=== PATIENT | male | born 1950 | race Caucasian/White ===

== ENCOUNTER 2018-10-28 20:07 | Emergency (ER) | payer OTHER ==
[2018-10-28] MEDS ORDERED: LIDOCAINE 5% TOPICAL PATCH TP ONE (20:32)
[2018-10-28] MEDS ORDERED: ACETAMINOPHEN 325 MG TAB ONE (21:09)
[2018-10-28 21:34] LABS: BASOPHILS % (AUTO) 1.3 % (0.0-5.0); EOSINOPHILS % (AUTO) 0.4 % (0.0-8.0); HEMATOCRIT 35.8 % (42-54); LYMPHOCYTES % (AUTO) 24.5 % (21.0-51.0); MEAN CORPUSCULAR HEMOGLOBIN 31.5 pg (27.0-33.0); MEAN CORPUSCULAR HGB CONC 34.6 g/dL (32.0-36.0); MEAN CORPUSCULAR VOLUME 91.1 fL (79-99); MONOCYTES % (AUTO) 5.3 % (3.0-13.0); NEUTROPHILS % (AUTO) 68.5 % (40.0-77.0); PLATELET COUNT (AUTO) 108 K/uL (130-400); RED BLOOD CELL COUNT(AUTO) 3.92 MIL/uL (4.50-6.20); RED CELL DISTRIBUTION WIDTH 13.4 % (11.0-15.5); WHITE BLOOD COUNT (AUTO) 6.7 K/uL (4.8-10.8)
[2018-10-28 21:40] LABS: CREATININE 1.5 mg/dL (0.5-1.5); POTASSIUM 5.1 mmol/L (3.5-5.1)
[2018-10-28 22:08] LABS: APPEARANCE,URINE Clear (CLEAR); BILIRUBIN,URINE Negative (NEGATIVE); COLOR,URINE Yellow (YELLOW); GLUCOSE, URINE (UA) Negative (NEGATIVE); KETONES,URINE Negative (NEGATIVE); LEUKOCYTE ESTERASE ,URINE Trace (NEGATIVE); NITRATE,URINE Negative (NEGATIVE); OCCULT BLOOD,URINE Negative (NEGATIVE); PROTEIN,URINE Negative (NEGATIVE)
[2018-10-28 22:22] LABS: BACTERIA,URINE Rare /HPF (None Seen); WBC,URINE 0-1 /HPF (0-1)
[2018-10-28] MEDS ORDERED: ORPHENADRINE CITRATE 30 MG/ML ML ONE (22:50)
[2018-10-28] MEDS ORDERED: KETOROLAC TROMETHAMINE 15MG/ML ONE (22:50)
[2018-10-28] MEDS ORDERED: MORPHINE SULFATE 2 MG/ML 1ML SYG ONE (22:51)
== END 2018-10-28 23:56 | disposition home or self-care (01) ==
LOC: EDH 20:07
DX: M54.5 Low back pain (principal); D64.9 Anemia, unspecified; D69.6 Thrombocytopenia, unspecified; E87.1 Hypo-osmolality and hyponatremia; I10 Essential (primary) hypertension; E78.5 Hyperlipidemia, unspecified; E03.9 Hypothyroidism, unspecified; Z98.890 Other specified postprocedural states; Z87.891 Personal history of nicotine dependence
CPT/HCPCS: 36415; 80048; 81001; 85025; 86140; 96374; 96375; 99284; J1885; J2360

== ENCOUNTER → 2019-06-21 | Outpatient (CLI) | payer OTHER | END | disposition home or self-care (01) | LOC: SHCH 09:51 | PROVIDERS: ATTEND Internal Medicine Cardiovascular Disease | DX: I65.23 Occlusion and stenosis of bilateral carotid arteries (principal) | CPT/HCPCS: 93880 ==

== ENCOUNTER → 2022-04-09 | Outpatient (CLI) | payer OTHER ==
[~2022-04-09] MED LIST: AEC81 PO; ATOR-2 PO; CHLO25TA3 PO; CHOL100020 PO; CYAN1000I PO; LEVO75CA5 PO; LOSA100T58 PO; METO-391 PO; OMEP20TA20 PO; POTA-202 PO; TAMS-1 PO
== END | disposition home or self-care (01) ==
LOC: SHCH 15:36
PROVIDERS: ATTEND Internal Medicine Cardiovascular Disease
DX: I65.23 Occlusion and stenosis of bilateral carotid arteries (principal)
CPT/HCPCS: 93880

== ENCOUNTER 2022-04-11 12:13 | Emergency (ER) | payer OTHER ==
[~2022-04-11] VITALS: Ht 165.1 cm; Wt 68.9 kg
[2022-04-11 12:21] VITALS: BP 106/56
[2022-04-11 13:34] LABS: BASOPHILS % (AUTO) 1.1 % (0.0-5.0); EOSINOPHILS % (AUTO) 1.8 % (0.0-8.0); HEMATOCRIT 27.2 % (42-54); LYMPHOCYTES % (AUTO) 43.8 % (21.0-51.0); MEAN CORPUSCULAR HEMOGLOBIN 30.7 pg (27.0-33.0); MEAN CORPUSCULAR HGB CONC 33.1 g/dL (32.0-36.0); MEAN CORPUSCULAR VOLUME 92.8 fL (79-99); MONOCYTES % (AUTO) 14.7 % (3.0-13.0); NEUTROPHILS % (AUTO) 38.4 % (40.0-77.0); PLATELET COUNT (AUTO) 74 K/uL (130-400); RED BLOOD CELL COUNT(AUTO) 2.93 MIL/uL (4.50-6.20); RED CELL DISTRIBUTION WIDTH 13.9 % (11.0-15.5); WHITE BLOOD COUNT (AUTO) 4.4 K/uL (4.8-10.8)
[2022-04-11 13:48] LABS: ALBUMIN 3.2 g/dL (3.5-5.0); CREATININE 2.8 mg/dL (0.5-1.5); POTASSIUM 5.3 mmol/L (3.5-5.1); TOTAL PROTEIN, SERUM 8.3 g/dL (6.0-8.3)
[2022-04-11] MEDS ORDERED: NA ZIRCON CYCLOSIL(LOKELMA 10GM) PO ONE (14:30)
== END 2022-04-11 15:06 | disposition home or self-care (01) ==
LOC: EDH 12:13
DX: N28.9 Disorder of kidney and ureter, unspecified (principal); E87.5 Hyperkalemia; I10 Essential (primary) hypertension; E78.00 Pure hypercholesterolemia, unspecified; Z79.82 Long term (current) use of aspirin; Z79.899 Other long term (current) drug therapy
CPT/HCPCS: 36415; 80053; 85025

== ENCOUNTER 2024-10-25 14:25 | Inpatient (IN) | payer MEDICARE, OTHER ==
[2024-10-25] VITALS (13 sets, daily range): BP systolic 74–106; BP diastolic 43–61; PULSE 75–87; RESP 15–17; TEMP 98.1; O2SAT 100
[~2024-10-25] VITALS: Ht 165.1 cm; Wt 73.5 kg
[~2024-10-25 14:25] MED LIST changes: -LEVO75CA5 PO; +LEVO75CA6 PO; -LOSA100T58 PO; +LOSA100T59 PO; -TAMS-1 PO; +TAMS-55 PO
--- NOTE | 2024-10-25 14:34 | ERN ---
ED Note History of Present Illness Stated Complaint: WEAK Chief Complaint: Fatigue Time Seen by MD: 14:26 Dictation: PATIENT IS A 74-YEAR-OLD MALE COMING IN TODAY WITH COMPLAINTS OF GENERALIZED BODY WEAKNESS AND FEELING WEAK AND NOT HIMSELF FOR THE LAST WEEK. HE DENIES FEV ER CHILLS NAUSEA VOMITING. NO MELENA STOOLS NO CHANGE IN URINATION. HE STATES HE HAS A HISTORY OF CAD, SEES DR. SOARES. ALSO HAS HYPERTENSION COPD AND HYPERCHOLESTEROLEMIA. HE IS A . Allergies: Coded Allergies: No Known Drug Allergies (Unverified Allergy, Unknown, 09/24/20) Home Meds Active Scripts Tamsulosin HCl (Flomax) 0.4 Mg Cap.er.24h, 0.4 MG PO DAILY for 30 Days, #[address] Prov:AINSLEY CARSON MD 09/27/20 Reported Medications Albuterol Sulfate (Ventolin Hfa) 90 Mcg Hfa.aer.ad, 2 PUFF IH Q4HPRN PRN for wheezing for 30 Days, #18 GM 0 Refills 10/25/24 Tiotropium [place] (Spiriva) 18 Mcg Cap.w.dev, 2 INH IH DAILY for 30 Days, #30 CAP 0 Refills 10/25/24 Tiotropium [place] (Spiriva) 18 Mcg Cap.w.dev, 1 CAP IH DAILY for 30 Days, #30 CAP 0 Refills 10/25/24 Pantoprazole Sodium (Pantoprazole Sodium) 40 Mg Tablet.dr, 1 TAB PO DAILY for 30 Days, #30 TAB 0 Refills 10/25/24 Clopidogrel Bisulfate (Clopidogrel) 75 Mg Tablet, 75 MG PO DAILY, TAB 10/25/24 Rosuvastatin Calcium (Rosuvastatin Calcium) 10 Mg Tablet, 20 MG PO HS, TAB 10/25/24 Losartan Potassium (Losartan Potassium) 50 Mg Tablet, 1 TAB PO DAILY for 30 Days, #30 TAB 0 Refills 10/25/24 Aspirin (ASPIRIN 81 MG ECTAB) 81 Mg Ectab, 81 MG PO DAILY, TAB.EC 09/24/20 Levothyroxine Sodium (Levothyroxine) 75 Mcg Capsule, 75 MCG PO DAILY, CAP 09/24/20 Cyanocobalamin (Vitamin B-12) 1,000 Mcg/Ml Inj, 1000 MCG PO DAILY, ML 09/24/20 Metoprolol Succinate (Metoprolol Succinate) 50 Mg Tab.er.24h, 50 MG PO BID, TAB 09/24/20 Discontinued Reported Medications Omeprazole (Omeprazole) 20 Mg Tablet.dr, 20 MG PO BID, TAB 09/24/20 Atorvastatin Calcium (Atorvastatin Calcium) 80 Mg Tablet, 80 MG PO DAILY, TAB 09/24/20 Chlorthalidone (Chlorthalidone) 25 Mg Tablet, 25 MG PO DAILY, TAB 09/24/20 Cholecalciferol (Vitamin D3) (Vitamin D3) 25 Mcg Tablet, 25 MCG PO DAILY, TAB 09/24/20 Losartan Potassium (Losartan Potassium) 100 Mg Tablet, 100 MG PO DAILY, TAB 09/24/20 Potassium Chloride (Potassium Chloride) 20 Meq Tab.er.prt, 20 MEQ PO DAILY 09/24/20 Past Medical History Past Medical History: High Cholesterol, Hypertension Surgical History: CABG RN Note Reviewed/Agreed w/PFSH: Yes Review of System Dictation CONSTITUTIONAL: NEGATIVE EXCEPT FOR HPI HEAD/FACE: NEGATIVE EXCEPT FOR HPI EENT: NEGATIVE EXCEPT FOR HPI RESPIRATORY: NEGATIVE EXCEPT FOR HPI GASTROINTESTINAL/ABDOMINAL: NEGATIVE EXCEPT FOR HPI GENITOURINARY: NEGATIVE EXCEPT FOR HPI MUSCULOSKELETAL: NEGATIVE EXCEPT FOR HPI INTEGUMENTARY: NEGATIVE EXCEPT FOR HPI NEUROLOGICAL/PSYCH: NEGATIVE EXCEPT FOR HPI HEMATOLOGIC/LYMPHATIC: NEGATIVE EXCEPT FOR HPI ALL SYSTEMS NEGATIVE, EXCEPT NOTED ABOVE. 13 POINT REVIEW OF SYSTEMS ASSESSED AND ALL NEGATIVE EXCEPT FOR ABOVE. Initial Vital Sign VS Vital Signs Date Time Temp Pulse Resp B/P (MAP) Pulse Ox O2 Delivery O2 Flow Rate FiO2 10/25/24 14:26 97.5 46 18 97 Room Air 10/25/24 14:47 0 21 Physical Exam Dictation VITAL SIGNS REVIEWED GENERAL APPEARANCE: ALERT, ORIENTED X 3, NO ACUTE DISTRESS, WELL DEVELOPED, NOURISHED. HEAD AND FACE: NON-TRAUMATIC. EYES: PERRL, PINK CONJUNCTIVAS, EYELID NO TRAUMA, ANTERIOR CHAMBER WITH ARCUS SENILIS. EARS: PINNAS INTACT AND NO SIGNS OF TRAUMA OR ERYTHEMA EAR CANALS CLEAR AND NO DISCHARGE TM NO ERYTHEMA NOSE: NO DISCHARGE, NO BLEEDING. OROPHARYNX: MOUTH NORMAL, TONGUE PINK, PHARYNX CLEAR,NO ERYTHEMA, TONSILS NO EXUDATES, NO ABSCESSES NOTED, MUCOUS MEMBRANE MOIST NECK: SUPPLE, NON-TENDER, NO THYROMEGALY, NO MASSES, NO JVD, NO BRUITS BREAST:DEFERRED CHEST:NO TENDERNESS, NO CREPITUS, NO PARADOXICAL MOVEMENT, NO RETRACTIONS LUNGS:CLEAR, WELL-VENTILATED, SYMMETRIC, NO RALES, NO WHEEZING, NO RHONCHI, NO STRIDOR, GOOD BREATH SOUNDS BILATERALLY HEART: REGULAR RATE, REGULAR RHYTHM, NO MURMUR, NO GALLOPS VASCULAR: TRACE PERIPHERAL EDEMA BILATERAL LOWER EXTREMITIES, ABDOMEN: SOFT, POSITIVE BOWEL SOUNDS, NONDISTENDED, NO GUARDING, NONTENDER, NO REBOUND, NO MASSES NO HEPATOMEGALY, NO SPLENOMEGALY, NO WHITFIELD'S SIGN, NO HERNIAS. RECTAL: DEFERRED GENITAL: DEFERRED NEUROLOGICAL: NORMAL SPEECH, MOTOR FUNCTION INTACT, SENSORY FUNCTION INTACT MUSCULOSKELETAL: NECK NONTENDER, FULL RANGE OF MOTION, BACK NONTENDER, FULL RANGE OF MOTION, EXTREMITIES: NONTENDER, FULL RANGE OF MOTION SKIN: COLOR PINK, DRY, NO TURGOR, NO RASH, NO LACERATIONS, NO ABRASIONS, NO CONTUSIONS. LYMPHATIC: DEFERRED Results (Laboratory/Radiology) Laboratory/Radiology Laboratory Tests Test 10/25/24 14:30 10/25/24 14:43 10/25/24 20:00 10/25/24 20:01 Influenza Type A Antigen Negative For Type A Influenza Type B Antigen Negative For Type B SARS-CoV-2 Antigen (Rapid) PRESUMPTIVE NEGATIVE White Blood Count 6.9 K/uL (4.8-10.8) Red Blood Count 3.44 MIL/uL (4.50-6.20) L Hemoglobin 10.7 g/dL (14.0-18.0) L Hematocrit 33.4 % (42-54) L Mean Corpuscular Volume 97.1 fL (79-99) Mean Corpuscular Hemoglobin 31.1 pg (27.0-33.0) Mean Corpuscular Hemoglobin Concent 32.0 g/dL (32.0-36.0) Red Cell Distribution Width 13.3 % (11.0-15.5) Platelet Count 95 K/uL (130-400) L Mean Platelet Volume 10.7 fL (7.5-10.5) H Immature Granulocyte % (Auto) 0.3 % (0-1) Neutrophils (%) (Auto) 59.6 % (40.0-77.0) Lymphocytes (%) (Auto) 33.6 % (21.0-51.0) Monocytes (%) (Auto) 5.8 % (3.0-13.0) Eosinophils (%) (Auto) 0.3 % (0.0-8.0) Basophils (%) (Auto) 0.4 % (0.0-5.0) Neutrophils # (Auto) 4.1 K/uL (1.8-7.7) Lymphocytes # (Auto) 2.3 K/uL (1.0-4.8) Monocytes # (Auto) 0.4 K/uL (0.1-1.0) Eosinophils # (Auto) 0.02 K/uL (0.00-0.70) Basophils # (Auto) 0.03 K/uL (0.00-0.20) Absolute Immature Granulocyte (auto 0.02 K/uL (0-1) Nucleated Red Blood Cells 0.0 % (0.0-0.19) Prothrombin Time 11.0 SEC (9.6-11.6) Prothromb Time International Ratio 1.04 (0.85-1.15) Activated Partial Thromboplast Time 28.2 SEC (26.3-35.5) D-Dimer Quantitative (PE/DVT) 964 ng/mL (0-500) *H Sodium Level 133 mmol/L (136-145) L Potassium Level 4.2 mmol/L (3.5-5.1) Chloride Level 100 mmol/L (101-111) L Carbon Dioxide Level 19 mmol/L (21-32) L Blood Urea Nitrogen 28 mg/dL (7-18) H Creatinine 3.3 mg/dL (0.5-1.3) H Glomerular Filtration Rate Calc 19 mL/min (>90) Random Glucose 123 mg/dL (70-105) H Lactic Acid Level 4.0 mmol/L (0.8-2.5) H Total Calcium 9.2 mg/dL (8.5-10.1) Magnesium Level 1.60 mg/dL (1.80-2.40) L Troponin I High Sensitivity 15 ng/L (4-75) B-Type Natriuretic Peptide 949 pg/mL (0-100) H Urine Random Creatinine 92.99 mg/dL (30-135) Urine Random Sodium 32 mmol/l (40-220) L Urine Color YELLOW (YELLOW) Urine Appearance CLOUDY (CLEAR) H Urine pH 6.0 (5.0-8.0) Urine Specific Ragan 1.010 (1.001-1.031) Urine Protein 100 mg/dL (NEGATIVE) H Urine Glucose (UA) NEGATIVE mg/dL (NEGATIVE) Urine Ketones NEGATIVE mg/dL (NEGATIVE) Urine Occult Blood MODERATE (NEGATIVE) H Urine Nitrate NEGATIVE (NEGATIVE) Urine Bilirubin NEGATIVE mg/dL (NEGATIVE) Urine Urobilinogen 0.2 mg/dL (0.2-1.0) Urine Leukocyte Esterase 500 Miranda/uL (NEGATIVE) H Urine RBC 11-25 /HPF (0-1) H Urine WBC TNTC /HPF (0-1) H Urine WBC Clumps (Auto) MANY /HPF (0-1) Urine Squamous Epithelial Cells RARE /HPF (0-2) Urine Bacteria None /HPF (None Seen) Test 10/25/24 20:09 10/26/24 01:05 10/26/24 04:00 Lactic Acid Level 1.9 mmol/L (0.8-2.5) 1.2 mmol/L (0.8-2.5) Prothrombin Time 12.0 SEC (9.6-11.6) H Prothromb Time International Ratio 1.15 (0.85-1.15) Activated Partial Thromboplast Time > 139.0 SEC (26.3-35.5) White Blood Count 8.0 K/uL (4.8-10.8) Red Blood Count 3.29 MIL/uL (4.50-6.20) L Hemoglobin 10.3 g/dL (14.0-18.0) L Hematocrit 30.9 % (42-54) L Mean Corpuscular Volume 93.9 fL (79-99) Mean Corpuscular Hemoglobin 31.3 pg (27.0-33.0) Mean Corpuscular Hemoglobin Concent 33.3 g/dL (32.0-36.0) Red Cell Distribution Width 13.4 % (11.0-15.5) Platelet Count 115 K/uL (130-400) L Mean Platelet Volume 12.0 fL (7.5-10.5) H Immature Granulocyte % (Auto) 0.4 % (0-1) Neutrophils (%) (Auto) 68.9 % (40.0-77.0) Lymphocytes (%) (Auto) 23.3 % (21.0-51.0) Monocytes (%) (Auto) 6.9 % (3.0-13.0) Eosinophils (%) (Auto) 0.0 % (0.0-8.0) Basophils (%) (Auto) 0.5 % (0.0-5.0) Neutrophils # (Auto) 5.5 K/uL (1.8-7.7) Lymphocytes # (Auto) 1.9 K/uL (1.0-4.8) Monocytes # (Auto) 0.6 K/uL (0.1-1.0) Eosinophils # (Auto) 0.00 K/uL (0.00-0.70) Basophils # (Auto) 0.04 K/uL (0.00-0.20) Absolute Immature Granulocyte (auto 0.03 K/uL (0-1) Nucleated Red Blood Cells 0.0 % (0.0-0.19) Sodium Level 134 mmol/L (136-145) L Potassium Level 4.0 mmol/L (3.5-5.1) Chloride Level 103 mmol/L (101-111) Carbon Dioxide Level 17 mmol/L (21-32) L Blood Urea Nitrogen 32 mg/dL (7-18) H Creatinine 3.0 mg/dL (0.5-1.3) H Glomerular Filtration Rate Calc 21 mL/min (>90) Random Glucose 140 mg/dL (70-105) H Total Calcium 8.3 mg/dL (8.5-10.1) L Phosphorus Level 4.0 mg/dL (2.5-4.9) Magnesium Level 1.90 mg/dL (1.80-2.40) Thyroid Stimulating Hormone (TSH) 2.24 uIU/mL (0.36-3.74) Examination: Chest, 1 view Clinical history: Chest pain Comparison: Radiograph dated September 24, 2020 Findings: AP view of the chest is submitted. Lungs are clear. No pleural effusion or pneumothorax. Prior sternotomy. Heart size and pulmonary vessels are within normal limits. Impression: No acute cardiopulmonary process. /[place] Labs Reviewed?: Yes EKG Comment: EKG ATRIAL FIBRILLATION/VENTRICULAR RATE 14 ED Course ED Course Orders Procedure Category Date Status Time B-Type Natriuretic LAB 10/25/24 Complete Peptide 14:29 Covid19 (Sars Antigen LAB 10/25/24 Complete Rapid) 14:29 Cbc With Differential LAB 10/25/24 Complete 14:29 Chest 1vw RAD 10/25/24 Resulted 14:29 12 Lead Ekg Tracing- EKG 10/25/24 Logged Technical 14:29 Magnesium LAB 10/25/24 Complete 14:29 Troponin I High LAB 10/25/24 Complete Sensitivity 14:29 Urinalysis Profile LAB 10/25/24 Complete 14:29 Basic Metabolic Panel LAB 10/25/24 Complete 14:29 0.9%Nacl 1000ml (Ns PHA 10/25/24 Complete 1000ml) 15:00 0.9%Nacl 1000ml (Ns PHA 10/25/24 Complete 1000ml) 14:47 0.9%Nacl 1000ml (Ns PHA 10/25/24 Complete 1000ml) 15:00 Blood Cult CORINNE 10/25/24 In Process 14:49 Lactic Acid LAB 10/25/24 Complete 14:49 Influenza Type A & B, LAB 10/25/24 Complete Rapid 14:56 Magnesium 2gm Premix PHA 10/25/24 Complete 50ml (Magnesium 2gm 15:30 Dobutamine 250mg/D5 PHA 10/25/24 In Process 250ml (Dobutamine 25 16:00 Heparin 25,000 PHA 10/25/24 In Process Units/250ml D5w 16:00 Initiate Amiodarone XIANG 10/25/24 In Process Administra 15:44 Amiodarone PHA 10/25/24 Complete 150mg/100ml Bag 16:00 Amiodarone PHA 10/25/24 In Process 360mg/200ml Bag 16:00 Dextrose 5%-Water PHA 10/25/24 In Process (... W/Amiodarone 900m 22:00 Echo 2-D Complete ECHO 10/25/24 Taken 15:50 Midazolam Hcl (Versed) PHA 10/25/24 Complete 17:30 Fentanyl Citrate Pf PHA 10/25/24 Complete 0.05 Mg/Ml (Fentanyl 17:30 Ondansetron 4mg Inj PHA 10/25/24 Complete (Zofran 4mg Inj) 17:30 Ondansetron 4mg Inj PHA 10/25/24 Complete (Zofran 4mg Inj) 17:30 Norepinephrin 4mg/Ns PHA 10/25/24 Complete 250ml (Levophed 4mg 17:45 D-Dimer LAB 10/25/24 Complete 17:46 Ceftriaxone 1g Vial PHA 10/25/24 Complete (Rocephine 1g Inj) 18:00 Pt And Ptt LAB 10/25/24 Complete 17:57 Norepinephrin 4mg/Ns PHA 10/25/24 In Process 250ml (Levophed 4mg 18:00 Heparin 5,000 Unit PHA 10/25/24 Complete Vial (Heparin 5,000 U 18:30 Admit Orders ADM 10/25/24 Transmitted 18:14 Cardiology Consult CONPHYSVC 10/25/24 Transmitted 18:14 Critcal Care Consult CONPHYSVC 10/25/24 Transmitted 18:14 Strict I&O CPOE 10/25/24 Transmitted 18:36 Daily Weights CPOE 10/25/24 Transmitted 18:36 Furosemide 40mg Vial PHA 10/25/24 In Process (Lasix 40mg Vial) 19:00 Pt And Ptt LAB 10/26/24 Complete 01:00 Lactic Acid LAB 10/25/24 Complete 20:01 Culture Urine CORINNE 10/25/24 In Process 20:40 Nurse Driven Galindo XIANG 10/25/24 In Process Removal Pro 20:42 Basic Metabolic Panel LAB 10/26/24 Complete 04:00 Cbc With Differential LAB 10/26/24 Complete 04:00 Magnesium LAB 10/26/24 Complete 04:00 Phosphorus LAB 10/26/24 Complete 04:00 Urine Sodium,Random LAB 10/25/24 Complete 20:45 Urine Creatinine LAB 10/25/24 Complete Random 20:45 Osmolality Urine LAB 10/25/24 In Process 20:45 Lactic Acid LAB 10/26/24 Complete 04:00 Zosyn 3.375gm+Ns 50ml PHA 10/25/24 In Process (Zosyn 3.375gm+Ns 21:00 Magnesium 2gm Premix PHA 10/25/24 In Process 50ml (Magnesium 2gm 21:00 Acetaminophen 325 Tab PHA 10/25/24 In Process (Tylenol 325mg Tab 21:00 Heparin 5,000 Unit PHA 10/25/24 Complete Vial (Heparin 5,000 U 21:00 Ondansetron 4mg Inj PHA 10/25/24 In Process (Zofran 4mg Inj) 21:00 Pantoprazole 40mg Inj PHA 10/26/24 In Process (Protonix 40mg Inj 09:00 Morphine 2mg Syg PHA 10/25/24 In Process (Morphine 2mg Syg) 21:00 Nephrology Consult CONPHYSVC 10/25/24 Transmitted 21:02 Thyroid Stimulating LAB 10/26/24 Complete Hormone 04:00 Nicotine 14mg Patch PHA 10/26/24 Complete (Nicoderm) 01:00 Nicotine 14mg Patch PHA 10/27/24 In Process (Nicoderm) 09:00 Current Medications Medications (Trade) Dose Ordered Sig/Gustavo Route PRN Reason Start Time Stop Time Status Last Admin Dose Admin Amiodarone HCL/ Dextrose 100 ml @ 600 mls/hr ONCE ONCE IV 10/25/24 16:00 10/25/24 16:09 DC 10/25/24 16:24 Amiodarone HCL/ Dextrose 200 ml @ 33.333 mls/ hr AD IV 10/25/24 16:00 11/24/24 15:59 10/25/24 17:42 Ceftriaxone Sodium (ROCEphine 1G INJ) 1 gm ONCE ONCE IVPB 10/25/24 18:00 10/25/24 18:01 DC 10/25/24 18:59 Dobutamine HCl/ Dextrose 250 ml @ 0 mls/hr PROTOCOL IV 10/25/24 16:00 11/24/24 15:59 10/25/24 16:22 Fentanyl Citrate (FENTanyl CITRate PF 50 MCG/ 1 ML 2ML VIAL) 25 mcg ONCE ONCE IVP 10/25/24 17:30 10/25/24 17:31 DC 10/25/24 17:37 Heparin Sodium/ Dextrose 250 ml @ 0 mls/hr PROTOCOL IV 10/25/24 16:00 11/24/24 15:59 10/25/24 19:01 Magnesium Sulfate 50 ml @ 0 mls/hr PROTOCOL IV 10/25/24 15:30 10/25/24 21:00 DC 10/25/24 16:27 Midazolam HCl (Versed) 1 mg ONCE ONCE IVP 10/25/24 17:30 10/25/24 17:31 DC 10/25/24 17:37 Norepinephrine 250 ml @ As Directed STK-MED ONCE IV 10/25/24 17:45 10/25/24 17:45 DC Norepinephrine 250 ml @ 0 mls/hr PROTOCOL IV 10/25/24 18:00 11/24/24 17:59 10/26/24 03:43 Ondansetron HCl (zoFRAN 4MG INJ) 4 mg ONCE ONCE IVP 10/25/24 17:30 10/25/24 17:27 DC Ondansetron HCl (zoFRAN 4MG INJ) 4 mg ONCE ONCE IVP 10/25/24 17:30 10/25/24 17:31 DC 10/25/24 17:32 Sodium Chloride 1,000 ml @ 0 mls/hr ONCE ONCE IV 10/25/24 15:00 10/25/24 14:52 DC Sodium Chloride 1,000 ml @ 0 mls/hr ONCE ONCE IV 10/25/24 15:00 10/25/24 15:01 DC 10/25/24 14:49 Sodium Chloride 1,000 ml @ As Directed STK-MED ONCE IV 10/25/24 14:47 10/25/24 14:49 DC Vital Signs Date Time Temp Pulse Resp B/P (MAP) Pulse Ox O2 Delivery O2 Flow Rate FiO2 10/26/24 05:26 84 15 94/52 (66) 100 28 84/50 (61) 10/26/24 05:11 70 17 93/50 (64) 99 28 89/54 (66) 10/26/24 04:56 77 16 96/53 (67) 100 28 98/48 (65) 10/26/24 04:42 81 17 90/48 (62) 100 28 78/53 (61) 10/26/24 04:26 81 17 90/49 (63) 100 28 103/59 (74) 10/26/24 04:11 74 17 88/50 (63) 100 28 96/50 (65) 10/26/24 04:00 98.2 10/26/24 03:56 105 17 87/54 (65) 99 28 103/44 (63) 10/26/24 03:43 95/55 10/26/24 03:42 100 17 113/64 (80) 99 28 102/62 (75) 10/26/24 03:26 91 15 102/62 (75) 99 28 90/49 (63) 10/26/24 03:11 78 16 107/60 (76) 99 28 108/55 (72) 10/26/24 03:00 100 Nasal Cannula* 2 28 10/26/24 02:56 90 18 99/60 (73) 100 28 103/57 (72) 10/26/24 02:41 83 17 97/58 (71) 100 28 111/53 (72) 10/26/24 02:26 91 18 102/61 (75) 100 28 109/53 (71) 10/26/24 02:11 89 16 97/66 (76) 100 28 105/60 (75) 10/26/24 01:56 94 17 105/63 (77) 100 28 105/35 (58) 10/26/24 01:41 86 17 93/59 (70) 100 28 101/63 (76) 10/26/24 01:26 76 17 88/59 (69) 100 28 107/64 (78) 10/26/24 01:11 84 17 92/63 (73) 100 28 102/68 (79) 10/26/24 00:56 79 17 102/53 (69) 100 28 95/55 (68) 10/26/24 00:41 80 17 103/57 (72) 99 28 116/55 (75) 10/26/24 00:26 88 17 101/54 (70) 100 28 105/56 (72) 10/26/24 00:11 78 16 90/57 (68) 100 28 109/80 (90) 10/25/24 23:56 81 17 90/61 (71) 100 28 106/48 (67) 10/25/24 23:41 75 16 94/53 (67) 100 28 97/53 (68) 10/25/24 23:26 75 16 96/53 (67) 100 28 99/59 (72) 10/25/24 23:11 77 17 82/52 (62) 100 28 95/60 (72) 10/25/24 23:00 100 Nasal Cannula* 2 28 10/25/24 22:56 79 16 87/56 (66) 100 28 103/51 (68) 10/25/24 22:41 76 15 90/56 (67) 100 28 97/56 (70) 10/25/24 22:26 75 16 77/46 (56) 99 28 94/53 (67) 10/25/24 22:16 108/62 10/25/24 22:12 76 16 88/57 (67) 100 28 98/59 (72) 10/25/24 22:00 98.1 10/25/24 21:56 87 15 96/55 (69) 99 28 105/58 (74) 10/25/24 21:41 80 15 94/55 (68) 100 28 95/61 (72) 10/25/24 21:29 84 17 74/43 (53) 99 28 100/56 (71) 10/25/24 21:05 97.5 87 16 108/62 100 Nasal Cannula* 2 10/25/24 20:09 97.3 80 18 110/60 100 Nasal Cannula* 2 10/25/24 19:13 97.9 77 18 97/67 100 Nasal Cannula* 2 10/25/24 18:41 97.9 86 18 116/66 97 Nasal Cannula* 2 10/25/24 18:23 97.9 98 18 110/61 97 Nasal Cannula* 2 10/25/24 18:19 91/36 10/25/24 18:03 97.9 95 18 109/60 100 Nasal Cannula* 2 10/25/24 17:58 115/60 10/25/24 17:35 97.5 154 18 72/65 97 Nasal Cannula* 6 44 10/25/24 17:01 97.5 163 18 107/56 97 Nasal Cannula* 2 10/25/24 16:57 97.5 165 18 103/56 97 Nasal Cannula* 2 10/25/24 16:38 97.5 114 18 51/29 100 Nasal Cannula* 2 10/25/24 16:28 97.5 149 26 71/46 97 Room Air* 0 10/25/24 16:22 65/38 10/25/24 15:20 97.5 140 26 82/44 95 Room Air* 0 10/25/24 14:47 81 18 76/47 94 Room Air* 0 10/25/24 14:26 97.5 46 18 97 Room Air 1450/PATIENT HAD ATRIAL FIBRILLATION WITH RAPID VENTRICULAR RESPONSE PLACE HEART RATE 144 PATIENT HYPOTENSIVE 76/47. DISCUSSED CASE WITH . WE WILL GIVE1 L OF NORMAL SALINE TO BRING UP BLOOD PRESSURE. THEN RATE WE WILL BE ADDRESSED ONCE PATIENT IS MORE HEMODYNAMICALLY STABLE. Medical Decision Making MDM Chief complaint is general body weakness, and near syncopal episodes Comorbidities include previous CABG, COPD, dyslipidemia No limitations Initially patient initially patient has a an extremities. His blood pressure is 70/48, heart rate in the 140s atrial fibrillation with RVR. Patient received 1.5 L of fluid. The heart rate did not respond. Blood pressure did not respond. Patient given a bolus of amiodarone. Cardioverted the patient. The rate reduced to 90 but the blood pressure remained unstable. Cardiogenic shock. Started on norepinephrine. Started on heparin. His symptoms have been present for two weeks or so, he has likely been in AFib for that long high-risk for clots. Started on amiodarone drip. I do not see any signs of sepsis or any signs of the obstructive pathology. We will get a D-dimer to investigate for PE although he has a stable oxygen saturation I have low suspicion. He had received a dose of antibiotics in the ER. Consultation: I spoke with Dr. Mayo, regional transportation manager multiple times. Reviewed the case. We agreed that the patient has a good candidate for cardioversion since he is in cardiogenic shock possibly due to the amiodarone. He performed a bedside echo with a me at the bedside, EF is probably 20-25%. Consultation: ICU team for admission. Consultation: Hospitalist. Procedure Additional Procedures: cardioversion/defib (Synchronized cardioversionIndication AFib RVR in cardiogenic shockPatient given 25 mcg of fentanyl, 1 mg of Versed. The blood pressure was monitored by the nursing tom TOLEDO at bedside. Patient received two different shocks at 200 joules. On the 2nd round, the patient's heart rate decreased to 90, but remained atrial fibrillation. Blood pressure remained in stable. Started on pressors. Total time 2 minutes. Performed by me. The patient was consented prior to the procedure and risks and benefits explained. Consent in the chart.) Critical Care Note Critical Time: 30 minutes (Critical Care Procedure NoteAuthorized and Performed by: meTotal critical care time: Approximately 36 minutesDue to a high probability of clinically significant, life threatening deterioration, the patient required my highest level of preparedness to intervene emergently and I personally spent this critical care time directly and personally managing the patient. This critical care time included obtaining a history; examining the patient; pulse oximetry; ordering and review of studies; arranging urgent treatment with development of a management plan; evaluation of patient's response to treatment; frequent reassessment; and, discussions with other providers.This critical care time was performed to assess and manage the high probability of imminent, life-threatening deterioration that could result in multi-organ failure. It was exclusive of separately billable procedures and treating other patients and teaching time.Please see MDM section and the rest of the note for further information on patient assessment and treatment.) DX & DISP Disposition: Inpatient Departure Impression: Primary Impression: Atrial fibrillation with RVR Additional Impressions: Cardiogenic shock, Lactic acidosis Condition: Critical Referrals: ROGER HOWELL MD (PCP) I performed a substantive portion of the visit. I have reviewed and personally made and approve the management plan that is documented in the notes by myself with AYUSH/resident. I acknowledged full responsibility for the patient's management plan. FENG SALAZAR NP Oct 25, 2024 14:34 ELIZABETH RG DO Oct 25, 2024 17:59
[2024-10-25] MEDS: 0.9%NACL 1000ML 1,000 ML IV ONE ×2 (14:49→15:06)
[2024-10-25 14:56] LABS: IMMATURE GRANULOCYTE ABSOLUTE 0.02 K/uL (0-1); NUCLEATED RED BLOOD CELLS 0.0 % (0.0-0.19); PLATELET COUNT (AUTO) 95 K/uL (130-400); RED BLOOD CELL COUNT(AUTO) 3.44 MIL/uL (4.50-6.20); RED CELL DISTRIBUTION WIDTH 13.3 % (11.0-15.5); WHITE BLOOD COUNT (AUTO) 6.9 K/uL (4.8-10.8)
[2024-10-25] MEDS ORDERED: 0.9%NACL 1000ML 1,000 ML IV ONE (15:00)
[2024-10-25 15:12] LABS: CREATININE 3.3 mg/dL (0.5-1.3); GLOMERULAR FILTR. RATE CALC 19.0 mL/min (>90); GLUCOSE,RANDOM 123.0 mg/dL (70-105); SODIUM SERUM 133.0 mmol/L (136-145); UREA NITROGEN, BLOOD 28.0 mg/dL (7-18)
[2024-10-25 15:17] LABS: INFLUENZA TYPE A Negative For Type A (NEGATIVE); INFLUENZA TYPE B Negative For Type B (NEGATIVE)
--- NOTE | 2024-10-25 15:25 | HMCIMG ---
Examination: Chest, 1 view Clinical history: Chest pain Comparison: Radiograph dated September 24, 2020 Findings: AP view of the chest is submitted. Lungs are clear. No pleural effusion or pneumothorax. Prior sternotomy. Heart size and pulmonary vessels are within normal limits. Impression: No acute cardiopulmonary process. /[place]
[2024-10-25] MEDS: AMIOdarone 150MG/100ML BAG 100 ML IV ONE (16:24)
[2024-10-25] MEDS: MAGNESIUM 2GM PREMIX 50ML 50 ML IV SCH (16:27)
--- NOTE | 2024-10-25 16:40 | NUR ---
AMIODORONE BOLUS COMPLETE VITALS OBTAINED
--- NOTE | 2024-10-25 17:23 | NUR ---
CALLED KATHI PER PATIENT PERMISSION TO GIVE UPDATE ON PATIENT STATUS AND PROCEDURES
--- NOTE | 2024-10-25 17:36 | NUR ---
CARDIOVERT 200J PRIMARY NURSE CHARGE NURSE AND ER DR AT [facility]
[2024-10-25] MEDS: MIDAZOLAM HCL 1 MG/ML 2ML VIAL IVP ONE (17:37)
--- NOTE | 2024-10-25 17:39 | NUR ---
CARDIOVERT 200J (SECOND) PRIMARY NURSE CHARGE NURSE AND ER DR AT BEDSIDE
[2024-10-25] MEDS: AMIODARONE 360MG/200ML BAG 200 ML IV SCH (17:42)
--- NOTE | 2024-10-25 17:45 | NUR ---
DR MONREAL CONSULTED
--- NOTE | 2024-10-25 17:50 | NUR ---
DOBUTAMINE STOPPED AT THIS TIME
--- NOTE | 2024-10-25 18:10 | NUR ---
DR MONREAL AT BEDSIDE
--- NOTE | 2024-10-25 18:16 | HP ---
History of Present Illness Reason for Visit: fatigue History of Present Illness Mr. Tinoco is a 74-year-old male that was seen and examined today on 10/25/2024. Patient is a good historian of personal health Patient reports that he came to the emergency department with a chief complaint of weakness. Onset was 10 days ago. Location is to bilateral lower extremities. Duration is constant. Character is described as " trouble walking."There was no alleviating factors. Symptoms are aggravated with physical activity. Patient reports associated fatigue. Today in the emergency department patient presented with a blood pressure 70/27, subsequent blood pressure 65/38, 51/29 mmHg. Patient's EKG showed AFib with a RVR. Patient was started on amiodarone drip and this did not help. Patient was also started on dobutamine drip is did not help. Patient required vasopressor support with Levophed. Cardiology service was contacted for recommendations. Synchronized cardioversion was recommended which did not improve patient's blood pressure either. Additionally patient received 2 L of 0.9% NS in the emergency department. Labs showed creatinine 3.3, BUN 28, GFR 19, lactic acid 4.0, BNP 949, magnesium 1.6, no urinalysis has been collected or sent to lab chest x-ray is unremarkable. Emergency room physician recommended that patient be admitted with a diagnosis of AFib RVR with hypotension. Past Medical History ADDITIONAL PAST MEDICAL HISTORY: [Hyperlipidemia, CAD, hypertension, hypothyroidism, CKD stage IIIB] SOCIAL HISTORY: Patient smokes half a pack of cigarettes daily, patient drinks alcohol once a week usually two cocktails that include [employer] whiskey. Patient denies drug use. SURGICAL HISTORY: [CABG, heart stent, CVA, RICE, LICE] Review of Systems General: No Fever, No Chills, No Night Sweats, No Fatigue, No Malaise, No Appetite, No Other HEENT: No Head Aches, No Visual Changes, No Eye Pain, No Ear Pain, No Dysphasia, No Sinus Congestion, No Post Nasal Drip, No Sore Throat, No Other Pulmonary: No Dyspnea, No Cough, No Pleuritic Chest Pain, No Other Cardiovascular: No: Chest Pain, Palpitations, Orthopnea, Paroxysmal Noc. Dyspnea, Edema, Lt Headedness, Other Gastrointestinal: No: Nausea, Vomiting, Abdominal Pain, Diarrhea, Constipation, Melena, Hematochezia, Other Genitourinary: No Dysuria, No Frequency, No Incontinence, No Hematuria, No Retention, No Other Musculoskeletal: No: other, neck pain, shoulder pain, arm pain, back pain, hand pain, leg pain, foot pain Skin: No Urticaria, No Rash, No Other Neurological: Weakness; No: Numbness, Incoordination, Change in speech, Confusion, Seizures, Other Allergies: Coded Allergies: No Known Drug Allergies (Unverified Allergy, Unknown, 09/24/20) Scheduled Aspirin (Aspirin 81 Mg Ectab), 81 MG PO DAILY, (Reported) Clopidogrel Bisulfate (Clopidogrel), 75 MG PO DAILY, (Reported) Cyanocobalamin (Vitamin B-12), 1,000 MCG PO DAILY, (Reported) Levothyroxine Sodium (Levothyroxine), 75 MCG PO DAILY, (Reported) Losartan Potassium (Losartan Potassium), 1 TAB PO DAILY, (Reported) Metoprolol Succinate (Metoprolol Succinate), 50 MG PO BID, (Reported) Pantoprazole Sodium (Pantoprazole Sodium), 1 TAB PO DAILY, (Reported) Rosuvastatin Calcium (Rosuvastatin Calcium), 20 MG PO HS, (Reported) Tamsulosin HCl (Flomax), 0.4 MG PO DAILY Tiotropium [place] (Spiriva), 1 CAP IH DAILY, (Reported) Tiotropium [place] (Spiriva), 2 INH IH DAILY, (Reported) Scheduled PRN Albuterol Sulfate (Ventolin Hfa), 2 PUFF IH Q4HPRN PRN for wheezing, (Reported) Discontinued Medications Atorvastatin Calcium (Atorvastatin Calcium), 80 MG PO DAILY, (Reported) Chlorthalidone (Chlorthalidone), 25 MG PO DAILY, (Reported) Cholecalciferol (Vitamin D3) (Vitamin D3), 25 MCG PO DAILY, (Reported) Losartan Potassium (Losartan Potassium), 100 MG PO DAILY, (Reported) Omeprazole (Omeprazole), 20 MG PO BID, (Reported) Potassium Chloride (Potassium Chloride), 20 MEQ PO DAILY, (Reported) Exam Vital Signs Vital Signs Date Time Temp Pulse Resp B/P (MAP) Pulse Ox O2 Delivery O2 Flow Rate FiO2 10/25/24 18:03 97.9 95 18 109/60 100 Nasal Cannula* 2 28 General Appearance: Alert, Cooperative, severe distress HEENT: Atraumatic, EOMI Respiratory: Clear to auscultation, Normal air movement, NL respiratory effort Cardiovascular: Normal S1, Normal S2, Other (Atrial fibrillation) Abdominal: Normal bowel sounds, Soft, No tenderness Extremities: No edema Skin: No significant lesion Neuro: Normal speech, Sensation intact, Cranial nerves 3-12 NL Psych/Mental Status: Mental status NL, Mood NL, Thoughts/Content NL Assessment/Plan ASSESSMENT: [ AFib with a RVR, POA, refractory Hypotension, POA Acute kidney injury, POA, today creatinine 3.3, on 04/11/2022 creatinine 2.8 Lactic acidosis, POA Elevated BNP, POA Hypomagnesemia, POA Hyperlipidemia Hypothyroidism] Tobacco dependence, POA PLAN: [ Admit patient to intensive care unit as inpatient status. Place patient on telemetry monitoring. Patient will be followed by critical care service. AFib with a RVR: Continue amiodarone drip per emergency room orders and Cardiology recommendations. Patient received synchronized cardioversion in the emergency department which did not improve AFib with RVR Continue heparin drip per emergency room orders Hypotension: Consider Levophed per emergency room monitors. Further vasopressor support recommendations from critical care service has been Acute kidney injury: Calculate FENA Check urine sodium, creatinine, osmolality Avoid nephrotoxic agents when possible Renally dose all medications when possible Consult Nephrology for evaluation and further recommendations. Judicious use of IV fluids as preliminary 2D echo patient has decreased systolic function with LVEF 20-25% Monitor patient's labs. Weight patient daily. Monitor intake and output. Lactic acidosis: Patient received 2 L 0.9% NS in the emergency department. Check procalcitonin, follow up with the results Repeat lactic acid in a.m. Check blood culture, follow up with the results Check urinalysis, follow up with the results Elevated BNP: 2D echo has been ordered by Cardiology Service. Preliminary reading shows systolic dysfunction with LVEF 20-25% Follow up with official 2D echo report Hypomagnesemia: Replace magnesium per hospital protocol. Further electrolyte replacement per Nephrology recommendations Hyperlipidemia, CAD, hypothyroidism: Consider resuming home medications once they have been reconciled At time of admission home medications have not been reconciled For now: check tsh in am Check TSH in a.m. Tobacco dependence: Consult patient on smoking cessation. Start nicotine patch 14 mg transdermally once daily. GI prophylaxis, Protonix DVT prophylaxis, patient is on heparin drip as mentioned above. Critical Care Time: I spent ___51___ minutes of critical care time with the patient. I reviewed lab work, change the patient's medication, and coordinated protocol in the event of tachycardia or desaturation. The patient status remains unchanged ADVANCED CARE PLANNING 1. Which of the following were discussed? Hospice Care - Yes Therapeutic options - yes Advance Directives - Yes - Other discussions - 2. Discussed with who? Patient 3. Voluntary nature of this service was explained to the patient? Yes 4. Amount of time spent - ___16 minutes____ 5. Reviewed by Physician? (if this service was performed by NPP) Yes This document was generated in part using voice recognition software, occasional wrong word or sound alike substitutions may have occurred due to the inherent limitations of voice recognition software. Read the chart carefully and recognize using context, where the substitutions have occurred. Although every effort was made to edit the content, robotics engineer and typing errors may occur ] YULIA BYNUM [facility] Oct 25, 2024 18:16
[2024-10-25] MEDS: NOREPINEPHRIN 4MG/NS 250ML 250 ML IV SCH (18:19)
[2024-10-25 18:24] LABS: INR 1.04 (0.85-1.15)
[2024-10-25] MEDS ORDERED: CLOP75TA32 PO (18:39)
[2024-10-25] MEDS ORDERED: ROSU10TA72 PO (18:39)
[2024-10-25] MEDS ORDERED: LOSA50TA64 PO (18:39)
[2024-10-25] MEDS ORDERED: PANT40TA54 PO (18:39)
[2024-10-25] MEDS ORDERED: ALBU18HF7 IH (18:39)
[2024-10-25] MEDS ORDERED: TIOT18CA3 IH (18:39)
--- NOTE | 2024-10-25 18:58 | CONS ---
[facility] CONSULTATION NOTE Date Patient Seen: Oct 25, 2024 Time of Visit: 18:58 Supervising Physician: Bharat Jesus Reason for Consultation: [facility] Primary Care Physician: Dr. Jeffrey Neil Outpatient Specialists: Dr. Jimenez, net finisher Inpatient Consults: Critical Care team [facility] PROBLEM LIST: Cardiogenic shock, POA New onset systolic heart failure Atrial fibrillation with RVR Hypotension, in need of pressors Carotid artery disease Chronic kidney disease CAD s/p 3V CABG ( RODRIGUES-LAD, SVG-D, SVG-PDA ) August 2009 History of hypertension, currently hypotensive Acute kidney injury, GFR Lactic acidosis Elevated BNP Hypomagnesemia Hyperlipidemia Hypothyroidism Tobacco dependence HPI: Mr. Tinoco is a 74-year-old male with a past medical history of CAD s/p s tenting procedure 2009 with Subsequent 3V CABG ( RODRIGUES-LAD, SVG-D, SVG-PDA ) August 2009 , Dyslipidemia, Hypertension, Tobacco Dependence, Remote Lacunar Infarct 2009, CAD s/p right carotid endarterectomy 2010 with with subsequent left carotid endarterectomy 2018 and greater than 70% distal common carotid artery and 50 to 70% in the left internal carotid artery June 2024, hypothyroidism, Chronic in Disease Stage IIIB who presented to ED for evaluation of body weakness and shortness of breath onset seven days. The patient was found with AFib with RVR with a heart rate in the 140s, and hypotensive with a systolic blood pressure in the 70s, giving this findings the patient was cardioverted electrically x1 and did not restore sinus rhythm, the patient was started on amiodarone bolus and infusion, currently evaluated at the bedside, telemetry shows atrial fibrillation, rate controlled, the patient underwent a limited bedside 2D echocardiogram that showed a newly suppressed systolic function of 20-25%, pending formal read. Troponins were negative, BNP 949, creatinine 3.3. Cardiology was consulted for atrial fibrillation and has seen the patient. ED provider request patient be admitted with the diagnosis of a AFib RVR, cardiogenic shock, lactic acidosis. The patient was admitted by the [facility] Hosptialist Team and BIS team was consulted for critical care management. I assessed the patient at bedside in ED 13. The patient appeared weak, breathing was even, unlabored, in no distress. Patient denied any chest pain, shortness of breath, any other pain, problem or concern. I informed the patient of labs, diagnostics, and plan of care. He verbalized understanding and is in agreement with the plan. Plan and assessment are listed below. PAST MEDICAL HX: see above PAST SURGICAL HX: As mentioned above SOCIAL HISTORY: No tobacco, ETOH, or illicit drug use Coded Allergies: No Known Drug Allergies (Unverified Allergy, Unknown, 09/24/20) REVIEW OF SYSTEMS: 12 point ROS reviewed with patient. Pertinent positives mentioned above. Otherwise negative. PHYSICAL EXAM: GENERAL: Alert, weak, awake oriented x 3 HEENT: EOMI, Sclera non icteric, moist mucosa NECK: Supple, no JVD, trachea midline LUNGS: Diminished breath sounds bilaterally. No wheezes HEART: Regular rate and rhythm. Normal S1 and S2, without murmurs ABD: Abdomen soft, nontender. Bowel sounds present EXT: No clubbing cyanosis or edema NEURO: Alert and oriented to X3, follows commands Vital Signs (last 8hr) Date Time Temp Pulse Resp B/P (MAP) Pulse Ox O2 Delivery O2 Flow Rate FiO2 10/25/24 18:41 97.9 86 18 116/66 97 Nasal Cannula* 2 10/25/24 18:23 97.9 98 18 110/61 97 Nasal Cannula* 2 10/25/24 18:19 91/36 10/25/24 18:03 97.9 95 18 109/60 100 Nasal Cannula* 2 10/25/24 17:58 115/60 10/25/24 17:35 97.5 154 18 72/65 97 Nasal Cannula* 6 44 10/25/24 17:01 97.5 163 18 107/56 97 Nasal Cannula* 2 10/25/24 16:57 97.5 165 18 103/56 97 Nasal Cannula* 2 10/25/24 16:38 97.5 114 18 51/29 100 Nasal Cannula* 2 10/25/24 16:28 97.5 149 26 71/46 97 Room Air* 0 10/25/24 16:22 65/38 10/25/24 15:20 97.5 140 26 82/44 95 Room Air* 0 10/25/24 14:47 81 18 76/47 94 Room Air* 0 10/25/24 14:26 97.5 46 18 97 Room Air LABS: Hematology Labs: Test 10/25/24 14:43 Range/Units White Blood Count 6.9 4.8-10.8 K/uL Red Blood Count 3.44 L 4.50-6.20 MIL/uL Hemoglobin 10.7 L 14.0-18.0 g/dL Hematocrit 33.4 L 42-54 % Mean Corpuscular Volume 97.1 79-99 fL Mean Corpuscular Hemoglobin 31.1 27.0-33.0 pg Mean Corpuscular Hemoglobin Concent 32.0 32.0-36.0 g/dL Red Cell Distribution Width 13.3 11.0-15.5 % Platelet Count 95 L 130-400 K/uL Mean Platelet Volume 10.7 H 7.5-10.5 fL Immature Granulocyte % (Auto) 0.3 0-1 % Neutrophils (%) (Auto) 59.6 40.0-77.0 % Lymphocytes (%) (Auto) 33.6 21.0-51.0 % Monocytes (%) (Auto) 5.8 3.0-13.0 % Eosinophils (%) (Auto) 0.3 0.0-8.0 % Basophils (%) (Auto) 0.4 0.0-5.0 % Neutrophils # (Auto) 4.1 1.8-7.7 K/uL Lymphocytes # (Auto) 2.3 1.0-4.8 K/uL Monocytes # (Auto) 0.4 0.1-1.0 K/uL Eosinophils # (Auto) 0.02 0.00-0.70 K/uL Basophils # (Auto) 0.03 0.00-0.20 K/uL Absolute Immature Granulocyte (auto 0.02 0-1 K/uL Nucleated Red Blood Cells 0.0 0.0-0.19 % Chemistry Labs: Test 10/25/24 14:43 Range/Units Sodium Level 133 L 136-145 mmol/L Potassium Level 4.2 3.5-5.1 mmol/L Chloride Level 100 L 101-111 mmol/L Carbon Dioxide Level 19 L 21-32 mmol/L Blood Urea Nitrogen 28 H 7-18 mg/dL Creatinine 3.3 H 0.5-1.3 mg/dL Glomerular Filtration Rate Calc 19 >90 mL/min Random Glucose 123 H 70-105 mg/dL Lactic Acid Level 4.0 H 0.8-2.5 mmol/L Total Calcium 9.2 8.5-10.1 mg/dL Magnesium Level 1.60 L 1.80-2.40 mg/dL Troponin I High Sensitivity 15 4-75 ng/L B-Type Natriuretic Peptide 949 H 0-100 pg/mL Coagulation Labs: Test 10/25/24 14:43 Range/Units Prothrombin Time 11.0 9.6-11.6 SEC Prothromb Time International Ratio 1.04 0.85-1.15 Activated Partial Thromboplast Time 28.2 26.3-35.5 SEC D-Dimer Quantitative (PE/DVT) 964 *H 0-500 ng/mL DIAGNOSTICS / RADIOLOGY RESULTS: [ ] PLAN Patient was admitted to ICU by [facility] hospitalist team with continuous cardiac and pulse oximetry monitoring with BIS team as critical care consults. Continue Levophed drip to keep map above 65. Consult cardiology and Nephrology. Monitor electrolytes and treat accordingly. P.r.n. medications for: Pain management, nausea, vomiting, constipation. A.m. labs +TSH. Education on smoking cessation. Continue Zosyn 3.375 IV q.12 hours. Nitro patch14 mg daily GI and DVT prophylaxis. Follow net finisher recommendations: We will defer the use of Entresto/Aldactone due to CKD, current creatinine 3.3 Strict I's and O's and daily weights, low-sodium diet Fluid restriction to 1.5 L a day with a goal net -1 to 2 L daily. Continue Lasix 40 mg every 12 hours The patient will require an ischemic evaluation prior to discharge Keep on telemetry, monitor/replace electrolytes as needed The patient underwent DCCV x1 patient failed to return to sinus rhythm Continue amiodarone infusion, followed by amiodarone p.o. 200 mg every12 hours for seven days, and then followed with amiodarone 200 mg daily after that NEURO: Minimize central acting medications as possible. Fall Precautions. Well lighted room through the day and minimize interruptions through the night to prevent acute delirium. PULMONARY: Supplemental 02 as needed Titrate Fio2 to keep Spo2 > or = 90% DuoNebs and CPT as needed IS hourly while awake for pulmonary hygiene Out of bed to chair as tolerated VAP Bundle CARDIOVASCULAR: Follow hemodynamics. Titrate vasopressor to keep MAP >65 or systolic blood pressure >95mmHg GI & NUTRITION: Continue nutritional support Aspirations precautions Prokinetic agents and laxatives as needed KIDNEYS & ELECTROLYTES: Strict monitoring of intake and output Daily weights Avoid nephrotoxic agents Monitor electrolytes and replace as needed Goal urine output of 30mL/hr or 0.5mL/kg/hr ENDOCRINE: Maintain blood glucose between 100-180 at all times. Insulin sliding scale for blood glucose management INFECTIOUS DISEASE: Trend temperature. Swenson-culture if febrile. HEMATOLOGY & COAGULATION: Monitor H&H. Keep Hgb > 7 Transfuse 1 unit of PRBC for Hgb < 7 Transfuse 1 pack of platelets of platelets < 20, 000 Watch for any signs and symptoms of bleeding SKIN: Pressure ulcer prevention per facility protocol Rehab: PT/OT Code Status: Full Resuscitation Disposition: [Admit to ICU ] Other: Total patient critical care time exceeds 45 minutes excluding all procedures. ATTESTATION BY PHYSICIAN I have evaluated the patient chart, medical records, and spoke with appropriate staff. I reviewed the documentation, medical decision making, and treatment plan as noted by the AYUSH above. I agree with the findings and plan of care. Bharat Griffith MD, [facility] Oct 25, 2024 18:58
--- NOTE | 2024-10-25 19:00 | NUR ---
CRITICAL CARE AT BEDSIDE FOR CONSULT
[2024-10-25] MEDS: NOREPINEPHRIN 4MG/NS 250ML 250 ML IV ONE (19:02)
--- NOTE | 2024-10-25 19:08 | CONS ---
[facility] CARDIOLOGY CONSULTATION NOTE Date Patient Seen: Oct 25, 2024 Time of Visit: 18:50 Reason for Consultation: [ ] History of Present Illness: [74-year-old male patient follows up in Cardiology Clinic with Dr. Jimenez with a past medical history of CAD Status Post Stenting Procedure 2009 with Subsequent 3V CABG ( RODRIGUES-LAD, SVG-D, SVG-PDA ) August 2009 , Dyslipidemia, Hypertension, Tobacco Dependence, Remote Lacunar Infarct 2009, Carotid Artery Disease status post right carotid endarterectomy 2010 with with subsequent left carotid endarterectomy 2018 and greater than 70% distal common carotid artery and 50 to 70% in the left internal carotid artery June 2024, Hypothyroidism, Chronic in Disease Stage IIIB. Who presented to the emergency department endorsing gene ralized body weakness and shortness of breath, seven day onset, on initial workup with the patient was found with AFib with RVR with a heart rate in the 140s, and hypotensive with a systolic blood pressure in the 70s, giving this findings the patient was cardioverted electrically x1 and did not restore sinus rhythm, the patient was started on amiodarone bolus and infusion, currently evaluated at the bedside, telemetry shows atrial fibrillation, rate controlled, the patient underwent a limited bedside 2D echocardiogram that showed a newly suppressed systolic function of 20-25%, pending formal read, on exam, clinically pulmonary chanel are unremarkable, no evidence of volume overload or JVD. Troponins were negative, BNP 949, creatinine 3.3. Cardiology was consulted for atrial fibrillation] Past Medical History: [ Refer to chart] Past Surgical History: [Refer to HPI ] Family History: [ Refer to HPI] Social History: [ Refer to HPI] Habits: [Never] smoker. [Denies] alcohol consumption. [Denies] illicit drug use Review of Systems: A review of12 point systems was negative set per HPI Physical Examination: GENERAL: [No acute distress.] HEAD: [Normal with no signs of head trauma.] EYES: [PERRLA, EOMI, conjunctiva and sclera normal.] ENT: [Hearing grossly intact, normal oropharynx.] NECK: [Supple without JVD. There is no tenderness, lymphadenopathy, or masses. No thyromegaly. Normal carotid upstrokes without bruits.] LUNGS: [Clear breath sounds bilaterally. No wheezes, or rhonchi.] HEART: [Irregularly irregular rhythm. Normal S1 and S2 without mumurs, gallop or rub.] VASC: [Peripheral pulses +2 bilaterally.] ABD: [Bowel sounds normal, soft, nontender, no masses, no organomegaly. No audible bruits.] : [Not examined] LYMPH: [No lymphadenopathy noted.] EXT: [No clubbing, cyanosis or edema.] SKIN: [No rashes or lesions noted.] NEURO: [Awake, alert, and oriented x3. No focal sensory or strength deficits noted.] Vital Signs (last 8hr) Date Time Temp Pulse Resp B/P (MAP) Pulse Ox O2 Delivery O2 Flow Rate FiO2 10/25/24 18:41 97.9 86 18 116/66 97 Nasal Cannula* 2 10/25/24 18:23 97.9 98 18 110/61 97 Nasal Cannula* 2 10/25/24 18:19 91/36 10/25/24 18:03 97.9 95 18 109/60 100 Nasal Cannula* 2 10/25/24 17:58 115/60 10/25/24 17:35 97.5 154 18 72/65 97 Nasal Cannula* 6 44 10/25/24 17:01 97.5 163 18 107/56 97 Nasal Cannula* 2 10/25/24 16:57 97.5 165 18 103/56 97 Nasal Cannula* 2 10/25/24 16:38 97.5 114 18 51/29 100 Nasal Cannula* 2 10/25/24 16:28 97.5 149 26 71/46 97 Room Air* 0 10/25/24 16:22 65/38 10/25/24 15:20 97.5 140 26 82/44 95 Room Air* 0 10/25/24 14:47 81 18 76/47 94 Room Air* 0 10/25/24 14:26 97.5 46 18 97 Room Air Laboratory: [ ] Hematology Labs: Test 10/25/24 14:43 Range/Units White Blood Count 6.9 4.8-10.8 K/uL Red Blood Count 3.44 L 4.50-6.20 MIL/uL Hemoglobin 10.7 L 14.0-18.0 g/dL Hematocrit 33.4 L 42-54 % Mean Corpuscular Volume 97.1 79-99 fL Mean Corpuscular Hemoglobin 31.1 27.0-33.0 pg Mean Corpuscular Hemoglobin Concent 32.0 32.0-36.0 g/dL Red Cell Distribution Width 13.3 11.0-15.5 % Platelet Count 95 L 130-400 K/uL Mean Platelet Volume 10.7 H 7.5-10.5 fL Immature Granulocyte % (Auto) 0.3 0-1 % Neutrophils (%) (Auto) 59.6 40.0-77.0 % Lymphocytes (%) (Auto) 33.6 21.0-51.0 % Monocytes (%) (Auto) 5.8 3.0-13.0 % Eosinophils (%) (Auto) 0.3 0.0-8.0 % Basophils (%) (Auto) 0.4 0.0-5.0 % Neutrophils # (Auto) 4.1 1.8-7.7 K/uL Lymphocytes # (Auto) 2.3 1.0-4.8 K/uL Monocytes # (Auto) 0.4 0.1-1.0 K/uL Eosinophils # (Auto) 0.02 0.00-0.70 K/uL Basophils # (Auto) 0.03 0.00-0.20 K/uL Absolute Immature Granulocyte (auto 0.02 0-1 K/uL Nucleated Red Blood Cells 0.0 0.0-0.19 % Chemistry Labs: Test 10/25/24 14:43 Range/Units Sodium Level 133 L 136-145 mmol/L Potassium Level 4.2 3.5-5.1 mmol/L Chloride Level 100 L 101-111 mmol/L Carbon Dioxide Level 19 L 21-32 mmol/L Blood Urea Nitrogen 28 H 7-18 mg/dL Creatinine 3.3 H 0.5-1.3 mg/dL Glomerular Filtration Rate Calc 19 >90 mL/min Random Glucose 123 H 70-105 mg/dL Lactic Acid Level 4.0 H 0.8-2.5 mmol/L Total Calcium 9.2 8.5-10.1 mg/dL Magnesium Level 1.60 L 1.80-2.40 mg/dL Troponin I High Sensitivity 15 4-75 ng/L B-Type Natriuretic Peptide 949 H 0-100 pg/mL Coagulation Labs: Test 10/25/24 14:43 Range/Units Prothrombin Time 11.0 9.6-11.6 SEC Prothromb Time International Ratio 1.04 0.85-1.15 Activated Partial Thromboplast Time 28.2 26.3-35.5 SEC D-Dimer Quantitative (PE/DVT) 964 *H 0-500 ng/mL Diagnostics / Radiology: [Copy/Paste Echos/Imaging Report here] Assessment: [Hypertension Carotid artery disease Chronic kidney disease CAD s/p 3V CABG ( RODRIGUES-LAD, SVG-D, SVG-PDA ) August 2009 New onset systolic heart failure Atrial fibrillation ] Plan: [# new onset systolic heart failure Presumed ICM, (LVEF 20-25 % ) , NYHA II Troponin was negative, BNP > 900 The patient underwent a limited 2D echocardiogram that revealed a LVEF of 20-25% (pending formal read) Patient presents to the emergency department endorsing ongoing shortness of breath and fatigue Euvolemic and compensated on exam in no distress. No evidence of pulmonary c ongestion or JVD Optimize GDMT: We will defer the use of Entresto/Aldactone due to CKD, current creatinine 3.3 Strict I's and O's and daily weights, low-sodium diet Fluid restriction to 1.5 L a day with a goal net -1 to 2 L daily. Continue Lasix 40 mg every 12 hours The patient will require an ischemic evaluation prior to discharge] # atrial fibrillation The patient presented to the emergency department endorsing ongoing fatigue and shortness of breath Upon initial assessment the patient was found with AFib with RVR in the 140s Troponin was negative, ACS was ruled out Current review of telemetry shows atrial fibrillation, rate controlled Keep on telemetry, monitor/replace electrolytes as needed The patient underwent DCCV x1 patient failed to return to sinus rhythm Continue amiodarone infusion, followed by amiodarone p.o. 200 mg every12 hours for seven days, and then followed with amiodarone 200 mg daily after that Thank you for this consult cardiology will continue to follow along William blakely MD ATTESTATION BY PHYSICIAN I have seen and examined the patient, reviewed the above documentation, participated in medical decision making, made necessary modifications, and agree with the treatment plan as documented by my mid-level provider above. MD JOCELIN Browne JAMES R MD Oct 25, 2024 19:08
[2024-10-25 20:38] LABS: APPEARANCE,URINE CLOUDY (CLEAR); GLUCOSE, URINE (UA) NEGATIVE (NEGATIVE); LEUKOCYTE ESTERASE ,URINE 500 Leu/uL (NEGATIVE); NITRATE,URINE NEGATIVE (NEGATIVE); OCCULT BLOOD,URINE MODERATE (NEGATIVE)
[2024-10-25 20:39] LABS: ADD UA MICROSCOPIC YES
[2024-10-25 20:51] LABS: SQUAMOUS EPITHELIAL CELL,UR RARE /HPF (0-2); WBC CLUMP MANY /HPF (0-1)
--- NOTE | 2024-10-25 21:00 | NUR ---
REPORT GIVEN TO LISA RN
[2024-10-25 21:45] LABS: CREATININE,URINE RANDOM 92.99 mg/dL (30-135)
[2024-10-25] MEDS: ZOSYN 3.375GM +NS 50ML IV SCH (22:15)
[2024-10-26] VITALS (109 sets, daily range): BP systolic 78–122; BP diastolic 30–80; PULSE 69–117; RESP 12–23; TEMP 96.9–99.1; O2SAT 99–100
[2024-10-26 01:27] LABS: INR 1.15 (0.85-1.15)
[2024-10-26] MEDS: NICOTINE 14 MG/ 24 HR PATCH TD ONE (01:55)
[2024-10-26 04:13] LABS: IMMATURE GRANULOCYTE ABSOLUTE 0.03 K/uL (0-1); NUCLEATED RED BLOOD CELLS 0.0 % (0.0-0.19); PLATELET COUNT (AUTO) 115 K/uL (130-400); RED BLOOD CELL COUNT(AUTO) 3.29 MIL/uL (4.50-6.20); RED CELL DISTRIBUTION WIDTH 13.4 % (11.0-15.5); WHITE BLOOD COUNT (AUTO) 8.0 K/uL (4.8-10.8)
[2024-10-26 04:36] LABS: CREATININE 3.0 mg/dL (0.5-1.3); GLOMERULAR FILTR. RATE CALC 21.0 mL/min (>90); GLUCOSE,RANDOM 140.0 mg/dL (70-105); PHOSPHORUS 4.0 mg/dL (2.5-4.9); SODIUM SERUM 134.0 mmol/L (136-145); UREA NITROGEN, BLOOD 32.0 mg/dL (7-18)
--- NOTE | 2024-10-26 07:29 | PN ---
[facility] Cardiology Progress Note Cardiology progress note dictated for Otoniel Jimenez MD Date of service 10/26/2024 Problem list: Atrial fibrillation rapid ventricular response Hypotension Acute systolic congestive heart failure (BNP >900) Current 2D echocardiogram left ventricular ejection fraction 20-25% Failed DC cardioversion current admission Carotid artery disease Chronic kidney disease IV CAD s/p 3V CABG ( RODRIGUES-LAD, SVG-D, SVG-PDA ) August 2009 New onset systolic heart failure Dyslipidemia Tobacco dependence Remote lacunar infarct 2009 Carotid artery disease status post right carotid endarterectomy 2010 with subsequent left and/or 2019 Hypothyroidism CKD stage 4 Review of blood work: BNP 949, troponin of 15 magnesium 1.90. Basic metabolic panel with a sodium of 134, potassium 4.0, BUN of 32 creatinine of 3.0 and a GFR of 21. CBC with hemoglobin of 10.3 hematocrit 30.9 and white blood cells of 8.0 with platelets of a 115. Current medications: Amiodarone IV drip, heparin drip, Perez-Synephrine Assessment/plan: This is a 74-year-old male presented after experiencing weakness and shortness of breath for the past week week and a half. On presentation troponins were negative and BNP greater than 900. EKG demonstrated atrial fibrillation rapid ventricular response in bedside 2D echocardiogram demonstrated a new drop in ejection fraction 20-25%. He was hypotensive was placed on pressors and now also on heparin drip and amiodarone drip. Currently the patient is resting comfortably and breathing comfortably flat in bed. Blood pressure is 94/52 with a heart rate of 84 beats per minute and now and a sinus rhythm. Plan is to start dobutamine 5 mcg/kg per minute, add furosemide 40 mg IV every 12 hours and amiodarone 400 p.o. b.i.d.. Drop in ejection fraction could have been caused by atrial fibrillation rapid ventricular response or lack of blood flow to the heart. He will need ischemic workup with possibly a Lexiscan Cardiolite once he is stabilized. J[facility] Oct 26, 2024 07:29
--- NOTE | 2024-10-26 07:35 | EKG ---
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
--- NOTE | 2024-10-26 10:36 | CONS ---
REFERRING PHYSICIAN: Dean Garcia MD REASON FOR CONSULTATION: Renal failure. HISTORY OF PRESENT ILLNESS: A 74-year-old male with a history of known cardiomyopathy. The patient presented to the hospital with generalized weakness. The patient with failure to thrive at home. In the Emergency Room, the patient was found to have significant hypotension and was started on IV fluids. The patient's laboratory values revealed an elevated BUN and creatinine, and he is being seen in consultation for all the above. The patient remains on pressors as well as dobutamine. The patient with a history of AFib, being seen by Cardiology and the patient is being seen in consultation for all the above. PAST MEDICAL HISTORY: Cardiomyopathy, hypertension, and hypercholesterolemia. PAST SURGICAL HISTORY: CABG. SOCIAL HISTORY: History of tobacco use. No history of alcohol use. FAMILY HISTORY: No renal disease in the family. ALLERGIES: There are no allergies. MEDICATIONS: Noted. REVIEW OF SYSTEMS: GENERAL: He is feeling weak and tired. HEENT: No change in vision. No change in hearing. CARDIOVASCULAR: There is no current chest pain or palpitation. PULMONARY: Denies any shortness of breath. GASTROINTESTINAL: The patient had been tolerated a diet. MUSCULOSKELETAL: Complains of weakness. NEUROLOGIC: No history of seizures or focal deficits. PSYCHIATRIC: No history of hallucinations or psychosis. ENDOCRINE: No history of thyroid disease. HEME: No history of anemia or malignancy. PHYSICAL EXAMINATION: VITAL SIGNS: Blood pressure is 101/51, pulse 70s. He is afebrile. GENERAL: He is a chronically ill male, elderly, lying in bed on the medical floor. HEENT: Head is atraumatic. Pupils equal, roving to light. Oropharynx is without exudate. Nares clear. NECK: There is no JVP. There is no thyromegaly, no mass. CARDIOVASCULAR: Regular. There is no S3, S4 gallop. LUNGS: Coarse with equal thoracic movement. ABDOMEN: Soft, nondistended, and nontender. EXTREMITIES: Reveal no clubbing, no cyanosis. NEUROLOGIC: He is awake. He is alert. He is oriented. SKIN: Reveals no rashes or nodules. BACK: There is no CVA tenderness. No back deformities. LABORATORY DATA: BUN 32, creatinine is 3, sodium is 134. Hemoglobin 10, hematocrit 30. Urine electrolytes revealed a ____ of less than 1. DIAGNOSTIC DATA: Chest x-ray is noted. Echocardiogram is pending. IMPRESSION: * Acute on chronic renal dysfunction. * Cardiomyopathy. * Hypotension. * Anemia. PLAN: The patient presents with significant renal dysfunction. The patient's urine electrolytes consistent with prerenal azotemia from the cardiomyopathy. The patient's 2D echocardiogram is pending. He remains on dobutamine. Workup is ongoing per Cardiology. The patient does have significant anemia. We will check iron levels. The patient can be started on a diet and we will follow the patient closely. The patient is being weaned from the pressors. If the hypotension continues, the patient will be added with midodrine. There is no need for any form of renal replacement therapy. All labs can be repeated in the a.m. TID: [id number] RECEIPT: [id number]
--- NOTE | 2024-10-26 10:55 | NUR ---
pt arrived at this time, confuse, lethargic, saturating 91% , wheezing upon expiration on 3 liters cannula nasal. bp:120 systolic, vpaced 102. pt placed on cpap upon arrival as ordered.
--- NOTE | 2024-10-26 12:06 | NUR ---
report and care given to manisha aguayo , all questions answered. pt aaox3. no distress noted, vitals as charted
--- NOTE | 2024-10-26 12:35 | PN ---
[facility] PROGRESS NOTE Date of Service: Oct 26, 2024 Time of Service: 12:32 SUBJECTIVE: 10/26 74-year-old male, history of coronary artery disease, dyslipidemia, hypertension, tobacco dependence, remote lacunar infarct, carotid artery disease, hypothyroidism, presented with a chief complaint of generalized body weakness and shortness a breath, in the emergency room found to have AFib with a RVR, heart rate in with the 140s, hypotensive, cardioverted electrically x1, did not restore sinus rhythm, patient admitted to the ICU. At the time of my visit awake, following commands, on heparin drip, Levophed, amiodarone drip, dobutamine drip, echocardiogram showing ejection fraction 20- 25%. Cardiology input noted and appreciated, the patient will require an ischemic evaluation prior to discharge. REVIEW OF SYSTEMS CONSTITUTIONAL: Denies fevers, chills, or night sweats. No unintentional weight loss reported. NEUROLOGICAL: Denies headache, amaurosis fugax, motor weakness, sensory deficit, vertigo/spinning sensation, gait abnormalities, or tremors. ENT: No hearing loss, otalgia, otorrhea, rhinitis, rhinorrhea, hoarseness, or sore throat. CARDIOVASCULAR: Denies any exertional angina, dyspnea on exertion, orthopnea, paroxysmal nocturnal dyspnea, palpitations, life-threatening arrhythmias, claudication. PULMONARY: Denies any shortness of breath, cough, phlegm/sputum, hemoptysis, pleuritic chest pain. SLEEP: Denies morning headaches, daytime somnolence or napping. Denies difficulty falling asleep, staying asleep, waking from sleep. Denies knowledge of snoring. GASTROINTESTINAL: Denies any type of dysphagia to either liquids or solids. Denies nausea, vomiting, pyrosis, early satiety, abdominal pain, diarrhea, constipation, or changes in stool consistency or caliber. Denies coffee-ground emesis, hematemesis, hematochezia, or melanotic stools. GENITOURINARY: Denies frequency, urgency, nocturia, hematuria or incontinence (Storage/Irritative symptoms.) Low urinary stream, straining to void, urinary intermittency or hesitancy, splitting of the voiding stream, terminal dribbling. ENDOCRINOLOGIC: Denies polyuria, polydipsia, polyphagia or heat/cold intolerances. HEMATOLOGIC: Denies thrombophilia/previous clots, or coagulopathy/bleeding disorders. ONCOLOGIC: Denies personal history of malignancy. DERMATOLOGIC: Denies rashes or pruritus. PSYCHIATRIC: Denies any suicidal or homicidal ideation. Denies hallucinations. PHYSICAL EXAM GENERAL APPEARANCE: The patient is awake, alert, and oriented, in no acute cardiopulmonary distress. NEUROLOGICAL: Cranial nerves II-XII grossly intact. Motor is 5/5 in bilateral upper and lower extremities proximal to distal. No sensory deficits. HEENT: Face is symmetric. Pupils are equal and reactive. Extraocular movements are intact. NECK: Supple. No JVD. No thyromegaly. No submental, submandibular, pre- /postauricular, occipital or supraclavicular lymphadenopathy. CHEST: Normal chest expansion. No Telemetry. LUNGS: Absence of any rales, rhonchi or any wheezing. CARDIOVASCULAR: Regular. S1 and S2 normal. No appreciable rubs, murmurs or gallops. ABDOMEN: Soft, nontender, and nondistended. There is no rebound, voluntary guarding, or rigidity. : Deferred. No Galindo. EXTREMITIES: Non-edematous and not cyanotic. No clubbing. Good capillary refill. SKIN: No skin breakdown. Vital Signs (last 8hr) Date Time Temp Pulse Resp B/P (MAP) Pulse Ox O2 Delivery O2 Flow Rate FiO2 10/26/24 12:26 99.1 10/26/24 12:00 100 Nasal Cannula* 2 28 10/26/24 12:00 99.1 80 16 101/49 (66) 99 81/46 (58) 10/26/24 11:45 76 23 101/51 (68) 99 10/26/24 11:30 93 15 113/54 (73) 99 10/26/24 11:15 84 17 100/45 (63) 98 10/26/24 11:00 82 17 101/49 (66) 98 10/26/24 10:45 86 15 98/44 (62) 99 10/26/24 10:30 90 99/48 (65) 99 10/26/24 10:15 89 16 109/52 (71) 98 10/26/24 10:00 80 16 113/56 (75) 99 10/26/24 09:45 88 19 121/61 (81) 99 10/26/24 09:30 82 15 114/57 (76) 99 10/26/24 09:15 79 12 111/56 (74) 98 10/26/24 09:11 102/56 10/26/24 09:00 79 110/57 (74) 98 10/26/24 08:45 70 16 104/55 (71) 99 10/26/24 08:30 73 15 95/51 (66) 99 10/26/24 08:15 71 16 97/51 (66) 99 10/26/24 08:00 97.7 72 16 107/56 (73) 99 10/26/24 08:00 97.7 10/26/24 08:00 100 Nasal Cannula* 2 28 10/26/24 07:45 71 18 99/56 (70) 100 10/26/24 07:30 83 16 106/60 (75) 99 10/26/24 07:15 71 17 102/55 (71) 99 10/26/24 07:00 73 17 101/51 (68) 99 92/34 (53) 10/26/24 06:56 73 17 101/51 (68) 99 92/34 (53) 10/26/24 06:41 71 16 100/55 (70) 99 89/42 (58) 10/26/24 06:26 78 14 103/60 (74) 99 79/48 (58) 10/26/24 06:11 72 17 96/50 (65) 100 92/54 (67) 10/26/24 05:56 71 15 96/51 (66) 100 94/52 (66) 10/26/24 05:41 76 18 90/46 (61) 99 87/46 (60) 10/26/24 05:26 84 15 94/52 (66) 100 28 84/50 (61) 10/26/24 05:11 70 17 93/50 (64) 99 28 89/54 (66) 10/26/24 04:56 77 16 96/53 (67) 100 28 98/48 (65) 10/26/24 04:42 81 17 90/48 (62) 100 28 78/53 (61) LABS: Laboratory: Test 10/26/24 08:03 10/26/24 04:00 10/26/24 01:05 10/25/24 20:01 Range/Units Activated Partial Thromboplast Time > 139.0 *H 26.3-35.5 SEC White Blood Count 8.0 4.8-10.8 K/uL Red Blood Count 3.29 L 4.50-6.20 MIL/uL Hemoglobin 10.3 L 14.0-18.0 g/dL Hematocrit 30.9 L 42-54 % Mean Corpuscular Volume 93.9 79-99 fL Mean Corpuscular Hemoglobin 31.3 27.0-33.0 pg Mean Corpuscular Hemoglobin Concent 33.3 32.0-36.0 g/dL Red Cell Distribution Width 13.4 11.0-15.5 % Platelet Count 115 L 130-400 K/uL Mean Platelet Volume 12.0 H 7.5-10.5 fL Immature Granulocyte % (Auto) 0.4 0-1 % Neutrophils (%) (Auto) 68.9 40.0-77.0 % Lymphocytes (%) (Auto) 23.3 21.0-51.0 % Monocytes (%) (Auto) 6.9 3.0-13.0 % Eosinophils (%) (Auto) 0.0 0.0-8.0 % Basophils (%) (Auto) 0.5 0.0-5.0 % Neutrophils # (Auto) 5.5 1.8-7.7 K/uL Lymphocytes # (Auto) 1.9 1.0-4.8 K/uL Monocytes # (Auto) 0.6 0.1-1.0 K/uL Eosinophils # (Auto) 0.00 0.00-0.70 K/uL Basophils # (Auto) 0.04 0.00-0.20 K/uL Absolute Immature Granulocyte (auto 0.03 0-1 K/uL Nucleated Red Blood Cells 0.0 0.0-0.19 % Sodium Level 134 L 136-145 mmol/L Potassium Level 4.0 3.5-5.1 mmol/L Chloride Level 103 101-111 mmol/L Carbon Dioxide Level 17 L 21-32 mmol/L Blood Urea Nitrogen 32 H 7-18 mg/dL Creatinine 3.0 H 0.5-1.3 mg/dL Glomerular Filtration Rate Calc 21 >90 mL/min Random Glucose 140 H 70-105 mg/dL Lactic Acid Level 1.2 0.8-2.5 mmol/L Total Calcium 8.3 L 8.5-10.1 mg/dL Phosphorus Level 4.0 2.5-4.9 mg/dL Magnesium Level 1.90 1.80-2.40 mg/dL Thyroid Stimulating Hormone (TSH) 2.24 0.36-3.74 uIU/mL Prothrombin Time 12.0 H 9.6-11.6 SEC Prothromb Time International Ratio 1.15 0.85-1.15 Urine Color YELLOW YELLOW Urine Appearance CLOUDY H CLEAR Urine pH 6.0 5.0-8.0 Urine Specific [place] 1.010 1.001-1.031 Urine Protein 100 H NEGATIVE mg/dL Urine Glucose (UA) NEGATIVE NEGATIVE mg/dL Urine Ketones NEGATIVE NEGATIVE mg/dL Urine Occult Blood MODERATE H NEGATIVE Urine Nitrate NEGATIVE NEGATIVE Urine Bilirubin NEGATIVE NEGATIVE mg/dL Urine Urobilinogen 0.2 0.2-1.0 mg/dL Urine Leukocyte Esterase 500 H NEGATIVE Miranda/uL Urine RBC 11-25 H 0-1 /HPF Urine WBC TNTC H 0-1 /HPF Urine WBC Clumps (Auto) MANY 0-1 /HPF Urine Squamous Epithelial Cells RARE 0-2 /HPF Urine Bacteria None None Seen /HPF Test 10/25/24 20:00 10/25/24 14:43 10/25/24 14:30 Range/Units Urine Random Creatinine 92.99 30-135 mg/dL Urine Random Sodium 32 L 40-220 mmol/l D-Dimer Quantitative (PE/DVT) 964 *H 0-500 ng/mL Troponin I High Sensitivity 15 4-75 ng/L B-Type Natriuretic Peptide 949 H 0-100 pg/mL Influenza Type A Antigen Negative For Type A NEGATIVE Influenza Type B Antigen Negative For Type B NEGATIVE SARS-CoV-2 Antigen (Rapid) PRESUMPTIVE NEGATIVE NEGATIVE Current Medications Medications (Trade) Dose Ordered Sig/Gustavo Route PRN Reason Start Time Stop Time Status Last Admin Dose Admin Acetaminophen (TYLenol 325MG TAB) 650 mg Q6H PRN PO TEMPERATURE GREATER THAN 101.5 10/25/24 21:00 11/24/24 20:59 Amiodarone HCl (pacERONE 200MG) 200 mg BID PO 10/26/24 09:00 10/26/24 07:36 DC Amiodarone HCl (pacERONE 200MG) 400 mg BID PO 10/26/24 09:00 11/25/24 08:59 10/26/24 08:53 400 MG Amiodarone HCL/ Dextrose 200 ml @ 33.333 mls/ hr AD IV 10/25/24 16:00 10/26/24 07:30 DC 10/25/24 17:42 33.333 MLS/HR Dobutamine HCl/ Dextrose 250 ml @ 0 mls/hr PROTOCOL IV 10/25/24 16:00 11/24/24 15:59 10/26/24 09:11 11.04 MLS/HR Dobutamine HCl/ Dextrose 250 ml @ 0 mls/hr PROTOCOL IV 10/26/24 07:30 10/26/24 07:37 DC Furosemide (LASix 40MG VIAL) 40 mg Q12H IV 10/25/24 19:00 11/24/24 18:59 10/26/24 06:43 40 MG Furosemide (LASix 40MG VIAL) 40 mg Q12H IV 10/26/24 07:30 10/26/24 07:36 DC Heparin Sodium (Porcine) (HEParin 5,000 UNIT VIAL) 5,000 unit BID SQ 10/25/24 21:00 10/25/24 22:47 DC Heparin Sodium/ Dextrose 250 ml @ 0 mls/hr PROTOCOL IV 10/25/24 16:00 11/24/24 15:59 10/25/24 19:01 11.9 MLS/HR Magnesium Sulfate 50 ml @ 0 mls/hr PROTOCOL IV 10/25/24 15:30 10/25/24 21:00 DC 10/25/24 16:27 25 MLS/HR Magnesium Sulfate 50 ml @ 0 mls/hr PROTOCOL PRN IV MAGNESIUM PROTOCOL 10/25/24 21:00 11/24/24 20:59 Midodrine (PROAMatine 5 MG TABLET) 10 mg TID PO 10/26/24 09:30 11/25/24 09:29 10/26/24 09:12 10 MG Morphine Sulfate (morPHINE 2MG SYG) 2 mg Q4H PRN IVP SEVERE PAIN (7-10) 10/25/24 21:00 11/01/24 20:59 Nicotine (Nicoderm) 14 mg DAILY TD 10/27/24 09:00 11/26/24 08:59 Norepinephrine 250 ml @ 0 mls/hr PROTOCOL IV 10/25/24 18:00 11/24/24 17:59 10/26/24 03:43 52.5 MLS/HR Ondansetron HCl (zoFRAN 4MG INJ) 4 mg Q6H PRN IV NAUSEA/VOMITING 10/25/24 21:00 11/24/24 20:59 Pantoprazole Sodium (PROTonix 40MG INJ) 40 mg DAILY IV 10/26/24 09:00 11/25/24 08:59 10/26/24 08:53 40 MG Piperacillin Sod/ Tazobactam Sod (Zosyn 3.375gm+NS 50ml) 3.375 gm Q12H IV 10/25/24 21:00 11/04/24 20:59 10/26/24 08:53 3.375 GM DIAGNOSTICS / RADIOLOGY: [ ] ASSESSMENT: AFib with a RVR, POA, refractory Hypotension, POA Acute kidney injury, POA, today creatinine 3.3, on 04/11/2022 creatinine 2.8 Lactic acidosis, POA Elevated BNP, POA Hypomagnesemia, POA Hyperlipidemia Hypothyroidism] Tobacco dependence, POA PLAN: Patient remains admitted to the ICU, continue heparin drip, Levophed, amiodarone drip and dobutamine drip, patient will require ischemic evaluation prior to discharge, 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 Counseling provided in terms of tobacco abuse. NEURO: Minimize central acting medications as possible. Fall Precautions. Well lighted room through the day and minimize interruptions through the night to prevent acute delirium. PULMONARY: Supplemental 02 as needed BiPAP as necessary, for respiratory distress Titrate Fio2 to keep Spo2 > or = 90% DuoNebs and CPT as needed IS hourly while awake for pulmonary hygiene prn Out of bed to chair as tolerated Maintain aspiration precautions at all times CARDIOVASCULAR: Follow hemodynamics. Vital signs per facility protocol GI & NUTRITION: Continue nutritional support Aspirations precautions Prokinetic agents and laxatives as needed KIDNEYS & ELECTROLYTES: Strict monitoring of intake and output Daily weights Avoid nephrotoxic agents Monitor electrolytes and replace as needed Goal urine output of 30mL/hr or 0.5mL/kg/hr Medications to be dosed according to renal function. Avoid contrast if possible ENDOCRINE: Maintain blood glucose between 100-180 at all times. Insulin sliding scale for blood glucose management Hypoglycemia and hyperglycemia protocol in place INFECTIOUS DISEASE: Trend temperature, WBC and procalcitonin level Follow cultures, deescalate antibiotics as soon as possible. Panculture if new onset fever HEMATOLOGY & COAGULATION: Monitor H&H. Keep Hgb > 7 Transfuse 1 unit of PRBC for Hgb < 7 Transfuse 1 pack of platelets of platelets < 20, 000 Watch for any signs and symptoms of bleeding SKIN: Pressure ulcer prevention per facility protocol Specialty mattress as needed ORTHO/REHAB Continue PT/OT PRN: MEDICATIONS Tylenol 650 mg po every 4 hrs for fever zofran 4 mg IV every 6 hrs for n/v Hydralazine 5 mg IV every 4 hrs systolic pressure > 160 bowel regiment: lactulose 20 gm PO BID PRN constipation Supportive measures: Continue GI and DVT prophylaxis Disposition: Pending improvement in clinical condition All questions answered time spent: > 35 min YUE FALL MD Oct 26, 2024 12:35
--- NOTE | 2024-10-26 12:49 | HMCSR ---
APPROVED REPORT EXAM: Two-dimensional and M-mode echocardiogram with Doppler and color Doppler. INDICATION ICD: Atrial fibrillation with rapid ventricular response 2D Dimensions RVDd4.4 cmLVEF(%)19.1 (>50%)LA ESV INDEX (BP)45.80 mL/m2 IVSd0.4 (0.7-1.1cm)FS(%)9 % LVDd5.4 (3.8-5.6cm)Ao Root(2D)2.5 (2.0-3.7cm) PWd0.5 (0.7-1.1cm)LVOT diam2.2 (1.8-2.4cm) IVSs0.5 cmIVC diam2.4 cm LVDs4.9 (2.5-4.0cm) PWs0.7 cm Deformation Strain Apical 4-7.1 % Apical 2-7.2 % Apical 3-6.2 % Global Strain-6.8 % M-Mode Dimensions EPSS1.9 cm LA (MM)5.8 (1.6-4.0cm) Ao Root(MM)2.8 (2.0-3.7cm) Aortic Valve AoV Vmax0.8 m/Kayden Peak GR2.6 mmHgLVOT Vmax0.5 m/s AoV VTI0.1 mAo Mean GR1.6 mmHgLVOT VTI0.09 m MONTSE (VMAX)2.48 cm2AVA (VTI) 2.6 cm2 Mitral Valve MV E Ebbl150.3 cm/sDECEL Wtrd702 ms P 1/2 T29 ms MVA (PHT)7.6 cm2 TDI E/E' Gempfw28.6E/E' Fkandom87.1 Medial E' Peak V5.11 cm/sLateral E' Peak V3.96 cm/s Tricuspid Valve TR Vmax2.9 m/sRAP (EST) 15 wwQmOPUK61.0 mmHg TR Peak GR33.0 mmHg Left Ventricle The left ventricle is borderline dilated. Severely reduced GLS -7.0% There is left ventricular wall t hinning. LVEF is 20-25%. The LV diastolic function was unable to be assessed due to atrial arrhythmia but diastolic function is abnormal. Right Ventricle The right ventricle is mildly dilated. Right ventricular systolic function is moderately reduced. Atria The left atrium is moderately dilated. The right atrium is moderately dilated. Aortic Valve The aortic valve is normal in structure. No aortic regurgitation is present. There is no aortic valvu lar stenosis. Mitral Valve The mitral valve is normal in structure. There is moderate mitral valve regurgitation noted. There is no mitral valve stenosis. Tricuspid Valve The tricuspid valve is normal in structure. RVSP 48.0mmHg. There is mild to moderate tricuspid regurg itation. Pulmonic Valve The pulmonary valve is normal in structure. There is no pulmonic valvular regurgitation. Great Vessels The aortic root is normal in size. IVC is dilated and collapses <50% with inspiration. Pericardium There is no pericardial effusion. Other Information Quality : Technically difficult study due to body habitus Conclusion The left ventricle is borderline dilated. LVEF is 20-25%. The LV diastolic function was unable to be assessed due to atrial arrhythmia but diastolic function i s abnormal. Severely reduced GLS -7.0% There is moderate mitral valve regurgitation noted. There is moderate mitral valve regurgitation noted. RVSP 48.0mmHg. There is mild to moderate tricuspid regurgitation.
--- NOTE | 2024-10-26 14:05 | PN ---
[facility] PROGRESS NOTE Date Patient Seen: Oct 26, 2024 Time of Visit: 14:05 Supervising Physician: Bharat Griffith MD Primary Care Physician: Dr. Jeffrey Neil Outpatient Specialists: Dr. Jimenez, internet manager Inpatient Consults: Critical Care team [facility] PROBLEM LIST: Cardiogenic shock, SCAI stage C, POA requiring pressors Acute on Chronic combined Heart Failure with LVEF of 20-25% and GLS -7.0% Suspected moderate pulmonary HTN w/ RVSP 48.0 mmHg Atrial fibrillation with RVR on amiodarone gtt Elevated D- Dimer, pending US BLE Well score for PE 3 Moderate Risk Carotid artery disease Chronic kidney disease Simple renal Cyst 3.1 x 3.3 x 3.4 cm CAD s/p 3V CABG ( RODRIGUES-LAD, SVG-D, SVG-PDA ) August 2009 History of hypertension, currently hypotensive Acute kidney injury, GFR Lactic acidosis Elevated BNP Hypomagnesemia Hyperlipidemia Hypothyroidism Tobacco dependence INTERVAL HISTORY: Pt is awake alert and oriented x 3. Currently on multiple drips which include amiodarone at 0.5 milligram/minute, Levophed at 1 mcg/kg per minute and dobutam ine at 5 mcg/kg per minute. He is pending a PICC line placement. Blood pressures are marginal 90/55 with a map of 67 heart rate in the 80s saturating 100% and afebrile with a T-max of 99.1 in the last 24 hours. Urine output of 1 L overnight. White count and neutrophils are normal H&H stable 10.3/30.9. Chemistries sodium is 134 carbon dioxide of 17, AGAP of 14, will order ketones . BUN of 22 and creatinine of three GFR of 21, kidneys are improving. Lactic acid improved pump 4-1.2 this morning. Heparin on hold per protocol due to supra- therapeutic PTT. Blood cultures with no growth times 24 hours urine cultures no growth times 24 hours. We will continue to follow cardiology recommendations. D- Dimer elevated will order everardo lower extremity venous Doppler. 2D echo shows LVEF is 20-25% in the left ventricle is borderline dilated. LV diastolic function was unable to be assessed due to atrial arrhythmia but diastolic function is abnormal severely reduced GLS -7.0%. There is moderate mitral valve regurgitation and RVSP of 48 mm Hg. There is mild to moderate tricuspid regurgitation. REVIEW OF SYSTEMS: Const: no fever, fatigue, or weight changes Eyes: no recent vision problems ENT: No congestion, ear pain, or sore throat C/V: no chest pain, palpitations or edema Resp:+dry cough, no congestion, wheezing , or Shortness of breath] GI: No abdominal pain, nausea, vomiting, constipation, or diarrhea : No incontinence of or dyuria M/S: No joint or pain swelling + ankle swelling Skin: No rash Neuro: no headache, focal numbness, or weakness, dizziness or seizures Psych: no depression or anxiety Heme: no abnormal bruising or bleeding Lymph: no swollen glands PHYSICAL EXAM: GENERAL: Alert, weak, awake oriented x 3 HEENT: EOMI, Sclera non icteric, moist mucosa NECK: Supple, no JVD, trachea midline LUNGS: Diminished breath sounds bilaterally. No wheezes HEART: Regular rate and rhythm. Normal S1 and S2, without murmurs ABD: Abdomen soft, nontender. Bowel sounds present EXT: No clubbing cyanosis or edema NEURO: Alert and oriented to X3, follows commands Vital Signs (last 8hr) Date Time Temp Pulse Resp B/P (MAP) Pulse Ox O2 Delivery O2 Flow Rate FiO2 10/26/24 13:45 78 15 80/35 (50) 100 28 10/26/24 13:45 80/35 10/26/24 13:30 87 14 89/51 (64) 100 28 10/26/24 13:15 77 14 90/36 (54) 99 28 10/26/24 13:00 73 16 91/44 (60) 99 28 82/34 (50) 10/26/24 12:45 74 16 92/44 (60) 100 28 10/26/24 12:30 80 15 95/43 (60) 99 28 10/26/24 12:26 99.1 10/26/24 12:15 77 18 94/47 (63) 98 28 79/38 (52) 10/26/24 12:00 100 Nasal Cannula* 2 10/26/24 12:00 99.1 80 16 101/49 (66) 99 81/46 (58) 10/26/24 11:45 76 23 101/51 (68) 99 10/26/24 11:30 93 15 113/54 (73) 99 10/26/24 11:15 84 17 100/45 (63) 98 10/26/24 11:00 82 17 101/49 (66) 98 10/26/24 10:45 86 15 98/44 (62) 99 10/26/24 10:30 90 99/48 (65) 99 10/26/24 10:15 89 16 109/52 (71) 98 10/26/24 10:00 80 16 113/56 (75) 99 10/26/24 09:45 88 19 121/61 (81) 99 10/26/24 09:30 82 15 114/57 (76) 99 10/26/24 09:15 79 12 111/56 (74) 98 10/26/24 09:11 102/56 10/26/24 09:00 79 110/57 (74) 98 10/26/24 08:45 70 16 104/55 (71) 99 10/26/24 08:30 73 15 95/51 (66) 99 10/26/24 08:15 71 16 97/51 (66) 99 10/26/24 08:00 97.7 72 16 107/56 (73) 99 10/26/24 08:00 97.7 10/26/24 08:00 100 Nasal Cannula* 2 28 10/26/24 07:45 71 18 99/56 (70) 100 10/26/24 07:30 83 16 106/60 (75) 99 10/26/24 07:15 71 17 102/55 (71) 99 10/26/24 07:00 73 17 101/51 (68) 99 92/34 (53) 10/26/24 06:56 73 17 101/51 (68) 99 92/34 (53) 10/26/24 06:41 71 16 100/55 (70) 99 89/42 (58) 10/26/24 06:26 78 14 103/60 (74) 99 79/48 (58) 10/26/24 06:11 72 17 96/50 (65) 100 92/54 (67) LABS: Hematology Labs: Test 10/26/24 04:00 Range/Units White Blood Count 8.0 4.8-10.8 K/uL Red Blood Count 3.29 L 4.50-6.20 MIL/uL Hemoglobin 10.3 L 14.0-18.0 g/dL Hematocrit 30.9 L 42-54 % Mean Corpuscular Volume 93.9 79-99 fL Mean Corpuscular Hemoglobin 31.3 27.0-33.0 pg Mean Corpuscular Hemoglobin Concent 33.3 32.0-36.0 g/dL Red Cell Distribution Width 13.4 11.0-15.5 % Platelet Count 115 L 130-400 K/uL Mean Platelet Volume 12.0 H 7.5-10.5 fL Immature Granulocyte % (Auto) 0.4 0-1 % Neutrophils (%) (Auto) 68.9 40.0-77.0 % Lymphocytes (%) (Auto) 23.3 21.0-51.0 % Monocytes (%) (Auto) 6.9 3.0-13.0 % Eosinophils (%) (Auto) 0.0 0.0-8.0 % Basophils (%) (Auto) 0.5 0.0-5.0 % Neutrophils # (Auto) 5.5 1.8-7.7 K/uL Lymphocytes # (Auto) 1.9 1.0-4.8 K/uL Monocytes # (Auto) 0.6 0.1-1.0 K/uL Eosinophils # (Auto) 0.00 0.00-0.70 K/uL Basophils # (Auto) 0.04 0.00-0.20 K/uL Absolute Immature Granulocyte (auto 0.03 0-1 K/uL Nucleated Red Blood Cells 0.0 0.0-0.19 % Chemistry Labs: Test 10/26/24 04:00 10/25/24 14:43 Range/Units Sodium Level 134 L 136-145 mmol/L Potassium Level 4.0 3.5-5.1 mmol/L Chloride Level 103 101-111 mmol/L Carbon Dioxide Level 17 L 21-32 mmol/L Blood Urea Nitrogen 32 H 7-18 mg/dL Creatinine 3.0 H 0.5-1.3 mg/dL Glomerular Filtration Rate Calc 21 >90 mL/min Random Glucose 140 H 70-105 mg/dL Lactic Acid Level 1.2 0.8-2.5 mmol/L Total Calcium 8.3 L 8.5-10.1 mg/dL Phosphorus Level 4.0 2.5-4.9 mg/dL Magnesium Level 1.90 1.80-2.40 mg/dL Thyroid Stimulating Hormone (TSH) 2.24 0.36-3.74 uIU/mL Troponin I High Sensitivity 15 4-75 ng/L B-Type Natriuretic Peptide 949 H 0-100 pg/mL Coagulation Labs: Test 10/26/24 08:03 10/26/24 01:05 10/25/24 14:43 Range/Units Activated Partial Thromboplast Time > 139.0 *H 26.3-35.5 SEC Prothrombin Time 12.0 H 9.6-11.6 SEC Prothromb Time International Ratio 1.15 0.85-1.15 D-Dimer Quantitative (PE/DVT) 964 *H 0-500 ng/mL DIAGNOSTICS / RADIOLOGY RESULTS: [[facility] [address] [place] [address] IMAGING REPORT Signed PATIENT: MALLORIE DALAL MR#: [id number] : 1950 SEX: M AGE: 74 LOCATION: [facility] ORDER [id number] STATUS: ADM IN REPORT#: [id number] SERVICE 1402 REASON: rule out complicated uti ORDERING PHYSICIAN: KRISTI IRIZARRY PROCEDURE: RENAL - US RENAL SONOGRAM EXAM: US Retroperitoneum Complete, Renal. CLINICAL HISTORY: Complicated UTI. TECHNIQUE: Real-time ultrasound of the retroperitoneum (complete) with image documentation. Real-time grayscale sonographic images of the kidneys and bladder were obtained. COMPARISON: None provided. FINDINGS: RIGHT KIDNEY: Measures 8.2 x 3.8 x 4.7 cm. Corticomedullary differentiation preserved. A simple cyst is noted measuring 3.1 x 3.3 x 3.4 cm. No evidence of hydronephrosis or nephrolithiasis. LEFT KIDNEY: Measures 8.9 x 3.9 x 4.6 cm. Normal echotexture and corticomedullary differentiation. No hydronephrosis or renal calculi seen. BLADDER: Empty with Galindo catheter in situ. Urinary Bladder. IMPRESSION: 1. Simple renal cyst in the right kidney measuring 3.1 x 3.3 x 3.4 cm. 2. No sonographic evidence of hydronephrosis or nephrolithiasis bilaterally. 3. Galindo catheter in place with empty urinary bladder. IMPRESSION: No sonographic evidence of hydronephrosis or nephrolithiasis bilaterally. Simple renal cyst in the right kidney measuring 3.1 x 3.3 x 3.4 cm. Galindo catheter in place with empty urinary bladder. /[place] DICTATED BY: JOSE SILVA MD DATE: 10/26/241732 ELECTRONICALLY SIGNED BY: JOSE SILVA MD DATE: 10/26/241732 ] PLAN Maintain MAP > 65 Follow neprhology and cardiology recs Education on smoking cessation. Continue Zosyn 3.375 IV q.12 hours. Add Doxy to cover for CAP singulair 10 mg po q HS Nitro patch14 mg daily We will defer the use of Entresto/Aldactone due to CKD, current creatinine 3.3 Strict I's and O's and daily weights, low-sodium diet Fluid restriction to 1.5 L a day with a goal net -1 to 2 L daily. Light diuresing The patient will require an ischemic evaluation prior to discharge Keep on telemetry, monitor/replace electrolytes as needed The patient underwent DCCV x1 patient failed to return to sinus rhythm continue amiodarone gtt per protocol has been started on amiodarone po NEURO: Minimize central acting medications as possible. Fall Precautions. Well lighted room through the day and minimize interruptions through the night to prevent acute delirium. PULMONARY: Supplemental 02 as needed Titrate Fio2 to keep Spo2 > or = 90% DuoNebs and CPT as needed IS hourly while awake for pulmonary hygiene Out of bed to chair as tolerated VAP Bundle CARDIOVASCULAR: Follow hemodynamics. Titrate vasopressor to keep MAP >65 or systolic blood pressure >95mmHg GI & NUTRITION: Continue nutritional support Aspirations precautions Prokinetic agents and laxatives as needed KIDNEYS & ELECTROLYTES: Strict monitoring of intake and output Daily weights Avoid nephrotoxic agents Monitor electrolytes and replace as needed Goal urine output of 30mL/hr or 0.5mL/kg/hr ENDOCRINE: Maintain blood glucose between 100-180 at all times. Insulin sliding scale for blood glucose management INFECTIOUS DISEASE: Trend temperature. Swenson-culture if febrile. HEMATOLOGY & COAGULATION: Monitor H&H. Keep Hgb > 7 Transfuse 1 unit of PRBC for Hgb < 7 Transfuse 1 pack of platelets of platelets < 20, 000 Watch for any signs and symptoms of bleeding SKIN: Pressure ulcer prevention per facility protocol Rehab: PT/OT Code Status: Full Resuscitation Disposition: [Admit to ICU ] Other: Total patient critical care time exceeds 45 minutes excluding all procedures. ATTESTATION BY PHYSICIAN The patient has been seen and evaluated, the case has been discussed with the LANDS RESOURCE MANAGER, I agree with the clinical findings and plan of care. Bharat Griffith MD, [facility] Oct 26, 2024 14:05
--- NOTE | 2024-10-26 14:30 | NUR ---
EVAL ON HOLD SECONDARY TO LOW BP (93/41) AND HIGH D DIMER. SPOKE TO RAMON. Addendum: 10/26/24 at 1508 by PORTIA NORWOOD PT Amended: Links added.
--- NOTE | 2024-10-26 16:34 | HMCIMG ---
EXAM: US Retroperitoneum Complete, Renal. CLINICAL HISTORY: Complicated UTI. TECHNIQUE: Real-time ultrasound of the retroperitoneum (complete) with image documentation. Real-time grayscale sonographic images of the kidneys and bladder were obtained. COMPARISON: None provided. FINDINGS: RIGHT KIDNEY: Measures 8.2 x 3.8 x 4.7 cm. Corticomedullary differentiation preserved. A simple cyst is noted measuring 3.1 x 3.3 x 3.4 cm. No evidence of hydronephrosis or nephrolithiasis. LEFT KIDNEY: Measures 8.9 x 3.9 x 4.6 cm. Normal echotexture and corticomedullary differentiation. No hydronephrosis or renal calculi seen. BLADDER: Empty with Galindo catheter in situ. Urinary Bladder. IMPRESSION: 1. Simple renal cyst in the right kidney measuring 3.1 x 3.3 x 3.4 cm. 2. No sonographic evidence of hydronephrosis or nephrolithiasis bilaterally. 3. Galindo catheter in place with empty urinary bladder. IMPRESSION: No sonographic evidence of hydronephrosis or nephrolithiasis bilaterally. Simple renal cyst in the right kidney measuring 3.1 x 3.3 x 3.4 cm. Galindo catheter in place with empty urinary bladder. /[place]
[2024-10-26] MEDS: LACTULOSE 20 GM/30 ML UDCUP PO PRN (16:53)
[2024-10-26] MEDS: DOXYCYCLINE HYCLATE 100 MG TABLET PO SCH (20:24)
[2024-10-27] VITALS (108 sets, daily range): BP systolic 70–146; BP diastolic 27–95; PULSE 75–148; RESP 12–36; TEMP 97–98.5; O2SAT 99–100
--- NOTE | 2024-10-27 03:59 | NUR ---
Spoke to Ana MANIFOLD OPERATOR regarding patient condition. Informed provider of patients HR increasing to the 130's. Informed provider of patients history of afib, on dobutamine and Levophed. As per provider wean off Levophed and place patient on phenylephrine.
--- NOTE | 2024-10-27 04:53 | HMCIMG ---
EXAMINATION: SPECTRAL DOPPLER ULTRASOUND EXAMINATION OF THE BILATERAL LOWER EXTREMITY VEINS. CLINICAL HISTORY: To rule out DVT. COMPARISON: None provided. TECHNIQUE: Real-time ultrasound scan of the veins of the bilateral lower extremity with color Doppler flow, spectral waveform analysis and compression. FINDINGS: DEEP VEINS: The common femoral, superficial femoral, and popliteal veins are echolucent and compressible. There is normal color Doppler flow throughout. The visualized calf veins appear patent. SUPERFICIAL VEINS: The greater saphenous veins are patent and compressible. SOFT TISSUES: No popliteal fossa cyst or other abnormalities. IMPRESSION: No deep venous thrombosis evident in the bilateral lower extremity. No superficial thrombophlebitis in the bilateral lower extremity. /[place]
--- NOTE | 2024-10-27 04:55 | HMCIMG ---
EXAM: CR Chest, 2 views. CLINICAL HISTORY: PICC line placement. COMPARISON: CR dated 10/25/2024. FINDINGS: Left PICC line tip overlies the proximal SVC. Status poststernotomy. Small pleural effusions and lower zone airspace disease bilaterally, more pronounced on the left side. No pneumothorax. The cardiomediastinal silhouette is within normal limits. No acute osseous abnormality. IMPRESSION: Small pleural effusions and lower zone airspace disease bilaterally, more pronounced on the left side. Mild interval worsening in these findings compared to the previous chest radiograph dated 10/25/2024. /[place]
[2024-10-27 05:22] LABS: % IRON SATURATION 16.0 % (30-44); IRON, SERUM 25.0 mcg/dL (65-175)
--- NOTE | 2024-10-27 05:46 | NUR ---
Contacted night warehouse selector Maryellen and informed her of monitor being down in patient room. As per night warehouse selector she will be sending engineering to the room. Addendum: 10/27/24 at 0600 by CLINT GARCIA RN RN Patient placed on telepack 20 while monitor is being evaluated. Vital signs machine at bedside taking patients vitals continously.
--- NOTE | 2024-10-27 07:16 | PN ---
[facility] Card[facility] Progress Note CARDIOLOGY PROGRESS NOTE OCTOBER 27, 2024 Problems: 1. Acute congestive heart failure 2. Ischemic cardiomyopathy with ejection fraction of 20-25% 3. CAD status post aortocoronary bypass graft surgery 2009 with a RODRIGUES graft to the LAD saphenous graft to the diagonal artery and saphenous graft to the PDA 4. Atrial fibrillation with rapid ventricular response on admission status post failed cardioversion on admission 5. Dyslipidemia 6. Tobacco dependence 7. Remote lacunar infarct 2009 8. Carotid artery disease status post right carotid endarterectomy 2010 and subsequent left carotid endarterectomy 2018 9. hypothyroidism 10. Chronic kidney disease stage 4 The patient has been symptomatic for about a week and a half. It is unclear at this point whether his drop in ejection fraction is related to uncontrolled atrial fibrillation with rapid ventricular response versus ischemia from progressive coronary disease. Yesterday he was tapered off norepinephrine and started on dobutamine. Blood pressure is currently running 102 and 114 systolic. Heart rate is still above 110. Labs this morning are pending. Troponin was normal on admission beta brain natriuretic peptide level 949. He is receiving amiodarone 400 mg p.o. b.i.d. dobutamine furosemide 30 mg q.12 hours heparin protocol midodrine nicotine patch pantoprazole and antibiotics. Currently he is awake and alert. He has bilateral coarse rhonchi. He diuresed 4 L yesterday. He is not clear how much of his hypotension is related to sepsis versus low cardiac output versus AFib with rapid rate. It is also unclear whether her drop in ejection fraction related to AFib with rapid rate symptoms started about a week and a half ago. Plans are to stabilize medically. Once he is off pressors and stable we will consider a Lexiscan Cardiolite stress test before discharge. ZAC MCFADDEN MD Oct 27, 2024 07:16
[2024-10-27] MEDS: AMIOdarone 150MG/100ML BAG 100 ML IV SCH (07:44)
[2024-10-27] MEDS: NICOTINE 14 MG/ 24 HR PATCH TD SCH (07:45)
--- NOTE | 2024-10-27 09:18 | PN ---
[facility] PROGRESS NOTE Date of Service: Oct 27, 2024 Time of Service: 09:15 SUBJECTIVE: 10/26 74-year-old male, history of coronary artery disease, dyslipidemia, hypertension, tobacco dependence, remote lacunar infarct, carotid artery disease, hypothyroidism, presented with a chief complaint of generalized body weakness and shortness a breath, in the emergency room found to have AFib with a RVR, heart rate in with the 140s, hypotensive, cardioverted electrically x1, did not restore sinus rhythm, patient admitted to the ICU. At the time of my visit awake, following commands, on heparin drip, Levophed, amiodarone drip, dobutamine drip, echocardiogram showing ejection fraction 20- 25%. Cardiology input noted and appreciated, the patient will require an ischemic evaluation prior to discharge. 10/27/24 patient remains in ICU. Patient appears chronically ill fragile and weak. Denied chest pain. Patient is being followed by reconsignment clerk's continues on dopamine drip. The plan is to stabilize medically weaned off pressors they we will consider Lexiscan. REVIEW OF SYSTEMS CONSTITUTIONAL: Denies fevers, chills, or night sweats. No unintentional weight loss reported. NEUROLOGICAL: Denies headache, amaurosis fugax, motor weakness, sensory deficit, vertigo/spinning sensation, gait abnormalities, or tremors. ENT: No hearing loss, otalgia, otorrhea, rhinitis, rhinorrhea, hoarseness, or sore throat. CARDIOVASCULAR: Denies any exertional angina, dyspnea on exertion, orthopnea, paroxysmal nocturnal dyspnea, palpitations, life-threatening arrhythmias, claudication. PULMONARY: Denies any shortness of breath, cough, phlegm/sputum, hemoptysis, pleuritic chest pain. SLEEP: Denies morning headaches, daytime somnolence or napping. Denies difficulty falling asleep, staying asleep, waking from sleep. Denies knowledge of snoring. GASTROINTESTINAL: Denies any type of dysphagia to either liquids or solids. Denies nausea, vomiting, pyrosis, early satiety, abdominal pain, diarrhea, constipation, or changes in stool consistency or caliber. Denies coffee-ground emesis, hematemesis, hematochezia, or melanotic stools. GENITOURINARY: Denies frequency, urgency, nocturia, hematuria or incontinence (Storage/Irritative symptoms.) Low urinary stream, straining to void, urinary intermittency or hesitancy, splitting of the voiding stream, terminal dribbling. ENDOCRINOLOGIC: Denies polyuria, polydipsia, polyphagia or heat/cold intolerances. HEMATOLOGIC: Denies thrombophilia/previous clots, or coagulopathy/bleeding disorders. ONCOLOGIC: Denies personal history of malignancy. DERMATOLOGIC: Denies rashes or pruritus. PSYCHIATRIC: Denies any suicidal or homicidal ideation. Denies hallucinations. PHYSICAL EXAM GENERAL APPEARANCE: The patient is awake, alert, and oriented, in no acute cardiopulmonary distress. NEUROLOGICAL: Cranial nerves II-XII grossly intact. Motor is 5/5 in bilateral upper and lower extremities proximal to distal. No sensory deficits. HEENT: Face is symmetric. Pupils are equal and reactive. Extraocular movements are intact. NECK: Supple. No JVD. No thyromegaly. No submental, submandibular, pre- /postauricular, occipital or supraclavicular lymphadenopathy. CHEST: Normal chest expansion. No Telemetry. LUNGS: Absence of any rales, rhonchi or any wheezing. CARDIOVASCULAR: Regular. S1 and S2 normal. No appreciable rubs, murmurs or gallops. ABDOMEN: Soft, nontender, and nondistended. There is no rebound, voluntary guarding, or rigidity. : Deferred. No Galindo. EXTREMITIES: Non-edematous and not cyanotic. No clubbing. Good capillary refill. SKIN: No skin breakdown. Vital Signs (last 8hr) Date Time Temp Pulse Resp B/P (MAP) Pulse Ox O2 Delivery O2 Flow Rate FiO2 10/27/24 07:10 114 16 N/Cannula Low lpm 2.0 28 10/27/24 04:56 120 15 114/48 (70) 99 10/27/24 04:41 127 16 114/53 (73) 99 97/46 (63) 10/27/24 04:26 112 15 118/53 (74) 99 10/27/24 04:11 104 16 104/43 (63) 98 10/27/24 04:00 99 Nasal Cannula* 2 28 10/27/24 04:00 97.0 10/27/24 03:56 126 15 102/47 (65) 99 10/27/24 03:41 105 15 107/46 (66) 100 95/43 (60) 10/27/24 03:26 126 17 105/45 (65) 100 10/27/24 03:11 106 14 108/47 (67) 100 10/27/24 02:56 115 16 107/48 (67) 99 10/27/24 02:41 111 16 112/50 (70) 100 105/49 (67) 10/27/24 02:26 105 16 115/52 (73) 99 10/27/24 02:11 98 15 116/52 (73) 100 10/27/24 01:56 114 14 117/53 (74) 99 10/27/24 01:42 115 15 114/51 (72) 100 107/70 (82) 10/27/24 01:41 123 14 116/53 (74) 100 10/27/24 01:26 114 17 113/49 (70) 99 LABS: Laboratory: Test 10/27/24 04:22 10/26/24 04:00 10/26/24 01:05 10/25/24 20:01 Range/Units Activated Partial Thromboplast Time 54.7 H 26.3-35.5 SEC Whole Blood Ketones Quantitative < 0.1 0.0-0.6 mmol/L Iron Level 25 L 65-175 mcg/dL Total Iron Binding Capacity 156 L 250-450 mcg/dL Percent Iron Saturation 16.0 L 30-44 % Procalcitonin 0.20 0.05-0.5 ng/mL White Blood Count 8.0 4.8-10.8 K/uL Red Blood Count 3.29 L 4.50-6.20 MIL/uL Hemoglobin 10.3 L 14.0-18.0 g/dL Hematocrit 30.9 L 42-54 % Mean Corpuscular Volume 93.9 79-99 fL Mean Corpuscular Hemoglobin 31.3 27.0-33.0 pg Mean Corpuscular Hemoglobin Concent 33.3 32.0-36.0 g/dL Red Cell Distribution Width 13.4 11.0-15.5 % Platelet Count 115 L 130-400 K/uL Mean Platelet Volume 12.0 H 7.5-10.5 fL Immature Granulocyte % (Auto) 0.4 0-1 % Neutrophils (%) (Auto) 68.9 40.0-77.0 % Lymphocytes (%) (Auto) 23.3 21.0-51.0 % Monocytes (%) (Auto) 6.9 3.0-13.0 % Eosinophils (%) (Auto) 0.0 0.0-8.0 % Basophils (%) (Auto) 0.5 0.0-5.0 % Neutrophils # (Auto) 5.5 1.8-7.7 K/uL Lymphocytes # (Auto) 1.9 1.0-4.8 K/uL Monocytes # (Auto) 0.6 0.1-1.0 K/uL Eosinophils # (Auto) 0.00 0.00-0.70 K/uL Basophils # (Auto) 0.04 0.00-0.20 K/uL Absolute Immature Granulocyte (auto 0.03 0-1 K/uL Nucleated Red Blood Cells 0.0 0.0-0.19 % Sodium Level 134 L 136-145 mmol/L Potassium Level 4.0 3.5-5.1 mmol/L Chloride Level 103 101-111 mmol/L Carbon Dioxide Level 17 L 21-32 mmol/L Blood Urea Nitrogen 32 H 7-18 mg/dL Creatinine 3.0 H 0.5-1.3 mg/dL Glomerular Filtration Rate Calc 21 >90 mL/min Random Glucose 140 H 70-105 mg/dL Lactic Acid Level 1.2 0.8-2.5 mmol/L Total Calcium 8.3 L 8.5-10.1 mg/dL Phosphorus Level 4.0 2.5-4.9 mg/dL Magnesium Level 1.90 1.80-2.40 mg/dL Thyroid Stimulating Hormone (TSH) 2.24 0.36-3.74 uIU/mL Prothrombin Time 12.0 H 9.6-11.6 SEC Prothromb Time International Ratio 1.15 0.85-1.15 Urine Color YELLOW YELLOW Urine Appearance CLOUDY H CLEAR Urine pH 6.0 5.0-8.0 Urine Specific [place] 1.010 1.001-1.031 Urine Protein 100 H NEGATIVE mg/dL Urine Glucose (UA) NEGATIVE NEGATIVE mg/dL Urine Ketones NEGATIVE NEGATIVE mg/dL Urine Occult Blood MODERATE H NEGATIVE Urine Nitrate NEGATIVE NEGATIVE Urine Bilirubin NEGATIVE NEGATIVE mg/dL Urine Urobilinogen 0.2 0.2-1.0 mg/dL Urine Leukocyte Esterase 500 H NEGATIVE Miranda/uL Urine RBC 11-25 H 0-1 /HPF Urine WBC TNTC H 0-1 /HPF Urine WBC Clumps (Auto) MANY 0-1 /HPF Urine Squamous Epithelial Cells RARE 0-2 /HPF Urine Bacteria None None Seen /HPF Test 10/25/24 20:00 10/25/24 14:43 10/25/24 14:30 Range/Units Urine Osmolality 251 50-1200 mOsm/kg Urine Random Creatinine 92.99 30-135 mg/dL Urine Random Sodium 32 L 40-220 mmol/l D-Dimer Quantitative (PE/DVT) 964 *H 0-500 ng/mL Troponin I High Sensitivity 15 4-75 ng/L B-Type Natriuretic Peptide 949 H 0-100 pg/mL Influenza Type A Antigen Negative For Type A NEGATIVE Influenza Type B Antigen Negative For Type B NEGATIVE SARS-CoV-2 Antigen (Rapid) PRESUMPTIVE NEGATIVE NEGATIVE Current Medications Medications (Trade) Dose Ordered Sig/Gustavo Route PRN Reason Start Time Stop Time Status Last Admin Dose Admin Acetaminophen (TYLenol 325MG TAB) 650 mg Q6H PRN PO TEMPERATURE GREATER THAN 101.5 10/25/24 21:00 11/24/24 20:59 Amiodarone HCl (pacERONE 200MG) 200 mg BID PO 10/26/24 09:00 10/26/24 07:36 DC Amiodarone HCl (pacERONE 200MG) 400 mg BID PO 10/26/24 09:00 11/25/24 08:59 10/27/24 07:45 400 MG Amiodarone HCL/ Dextrose 100 ml @ 0 mls/hr PROTOCOL IV 10/27/24 07:30 11/26/24 07:29 10/27/24 07:44 600 MLS/HR Amiodarone HCL/ Dextrose 200 ml @ 33.333 mls/ hr AD IV 10/25/24 16:00 10/26/24 07:30 DC 10/25/24 17:42 33.333 MLS/HR Dobutamine HCl/ Dextrose 250 ml @ 0 mls/hr PROTOCOL IV 10/25/24 16:00 11/24/24 15:59 10/27/24 07:02 0 MLS/HR Dobutamine HCl/ Dextrose 250 ml @ 0 mls/hr PROTOCOL IV 10/26/24 07:30 10/26/24 07:37 DC Doxycycline Hyclate (Doxycycline Hyclate) 100 mg BID PO 10/26/24 21:00 11/05/24 20:59 10/27/24 07:44 100 MG Furosemide (LASix 40MG VIAL) 30 mg Q12H IV 10/27/24 07:00 11/26/24 06:59 10/27/24 07:01 30 MG Furosemide (LASix 40MG VIAL) 40 mg Q12H IV 10/25/24 19:00 10/26/24 19:26 DC 10/26/24 18:47 40 MG Furosemide (LASix 40MG VIAL) 40 mg Q12H IV 10/26/24 07:30 10/26/24 07:36 DC Heparin Sodium (Porcine) (HEParin 5,000 UNIT VIAL) 5,000 unit BID SQ 10/25/24 21:00 10/25/24 22:47 DC Heparin Sodium/ Dextrose 250 ml @ 0 mls/hr PROTOCOL IV 10/25/24 16:00 11/24/24 15:59 10/26/24 18:46 7.7 MLS/HR Lactulose (Constulose 20gm/ 30ml Udcup) 20 gm BID PRN PO CONSTIPATION 10/26/24 17:00 11/25/24 16:59 10/26/24 16:53 20 GM Magnesium Sulfate 50 ml @ 0 mls/hr PROTOCOL IV 10/25/24 15:30 10/25/24 21:00 DC 10/25/24 16:27 25 MLS/HR Magnesium Sulfate 50 ml @ 0 mls/hr PROTOCOL PRN IV MAGNESIUM PROTOCOL 10/25/24 21:00 11/24/24 20:59 Midodrine (PROAMatine 5 MG TABLET) 10 mg TID PO 10/26/24 09:30 11/25/24 09:29 10/26/24 20:24 10 MG Montelukast Sodium (SinguLAIR) 10 mg HS PO 10/26/24 21:00 11/25/24 20:59 10/26/24 20:25 10 MG Morphine Sulfate (morPHINE 2MG SYG) 2 mg Q4H PRN IVP SEVERE PAIN (7-10) 10/25/24 21:00 11/01/24 20:59 Nicotine (Nicoderm) 14 mg DAILY TD 10/27/24 09:00 11/26/24 08:59 10/27/24 07:45 14 MG Norepinephrine 250 ml @ 0 mls/hr PROTOCOL IV 10/25/24 18:00 11/24/24 17:59 10/26/24 13:45 27.573 MLS/HR Ondansetron HCl (zoFRAN 4MG INJ) 4 mg Q6H PRN IV NAUSEA/VOMITING 10/25/24 21:00 11/24/24 20:59 Pantoprazole Sodium (PROTonix 40MG INJ) 40 mg DAILY IV 10/26/24 09:00 11/25/24 08:59 10/27/24 07:44 40 MG Phenylephrine HCl 100 mg/Sodium Chloride 250 ml @ 0 mls/hr AD PRN IV TITRATE 10/27/24 04:30 11/26/24 04:29 10/27/24 05:20 0 MLS/HR Piperacillin Sod/ Tazobactam Sod (Zosyn 3.375gm+NS 50ml) 3.375 gm Q12H IV 10/25/24 21:00 11/04/24 20:59 10/27/24 07:44 3.375 GM DIAGNOSTICS / RADIOLOGY: [ ] ASSESSMENT: Cardiogenic shock, SCAI stage C, POA requiring pressors Acute on Chronic combined Heart Failure with 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 Continues heparin drip amiodarone was changed to p.o.. Canvassing Manager's following appreciate their input. Patient is currently awake alert oriented x3. Are considering further ischemic evaluation weaned off pressors they we will consider Lexiscan. NEURO: Minimize central acting medications as possible. Fall Precautions. Well lighted room through the day and minimize interruptions through the night to prevent acute delirium. PULMONARY: Supplemental 02 as needed BiPAP as necessary, for respiratory distress Titrate Fio2 to keep Spo2 > or = 90% DuoNebs and CPT as needed IS hourly while awake for pulmonary hygiene prn Out of bed to chair as tolerated Maintain aspiration precautions at all times CARDIOVASCULAR: Follow hemodynamics. Vital signs per facility protocol GI & NUTRITION: Continue nutritional support Aspirations precautions Prokinetic agents and laxatives as needed KIDNEYS & ELECTROLYTES: Strict monitoring of intake and output Daily weights Avoid nephrotoxic agents Monitor electrolytes and replace as needed Goal urine output of 30mL/hr or 0.5mL/kg/hr Medications to be dosed according to renal function. Avoid contrast if possible ENDOCRINE: Maintain blood glucose between 100-180 at all times. Insulin sliding scale for blood glucose management Hypoglycemia and hyperglycemia protocol in place INFECTIOUS DISEASE: Trend temperature, WBC and procalcitonin level Follow cultures, deescalate antibiotics as soon as possible. Panculture if new onset fever HEMATOLOGY & COAGULATION: Monitor H&H. Keep Hgb > 7 Transfuse 1 unit of PRBC for Hgb < 7 Transfuse 1 pack of platelets of platelets < 20, 000 Watch for any signs and symptoms of bleeding SKIN: Pressure ulcer prevention per facility protocol Specialty mattress as needed ORTHO/REHAB Continue PT/OT PRN: MEDICATIONS Tylenol 650 mg po every 4 hrs for fever zofran 4 mg IV every 6 hrs for n/v Hydralazine 5 mg IV every 4 hrs systolic pressure > 160 bowel regiment: lactulose 20 gm PO BID PRN constipation Supportive measures: Continue GI and DVT prophylaxis Disposition: Pending improvement in clinical condition All questions answered time spent: > 35 min ATTESTATION BY PHYSICIAN I have seen and examined the patient. I reviewed the documentation, medical decision making, and treatment plan as noted by the mid-level provider above. I agree with the findings and plan of care. SHRUTHI GARLAND MD, [facility] NP Oct 27, 2024 09:18
--- NOTE | 2024-10-27 10:08 | PN ---
[facility] PROGRESS NOTE Date Patient Seen: Oct 27, 2024 Time of Visit: 10:07 Supervising Physician:Maury Dowell MD Primary Care Physician: Dr. Jeffrey Neil Outpatient Specialists: Dr. Jimenez, tobacco educator Inpatient Consults: Critical Care team [facility] PROBLEM LIST: Cardiogenic shock, SCAI stage C, POA requiring pressors Acute on Chronic combined Heart Failure with LVEF of 20-25% and GLS -7.0% Suspected moderate pulmonary HTN w/ RVSP 48.0 mmHg Atrial fibrillation with RVR on amiodarone gtt Elevated D- Dimer, pending US BLE Well score for PE 3 Moderate Risk Carotid artery disease Chronic kidney disease Simple renal Cyst 3.1 x 3.3 x 3.4 cm CAD s/p 3V CABG ( RODRIGUES-LAD, SVG-D, SVG-PDA ) August 2009 History of hypertension, currently hypotensive Acute kidney injury, GFR Lactic acidosis Elevated BNP Hypomagnesemia Hyperlipidemia Hypothyroidism Tobacco dependence INTERVAL HISTORY: Pt is awake alert and oriented x 3. He has weaned off Levophed . As per RN early this morning pt converted to afib with RVR and amiodarone 150 x 1 dose was administered now SR 80's. We will try weaning of dobutamine which is currently at 5mcg/kg/min. Patient is also on Perez-Synephrine drip at 0.7 mcg/kg per minute and heparin drip therapeutic. Patient has no complaints denies chest pain palpitations or shortness for breath at this time. Urine output 4.3 L in the last 24 hours with a balance of-2.9 L. currently saturating 100% on 2 L via n parvin cannula we we will work on weaning off O2 to maintain a O2 sat above 92%. CBC similar to yesterday. Platelet count improved to 115 K. chemistries shows a sodium 134 carbon dioxide of 17 BUN of 32 creatinine of 3.0 and GFR of 21 with a anion gap of 14- for ketones. Started sodium bicarb pills. Total calcium 8.325 TIBC 156 and% saturation 16%. TSH within normal limit procalcitonin of 0.20. Urine culture report greater than [id number] CFU. Susceptibility pending. REVIEW OF SYSTEMS: Const: no fever, fatigue, or weight changes Eyes: no recent vision problems ENT: No congestion, ear pain, or sore throat C/V: no chest pain, palpitations or edema Resp:+dry cough, no congestion, wheezing , or Shortness of breath] GI: No abdominal pain, nausea, vomiting, constipation, or diarrhea : No incontinence of or dyuria M/S: No joint or pain swelling + ankle swelling Skin: No rash Neuro: no headache, focal numbness, or weakness, dizziness or seizures Psych: no depression or anxiety Heme: no abnormal bruising or bleeding Lymph: no swollen glands PHYSICAL EXAM: GENERAL: Alert, weak, awake oriented x 3 HEENT: EOMI, Sclera non icteric, moist mucosa NECK: Supple, no JVD, trachea midline LUNGS: Diminished breath sounds bilaterally. No wheezes HEART: Regular rate and rhythm. Normal S1 and S2, without murmurs ABD: Abdomen soft, nontender. Bowel sounds present EXT: No clubbing cyanosis or edema NEURO: Alert and oriented to X3, follows commands Vital Signs (last 8hr) Date Time Temp Pulse Resp B/P (MAP) Pulse Ox O2 Delivery O2 Flow Rate FiO2 10/27/24 07:10 114 16 N/Cannula Low lpm 2.0 28 10/27/24 04:56 120 15 114/48 (70) 99 10/27/24 04:41 127 16 114/53 (73) 99 97/46 (63) 10/27/24 04:26 112 15 118/53 (74) 99 10/27/24 04:11 104 16 104/43 (63) 98 10/27/24 04:00 99 Nasal Cannula* 2 28 10/27/24 04:00 97.0 10/27/24 03:56 126 15 102/47 (65) 99 10/27/24 03:41 105 15 107/46 (66) 100 95/43 (60) 10/27/24 03:26 126 17 105/45 (65) 100 10/27/24 03:11 106 14 108/47 (67) 100 10/27/24 02:56 115 16 107/48 (67) 99 10/27/24 02:41 111 16 112/50 (70) 100 105/49 (67) 10/27/24 02:26 105 16 115/52 (73) 99 10/27/24 02:11 98 15 116/52 (73) 100 LABS: Hematology Labs: Test 10/26/24 04:00 Range/Units White Blood Count 8.0 4.8-10.8 K/uL Red Blood Count 3.29 L 4.50-6.20 MIL/uL Hemoglobin 10.3 L 14.0-18.0 g/dL Hematocrit 30.9 L 42-54 % Mean Corpuscular Volume 93.9 79-99 fL Mean Corpuscular Hemoglobin 31.3 27.0-33.0 pg Mean Corpuscular Hemoglobin Concent 33.3 32.0-36.0 g/dL Red Cell Distribution Width 13.4 11.0-15.5 % Platelet Count 115 L 130-400 K/uL Mean Platelet Volume 12.0 H 7.5-10.5 fL Immature Granulocyte % (Auto) 0.4 0-1 % Neutrophils (%) (Auto) 68.9 40.0-77.0 % Lymphocytes (%) (Auto) 23.3 21.0-51.0 % Monocytes (%) (Auto) 6.9 3.0-13.0 % Eosinophils (%) (Auto) 0.0 0.0-8.0 % Basophils (%) (Auto) 0.5 0.0-5.0 % Neutrophils # (Auto) 5.5 1.8-7.7 K/uL Lymphocytes # (Auto) 1.9 1.0-4.8 K/uL Monocytes # (Auto) 0.6 0.1-1.0 K/uL Eosinophils # (Auto) 0.00 0.00-0.70 K/uL Basophils # (Auto) 0.04 0.00-0.20 K/uL Absolute Immature Granulocyte (auto 0.03 0-1 K/uL Nucleated Red Blood Cells 0.0 0.0-0.19 % Chemistry Labs: Test 10/27/24 04:22 10/26/24 04:00 10/25/24 14:43 Range/Units Whole Blood Ketones Quantitative < 0.1 0.0-0.6 mmol/L Iron Level 25 L 65-175 mcg/dL Total Iron Binding Capacity 156 L 250-450 mcg/dL Percent Iron Saturation 16.0 L 30-44 % Procalcitonin 0.20 0.05-0.5 ng/mL Sodium Level 134 L 136-145 mmol/L Potassium Level 4.0 3.5-5.1 mmol/L Chloride Level 103 101-111 mmol/L Carbon Dioxide Level 17 L 21-32 mmol/L Blood Urea Nitrogen 32 H 7-18 mg/dL Creatinine 3.0 H 0.5-1.3 mg/dL Glomerular Filtration Rate Calc 21 >90 mL/min Random Glucose 140 H 70-105 mg/dL Lactic Acid Level 1.2 0.8-2.5 mmol/L Total Calcium 8.3 L 8.5-10.1 mg/dL Phosphorus Level 4.0 2.5-4.9 mg/dL Magnesium Level 1.90 1.80-2.40 mg/dL Thyroid Stimulating Hormone (TSH) 2.24 0.36-3.74 uIU/mL Troponin I High Sensitivity 15 4-75 ng/L B-Type Natriuretic Peptide 949 H 0-100 pg/mL Coagulation Labs: Test 10/27/24 04:22 10/26/24 01:05 10/25/24 14:43 Range/Units Activated Partial Thromboplast Time 54.7 H 26.3-35.5 SEC Prothrombin Time 12.0 H 9.6-11.6 SEC Prothromb Time International Ratio 1.15 0.85-1.15 D-Dimer Quantitative (PE/DVT) 964 *H 0-500 ng/mL DIAGNOSTICS / RADIOLOGY RESULTS: [ ] PLAN Maintain MAP > 65 Wean of dobutamine as possible Follow neprhology and cardiology recs Education on smoking cessation. Continue Zosyn 3.375 IV q.12 hours. Add Doxy to cover for CAP singulair 10 mg po q HS Nitro patch14 mg daily Strict I's and O's and daily weights, low-sodium diet Fluid restriction to 1.5 L a day with a goal net -1 to 2 L daily. Light diuresing The patient will require an ischemic evaluation prior to discharge Keep on telemetry, monitor/replace electrolytes as needed The patient underwent DCCV x1 patient failed to return to sinus rhythm continue amiodarone gtt per protocol has been started on amiodarone po NEURO: Minimize central acting medications as possible. Fall Precautions. Well lighted room through the day and minimize interruptions through the night to prevent acute delirium. PULMONARY: Supplemental 02 as needed Titrate Fio2 to keep Spo2 > or = 90% DuoNebs and CPT as needed IS hourly while awake for pulmonary hygiene Out of bed to chair as tolerated VAP Bundle CARDIOVASCULAR: Follow hemodynamics. Titrate vasopressor to keep MAP >65 or systolic blood pressure >95mmHg GI & NUTRITION: Continue nutritional support Aspirations precautions Prokinetic agents and laxatives as needed KIDNEYS & ELECTROLYTES: Strict monitoring of intake and output Daily weights Avoid nephrotoxic agents Monitor electrolytes and replace as needed Goal urine output of 30mL/hr or 0.5mL/kg/hr ENDOCRINE: Maintain blood glucose between 100-180 at all times. Insulin sliding scale for blood glucose management INFECTIOUS DISEASE: Trend temperature. Swenson-culture if febrile. HEMATOLOGY & COAGULATION: Monitor H&H. Keep Hgb > 7 Transfuse 1 unit of PRBC for Hgb < 7 Transfuse 1 pack of platelets of platelets < 20, 000 Watch for any signs and symptoms of bleeding SKIN: Pressure ulcer prevention per facility protocol Rehab: PT/OT Code Status: Full Resuscitation Disposition: [Admit to ICU ] Other: Total patient critical care time exceeds 45 minutes excluding all procedures. ATTESTATION BY PHYSICIAN I have evaluated the patient chart, medical records, and spoke with appropriate staff. I reviewed the documentation, medical decision making, and treatment plan as noted by the mid-level provider above. I agree with the findings and plan of care. Maury Dowell MD, [facility] Oct 27, 2024 10:07
[2024-10-27 10:33] LABS: ABG BASE EXCESS -2.0 mmol/L (-2.0-3.0); ABG HCO3 20.9 mmol/L (21.0-28.0); ABG OXYGEN SATURATION 97.5 % (94.0-98.0); ABG PCO2 30 mmHg (35-48); ABG PH 7.467 (7.350-7.450); CARBON MONOXIDE 0.4 % (0.5-1.5); DEVICE COMMENT SJ RN; PO2, ARTERIAL BG 95.8 mmHg (83.0-108.0); TEMPERATURE, CELSIUS BG 37.0 CELSIUS (35.5-37.0); VENT MODE, BG 3L NC (ROOM AIR)
--- NOTE | 2024-10-27 11:00 | NUR ---
PT CONTINUES WITH LOW BP ON IV MEDS AND WITH A FIB W/RVR PER [facility]. Addendum: 10/27/24 at 1226 by PORTIA NORWOOD PT Amended: Links added.
--- NOTE | 2024-10-27 12:24 | NUR ---
RAD NUCLEAR MEDICINE EMILEE IRIZARRY MADE NURSE CHIDI TO PLACE SCAN ON HOLD UNTIL PATIENT IS MORE STABLE, PATIENT IS UNABLE TO LAY FLAT FOR VQ SCAN.
--- NOTE | 2024-10-27 12:35 | NUR ---
[facility] ICU Skin Assessment: Patient assessed by wound healing team. Patient with no wounds or skin breakdown noted. Assessment and recommendations provided to primary nurse. Education provided. Addendum: 10/27/24 at 1447 by SHANTELLE VUONG RN RN/ Amended: Links added.
--- NOTE | 2024-10-27 12:42 | PN ---
FOLLOWUP PROGRESS NOTE SUBJECTIVE: A 74-year-old male with a history of known coronary artery disease. The patient initially admitted to the hospital with acute on chronic renal failure. The patient was found to have significant hypotension, started on the pressors. The patient has become more hemodynamically stable overnight. The patient's creatinine did somewhat improve overnight and the patient is being seen as a followup visit for all of the above. REVIEW OF SYSTEMS: CONSTITUTIONAL: He is feeling improved. HEENT: No change in vision. No change in hearing. CARDIOVASCULAR: There is no current chest pain or palpitations. PULMONARY: Shortness of breath has improved. GASTROINTESTINAL: He has been started on a diet. MUSCULOSKELETAL: Complaints of weakness. PHYSICAL EXAMINATION: VITAL SIGNS: Blood pressure is 114/48, pulse in the 100s, afebrile. GENERAL: He is a chronically ill male, elderly, lying in bed on the medical floor. HEENT: Head is atraumatic. Pupils equal, roving to light. Oropharynx is without exudate. Nares clear. NECK: There is no JVP. There is no thyromegaly. No masses. CARDIOVASCULAR: Regular. There is no S3 or S4 gallop. LUNGS: Coarse with equal thoracic movement. ABDOMEN: Soft, nondistended, and nontender. EXTREMITIES: There is no clubbing, no cyanosis. NEUROLOGICAL: He is awake. He is alert. LABORATORY DATA: Sodium 134. BUN 32, creatinine 3. Iron levels are noted. Hemoglobin 10, hematocrit 30. IMPRESSION: * Acute on chronic renal failure. * Cardiomyopathy. * Hypotension. * Anemia. PLAN: The patient has become much more hemodynamically stable. The patient's creatinine did stabilize overnight. The patient does have significant anemia. The patient will be given a dose of iron and will continue to follow closely. Workup is ongoing per Cardiology. All labs will be repeated in the morning. TID: [id number] RECEIPT: [id number]
[2024-10-27] MEDS ORDERED: COMPOUND IV MISC 1 EACH IVSOLN MISC PRN (13:00)
[2024-10-27] MEDS ORDERED: PHARMACY COMMUNICATION MISC SCH (14:00)
--- NOTE | 2024-10-27 16:42 | NUR ---
PT'S HEART RATE IS IN THE 130 TO 150'S AND CALLED DR. HAMILTON FOR ORDERS. HAD HEART RATE IN 120'S EARLIER BUT WAS ON THE BEDPAN AND HEART RATE ONLY CAME DOWN TO 110'S. PT DENIES FEELING THE FAST HEART RATE.
--- NOTE | 2024-10-27 16:45 | NUR ---
CALLED ANSWERING SERVICE FOR DR. HAMILTON TO ADVISE HIM OF HEART RATE IN THE 130'S AND HAVE BEEN WEANING DOBUTAMINE DRIP OFF.
[2024-10-27] MEDS: AMIOdarone 150MG/100ML BAG 100 ML IV ONE (19:00)
[2024-10-27] MEDS: SODIUM BICARBONATE 650 MG TAB PO SCH (20:20)
[2024-10-28] VITALS (97 sets, daily range): BP systolic 58–123; BP diastolic 27–82; PULSE 66–120; RESP 11–30; TEMP 97.9–98.8; O2SAT 97–100
[2024-10-28 05:15] LABS: NUCLEATED RED BLOOD CELLS 0.0 % (0.0-0.19); PLATELET COUNT (AUTO) 83.0 K/uL (130-400); RED BLOOD CELL COUNT(AUTO) 3.44 MIL/uL (4.50-6.20); RED CELL DISTRIBUTION WIDTH 13.7 % (11.0-15.5); WHITE BLOOD COUNT (AUTO) 7.4 K/uL (4.8-10.8)
[2024-10-28 05:26] LABS: CREATININE 3.4 mg/dL (0.5-1.3); GLOMERULAR FILTR. RATE CALC 18.0 mL/min (>90); GLUCOSE,RANDOM 123.0 mg/dL (70-105); SODIUM SERUM 134.0 mmol/L (136-145); UREA NITROGEN, BLOOD 31.0 mg/dL (7-18)
[2024-10-28] MEDS: PoTASSium chloRIDE 20MEQ ER 20 MEQ ERTAB PO ONE (06:43)
--- NOTE | 2024-10-28 09:57 | PN ---
[facility] PROGRESS NOTE Date Patient Seen: Oct 28, 2024 Time of Visit: 09:57 Supervising Physician: Maury Dowell MD Primary Care Physician: Dr. Jeffrey Neil Outpatient Specialists: Dr. Jimenez, chemical process equipment operator Inpatient Consults: Critical Care team [facility] PROBLEM LIST: Cardiogenic shock, SCAI stage C, POA requiring pressors Acute on Chronic combined Heart Failure with LVEF of 20-25% and GLS -7.0% Suspected moderate pulmonary HTN w/ RVSP 48.0 mmHg Atrial fibrillation with RVR on amiodarone [id number] Score 4/ HAS-BLED Score 3 Elevated D- Dimer, pending US BLE Well score for PE 3 Moderate Risk Carotid artery disease Chronic kidney disease Simple renal Cyst 3.1 x 3.3 x 3.4 cm CAD s/p 3V CABG ( RODRIGUES-LAD, SVG-D, SVG-PDA ) August 2009 History of hypertension, currently hypotensive Acute kidney injury, GFR Lactic acidosis Elevated BNP Hypomagnesemia Hyperlipidemia Hypothyroidism Tobacco dependence INTERVAL HISTORY: Pt is awake alert and oriented x 3. No major overnight events. Currently sinus rhythm. Continues on low-dose Perez-Synephrine drip of 1 mcg/kg per minute. DC eliquis duet to acute thrombocytopenia. Eliquis has been started by cardiology. Patient denies any chest pain palpitations or shortness for breath. Lung sounds are diminished. He denies productive cough but does report occasional dry cough. He uses oxygen at home. Saturating 99% on 2 L via nasal cannula. Pt to continue pulmonary toileting. Urine output 4.9 L in the last 24 hours. Will hold lasix for now due to continues hypotensive and no edema or crackles likely somewhat over diuresed. Chest x-ray shows no acute cardiopulmonary pathology. Per to follow cardiology recommendations. REVIEW OF SYSTEMS: Const: no fever, fatigue, or weight changes Eyes: no recent vision problems ENT: No congestion, ear pain, or sore throat C/V: no chest pain, palpitations or edema Resp:+dry cough, no congestion, wheezing , or Shortness of breath] GI: No abdominal pain, nausea, vomiting, constipation, or diarrhea : No incontinence of or dyuria M/S: No joint or pain swelling + ankle swelling Skin: No rash Neuro: no headache, focal numbness, or weakness, dizziness or seizures Psych: no depression or anxiety Heme: no abnormal bruising or bleeding Lymph: no swollen glands PHYSICAL EXAM: GENERAL: Alert, weak, awake oriented x 3 HEENT: EOMI, Sclera non icteric, moist mucosa NECK: Supple, no JVD, trachea midline LUNGS: Diminished breath sounds bilaterally. No wheezes HEART: Regular rate and rhythm. Normal S1 and S2, without murmurs ABD: Abdomen soft, nontender. Bowel sounds present EXT: No clubbing cyanosis or edema NEURO: Alert and oriented to X3, follows commands Vital Signs (last 8hr) Date Time Temp Pulse Resp B/P (MAP) Pulse Ox O2 Delivery O2 Flow Rate FiO2 10/28/24 06:42 76 19 106/43 (64) 99 96/48 (64) 10/28/24 06:27 85 18 82/37 (52) 99 97/54 (68) 10/28/24 06:11 94 13 106/48 (67) 100 94/51 (65) 10/28/24 05:57 86 14 99/38 (58) 99 88/39 (55) 10/28/24 05:41 89 15 94/40 (58) 99 85/55 (65) 10/28/24 05:26 94 14 97/42 (60) 98 88/42 (57) 10/28/24 05:12 100 15 109/56 (73) 99 80/47 (58) 10/28/24 04:57 93 16 115/52 (73) 99 99/38 (58) 10/28/24 04:42 99 19 120/57 (78) 98 109/58 (75) 10/28/24 04:27 113 14 112/56 (74) 99 108/51 (70) 10/28/24 04:11 95 15 117/55 (75) 99 107/59 (75) 10/28/24 04:00 99 Nasal Cannula* 2 28 10/28/24 03:56 98.1 94 20 111/52 (71) 99 99/61 (74) 10/28/24 03:42 91 13 115/52 (73) 99 100/54 (69) 10/28/24 03:27 102 19 118/53 (74) 99 104/39 (60) 10/28/24 03:12 88 15 114/51 (72) 99 111/55 (73) 10/28/24 02:56 87 15 110/52 (71) 99 99/53 (68) 10/28/24 02:42 96 17 106/53 (70) 99 89/47 (61) 10/28/24 02:27 97 15 98/47 (64) 99 92/67 (75) 10/28/24 02:12 95 18 99/46 (63) 99 100/36 (57) LABS: Hematology Labs: Test 10/28/24 05:09 Range/Units White Blood Count 7.4 4.8-10.8 K/uL Red Blood Count 3.44 L 4.50-6.20 MIL/uL Hemoglobin 10.9 L 14.0-18.0 g/dL Hematocrit 32.2 L 42-54 % Mean Corpuscular Volume 93.6 79-99 fL Mean Corpuscular Hemoglobin 31.7 27.0-33.0 pg Mean Corpuscular Hemoglobin Concent 33.9 32.0-36.0 g/dL Red Cell Distribution Width 13.7 11.0-15.5 % Platelet Count 83 #L 130-400 K/uL Mean Platelet Volume 10.1 7.5-10.5 fL Nucleated Red Blood Cells 0.0 0.0-0.19 % Chemistry Labs: Test 10/28/24 05:09 10/27/24 04:22 Range/Units Sodium Level 134 L 136-145 mmol/L Potassium Level 2.6 *L 3.5-5.1 mmol/L Chloride Level 96 L 101-111 mmol/L Carbon Dioxide Level 29 21-32 mmol/L Blood Urea Nitrogen 31 H 7-18 mg/dL Creatinine 3.4 H 0.5-1.3 mg/dL Glomerular Filtration Rate Calc 18 >90 mL/min Random Glucose 123 H 70-105 mg/dL Total Calcium 9.2 8.5-10.1 mg/dL Whole Blood Ketones Quantitative < 0.1 0.0-0.6 mmol/L Iron Level 25 L 65-175 mcg/dL Total Iron Binding Capacity 156 L 250-450 mcg/dL Percent Iron Saturation 16.0 L 30-44 % Procalcitonin 0.20 0.05-0.5 ng/mL Coagulation Labs: Test 10/28/24 05:09 Range/Units Activated Partial Thromboplast Time 89.4 *H 26.3-35.5 SEC DIAGNOSTICS / RADIOLOGY RESULTS: [[facility] [address] [place], [place] [id number] IMAGING REPORT Signed PATIENT: MALLORIE DALAL MR#: [id number] : 1950 SEX: M AGE: 74 LOCATION: [facility] ORDER 2300 STATUS: ADM IN REPORT#: [id number] SERVICE 0600 REASON: hypoxic resp failure ORDERING PHYSICIAN: KRISTI IRIZARRY PROCEDURE: CXR1VW - CHEST 1VW EXAM: CR Chest, 1 View. CLINICAL HISTORY: hypoxic resp failure COMPARISON: October 26, 2024 FINDINGS: LUNGS: The lungs show no infiltrate or other acute finding. PLEURAL SPACES: No pleural effusion or pneumothorax. MEDIASTINUM: Cardiac size and mediastinal contours within normal limits. Left PICC line middle third SVC. Status post median sternotomy. BONES: No aggressive appearing osseous lesion seen. IMPRESSION: No acute cardiopulmonary pathology is evident. /[place] DICTATED BY: CLINT REYNOLDS MD DATE: 10/28/241554 ELECTRONICALLY SIGNED BY: CLINT REYNOLDS MD DATE: 10/28/241554 ] PLAN Maintain MAP > 65 wean perez as possible Follow neprhology and cardiology recs Education on smoking cessation. Continue Zosyn 3.375 IV q.12 hours. Add Doxy to cover for CAP singulair 10 mg po q HS Atrovent nebs and pulmicort acapella with nebs and IS q2H Nitro patch14 mg daily Strict I's and O's and daily weights, low-sodium diet Fluid restriction to 1.5 L a day with a goal net -1 to 2 L daily. Light diuresing Heparin gtt discontinued Eliquis started per cardiology The patient will require an ischemic evaluation prior to discharge Keep on telemetry, monitor/replace electrolytes as needed The patient underwent DCCV x1 patient failed to return to sinus rhythm continue amiodarone gtt per protocol has been started on amiodarone po NEURO: Minimize central acting medications as possible. Fall Precautions. Well lighted room through the day and minimize interruptions through the night to prevent acute delirium. PULMONARY: Supplemental 02 as needed Titrate Fio2 to keep Spo2 > or = 90% DuoNebs and CPT as needed IS hourly while awake for pulmonary hygiene Out of bed to chair as tolerated VAP Bundle CARDIOVASCULAR: Follow hemodynamics. Titrate vasopressor to keep MAP >65 or systolic blood pressure >95mmHg GI & NUTRITION: Continue nutritional support Aspirations precautions Prokinetic agents and laxatives as needed KIDNEYS & ELECTROLYTES: Strict monitoring of intake and output Daily weights Avoid nephrotoxic agents Monitor electrolytes and replace as needed Goal urine output of 30mL/hr or 0.5mL/kg/hr ENDOCRINE: Maintain blood glucose between 100-180 at all times. Insulin sliding scale for blood glucose management INFECTIOUS DISEASE: Trend temperature. Swenson-culture if febrile. HEMATOLOGY & COAGULATION: Monitor H&H. Keep Hgb > 7 Transfuse 1 unit of PRBC for Hgb < 7 Transfuse 1 pack of platelets of platelets < 20, 000 Watch for any signs and symptoms of bleeding SKIN: Pressure ulcer prevention per facility protocol Rehab: PT/OT Code Status: Full Resuscitation Disposition: [Admit to ICU ] Other: Total patient critical care time exceeds 45 minutes excluding all procedures. ATTESTATION BY PHYSICIAN I have evaluated the patient chart, medical records, and spoke with appropriate staff. I reviewed the documentation, medical decision making, and treatment plan as noted by the mid-level provider above. I agree with the findings and plan of care. Maury Dowell MD, [facility] Oct 28, 2024 09:57
[2024-10-28] MEDS ORDERED: 0.9% NACL 250ML 250 ML IV SCH (10:30)
[2024-10-28] MEDS: BUDESONIDE 0.5 MG/2 ML INH IH SCH (10:30)
[2024-10-28 12:51] LABS: CREATININE 3.4 mg/dL (0.5-1.3); GLOMERULAR FILTR. RATE CALC 18.0 mL/min (>90); GLUCOSE,RANDOM 148.0 mg/dL (70-105); SODIUM SERUM 136.0 mmol/L (136-145); UREA NITROGEN, BLOOD 31.0 mg/dL (7-18)
--- NOTE | 2024-10-28 13:11 | PN ---
[facility] PROGRESS NOTE Date of Service: Oct 28, 2024 Time of Service: 13:08 SUBJECTIVE: 10/26 74-year-old male, history of coronary artery disease, dyslipidemia, hypertension, tobacco dependence, remote lacunar infarct, carotid artery disease, hypothyroidism, presented with a chief complaint of generalized body weakness and shortness a breath, in the emergency room found to have AFib with a RVR, heart rate in with the 140s, hypotensive, cardioverted electrically x1, did not restore sinus rhythm, patient admitted to the ICU. At the time of my visit awake, following commands, on heparin drip, Levophed, amiodarone drip, dobutamine drip, echocardiogram showing ejection fraction 20- 25%. Cardiology input noted and appreciated, the patient will require an ischemic evaluation prior to discharge. 10/27/24 patient remains in ICU. Patient appears chronically ill fragile and weak. Denied chest pain. Patient is being followed by wallpaper printer helper's continues on dopamine drip. The plan is to stabilize medically weaned off pressors they we will consider Lexiscan. 10/28/24 the patient was evaluated in ICU room 215. He is alert oriented x3. patient is being evaluated by physical therapist during rounds. He denies any chest pain. Patient was evaluated by wallpaper printer helper plan is for Lexiscan and Cardiolite stress test before discharge. Patient continues to be on phenylephrine drip. REVIEW OF SYSTEMS CONSTITUTIONAL: Denies fevers, chills, or night sweats. No unintentional weight loss reported. NEUROLOGICAL: Denies headache, amaurosis fugax, motor weakness, sensory deficit, vertigo/spinning sensation, gait abnormalities, or tremors. ENT: No hearing loss, otalgia, otorrhea, rhinitis, rhinorrhea, hoarseness, or sore throat. CARDIOVASCULAR: Denies any exertional angina, dyspnea on exertion, orthopnea, paroxysmal nocturnal dyspnea, palpitations, life-threatening arrhythmias, claudication. PULMONARY: Denies any shortness of breath, cough, phlegm/sputum, hemoptysis, pleuritic chest pain. SLEEP: Denies morning headaches, daytime somnolence or napping. Denies difficulty falling asleep, staying asleep, waking from sleep. Denies knowledge of snoring. GASTROINTESTINAL: Denies any type of dysphagia to either liquids or solids. Denies nausea, vomiting, pyrosis, early satiety, abdominal pain, diarrhea, constipation, or changes in stool consistency or caliber. Denies coffee-ground emesis, hematemesis, hematochezia, or melanotic stools. GENITOURINARY: Denies frequency, urgency, nocturia, hematuria or incontinence (Storage/Irritative symptoms.) Low urinary stream, straining to void, urinary intermittency or hesitancy, splitting of the voiding stream, terminal dribbling. ENDOCRINOLOGIC: Denies polyuria, polydipsia, polyphagia or heat/cold intolerances. HEMATOLOGIC: Denies thrombophilia/previous clots, or coagulopathy/bleeding disorders. ONCOLOGIC: Denies personal history of malignancy. DERMATOLOGIC: Denies rashes or pruritus. PSYCHIATRIC: Denies any suicidal or homicidal ideation. Denies hallucinations. PHYSICAL EXAM GENERAL APPEARANCE: The patient is awake, alert, and oriented, in no acute c ardiopulmonary distress. NEUROLOGICAL: Cranial nerves II-XII grossly intact. Motor is 5/5 in bilateral upper and lower extremities proximal to distal. No sensory deficits. HEENT: Face is symmetric. Pupils are equal and reactive. Extraocular movements are intact. NECK: Supple. No JVD. No thyromegaly. No submental, submandibular, pre- /postauricular, occipital or supraclavicular lymphadenopathy. CHEST: Normal chest expansion. No Telemetry. LUNGS: Absence of any rales, rhonchi or any wheezing. CARDIOVASCULAR: Regular. S1 and S2 normal. No appreciable rubs, murmurs or gallops. ABDOMEN: Soft, nontender, and nondistended. There is no rebound, voluntary guarding, or rigidity. : Deferred. No Galindo. EXTREMITIES: Non-edematous and not cyanotic. No clubbing. Good capillary refill. SKIN: No skin breakdown. Vital Signs (last 8hr) Date Time Temp Pulse Resp B/P (MAP) Pulse Ox O2 Delivery O2 Flow Rate FiO2 10/28/24 11:57 98 Nasal Cannula* 2 28 10/28/24 11:45 89 14 101/38 (59) 100 10/28/24 11:37 84 20 N/Cannula Low lpm 2.0 28 10/28/24 11:30 94 18 10/28/24 11:30 81 16 115/45 (68) 99 10/28/24 11:15 92 13 109/47 (67) 100 102/58 (73) 10/28/24 11:00 90 17 111/45 (67) 100 110/78 (89) 10/28/24 10:45 87 16 106/43 (64) 98 115/58 (77) 10/28/24 10:30 81 16 107/36 (59) 100 117/62 (80) 10/28/24 10:15 77 24 108/45 (66) 100 10/28/24 10:11 86 14 92/32 (52) 100 10/28/24 10:00 98.1 84 17 78/29 (45) 100 10/28/24 09:45 79 17 93/46 (62) 99 10/28/24 09:30 81 17 81/35 (50) 99 10/28/24 09:15 79 15 89/31 (50) 99 10/28/24 09:00 75 15 78/29 (45) 100 10/28/24 08:45 93 22 58/27 (37) 99 10/28/24 08:30 86 18 85/31 (49) 99 10/28/24 08:15 88 21 80/36 (51) 99 10/28/24 08:00 83 11 68/28 (41) 98 10/28/24 07:45 97 30 89/39 (56) 99 10/28/24 07:30 72 18 96/40 (58) 99 10/28/24 07:30 Nasal Cannula 2.0 10/28/24 07:15 80 15 106/45 (65) 99 10/28/24 07:00 99 14 94/44 (61) 99 10/28/24 06:42 76 19 106/43 (64) 99 96/48 (64) 10/28/24 06:27 85 18 82/37 (52) 99 97/54 (68) 10/28/24 06:11 94 13 106/48 (67) 100 94/51 (65) 10/28/24 05:57 86 14 99/38 (58) 99 88/39 (55) 10/28/24 05:41 89 15 94/40 (58) 99 85/55 (65) 10/28/24 05:26 94 14 97/42 (60) 98 88/42 (57) 10/28/24 05:12 100 15 109/56 (73) 99 80/47 (58) LABS: Laboratory: Test 10/28/24 12:30 10/28/24 05:09 10/27/24 10:32 10/27/24 04:22 Range/Units Sodium Level 136 136-145 mmol/L Potassium Level 3.2 L 3.5-5.1 mmol/L Chloride Level 98 L 101-111 mmol/L Carbon Dioxide Level 28 21-32 mmol/L Blood Urea Nitrogen 31 H 7-18 mg/dL Creatinine 3.4 H 0.5-1.3 mg/dL Glomerular Filtration Rate Calc 18 >90 mL/min Random Glucose 148 H 70-105 mg/dL Total Calcium 9.1 8.5-10.1 mg/dL Magnesium Level 1.20 L 1.80-2.40 mg/dL White Blood Count 7.4 4.8-10.8 K/uL Red Blood Count 3.44 L 4.50-6.20 MIL/uL Hemoglobin 10.9 L 14.0-18.0 g/dL Hematocrit 32.2 L 42-54 % Mean Corpuscular Volume 93.6 79-99 fL Mean Corpuscular Hemoglobin 31.7 27.0-33.0 pg Mean Corpuscular Hemoglobin Concent 33.9 32.0-36.0 g/dL Red Cell Distribution Width 13.7 11.0-15.5 % Platelet Count 83 #L 130-400 K/uL Mean Platelet Volume 10.1 7.5-10.5 fL Nucleated Red Blood Cells 0.0 0.0-0.19 % Activated Partial Thromboplast Time 89.4 *H 26.3-35.5 SEC Blood Gas Specimen Type Arterial Arterial Blood pH 7.467 H 7.350-7.450 Arterial Blood Partial Pressure CO2 30 L 35-48 mmHg Arterial Blood Partial Pressure O2 95.8 83.0-108.0 mmHg Arterial Blood HCO3 20.9 L 21.0-28.0 mmol/L Arterial Blood Oxygen Saturation 97.5 94.0-98.0 % Arterial Blood Base Excess -2.0 -2.0-3.0 mmol/L Hemoglobin (Blood Gas) 11.0 L 13.5-17.5 g/dL Sodium (Blood Gas) 134 L 136-145 MMOL/L Bedside Potassium (Blood Gas) 3.1 L 3.4-4.5 MMOL/L Bedside Chloride (Blood Gas) 103 98-107 MMOL/L Bedside Glucose (Blood Gas) 125 H 65-95 MG/DL Bedside Ionized Calcium (Blood Gas) 1.17 1.15-1.33 MMOL/L Bedside Lactic Acid (Blood Gas) 1.59 H 0.36-0.75 MMOL/L Blood Gas Temperature 37.0 35.5-37.0 CELSIUS Blood Gas Flow-by 3.00 0.00-15.00 L/min Blood Gas Vent Mode 3L NC ROOM AIR FiO2 32.0 % Blood Gas Specimen Comment SJ RN Whole Blood Ketones Quantitative < 0.1 0.0-0.6 mmol/L Iron Level 25 L 65-175 mcg/dL Total Iron Binding Capacity 156 L 250-450 mcg/dL Percent Iron Saturation 16.0 L 30-44 % Procalcitonin 0.20 0.05-0.5 ng/mL Current Medications Medications (Trade) Dose Ordered Sig/Gustavo Route PRN Reason Start Time Stop Time Status Last Admin Dose Admin Acetaminophen (TYLenol 325MG TAB) 650 mg Q6H PRN PO TEMPERATURE GREATER THAN 101.5 10/25/24 21:00 11/24/24 20:59 Amiodarone HCl (pacERONE 200MG) 200 mg BID PO 10/26/24 09:00 10/26/24 07:36 DC Amiodarone HCl (pacERONE 200MG) 400 mg BID PO 10/26/24 09:00 11/25/24 08:59 10/28/24 09:54 400 MG Amiodarone HCL/ Dextrose 100 ml @ 0 mls/hr PROTOCOL IV 10/27/24 07:30 10/28/24 06:27 DC 10/27/24 07:44 600 MLS/HR Amiodarone HCL/ Dextrose 200 ml @ 33.333 mls/ hr AD IV 10/25/24 16:00 10/26/24 07:30 DC 10/25/24 17:42 33.333 MLS/HR Aspirin (Aspirin 81mg Ec Tab) 81 mg DAILY PO 10/29/24 09:00 11/28/24 08:59 Atorvastatin Calcium (LIPItor 40MG) 80 mg HS PO 10/28/24 21:00 11/27/24 20:59 Bisacodyl (DulcoLAX) 10 mg DAILY RC 10/28/24 09:00 10/31/24 08:59 Budesonide (Pulmicort 0.5 Mg/2ml) 0.5 mg BIDRESP IH 10/28/24 10:30 11/27/24 10:29 Clopidogrel Bisulfate (plaVIX 75MG) 75 mg DAILY PO 10/29/24 09:00 11/28/24 08:59 Dobutamine HCl/ Dextrose 250 ml @ 0 mls/hr PROTOCOL IV 10/25/24 16:00 10/28/24 10:04 DC 10/27/24 07:02 0 MLS/HR Dobutamine HCl/ Dextrose 250 ml @ 0 mls/hr PROTOCOL IV 10/26/24 07:30 10/26/24 07:37 DC Doxycycline Hyclate (Doxycycline Hyclate) 100 mg BID PO 10/26/24 21:00 11/05/24 20:59 10/28/24 09:54 100 MG Furosemide (LASix 20MG TAB) 20 mg DAILY PO 10/29/24 09:00 10/28/24 10:06 DC Furosemide (LASix 40MG VIAL) 30 mg Q12H IV 10/27/24 07:00 10/27/24 13:49 DC 10/27/24 07:01 30 MG Furosemide (LASix 40MG VIAL) 30 mg Q12H IV 10/27/24 18:00 10/28/24 09:58 DC 10/27/24 16:56 30 MG Furosemide (LASix 40MG VIAL) 40 mg Q12H IV 10/25/24 19:00 10/26/24 19:26 DC 10/26/24 18:47 40 MG Furosemide (LASix 40MG VIAL) 40 mg Q12H IV 10/26/24 07:30 10/26/24 07:36 DC Heparin Sodium (Porcine) (HEParin 5,000 UNIT VIAL) 5,000 unit BID SQ 10/25/24 21:00 10/25/24 22:47 DC Heparin Sodium/ Dextrose 250 ml @ 0 mls/hr PROTOCOL IV 10/25/24 16:00 10/28/24 09:53 DC 10/26/24 18:46 7.7 MLS/HR Ipratropium [place] (AtrovENT UD) 0.5 MG Q6H PRN IH SHORTNESS OF BREATH 10/28/24 10:30 11/27/24 10:29 10/28/24 11:29 0.5 MG Lactulose (Constulose 20gm/ 30ml Udcup) 20 gm BID PRN PO CONSTIPATION 10/26/24 17:00 11/25/24 16:59 10/26/24 16:53 20 GM Levothyroxine Sodium (SYNTHroid 75MCG TAB) 75 mcg SYN PO 10/29/24 06:30 11/28/24 06:29 Magnesium Sulfate 50 ml @ 0 mls/hr PROTOCOL IV 10/25/24 15:30 10/25/24 21:00 DC 10/25/24 16:27 25 MLS/HR Magnesium Sulfate 50 ml @ 0 mls/hr PROTOCOL PRN IV MAGNESIUM PROTOCOL 10/25/24 21:00 11/24/24 20:59 Midodrine (PROAMatine 5 MG TABLET) 10 mg TID PO 10/26/24 09:30 11/25/24 09:29 10/28/24 09:54 10 MG Montelukast Sodium (SinguLAIR) 10 mg HS PO 10/26/24 21:00 11/25/24 20:59 10/27/24 20:20 10 MG Morphine Sulfate (morPHINE 2MG SYG) 2 mg Q4H PRN IVP SEVERE PAIN (7-10) 10/25/24 21:00 11/01/24 20:59 Nicotine (Nicoderm) 14 mg DAILY TD 10/27/24 09:00 11/26/24 08:59 10/28/24 09:54 14 MG Norepinephrine 250 ml @ 0 mls/hr PROTOCOL IV 10/25/24 18:00 10/28/24 10:04 DC 10/26/24 13:45 27.573 MLS/HR Ondansetron HCl (zoFRAN 4MG INJ) 4 mg Q6H PRN IV NAUSEA/VOMITING 10/25/24 21:00 11/24/24 20:59 Pantoprazole Sodium (PROTonix 40MG INJ) 40 mg DAILY IV 10/26/24 09:00 11/25/24 08:59 10/28/24 09:54 40 MG Pharmacy Profile Note (Pharmacy Communication) 1 each ONCE MISC 10/27/24 14:00 10/27/24 13:50 DC Phenylephrine HCl 100 mg/Sodium Chloride 250 ml @ 0 mls/hr AD PRN IV TITRATE 10/27/24 04:30 11/26/24 04:29 10/28/24 02:23 11 MLS/HR Piperacillin Sod/ Tazobactam Sod (Zosyn 3.375gm+NS 50ml) 3.375 gm Q12H IV 10/25/24 21:00 11/04/24 20:59 10/28/24 09:54 3.375 GM Sodium Bicarbonate (Sodium Bicarbonate) 1,300 mg BID PO 10/27/24 21:00 10/28/24 10:04 DC 10/27/24 20:20 1,300 MG Sodium Chloride 250 ml @ 0 mls/hr Q0M IV 10/28/24 10:30 11/27/24 10:29 DIAGNOSTICS / RADIOLOGY: [ ] ASSESSMENT: Cardiogenic shock,, POA requiring pressors Acute on Chronic combined Heart Failure with LVEF of 20-25% and GLS -7.0% Suspected moderate pulmonary HTN w/ RVSP 48.0 mmHg AFib with a RVR, POA, refractory Hypotension, POA Acute kidney injury, POA, today creatinine 3.3, on 04/11/2022 creatinine 2.8 Lactic acidosis, POA Elevated BNP, POA Hypomagnesemia, POA Hyperlipidemia Hypothyroidism] Tobacco dependence, POA PLAN: Patient remains admitted to the ICU, patient now on phenylephrine drip. Continues heparin drip amiodarone was changed to p.o.. Library Historian's following, appreciate their input. Patient is currently awake alert oriented x3. Considering Lexiscan and Cardiolite stress test prior to discharge Critical Care team on board we will continue to follow their recommendations NEURO: Minimize central acting medications as possible. Fall Precautions. Well lighted room through the day and minimize interruptions through the night to prevent acute delirium. PULMONARY: Supplemental 02 as needed BiPAP as necessary, for respiratory distress Titrate Fio2 to keep Spo2 > or = 90% DuoNebs and CPT as needed IS hourly while awake for pulmonary hygiene prn Out of bed to chair as tolerated Maintain aspiration precautions at all times CARDIOVASCULAR: Follow hemodynamics. Vital signs per facility protocol GI & NUTRITION: Continue nutritional support Aspirations precautions Prokinetic agents and laxatives as needed KIDNEYS & ELECTROLYTES: Strict monitoring of intake and output Daily weights Avoid nephrotoxic agents Monitor electrolytes and replace as needed Goal urine output of 30mL/hr or 0.5mL/kg/hr Medications to be dosed according to renal function. Avoid contrast if possible ENDOCRINE: Maintain blood glucose between 100-180 at all times. Insulin sliding scale for blood glucose management Hypoglycemia and hyperglycemia protocol in place INFECTIOUS DISEASE: Trend temperature, WBC and procalcitonin level Follow cultures, deescalate antibiotics as soon as possible. Panculture if new onset fever HEMATOLOGY & COAGULATION: Monitor H&H. Keep Hgb > 7 Transfuse 1 unit of PRBC for Hgb < 7 Transfuse 1 pack of platelets of platelets < 20, 000 Watch for any signs and symptoms of bleeding SKIN: Pressure ulcer prevention per facility protocol Specialty mattress as needed ORTHO/REHAB Continue PT/OT PRN: MEDICATIONS Tylenol 650 mg po every 4 hrs for fever zofran 4 mg IV every 6 hrs for n/v Hydralazine 5 mg IV every 4 hrs systolic pressure > 160 bowel regiment: lactulose 20 gm PO BID PRN constipation Supportive measures: Continue GI and DVT prophylaxis Disposition: Pending improvement in clinical condition All questions answered time spent: > 35 min ATTESTATION BY PHYSICIAN I have seen and examined the patient. I reviewed the documentation, medical decision making, and treatment plan as noted by the mid-level provider above. I agree with the findings and plan of care. Norah Nieves MD, [facility] Oct 28, 2024 13:11
--- NOTE | 2024-10-28 13:14 | PN ---
FOLLOWUP PROGRESS NOTE SUBJECTIVE: A 74-year-old male with a history of known cardiomyopathy. The patient initially presented with acute on chronic renal dysfunction. The patient was found to have significant hypotension in the hospital and started on pressors. He has a history of known cardiomyopathy with ejection fraction of 20%. The patient is being seen by Cardiology. The patient also noted to have significant valvular heart disease. He is being seen as a followup visit for all of the above. REVIEW OF SYSTEMS: CONSTITUTIONAL: The patient is feeling weak and tired. HEENT: No change in vision. No change in hearing. CARDIOVASCULAR: There is no current chest pain or palpitations. PULMONARY: He denies shortness of breath. GASTROINTESTINAL: He is tolerating a diet. MUSCULOSKELETAL: Complaints of weakness. PHYSICAL EXAMINATION: VITAL SIGNS: Blood pressure is 92/42, pulse in the 80s, afebrile. GENERAL: He is a chronically ill elderly male, lying in bed on the medical floor. HEENT: Head is atraumatic. Pupils equal, roving to light. Oropharynx is without exudate. Nares clear. NECK: There is no JVP. There is no thyromegaly. No masses. CARDIOVASCULAR: Regular. There is no S3 or S4 gallop. LUNGS: Coarse with equal thoracic movement. ABDOMEN: Soft, nondistended and nontender. EXTREMITIES: There is no clubbing or cyanosis. NEUROLOGICAL: He is awake. He is at his baseline. LABORATORY DATA: Sodium 134, potassium 2.6, BUN 31, creatinine 3.4. Hemoglobin 10, hematocrit 32. IMPRESSION: * Acute on chronic renal failure. * Cardiomyopathy. * Hypotension. * Electrolyte abnormalities. PLAN: The patient continues with significant renal dysfunction. The patient's renal dysfunction consistent with prerenal azotemia from the congestive heart failure. Workup is ongoing per Cardiology. The patient with persistent hypotension, remains on midodrine. We will obtain a cortisol level for completeness and we will continue to follow the patient closely. The patient's potassium has been aggressively repleted. All labs can be repeated in the morning. TID: [id number] RECEIPT: [id number]
[2024-10-28] MEDS: MAGNESIUM 2GM PREMIX 50ML 50 ML IV PRN (14:16)
--- NOTE | 2024-10-28 14:56 | HMCIMG ---
EXAM: CR Chest, 1 View. CLINICAL HISTORY: hypoxic resp failure COMPARISON: October 26, 2024 FINDINGS: LUNGS: The lungs show no infiltrate or other acute finding. PLEURAL SPACES: No pleural effusion or pneumothorax. MEDIASTINUM: Cardiac size and mediastinal contours within normal limits. Left PICC line middle third SVC. Status post median sternotomy. BONES: No aggressive appearing osseous lesion seen. IMPRESSION: No acute cardiopulmonary pathology is evident. /[place]
--- NOTE | 2024-10-28 16:08 | PN ---
[facility] CARDIOLOGY PROGRESS NOTE Date Patient Seen: Oct 28, 2024 Time of Visit: 15:48 Interval History: This 74-year-old white male, patient of Dr. Zac Mcfadden, with a history of tobacco abuse, dyslipidemia, hypothyroidism, carotid artery disease status post right carotid endarterectomy in 2010 and left carotid endarterectomy in 2018, remote lacunar CVA in 2009, acute on chronic renal insufficiency, and known coronary disease status post remote CABG x3 in 2009 (davis-lad, SVG-diagonal, and SVG-PDA) was admitted with acute HFrEF, hypotension, and a new cardiomyopathy with LVEF of 20-25%. He has had intermittent paroxysmal AFib since admission and failed initial cardioversion but currently is in a sinus rhythm on loading doses of p.o. amiodarone. He is currently on loading doses of amiodarone and low-dose Perez-Synephrine at 1.4. Patient has undergone further assessment with a 2D echocardiogram 10/25/2024 demonstrating an LVEF of 20-25%, moderate MR, and an RV systolic pressure estimate of 48 mm of mercury. This morning his chest x-ray is clear and the patient is comfortable flat in bed. Of note, blood in urine cultures are no growth thus far. A serum cortisol has been requested for a.m. Physical Examination: GENERAL: No acute distress. HEAD: Normal with no signs of head trauma. EYES: PERRLA, EOMI, conjunctiva and sclera normal. NECK: Supple without JVD. There is no tenderness, lymphadenopathy, or masses. No thyromegaly. Normal carotid upstrokes without bruits. LUNGS: Clear breath sounds bilaterally. No wheezes, or rhonchi. HEART: Normal rate and rhythm. Normal S1 and S2 without murmurs, gallop or rub. VASC: Peripheral pulses +2 bilaterally. EXT: No clubbing, cyanosis or edema. NEURO: Awake, alert, and oriented x3. No focal neurological deficits noted. Laboratory: Hematology Labs: Test 10/28/24 05:09 Range/Units White Blood Count 7.4 4.8-10.8 K/uL Red Blood Count 3.44 L 4.50-6.20 MIL/uL Hemoglobin 10.9 L 14.0-18.0 g/dL Hematocrit 32.2 L 42-54 % Mean Corpuscular Volume 93.6 79-99 fL Mean Corpuscular Hemoglobin 31.7 27.0-33.0 pg Mean Corpuscular Hemoglobin Concent 33.9 32.0-36.0 g/dL Red Cell Distribution Width 13.7 11.0-15.5 % Platelet Count 83 #L 130-400 K/uL Mean Platelet Volume 10.1 7.5-10.5 fL Nucleated Red Blood Cells 0.0 0.0-0.19 % Chemistry Labs: Test 10/28/24 12:30 10/27/24 04:22 Range/Units Sodium Level 136 136-145 mmol/L Potassium Level 3.2 L 3.5-5.1 mmol/L Chloride Level 98 L 101-111 mmol/L Carbon Dioxide Level 28 21-32 mmol/L Blood Urea Nitrogen 31 H 7-18 mg/dL Creatinine 3.4 H 0.5-1.3 mg/dL Glomerular Filtration Rate Calc 18 >90 mL/min Random Glucose 148 H 70-105 mg/dL Total Calcium 9.1 8.5-10.1 mg/dL Magnesium Level 1.20 L 1.80-2.40 mg/dL Whole Blood Ketones Quantitative < 0.1 0.0-0.6 mmol/L Iron Level 25 L 65-175 mcg/dL Total Iron Binding Capacity 156 L 250-450 mcg/dL Percent Iron Saturation 16.0 L 30-44 % Procalcitonin 0.20 0.05-0.5 ng/mL Coagulation Labs: Test 10/28/24 05:09 Range/Units Activated Partial Thromboplast Time 89.4 *H 26.3-35.5 SEC Diagnostics / Radiology: 2D echocardiogram 10/25/2024: Conclusion The left ventricle is borderline dilated. LVEF is 20-25%. The LV diastolic function was unable to be assessed due to atrial arrhythmia but diastolic function is abnormal. Severely reduced GLS -7.0% There is moderate mitral valve regurgitation noted. RVSP 48.0mmHg. There is mild to moderate tricuspid regurgitation. DICTATED BY: ZAC MCFADDEN MD DATE: 10/25/241822 Impression and Plan: Acute on chronic HFrEF: Tachycardia versus ischemic cardiomyopathy with LVEF of 20-25% 10/25/2024: Moderate mitral regurgitation by 2D echocardiogram 10/25/2024: -patient has been weaned off of dobutamine support -patient has evidence of advanced renal insufficiency with serum creatinine in t he 3 range with a normal previous creatinine in 2020 -currently diuretics are on hold and chest x-ray is clear. Paroxysmal atrial fibrillation: -discontinue dual antiplatelet therapy -Begin Eliquis5 mg p.o. b.i.d. -Not requiring rate control at this time -amiodarone loading 400 b.i.d. in progress Coronary artery disease status post remote CABG x3 in 2009 with davis-lad, SVG-diagonal, and SVG-PDA: -ischemic evaluation pre discharge depending on clinical course Hypotension, with negative blood and urine cultures so far: -continues on Zosyn antibiotic therapy -a.m. Cortisol pending in a.m. Comorbidities: Tobacco abuse Hyperlipidemia Hypothyroidism Carotid artery disease status post right carotid endarterectomy in 2010 and left carotid endarterectomy in 2018 Remote lacunar CVA in 2009 MED DOUGLASS MD Oct 28, 2024 16:08
[2024-10-28] MEDS: MAG/ALUM/SIMETH 30 ML UDCUP PO ONE (23:25)
[2024-10-29] VITALS (92 sets, daily range): BP systolic 89–128; BP diastolic 39–73; PULSE 67–93; RESP 9–21; TEMP 97.9–98.5; O2SAT 97–100
[2024-10-29 05:00] LABS: NUCLEATED RED BLOOD CELLS 0.0 % (0.0-0.19); PLATELET COUNT (AUTO) 75.0 K/uL (130-400); RED BLOOD CELL COUNT(AUTO) 3.48 MIL/uL (4.50-6.20); RED CELL DISTRIBUTION WIDTH 13.6 % (11.0-15.5); WHITE BLOOD COUNT (AUTO) 7.2 K/uL (4.8-10.8)
[2024-10-29 05:13] LABS: CREATININE 3.2 mg/dL (0.5-1.3); GLOMERULAR FILTR. RATE CALC 20.0 mL/min (>90); GLUCOSE,RANDOM 116.0 mg/dL (70-105); SODIUM SERUM 136.0 mmol/L (136-145); UREA NITROGEN, BLOOD 30.0 mg/dL (7-18)
[2024-10-29] MEDS: PoTASSium chloRIDE 20MEQ ER 20 MEQ ERTAB PO ONE (06:04)
--- NOTE | 2024-10-29 08:49 | PN ---
[facility] PROGRESS NOTE Date Patient Seen: Oct 29, 2024 Time of Visit: 08:49 Supervising Physician: Sebastián Bland Primary Care Physician: Dr. Jeffrey Neil Outpatient Specialists: Dr. Jimenez, millwright supervisor Inpatient Consults: Critical Care team [facility] PROBLEM LIST: Cardiogenic shock, SCAI stage C, POA requiring pressors Acute on Chronic combined Heart Failure with LVEF of 20-25% and GLS -7.0% Suspected moderate pulmonary HTN w/ RVSP 48.0 mmHg Acute cystitis Enterococcus Avium, POA Atrial fibrillation with RVR on amiodarone [id number] Score 4/ HAS-BLED Score 3 Elevated D- Dimer, pending US BLE Well score for PE 3 Moderate Risk Carotid artery disease Chronic kidney disease Simple renal Cyst 3.1 x 3.3 x 3.4 cm CAD s/p 3V CABG ( RODRIGUES-LAD, SVG-D, SVG-PDA ) August 2009 History of hypertension, currently hypotensive Acute kidney injury, GFR Lactic acidosis Elevated BNP Hypomagnesemia Hyperlipidemia Hypothyroidism Tobacco dependence INTERVAL HISTORY: No major overnight events. Patient continues on Perez-Synephrine drip at 1.2 mcg/kg/min and weaning. Cortisol level was drawn this morning. Post start hydrocortisone getting IV q.6 for refractory shock. CBC unremarkable similar to yesterday. Chemistry shows a potassium of 2.8 covered with a one time dose of 40 mEq of potassium. Creatinine is 3.2 GFR of 20 glucose 160 mg/dL BNP 2110. Urine culture growing Enterococcus avium. Blood cultures negative. Pt continues on Zosyn. chest XR with slight increase in pul vascular congestion. REVIEW OF SYSTEMS: Const: no fever, fatigue, or weight changes Eyes: no recent vision problems ENT: No congestion, ear pain, or sore throat C/V: no chest pain, palpitations or edema Resp:+dry cough, no congestion, wheezing , or Shortness of breath] GI: No abdominal pain, nausea, vomiting, constipation, or diarrhea : No incontinence of or dyuria M/S: No joint or pain swelling + ankle swelling Skin: No rash Neuro: no headache, focal numbness, or weakness, dizziness or seizures Psych: no depression or anxiety Heme: no abnormal bruising or bleeding Lymph: no swollen glands PHYSICAL EXAM: GENERAL: Alert, weak, awake oriented x 3 HEENT: EOMI, Sclera non icteric, moist mucosa NECK: Supple, no JVD, trachea midline LUNGS: Diminished breath sounds bilaterally. No wheezes HEART: Regular rate and rhythm. Normal S1 and S2, without murmurs ABD: Abdomen soft, nontender. Bowel sounds present EXT: No clubbing cyanosis or edema NEURO: Alert and oriented to X3, follows commands Vital Signs (last 8hr) Date Time Temp Pulse Resp B/P (MAP) Pulse Ox O2 Delivery O2 Flow Rate FiO2 10/29/24 06:41 82 20 N/Cannula Low lpm 2.0 28 10/29/24 06:39 81 18 10/29/24 04:41 91 9 113/46 (68) 99 110/56 (74) 10/29/24 04:26 83 15 114/45 (68) 98 115/63 (80) 10/29/24 04:11 86 12 112/45 (67) 98 114/63 (80) 10/29/24 04:00 98 Nasal Cannula* 2 28 10/29/24 03:56 98.4 87 11 112/43 (66) 99 110/62 (78) 10/29/24 03:41 87 16 115/47 (69) 99 115/69 (84) 10/29/24 03:26 84 17 107/43 (64) 97 110/61 (77) 10/29/24 03:11 88 11 115/47 (69) 99 117/59 (78) 10/29/24 02:56 82 12 113/42 (65) 98 117/58 (77) 10/29/24 02:41 82 13 109/40 (63) 99 112/66 (81) 10/29/24 02:26 77 16 114/44 (67) 99 112/64 (80) 10/29/24 02:11 82 14 105/41 (62) 98 115/63 (80) 10/29/24 01:56 78 10 107/41 (63) 98 107/63 (78) 10/29/24 01:41 76 10 107/41 (63) 98 105/60 (75) 10/29/24 01:26 79 15 110/42 (64) 99 111/59 (76) 10/29/24 01:11 80 17 106/39 (61) 99 110/60 (77) 10/29/24 00:56 80 18 104/39 (60) 99 116/61 (79) LABS: Hematology Labs: Test 10/29/24 04:31 Range/Units White Blood Count 7.2 4.8-10.8 K/uL Red Blood Count 3.48 L 4.50-6.20 MIL/uL Hemoglobin 11.1 L 14.0-18.0 g/dL Hematocrit 32.5 L 42-54 % Mean Corpuscular Volume 93.4 79-99 fL Mean Corpuscular Hemoglobin 31.9 27.0-33.0 pg Mean Corpuscular Hemoglobin Concent 34.2 32.0-36.0 g/dL Red Cell Distribution Width 13.6 11.0-15.5 % Platelet Count 75 L 130-400 K/uL Mean Platelet Volume 11.4 H 7.5-10.5 fL Nucleated Red Blood Cells 0.0 0.0-0.19 % Chemistry Labs: Test 10/29/24 04:31 Range/Units Sodium Level 136 136-145 mmol/L Potassium Level 2.8 *L 3.5-5.1 mmol/L Chloride Level 97 L 101-111 mmol/L Carbon Dioxide Level 29 21-32 mmol/L Blood Urea Nitrogen 30 H 7-18 mg/dL Creatinine 3.2 H 0.5-1.3 mg/dL Glomerular Filtration Rate Calc 20 >90 mL/min Random Glucose 116 H 70-105 mg/dL Total Calcium 9.4 8.5-10.1 mg/dL Magnesium Level 2.00 1.80-2.40 mg/dL B-Type Natriuretic Peptide 2110 H 0-100 pg/mL Coagulation Labs: Test 10/28/24 05:09 Range/Units Activated Partial Thromboplast Time 89.4 *H 26.3-35.5 SEC DIAGNOSTICS / RADIOLOGY RESULTS: [ ] PLAN Maintain MAP > 65 wean perez as possible Follow neprhology and cardiology recs Education on smoking cessation. Continue Zosyn 3.375 IV q.12 hours. Add Doxy to cover for CAP singulair 10 mg po q HS Atrovent nebs and pulmicort acapella with nebs and IS q2H Nitro patch14 mg daily Strict I's and O's and daily weights, low-sodium diet Fluid restriction to 1.5 L a day with a goal net -1 to 2 L daily. Light diuresing Heparin gtt discontinued Eliquis started per cardiology The patient will require an ischemic evaluation prior to discharge Keep on telemetry, monitor/replace electrolytes as needed The patient underwent DCCV x1 patient failed to return to sinus rhythm continue amiodarone gtt per protocol has been started on amiodarone po NEURO: Minimize central acting medications as possible. Fall Precautions. Well lighted room through the day and minimize interruptions through the night to prevent acute delirium. PULMONARY: Supplemental 02 as needed Titrate Fio2 to keep Spo2 > or = 90% DuoNebs and CPT as needed IS hourly while awake for pulmonary hygiene Out of bed to chair as tolerated VAP Bundle CARDIOVASCULAR: Follow hemodynamics. Titrate vasopressor to keep MAP >65 or systolic blood pressure >95mmHg GI & NUTRITION: Continue nutritional support Aspirations precautions Prokinetic agents and laxatives as needed KIDNEYS & ELECTROLYTES: Strict monitoring of intake and output Daily weights Avoid nephrotoxic agents Monitor electrolytes and replace as needed Goal urine output of 30mL/hr or 0.5mL/kg/hr ENDOCRINE: Maintain blood glucose between 100-180 at all times. Insulin sliding scale for blood glucose management INFECTIOUS DISEASE: Trend temperature. Swenson-culture if febrile. HEMATOLOGY & COAGULATION: Monitor H&H. Keep Hgb > 7 Transfuse 1 unit of PRBC for Hgb < 7 Transfuse 1 pack of platelets of platelets < 20, 000 Watch for any signs and symptoms of bleeding SKIN: Pressure ulcer prevention per facility protocol Rehab: PT/OT Code Status: Full Resuscitation Disposition: [Admit to ICU ] Other: Total patient critical care time exceeds 45 minutes excluding all procedures. KRISTI IRIZARRY [facility] Oct 29, 2024 08:49
[2024-10-29] MEDS ORDERED: ASPIRIN 81 MG EC TAB PO SCH (09:00)
--- NOTE | 2024-10-29 11:14 | PN ---
[facility] PROGRESS NOTE Date of Service: Oct 29, 2024 Time of Service: 11:03 SUBJECTIVE: 10/26 74-year-old male, history of coronary artery disease, dyslipidemia, hypertension, tobacco dependence, remote lacunar infarct, carotid artery disease, hypothyroidism, presented with a chief complaint of generalized body weakness and shortness a breath, in the emergency room found to have AFib with a RVR, heart rate in with the 140s, hypotensive, cardioverted electrically x1, did not restore sinus rhythm, patient admitted to the ICU. At the time of my visit awake, following commands, on heparin drip, Levophed, amiodarone drip, dobutamine drip, echocardiogram showing ejection fraction 20- 25%. Cardiology input noted and appreciated, the patient will require an ischemic evaluation prior to discharge. 10/27/24 patient remains in ICU. Patient appears chronically ill fragile and weak. Denied chest pain. Patient is being followed by campaign consultant's continues on dopamine drip. The plan is to stabilize medically weaned off pressors they we will consider Lexiscan. 10/28/24 the patient was evaluated in ICU room 215. He is alert oriented x3. patient is being evaluated by physical therapist during rounds. He denies any chest pain. Patient was evaluated by campaign consultant plan is for Lexiscan and Cardiolite stress test before discharge. Patient continues to be on phenylephrine drip. 10/29/24 Patient was evaluated in ICU, room 215. Continues to deny any chest pain. Dobutamine has been discontinued. Patient was started on Eliquis 5 mg PO BID; amiodarone 400 mg PO BID is ongoing. BNP is uptrending, currently 2110. F urosemide 20 mg IV daily initiated. Continue Solu-Cortef 50 mg IV every 6 hours. Labs reviewed; potassium remains low at 2.8 mmol/L today. Will continue with potassium replacement protocol. Plans for Lexiscan and Cardiolite stress tests pre-discharge remain in place; will follow up with cardiology regarding scheduling. REVIEW OF SYSTEMS CONSTITUTIONAL: Denies fevers, chills, or night sweats. No unintentional weight loss reported. NEUROLOGICAL: Denies headache, amaurosis fugax, motor weakness, sensory deficit, vertigo/spinning sensation, gait abnormalities, or tremors. ENT: No hearing loss, otalgia, otorrhea, rhinitis, rhinorrhea, hoarseness, or sore throat. CARDIOVASCULAR: Denies any exertional angina, dyspnea on exertion, orthopnea, paroxysmal nocturnal dyspnea, palpitations, life-threatening arrhythmias, claudication. PULMONARY: Denies any shortness of breath, cough, phlegm/sputum, hemoptysis, pleuritic chest pain. SLEEP: Denies morning headaches, daytime somnolence or napping. Denies difficulty falling asleep, staying asleep, waking from sleep. Denies knowledge of snoring. GASTROINTESTINAL: Denies any type of dysphagia to either liquids or solids. Denies nausea, vomiting, pyrosis, early satiety, abdominal pain, diarrhea, constipation, or changes in stool consistency or caliber. Denies coffee-ground emesis, hematemesis, hematochezia, or melanotic stools. GENITOURINARY: Denies frequency, urgency, nocturia, hematuria or incontinence (Storage/Irritative symptoms.) Low urinary stream, straining to void, urinary intermittency or hesitancy, splitting of the voiding stream, terminal dribbling. ENDOCRINOLOGIC: Denies polyuria, polydipsia, polyphagia or heat/cold intolerances. HEMATOLOGIC: Denies thrombophilia/previous clots, or coagulopathy/bleeding disorders. ONCOLOGIC: Denies personal history of malignancy. DERMATOLOGIC: Denies rashes or pruritus. PSYCHIATRIC: Denies any suicidal or homicidal ideation. Denies hallucinations. PHYSICAL EXAM GENERAL APPEARANCE: The patient is awake, alert, and oriented, in no acute cardiopulmonary distress. NEUROLOGICAL: Cranial nerves II-XII grossly intact. Motor is 5/5 in bilateral upper and lower extremities proximal to distal. No sensory deficits. HEENT: Face is symmetric. Pupils are equal and reactive. Extraocular movements are intact. NECK: Supple. No JVD. No thyromegaly. No submental, submandibular, pre-/postauricular, occipital or supraclavicular lymphadenopathy. CHEST: Normal chest expansion. No Telemetry. LUNGS: Absence of any rales, rhonchi or any wheezing. CARDIOVASCULAR: Regular. S1 and S2 normal. No appreciable rubs, murmurs or gallops. ABDOMEN: Soft, nontender, and nondistended. There is no rebound, voluntary guarding, or rigidity. : Deferred. No Galindo. EXTREMITIES: Non-edematous and not cyanotic. No clubbing. Good capillary refill. SKIN: No skin breakdown. Vital Signs (last 8hr) Date Time Temp Pulse Resp B/P (MAP) Pulse Ox O2 Delivery O2 Flow Rate FiO2 10/29/24 08:00 97.9 97 Nasal Cannula 2.0 28 10/29/24 06:41 82 20 N/Cannula Low lpm 2.0 28 10/29/24 06:39 81 18 10/29/24 04:41 91 9 113/46 (68) 99 110/56 (74) 10/29/24 04:26 83 15 114/45 (68) 98 115/63 (80) 10/29/24 04:11 86 12 112/45 (67) 98 114/63 (80) 10/29/24 04:00 98 Nasal Cannula* 2 28 10/29/24 03:56 98.4 87 11 112/43 (66) 99 110/62 (78) 10/29/24 03:41 87 16 115/47 (69) 99 115/69 (84) 10/29/24 03:26 84 17 107/43 (64) 97 110/61 (77) 10/29/24 03:11 88 11 115/47 (69) 99 117/59 (78) LABS: Laboratory: Test 10/29/24 04:31 10/28/24 05:09 Range/Units White Blood Count 7.2 4.8-10.8 K/uL Red Blood Count 3.48 L 4.50-6.20 MIL/uL Hemoglobin 11.1 L 14.0-18.0 g/dL Hematocrit 32.5 L 42-54 % Mean Corpuscular Volume 93.4 79-99 fL Mean Corpuscular Hemoglobin 31.9 27.0-33.0 pg Mean Corpuscular Hemoglobin Concent 34.2 32.0-36.0 g/dL Red Cell Distribution Width 13.6 11.0-15.5 % Platelet Count 75 L 130-400 K/uL Mean Platelet Volume 11.4 H 7.5-10.5 fL Nucleated Red Blood Cells 0.0 0.0-0.19 % Sodium Level 136 136-145 mmol/L Potassium Level 2.8 *L 3.5-5.1 mmol/L Chloride Level 97 L 101-111 mmol/L Carbon Dioxide Level 29 21-32 mmol/L Blood Urea Nitrogen 30 H 7-18 mg/dL Creatinine 3.2 H 0.5-1.3 mg/dL Glomerular Filtration Rate Calc 20 >90 mL/min Random Glucose 116 H 70-105 mg/dL Total Calcium 9.4 8.5-10.1 mg/dL Magnesium Level 2.00 1.80-2.40 mg/dL B-Type Natriuretic Peptide 2110 H 0-100 pg/mL Activated Partial Thromboplast Time 89.4 *H 26.3-35.5 SEC Current Medications Medications (Trade) Dose Ordered Sig/Gustavo Route PRN Reason Start Time Stop Time Status Last Admin Dose Admin Acetaminophen (TYLenol 325MG TAB) 650 mg Q6H PRN PO TEMPERATURE GREATER THAN 101.5 10/25/24 21:00 11/24/24 20:59 Amiodarone HCl (pacERONE 200MG) 200 mg BID PO 10/26/24 09:00 10/26/24 07:36 DC Amiodarone HCl (pacERONE 200MG) 400 mg BID PO 10/26/24 09:00 11/25/24 08:59 10/29/24 08:04 400 MG Amiodarone HCL/ Dextrose 100 ml @ 0 mls/hr PROTOCOL IV 10/27/24 07:30 10/28/24 06:27 DC 10/27/24 07:44 600 MLS/HR Amiodarone HCL/ Dextrose 200 ml @ 33.333 mls/ hr AD IV 10/25/24 16:00 10/26/24 07:30 DC 10/25/24 17:42 33.333 MLS/HR Apixaban (EliquIS) 5 mg BID PO 10/28/24 21:00 11/27/24 20:59 10/29/24 08:04 5 MG Aspirin (Aspirin 81mg Ec Tab) 81 mg DAILY PO 10/29/24 09:00 10/28/24 16:10 DC Atorvastatin Calcium (LIPItor 40MG) 80 mg HS PO 10/28/24 21:00 11/27/24 20:59 10/28/24 20:46 80 MG Bisacodyl (DulcoLAX) 10 mg DAILY RC 10/28/24 09:00 10/31/24 08:59 Budesonide (Pulmicort 0.5 Mg/2ml) 0.5 mg BIDRESP IH 10/28/24 10:30 11/27/24 10:29 10/29/24 06:39 0.5 MG Clopidogrel Bisulfate (plaVIX 75MG) 75 mg DAILY PO 10/29/24 09:00 10/28/24 16:10 DC Dobutamine HCl/ Dextrose 250 ml @ 0 mls/hr PROTOCOL IV 10/25/24 16:00 10/28/24 10:04 DC 10/27/24 07:02 0 MLS/HR Dobutamine HCl/ Dextrose 250 ml @ 0 mls/hr PROTOCOL IV 10/26/24 07:30 10/26/24 07:37 DC Doxycycline Hyclate (Doxycycline Hyclate) 100 mg BID PO 10/26/24 21:00 11/05/24 20:59 10/29/24 08:03 100 MG Furosemide (LASix 20MG TAB) 20 mg DAILY PO 10/29/24 09:00 10/28/24 10:06 DC Furosemide (LASix 20MG VIAL) 20 mg DAILY IV 10/29/24 09:00 11/28/24 08:59 10/29/24 09:40 20 MG Furosemide (LASix 40MG VIAL) 30 mg Q12H IV 10/27/24 07:00 10/27/24 13:49 DC 10/27/24 07:01 30 MG Furosemide (LASix 40MG VIAL) 30 mg Q12H IV 10/27/24 18:00 10/28/24 09:58 DC 10/27/24 16:56 30 MG Furosemide (LASix 40MG VIAL) 40 mg Q12H IV 10/25/24 19:00 10/26/24 19:26 DC 10/26/24 18:47 40 MG Furosemide (LASix 40MG VIAL) 40 mg Q12H IV 10/26/24 07:30 10/26/24 07:36 DC Heparin Sodium (Porcine) (HEParin 5,000 UNIT VIAL) 5,000 unit BID SQ 10/25/24 21:00 10/25/24 22:47 DC Heparin Sodium/ Dextrose 250 ml @ 0 mls/hr PROTOCOL IV 10/25/24 16:00 10/28/24 09:53 DC 10/26/24 18:46 7.7 MLS/HR Hydrocortisone Sodium Succinate (Solu-corTEF 100MG) 50 mg Q6H IV 10/29/24 09:00 11/28/24 08:59 10/29/24 09:42 50 MG Ipratropium [place] (AtrovENT UD) 0.5 MG Q6H PRN IH SHORTNESS OF BREATH 10/28/24 10:30 11/27/24 10:29 10/28/24 18:46 0.5 MG Lactulose (Constulose 20gm/ 30ml Udcup) 20 gm BID PRN PO CONSTIPATION 10/26/24 17:00 11/25/24 16:59 10/26/24 16:53 20 GM Levothyroxine Sodium (SYNTHroid 75MCG TAB) 75 mcg SYN PO 10/29/24 06:30 11/28/24 06:29 10/29/24 06:04 75 MCG Magnesium Sulfate 50 ml @ 0 mls/hr PROTOCOL IV 10/25/24 15:30 10/25/24 21:00 DC 10/25/24 16:27 25 MLS/HR Magnesium Sulfate 50 ml @ 0 mls/hr PROTOCOL PRN IV MAGNESIUM PROTOCOL 10/25/24 21:00 11/24/24 20:59 10/28/24 14:16 25 MLS/HR Midodrine (PROAMatine 5 MG TABLET) 10 mg TID PO 10/26/24 09:30 11/25/24 09:29 10/29/24 08:04 10 MG Montelukast Sodium (SinguLAIR) 10 mg HS PO 10/26/24 21:00 11/25/24 20:59 10/28/24 20:46 10 MG Morphine Sulfate (morPHINE 2MG SYG) 2 mg Q4H PRN IVP SEVERE PAIN (7-10) 10/25/24 21:00 11/01/24 20:59 Nicotine (Nicoderm) 14 mg DAILY TD 10/27/24 09:00 11/26/24 08:59 10/29/24 08:05 14 MG Norepinephrine 250 ml @ 0 mls/hr PROTOCOL IV 10/25/24 18:00 10/28/24 10:04 DC 10/26/24 13:45 27.573 MLS/HR Ondansetron HCl (zoFRAN 4MG INJ) 4 mg Q6H PRN IV NAUSEA/VOMITING 10/25/24 21:00 11/24/24 20:59 Pantoprazole Sodium (PROTonix 40MG INJ) 40 mg DAILY IV 10/26/24 09:00 11/25/24 08:59 10/29/24 08:01 40 MG Pharmacy Profile Note (Pharmacy Communication) 1 each ONCE MISC 10/27/24 14:00 10/27/24 13:50 DC Phenylephrine HCl 100 mg/Sodium Chloride 250 ml @ 0 mls/hr AD PRN IV TITRATE 10/27/24 04:30 11/26/24 04:29 10/28/24 02:23 11 MLS/HR Piperacillin Sod/ Tazobactam Sod (Zosyn 3.375gm+NS 50ml) 3.375 gm Q12H IV 10/25/24 21:00 11/04/24 20:59 10/29/24 08:03 3.375 GM Sodium Bicarbonate (Sodium Bicarbonate) 1,300 mg BID PO 10/27/24 21:00 10/28/24 10:04 DC 10/27/24 20:20 1,300 MG Sodium Chloride 250 ml @ 0 mls/hr Q0M IV 10/28/24 10:30 11/27/24 10:29 DIAGNOSTICS / RADIOLOGY: [ ] ASSESSMENT: Cardiogenic shock, POA 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 b.i.d. For anticoagulation patient was started with Eliquis5 mg p.o. b.i.d. BNP is up trending patient was started with Lasix 20 mg IV daily We will continue to monitor electrolytes and replete as necessary, potassium remains low at 2.8 mmol/L continue with potassium replacement Protocol and monitor levels closely Plans for Lexiscan and Cardiolite stress tests pre-discharge; follow up with cardiology regarding scheduling. NEURO: Minimize central acting medications as possible. Fall Precautions. Well lighted room through the day and minimize interruptions through the night to prevent acute delirium. PULMONARY: Supplemental 02 as needed BiPAP as necessary, for respiratory distress Titrate Fio2 to keep Spo2 > or = 90% DuoNebs and CPT as needed IS hourly while awake for pulmonary hygiene prn Out of bed to chair as tolerated Maintain aspiration precautions at all times CARDIOVASCULAR: Follow hemodynamics. Vital signs per facility protocol GI & NUTRITION: Continue nutritional support Aspirations precautions Prokinetic agents and laxatives as needed KIDNEYS & ELECTROLYTES: Strict monitoring of intake and output Daily weights Avoid nephrotoxic agents Monitor electrolytes and replace as needed Goal urine output of 30mL/hr or 0.5mL/kg/hr Medications to be dosed according to renal function. Avoid contrast if possible ENDOCRINE: Maintain blood glucose between 100-180 at all times. Insulin sliding scale for blood glucose management Hypoglycemia and hyperglycemia protocol in place INFECTIOUS DISEASE: Trend temperature, WBC and procalcitonin level Follow cultures, deescalate antibiotics as soon as possible. Panculture if new onset fever HEMATOLOGY & COAGULATION: Monitor H&H. Keep Hgb > 7 Transfuse 1 unit of PRBC for Hgb < 7 Transfuse 1 pack of platelets of platelets < 20, 000 Watch for any signs and symptoms of bleeding SKIN: Pressure ulcer prevention per facility protocol Specialty mattress as needed ORTHO/REHAB Continue PT/OT PRN: MEDICATIONS Tylenol 650 mg po every 4 hrs for fever zofran 4 mg IV every 6 hrs for n/v Hydralazine 5 mg IV every 4 hrs systolic pressure > 160 bowel regiment: lactulose 20 gm PO BID PRN constipation Supportive measures: Continue GI and DVT prophylaxis Disposition: Pending improvement in clinical condition All questions answered time spent: > 35 min ATTESTATION BY PHYSICIAN I have seen and examined the patient. I reviewed the documentation, medical decision making, and treatment plan as noted by the mid-level provider above. I agree with the findings and plan of care. Norah Nieves MD, [facility] Oct 29, 2024 11:14
--- NOTE | 2024-10-29 11:44 | PN ---
FOLLOWUP PROGRESS NOTE SUBJECTIVE: The patient is a 74-year-old male with a history of known cardiomyopathy. The patient is admitted with acute renal failure and hypotension. The patient's creatinine has stabilized. He continues to have hypertension, requiring the pressors. The patient is being seen by Cardiology. The patient with history of severe cardiomyopathy as well as valvular heart disease. The patient is being seen as a followup visit for all of the above. REVIEW OF SYSTEMS: CONSTITUTIONAL: He is feeling somewhat improved. HEENT: No change in vision. No change in hearing. CARDIOVASCULAR: There is no current chest pain or palpitations. PULMONARY: Shortness of breath is improved. GASTROINTESTINAL: The patient is tolerating a diet. MUSCULOSKELETAL: Complains of weakness. PHYSICAL EXAMINATION: VITAL SIGNS: Blood pressure is 113/46, pulse 90. He is afebrile. GENERAL: He is a chronically ill male, elderly, lying in bed on the medical floor. HEENT: Head is atraumatic. Pupils are equal, round. Reactive to light. Oropharynx is without exudate. Nares clear. NECK: There is no JVP. There is no thyromegaly. CARDIOVASCULAR: Regular. There is no S3 or S4 gallop. LUNGS: Coarse with equal thoracic movement. ABDOMEN: Soft, nondistended, and nontender. EXTREMITIES: Reveal no clubbing or cyanosis. NEUROLOGICAL: He is awake, he is alert. LABORATORY DATA: BUN 30, creatinine 3.2, hemoglobin 11 and hematocrit 32. IMPRESSION: * Acute on chronic renal failure. * Cardiomyopathy with valvular heart disease. * Electrolyte abnormality. * Debilitation. PLAN: The patient continues with significant renal dysfunction. Urine output has been noted overnight. Potassium has been aggressively repleted. Workup is ongoing per Cardiology. He continues with midodrine for the hypotension. We will continue to follow closely. All labs will be repeated in the morning. TID: [id number] RECEIPT: [id number]
--- NOTE | 2024-10-29 12:45 | NUR ---
DR. SHELBY ROUNDED ON PATIENT. UPDATED MD ON PATIENT STATUS. NO NEW ORDERS GIVEN.
--- NOTE | 2024-10-29 13:03 | NUR ---
DR. Farrah DOUGLASS ROUNDED ON PATIENT. UPDATED MD ON PATIENT STATUS. MD STATED NO STRESS TEST WOULD BE DONE DUE TO KIDNEY FUNCTION. ALSO ASKED TO HAVE BP TAKEN AT THE POPLITEAL ARTERY IN CASE OF STENOSIS AT THE SUBCLAVIAN ARTERY. NO OTHER ORDERS GIVEN.
--- NOTE | 2024-10-29 14:25 | PN ---
[facility] CARDIOLOGY PROGRESS NOTE Date Patient Seen: Oct 29, 2024 Time of Visit: 14:01 Interval History: This 74-year-old white male, patient of Dr. Zac Jimenez, with a history of tobacco abuse, dyslipidemia, hypothyroidism, carotid artery disease status post right carotid endarterectomy in 2010 and left carotid endarterectomy in 2018, remote lacunar CVA in 2009, acute on chronic renal insufficiency, and known coronary disease status post remote CABG x3 in 2009 (rodrigues-lad, SVG-diagonal, and SVG-PDA) was admitted with acute HFrEF, hypotension, and a new cardiomyopathy with LVEF of 20-25%. He has had intermittent paroxysmal AFib since admission and failed initial cardioversion but currently is in a sinus rhythm on loading doses of p.o. amiodarone. He is currently on loading doses of amiodarone and low-dose Perez-Synephrine which is being weaned. Patient has undergone further assessment with a 2D echocardiogram 10/25/2024 demonstrating an LVEF of 20-25%, moderate MR, and an RV systolic pressure estimate of 48 mm of mercury. Patient has no evidence of sepsis with a negative procalcitonin level. His lactic acid was elevated on admission. Blood cultures and urine cultures are no growth thus far. A serum cortisol has been requested for this a.m., and is pending. Physical Examination: GENERAL: No acute distress. HEAD: Normal with no signs of head trauma. EYES: PERRLA, EOMI, conjunctiva and sclera normal. NECK: Supple without JVD. There is no tenderness, lymphadenopathy, or masses. No thyromegaly. Normal carotid upstrokes without bruits. LUNGS: Clear breath sounds bilaterally. No wheezes, or rhonchi. HEART: Normal rate and rhythm. Normal S1 and S2 without murmurs, gallop or rub. VASC: Peripheral pulses +2 bilaterally. EXT: No clubbing, cyanosis or edema. NEURO: Awake, alert, and oriented x3. No focal neurological deficits noted. Laboratory: Hematology Labs: Test 10/29/24 04:31 Range/Units White Blood Count 7.2 4.8-10.8 K/uL Red Blood Count 3.48 L 4.50-6.20 MIL/uL Hemoglobin 11.1 L 14.0-18.0 g/dL Hematocrit 32.5 L 42-54 % Mean Corpuscular Volume 93.4 79-99 fL Mean Corpuscular Hemoglobin 31.9 27.0-33.0 pg Mean Corpuscular Hemoglobin Concent 34.2 32.0-36.0 g/dL Red Cell Distribution Width 13.6 11.0-15.5 % Platelet Count 75 L 130-400 K/uL Mean Platelet Volume 11.4 H 7.5-10.5 fL Nucleated Red Blood Cells 0.0 0.0-0.19 % Chemistry Labs: Test 10/29/24 04:31 Range/Units Sodium Level 136 136-145 mmol/L Potassium Level 2.8 *L 3.5-5.1 mmol/L Chloride Level 97 L 101-111 mmol/L Carbon Dioxide Level 29 21-32 mmol/L Blood Urea Nitrogen 30 H 7-18 mg/dL Creatinine 3.2 H 0.5-1.3 mg/dL Glomerular Filtration Rate Calc 20 >90 mL/min Random Glucose 116 H 70-105 mg/dL Total Calcium 9.4 8.5-10.1 mg/dL Magnesium Level 2.00 1.80-2.40 mg/dL B-Type Natriuretic Peptide 2110 H 0-100 pg/mL Coagulation Labs: Test 10/28/24 05:09 Range/Units Activated Partial Thromboplast Time 89.4 *H 26.3-35.5 SEC Diagnostics / Radiology: 2D echocardiogram 10/25/2024: Conclusion The left ventricle is borderline dilated. LVEF is 20-25%. The LV diastolic function was unable to be assessed due to atrial arrhythmia but diastolic function is abnormal. Severely reduced GLS -7.0% There is moderate mitral valve regurgitation noted. RVSP 48.0mmHg. There is mild to moderate tricuspid regurgitation. DICTATED BY: ZAC JIMENEZ MD DATE: 10/25/241822 Impression and Plan: Acute on chronic HFrEF: Tachycardia versus ischemic cardiomyopathy with LVEF of 20-25% 10/25/2024: Moderate mitral regurgitation by 2D echocardiogram 10/25/2024: BNP trending upward from 949 to 2110: Cardiogenic shock: -blood pressures in both thighs demonstrated findings identical to his arms (no evidence of bilateral subclavian artery stenosis) -patient has been weaned off of dobutamine support -patient has evidence of advanced renal insufficiency with serum creatinine in the 3 range with a normal previous creatinine in 2020 -resume furosemide 20 IV daily given x-ray findings of increasing basilar infiltrates today -patient's hypotension may be related to cardiogenic shock, which would portend a very poor prognosis. Paroxysmal atrial fibrillation: -he remains in sinus rhythm today -discontinue dual antiplatelet therapy -Begin Eliquis 5 mg p.o. b.i.d. -Not requiring rate control at this time -amiodarone loading 400 b.i.d. in progress, transition to 200 mg daily after seven days Coronary artery disease status post remote CABG x3 in 2009 with RODRIGUES-LAD, SVG- diagonal, and SVG-PDA: -Dr. Jimenez had suggested ischemic evaluation pre discharge, when stable, depending on clinical course Hypotension, with negative blood and urine cultures so far: May be secondary to cardiogenic shock: -continues on Zosyn antibiotic therapy -a.m. Cortisol pending from this a.m. -blood pressures in both thighs demonstrated findings identical to his arms (no evidence of bilateral subclavian artery stenosis) -continue present dose midodrine 10 mg p.o. t.i.d. Comorbidities: Tobacco abuse Hyperlipidemia Hypothyroidism Carotid artery disease status post right carotid endarterectomy in 2010 and left carotid endarterectomy in 2018 Remote lacunar CVA in 2009 MED DOUGLASS MD Oct 29, 2024 14:24
--- NOTE | 2024-10-29 19:13 | HMCIMG ---
EXAM: CR Chest, 1 View. CLINICAL HISTORY: hypoxic resp failure COMPARISON: None provided. Findings: AP view of the chest is submitted. Left PICC remains in satisfactory position. Slightly worsened bibasilar airspace disease (left greater than right) that is presumed to reflect an infectious process. No pleural effusion or pneumothorax. Prior sternotomy. Heart size is stable. Pulmonary vessels are within normal limits. IMPRESSION: 1. Worsening bibasilar airspace disease, left greater than right, presumed infectious. 2. Left PICC in satisfactory position. /[place]
[2024-10-29 19:59] LABS: CREATININE 2.9 mg/dL (0.5-1.3); GLOMERULAR FILTR. RATE CALC 22.0 mL/min (>90); GLUCOSE,RANDOM 187.0 mg/dL (70-105); SODIUM SERUM 136.0 mmol/L (136-145); UREA NITROGEN, BLOOD 36.0 mg/dL (7-18)
[2024-10-29] MEDS ORDERED: PoTASSium chl 10% ELIXIR 20MEQ 20 MEQ/15 ML UDCUP PO PRN (20:30)
[2024-10-30] VITALS (104 sets, daily range): BP systolic 79–132; BP diastolic 40–67; PULSE 62–86; RESP 8–38; TEMP 97.7–98.5; O2SAT 97–100
[2024-10-30] MEDS: PoTASSium chloRIDE 20MEQ ER 20 MEQ ERTAB PO PRN (01:12)
[2024-10-30 05:43] LABS: CREATININE 2.7 mg/dL (0.5-1.3); GLOMERULAR FILTR. RATE CALC 24.0 mL/min (>90); GLUCOSE,RANDOM 161.0 mg/dL (70-105); SODIUM SERUM 137.0 mmol/L (136-145); UREA NITROGEN, BLOOD 33.0 mg/dL (7-18)
[2024-10-30] MEDS: PoTASSium chl 10% ELIXIR 20MEQ 20 MEQ/15 ML UDCUP PO PRN (06:16)
--- NOTE | 2024-10-30 07:17 | NUR ---
DR. MCFADDEN ROUNDED ON PATIENT. UPDATED MD ON PATIENT STATUS. NO NEW ORDERS GIVEN.
--- NOTE | 2024-10-30 07:19 | PN ---
[facility] Cardiology Progress Note CARDIOLOGY PROGRESS NOTE OCTOBER 30, 2024 Problems: 1. Acute congestive heart failure 2. Ischemic cardiomyopathy with ejection fraction of 20-25% 3. CAD status post aortocoronary bypass graft surgery 2009 with a RODRIGUES graft to the LAD saphenous graft to the diagonal artery and saphenous graft to the PDA 4. Atrial fibrillation with rapid ventricular response on admission status post failed cardioversion on admission now converted to sinus rhythm on amiodarone. 5. Dyslipidemia 6. Tobacco dependence 7. Remote lacunar infarct 2009 8. Carotid artery disease status post right carotid endarterectomy 2010 and subsequent left carotid endarterectomy 2018 9. hypothyroidism 10. Chronic kidney disease stage 4 Blood pressure is running [id number] systolic. Heart rate is 70s. Potassium 2.9 which will be supplemented. BUN33 creatinine has dropped 2.7 Estimated GFR of 24. The patient continues on amiodarone 400 mg b.i.d. apixaban 5 mg b.i.d. atorvastatin 80 mg daily antibiotics furosemide 20 mg IV daily [id number] mcg daily midodrine 10 mg t.i.d. pantoprazole and potassium protocol. The patient slept well. Denies any pain or shortness of breath. Continues to have coarse rhonchi and some productive cough. We will continue with antibiotics and gradually taper off Perez-Synephrine as tolerated. Once blood pressure is stable off Perez-Synephrine we will consider a Cardiolite stress test prior to discharge. ZAC MCFADDEN MD Oct 30, 2024 07:19
--- NOTE | 2024-10-30 09:10 | PN ---
[facility] PROGRESS NOTE Date of Service: Oct 30, 2024 Time of Service: 09:08 SUBJECTIVE: 10/26 74-year-old male, history of coronary artery disease, dyslipidemia, hypertension, tobacco dependence, remote lacunar infarct, carotid artery disease, hypothyroidism, presented with a chief complaint of generalized body weakness and shortness a breath, in the emergency room found to have AFib with a RVR, heart rate in with the 140s, hypotensive, cardioverted electrically x1, did not restore sinus rhythm, patient admitted to the ICU. At the time of my visit awake, following commands, on heparin drip, Levophed, amiodarone drip, dobutamine drip, echocardiogram showing ejection fraction 20- 25%. Cardiology input noted and appreciated, the patient will require an ischemic evaluation prior to discharge. 10/27/24 patient remains in ICU. Patient appears chronically ill fragile and weak. Denied chest pain. Patient is being followed by [employer] continues on dopamine drip. The plan is to stabilize medically weaned off pressors they we will consider Lexiscan. 10/28/24 the patient was evaluated in ICU room 215. He is alert oriented x3. patient is being evaluated by physical therapist during rounds. He denies any chest pain. Patient was evaluated by [employer] plan is for Lexiscan and Cardiolite stress test before discharge. Patient continues to be on phenylephrine drip. 10/29/24 Patient was evaluated in ICU, room 215. Continues to deny any chest pain. Dobutamine has been discontinued. Patient was started on Eliquis 5 mg PO BID; amiodarone 400 mg PO BID is ongoing. BNP is uptrending, currently 2110. F urosemide 20 mg IV daily initiated. Continue Solu-Cortef 50 mg IV every 6 hours. Labs reviewed; potassium remains low at 2.8 mmol/L today. Will continue with potassium replacement protocol. Plans for Lexiscan and Cardiolite stress tests pre-discharge remain in place; will follow up with cardiology regarding scheduling. 10/30/24 patient remains on Perez-Synephrine the plan is to taper off as tolerated once blood pressure is stable [employer] we will consider Cardiolite stress test prior to discharge. Patient is fully awake alert oriented x3 denied chest pain or shortness for breath REVIEW OF SYSTEMS CONSTITUTIONAL: Denies fevers, chills, or night sweats. No unintentional weight loss reported. NEUROLOGICAL: Denies headache, amaurosis fugax, motor weakness, sensory deficit, vertigo/spinning sensation, gait abnormalities, or tremors. ENT: No hearing loss, otalgia, otorrhea, rhinitis, rhinorrhea, hoarseness, or sore throat. CARDIOVASCULAR: Denies any exertional angina, dyspnea on exertion, orthopnea, paroxysmal nocturnal dyspnea, palpitations, life-threatening arrhythmias, claudication. PULMONARY: Denies any shortness of breath, cough, phlegm/sputum, hemoptysis, pleuritic chest pain. SLEEP: Denies morning headaches, daytime somnolence or napping. Denies difficulty falling asleep, staying asleep, waking from sleep. Denies knowledge of snoring. GASTROINTESTINAL: Denies any type of dysphagia to either liquids or solids. Denies nausea, vomiting, pyrosis, early satiety, abdominal pain, diarrhea, constipation, or changes in stool consistency or caliber. Denies coffee-ground emesis, hematemesis, hematochezia, or melanotic stools. GENITOURINARY: Denies frequency, urgency, nocturia, hematuria or incontinence (Storage/Irritative symptoms.) Low urinary stream, straining to void, urinary intermittency or hesitancy, splitting of the voiding stream, terminal dribbling. ENDOCRINOLOGIC: Denies polyuria, polydipsia, polyphagia or heat/cold intolerances. HEMATOLOGIC: Denies thrombophilia/previous clots, or coagulopathy/bleeding disorders. ONCOLOGIC: Denies personal history of malignancy. DERMATOLOGIC: Denies rashes or pruritus. PSYCHIATRIC: Denies any suicidal or homicidal ideation. Denies hallucinations. PHYSICAL EXAM GENERAL APPEARANCE: The patient is awake, alert, and oriented, in no acute cardiopulmonary distress. NEUROLOGICAL: Cranial nerves II-XII grossly intact. Motor is 5/5 in bilateral upper and lower extremities proximal to distal. No sensory deficits. HEENT: Face is symmetric. Pupils are equal and reactive. Extraocular movements are intact. NECK: Supple. No JVD. No thyromegaly. No submental, submandibular, pre- /postauricular, occipital or supraclavicular lymphadenopathy. CHEST: Normal chest expansion. No Telemetry. LUNGS: Absence of any rales, rhonchi or any wheezing. CARDIOVASCULAR: Regular. S1 and S2 normal. No appreciable rubs, murmurs or gallops. ABDOMEN: Soft, nontender, and nondistended. There is no rebound, voluntary guarding, or rigidity. : Deferred. No Galindo. EXTREMITIES: Non-edematous and not cyanotic. No clubbing. Good capillary refill. SKIN: No skin breakdown. Vital Signs (last 8hr) Date Time Temp Pulse Resp B/P (MAP) Pulse Ox O2 Delivery O2 Flow Rate FiO2 10/30/24 08:00 98.1 100 Nasal Cannula 1.0 10/30/24 08:00 69 18 N/Cannula Low lpm 1.5 26 10/30/24 08:00 99 Nasal Cannula* 1 24 10/30/24 07:45 72 16 106/51 (69) 100 10/30/24 07:30 70 16 117/53 (74) 100 10/30/24 07:15 62 15 114/48 (70) 98 10/30/24 07:00 65 15 108/45 (66) 99 10/30/24 06:34 64 18 10/30/24 06:12 71 15 118/48 (71) 97 10/30/24 05:57 73 13 119/55 (76) 98 10/30/24 05:42 68 16 116/51 (72) 97 112/55 (74) 10/30/24 05:27 74 12 104/42 (62) 98 10/30/24 05:12 77 16 110/45 (66) 97 10/30/24 04:57 74 17 117/50 (72) 100 10/30/24 04:42 74 18 119/53 (75) 99 10/30/24 04:27 76 13 114/53 (73) 99 10/30/24 04:12 74 14 116/52 (73) 99 10/30/24 04:00 97 Nasal Cannula* 2 28 10/30/24 04:00 98.2 10/30/24 03:57 72 14 114/46 (68) 99 10/30/24 03:42 75 14 116/48 (70) 97 106/60 (75) 10/30/24 03:27 74 13 113/49 (70) 99 10/30/24 03:12 73 12 114/48 (70) 99 10/30/24 02:57 80 14 110/48 (68) 98 10/30/24 02:42 72 11 112/49 (70) 98 10/30/24 02:27 75 13 114/50 (71) 99 10/30/24 02:12 70 15 116/50 (72) 100 10/30/24 01:57 71 13 114/47 (69) 100 10/30/24 01:42 73 14 110/45 (66) 98 108/57 (74) 10/30/24 01:27 79 8 109/45 (66) 99 10/30/24 01:15 117/50 10/30/24 01:12 73 13 111/47 (68) 99 LABS: Laboratory: Test 10/30/24 07:49 10/30/24 05:14 10/29/24 19:46 10/29/24 04:31 Range/Units Potassium Level 3.3 L 3.5-5.1 mmol/L Sodium Level 137 136-145 mmol/L Chloride Level 99 L 101-111 mmol/L Carbon Dioxide Level 28 21-32 mmol/L Blood Urea Nitrogen 33 H 7-18 mg/dL Creatinine 2.7 H 0.5-1.3 mg/dL Glomerular Filtration Rate Calc 24 >90 mL/min Random Glucose 161 H 70-105 mg/dL Total Calcium 9.3 8.5-10.1 mg/dL Whole Blood Glucose 171 H 70-110 MG/DL White Blood Count 7.2 4.8-10.8 K/uL Red Blood Count 3.48 L 4.50-6.20 MIL/uL Hemoglobin 11.1 L 14.0-18.0 g/dL Hematocrit 32.5 L 42-54 % Mean Corpuscular Volume 93.4 79-99 fL Mean Corpuscular Hemoglobin 31.9 27.0-33.0 pg Mean Corpuscular Hemoglobin Concent 34.2 32.0-36.0 g/dL Red Cell Distribution Width 13.6 11.0-15.5 % Platelet Count 75 L 130-400 K/uL Mean Platelet Volume 11.4 H 7.5-10.5 fL Nucleated Red Blood Cells 0.0 0.0-0.19 % Magnesium Level 2.00 1.80-2.40 mg/dL B-Type Natriuretic Peptide 2110 H 0-100 pg/mL Current Medications Medications (Trade) Dose Ordered Sig/Gustavo Route PRN Reason Start Time Stop Time Status Last Admin Dose Admin Acetaminophen (TYLenol 325MG TAB) 650 mg Q6H PRN PO TEMPERATURE GREATER THAN 101.5 10/25/24 21:00 11/24/24 20:59 Amiodarone HCl (pacERONE 200MG) 200 mg BID PO 10/26/24 09:00 10/26/24 07:36 DC Amiodarone HCl (pacERONE 200MG) 400 mg BID PO 10/26/24 09:00 11/25/24 08:59 10/30/24 07:57 400 MG Amiodarone HCL/ Dextrose 100 ml @ 0 mls/hr PROTOCOL IV 10/27/24 07:30 10/28/24 06:27 DC 10/27/24 07:44 600 MLS/HR Amiodarone HCL/ Dextrose 200 ml @ 33.333 mls/ hr AD IV 10/25/24 16:00 10/26/24 07:30 DC 10/25/24 17:42 33.333 MLS/HR Apixaban (EliquIS) 5 mg BID PO 10/28/24 21:00 11/27/24 20:59 10/30/24 07:57 5 MG Aspirin (Aspirin 81mg Ec Tab) 81 mg DAILY PO 10/29/24 09:00 10/28/24 16:10 DC Atorvastatin Calcium (LIPItor 40MG) 80 mg HS PO 10/28/24 21:00 11/27/24 20:59 10/30/24 01:12 80 MG Bisacodyl (DulcoLAX) 10 mg DAILY RC 10/28/24 09:00 10/31/24 08:59 Budesonide (Pulmicort 0.5 Mg/2ml) 0.5 mg BIDRESP IH 10/28/24 10:30 11/27/24 10:29 10/30/24 06:38 0.5 MG Clopidogrel Bisulfate (plaVIX 75MG) 75 mg DAILY PO 10/29/24 09:00 10/28/24 16:10 DC Dobutamine HCl/ Dextrose 250 ml @ 0 mls/hr PROTOCOL IV 10/25/24 16:00 10/28/24 10:04 DC 10/27/24 07:02 0 MLS/HR Dobutamine HCl/ Dextrose 250 ml @ 0 mls/hr PROTOCOL IV 10/26/24 07:30 10/26/24 07:37 DC Doxycycline Hyclate (Doxycycline Hyclate) 100 mg BID PO 10/26/24 21:00 11/05/24 20:59 10/30/24 07:56 100 MG Furosemide (LASix 20MG TAB) 20 mg DAILY PO 10/29/24 09:00 10/28/24 10:06 DC Furosemide (LASix 20MG VIAL) 20 mg DAILY IV 10/29/24 09:00 11/28/24 08:59 10/30/24 07:54 20 MG Furosemide (LASix 40MG VIAL) 30 mg Q12H IV 10/27/24 07:00 10/27/24 13:49 DC 10/27/24 07:01 30 MG Furosemide (LASix 40MG VIAL) 30 mg Q12H IV 10/27/24 18:00 10/28/24 09:58 DC 10/27/24 16:56 30 MG Furosemide (LASix 40MG VIAL) 40 mg Q12H IV 10/25/24 19:00 10/26/24 19:26 DC 10/26/24 18:47 40 MG Furosemide (LASix 40MG VIAL) 40 mg Q12H IV 10/26/24 07:30 10/26/24 07:36 DC Heparin Sodium (Porcine) (HEParin 5,000 UNIT VIAL) 5,000 unit BID SQ 10/25/24 21:00 10/25/24 22:47 DC Heparin Sodium/ Dextrose 250 ml @ 0 mls/hr PROTOCOL IV 10/25/24 16:00 10/28/24 09:53 DC 10/26/24 18:46 7.7 MLS/HR Hydrocortisone Sodium Succinate (Solu-corTEF 100MG) 50 mg Q6H IV 10/29/24 09:00 11/28/24 08:59 10/30/24 07:55 50 MG Ipratropium Townsend (AtrovENT UD) 0.5 MG Q6H PRN IH SHORTNESS OF BREATH 10/28/24 10:30 11/27/24 10:29 10/28/24 18:46 0.5 MG Lactulose (Constulose 20gm/ 30ml Udcup) 20 gm BID PRN PO CONSTIPATION 10/26/24 17:00 11/25/24 16:59 10/26/24 16:53 20 GM Levothyroxine Sodium (SYNTHroid 75MCG TAB) 75 mcg SYN PO 10/29/24 06:30 11/28/24 06:29 10/30/24 05:42 75 MCG Magnesium Sulfate 50 ml @ 0 mls/hr PROTOCOL IV 10/25/24 15:30 10/25/24 21:00 DC 10/25/24 16:27 25 MLS/HR Magnesium Sulfate 50 ml @ 0 mls/hr PROTOCOL PRN IV MAGNESIUM PROTOCOL 10/25/24 21:00 11/24/24 20:59 10/28/24 14:16 25 MLS/HR Midodrine (PROAMatine 5 MG TABLET) 10 mg TID PO 10/26/24 09:30 11/25/24 09:29 10/30/24 07:57 10 MG Montelukast Sodium (SinguLAIR) 10 mg HS PO 10/26/24 21:00 11/25/24 20:59 10/30/24 01:13 10 MG Morphine Sulfate (morPHINE 2MG SYG) 2 mg Q4H PRN IVP SEVERE PAIN (7-10) 10/25/24 21:00 11/01/24 20:59 Nicotine (Nicoderm) 14 mg DAILY TD 10/27/24 09:00 11/26/24 08:59 10/30/24 07:58 14 MG Norepinephrine 250 ml @ 0 mls/hr PROTOCOL IV 10/25/24 18:00 10/28/24 10:04 DC 10/26/24 13:45 27.573 MLS/HR Ondansetron HCl (zoFRAN 4MG INJ) 4 mg Q6H PRN IV NAUSEA/VOMITING 10/25/24 21:00 11/24/24 20:59 Pantoprazole Sodium (PROTonix 40MG INJ) 40 mg DAILY IV 10/26/24 09:00 11/25/24 08:59 10/30/24 07:54 40 MG Pharmacy Profile Note (Pharmacy Communication) 1 each ONCE MISC 10/27/24 14:00 10/27/24 13:50 DC Phenylephrine HCl 100 mg/Sodium Chloride 250 ml @ 0 mls/hr AD PRN IV TITRATE 10/27/24 04:30 11/26/24 04:29 10/30/24 01:15 4.96 MLS/HR Piperacillin Sod/ Tazobactam Sod (Zosyn 3.375gm+NS 50ml) 3.375 gm Q12H IV 10/25/24 21:00 11/04/24 20:59 10/30/24 07:55 3.375 GM Potassium Chloride 100 ml @ 100 mls/hr AD PRN IV POTASSIUM PROTOCOL 10/29/24 19:00 11/28/24 18:59 Potassium Chloride (K-Dur/Klor-Con 20meq) 10 meq AD PRN PO POTASSIUM PROTOCOL 10/29/24 19:00 11/28/24 18:59 10/30/24 01:12 10 MEQ Potassium Chloride (KCl 10% Elixir 20meq/15ml) 10 meq AD PRN PO POTASSIUM PROTOCOL 10/29/24 19:00 11/28/24 18:59 10/30/24 06:16 10 MEQ Potassium Chloride (KCl 10% Elixir 20meq/15ml) 20 meq DAILY PRN PO FOR POTASSIUM < 4 10/29/24 20:30 11/28/24 20:29 Sodium Bicarbonate (Sodium Bicarbonate) 1,300 mg BID PO 10/27/24 21:00 10/28/24 10:04 DC 10/27/24 20:20 1,300 MG Sodium Chloride 250 ml @ 0 mls/hr Q0M IV 10/28/24 10:30 11/27/24 10:29 DIAGNOSTICS / RADIOLOGY: [ ] ASSESSMENT: Cardiogenic shock, POA 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 b.i.d. For anticoagulation patient was started with Eliquis5 mg p.o. b.i.d. BNP is up trending patient was started with Lasix 20 mg IV daily We will continue to monitor electrolytes and replete as necessary, potassium remains low at 2.8 mmol/L continue with potassium replacement Protocol and monitor levels closely Plans for Lexiscan and Cardiolite stress tests pre-discharge; follow up with cardiology regarding scheduling. NEURO: Minimize central acting medications as possible. Fall Precautions. Well lighted room through the day and minimize interruptions through the night to prevent acute delirium. PULMONARY: Supplemental 02 as needed BiPAP as necessary, for respiratory distress Titrate Fio2 to keep Spo2 > or = 90% DuoNebs and CPT as needed IS hourly while awake for pulmonary hygiene prn Out of bed to chair as tolerated Maintain aspiration precautions at all times CARDIOVASCULAR: Follow hemodynamics. Vital signs per facility protocol GI & NUTRITION: Continue nutritional support Aspirations precautions Prokinetic agents and laxatives as needed KIDNEYS & ELECTROLYTES: Strict monitoring of intake and output Daily weights Avoid nephrotoxic agents Monitor electrolytes and replace as needed Goal urine output of 30mL/hr or 0.5mL/kg/hr Medications to be dosed according to renal function. Avoid contrast if possible ENDOCRINE: Maintain blood glucose between 100-180 at all times. Insulin sliding scale for blood glucose management Hypoglycemia and hyperglycemia protocol in place INFECTIOUS DISEASE: Trend temperature, WBC and procalcitonin level Follow cultures, deescalate antibiotics as soon as possible. Panculture if new onset fever HEMATOLOGY & COAGULATION: Monitor H&H. Keep Hgb > 7 Transfuse 1 unit of PRBC for Hgb < 7 Transfuse 1 pack of platelets of platelets < 20, 000 Watch for any signs and symptoms of bleeding SKIN: Pressure ulcer prevention per facility protocol Specialty mattress as needed ORTHO/REHAB Continue PT/OT PRN: MEDICATIONS Tylenol 650 mg po every 4 hrs for fever zofran 4 mg IV every 6 hrs for n/v Hydralazine 5 mg IV every 4 hrs systolic pressure > 160 bowel regiment: lactulose 20 gm PO BID PRN constipation Supportive measures: Continue GI and DVT prophylaxis Disposition: Pending improvement in clinical condition All questions answered time spent: > 35 min ATTESTATION BY PHYSICIAN I have seen and examined the patient. I reviewed the documentation, medical decision making, and treatment plan as noted by the mid-level provider above. I agree with the findings and plan of care. Norah Nieves MD, [facility]IZABETH NP Oct 30, 2024 09:10
--- NOTE | 2024-10-30 11:09 | NUR ---
DR. Camila DOUGLASS ROUNDED ON PATIENT. UPDATED MD ON PATIENT STATUS. NO NEW ORDER GIVEN.
--- NOTE | 2024-10-30 12:11 | PN ---
FOLLOWUP PROGRESS NOTE SUBJECTIVE: A 74-year-old male with a history of known cardiomyopathy. The patient also with known valvular heart disease. He initially presented with acute renal failure. The patient was found to have significant volume depletion. Creatinine continues to stabilize. He has become much more hemodynamically stable. The patient is being weaned from the pressors. He does continue with amiodarone for his hypotension and the patient is being seen as a followup visit for all of the above. REVIEW OF SYSTEMS: CONSTITUTIONAL: He is feeling improved. HEENT: No change in vision. No change in hearing. CARDIOVASCULAR: There is no current chest pain or palpitations. PULMONARY: Shortness of breath is improved. GASTROINTESTINAL: He is tolerating a diet. MUSCULOSKELETAL: Complaints of weakness. PHYSICAL EXAMINATION: VITAL SIGNS: Blood pressure is 114/51, pulse in the 60s, afebrile. GENERAL: Chronically ill male, elderly, lying in bed on medical floor. HEENT: Head is atraumatic. Pupils are equal, roving to light. Oropharynx is without exudate. Nares clear. NECK: There is no JVP. There is no thyromegaly. No masses. CARDIOVASCULAR: Regular. There is no S3 or S4 gallop. LUNGS: Coarse with equal thoracic movement. ABDOMEN: Soft, nondistended, and nontender. EXTREMITIES: No edema. NEUROLOGICAL: He is awake. He is alert. He is at his baseline. LABORATORY DATA: Sodium 137, potassium 3.3, BUN 33, creatinine 2.7. Hemoglobin 11, hematocrit 32. IMPRESSION: * Acute on chronic renal failure. * Cardiomyopathy. * History of AFib. * Electrolyte abnormalities. PLAN: The patient's creatinine continues to stabilize. The patient is becoming more hemodynamically stable. He is being weaned from the pressors. Electrolytes have all been aggressively repleted. Workup is ongoing per Cardiology. All labs can be repeated in the a.m. The patient with multiple questions, all of which were answered. TID: [id number] RECEIPT: [id number]
--- NOTE | 2024-10-30 15:58 | PN ---
[facility] PROGRESS NOTE Date Patient Seen: Oct 30, 2024 Time of Visit: 15:57 Supervising Physician: Sebastián Bland MD Primary Care Physician: Dr. Jeffrey Neil Outpatient Specialists: Dr. 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 machine operator Inpatient Consults: Critical Care team [facility] PROBLEM LIST: Acute on chronic Hypoxic resp failure POA (Uses o2 at home 2L PRN) Cardiogenic shock, SCAI stage C, POA requiring pressors Acute on Chronic combined Heart Failure with LVEF of 20-25% and GLS -7.0% Suspected moderate pulmonary HTN w/ RVSP 48.0 mmHg Acute cystitis Enterococcus Avium, POA Atrial fibrillation with RVR on amiodarone [id number] Score 4/ HAS-BLED Score 3 Elevated D- Dimer, pending US BLE Well score for PE 3 Moderate Risk Carotid artery disease Chronic kidney disease Simple renal Cyst 3.1 x 3.3 x 3.4 cm CAD s/p 3V CABG ( RODRIGUES-LAD, SVG-D, SVG-PDA ) August 2009 History of hypertension, currently hypotensive Acute kidney injury, GFR Lactic acidosis Elevated BNP Hypomagnesemia Hyperlipidemia Hypothyroidism Tobacco dependence INTERVAL HISTORY: No major overnight events. Patient sitting upright in chair, breathing at room air with 100% O2 sat, slightly hypotensive 94/46 (62). Patient continues on Perez- Synephrine drip at 0.45 mcg/kg/min and weaning, as well as midodrine. Continue hydrocortisone getting IV q.6 for refractory shock. CBC unremarkable similar to yesterday. Chemistry shows a potassium improvement from 2.8 to 3.3, covered with potassium protocol. Creatinine has reduced from 3.2 to 2.7. GFR of 24, glucose 161 mg/dL. Urine culture growing Enterococcus avium. Blood cultures negative. Pt continues on Zosyn. chest XR displays continued pul vascular congestion. BNP 2109. Patient denies shortness of breath, dizziness, and chest pain. Patient continues to have Galindo. Patient is receiving spirometry as well as nebulizer and Pulmicort. He is currently receiving doxycycline. REVIEW OF SYSTEMS: Const: no fever, fatigue, or weight changes Eyes: no recent vision problems ENT: No congestion, ear pain, or sore throat C/V: no chest pain, palpitations or edema Resp:+dry cough, no congestion, wheezing , or Shortness of breath] GI: No abdominal pain, nausea, vomiting, constipation, or diarrhea : No incontinence of or dyuria M/S: No joint or pain swelling + ankle swelling Skin: No rash Neuro: no headache, focal numbness, or weakness, dizziness or seizures Psych: no depression or anxiety Heme: no abnormal bruising or bleeding Lymph: no swollen glands PHYSICAL EXAM: GENERAL: Alert, weak, awake oriented x 3 HEENT: EOMI, Sclera non icteric, moist mucosa NECK: Supple, no JVD, trachea midline LUNGS: Diminished breath sounds bilaterally. No wheezes HEART: Regular rate and rhythm. Normal S1 and S2, without murmurs ABD: Abdomen soft, nontender. Bowel sounds present EXT: No clubbing cyanosis or edema NEURO: Alert and oriented to X3, follows commands Vital Signs (last 8hr) Date Time Temp Pulse Resp B/P (MAP) Pulse Ox O2 Delivery O2 Flow Rate FiO2 10/30/24 15:47 98.4 100 Nasal Cannula 1.0 10/30/24 15:36 97 Nasal Cannula* 1 24 10/30/24 15:15 67 16 131/62 (85) 100 10/30/24 15:00 81 16 95/44 (61) 100 10/30/24 14:45 71 16 95/46 (62) 100 10/30/24 14:30 66 15 115/55 (75) 97 10/30/24 14:15 67 17 108/52 (70) 99 10/30/24 14:00 67 15 112/56 (74) 100 10/30/24 13:45 68 18 112/51 (71) 100 10/30/24 13:30 66 16 102/49 (66) 99 10/30/24 13:15 68 16 102/49 (66) 100 10/30/24 13:00 68 16 102/51 (68) 100 10/30/24 12:45 69 14 114/63 (80) 100 10/30/24 12:30 69 14 99/48 (65) 99 10/30/24 12:15 75 17 79/41 (54) 100 10/30/24 12:00 98.1 73 19 94/47 (63) 100 10/30/24 12:00 98.4 100 Nasal Cannula 1.0 10/30/24 12:00 100 Nasal Cannula* 1 24 10/30/24 11:45 86 12 88/43 (58) 100 10/30/24 11:30 70 18 107/51 (69) 99 10/30/24 11:15 74 21 93/47 (62) 99 10/30/24 11:00 77 21 97/49 (65) 98 10/30/24 10:45 74 17 94/47 (63) 100 10/30/24 10:30 66 21 106/47 (66) 100 10/30/24 10:15 62 21 116/52 (73) 100 10/30/24 10:00 76 19 102/49 (66) 98 10/30/24 09:45 64 19 110/47 (68) 99 10/30/24 09:30 67 14 114/51 (72) 100 10/30/24 09:15 68 20 105/46 (65) 99 10/30/24 09:00 72 13 97/40 (59) 100 10/30/24 08:45 73 19 101/42 (61) 99 10/30/24 08:30 68 16 105/44 (64) 100 10/30/24 08:15 66 16 95/44 (61) 97 10/30/24 08:00 98.1 100 Nasal Cannula 1.0 10/30/24 08:00 69 18 N/Cannula Low lpm 1.5 26 10/30/24 08:00 98.1 73 16 99/47 (64) 98 10/30/24 08:00 99 Nasal Cannula* 1 24 LABS: Hematology Labs: Test 10/29/24 04:31 Range/Units White Blood Count 7.2 4.8-10.8 K/uL Red Blood Count 3.48 L 4.50-6.20 MIL/uL Hemoglobin 11.1 L 14.0-18.0 g/dL Hematocrit 32.5 L 42-54 % Mean Corpuscular Volume 93.4 79-99 fL Mean Corpuscular Hemoglobin 31.9 27.0-33.0 pg Mean Corpuscular Hemoglobin Concent 34.2 32.0-36.0 g/dL Red Cell Distribution Width 13.6 11.0-15.5 % Platelet Count 75 L 130-400 K/uL Mean Platelet Volume 11.4 H 7.5-10.5 fL Nucleated Red Blood Cells 0.0 0.0-0.19 % Chemistry Labs: Test 10/30/24 07:49 10/30/24 05:14 10/29/24 19:46 10/29/24 06:53 Range/Units Potassium Level 3.3 L 3.5-5.1 mmol/L Sodium Level 137 136-145 mmol/L Chloride Level 99 L 101-111 mmol/L Carbon Dioxide Level 28 21-32 mmol/L Blood Urea Nitrogen 33 H 7-18 mg/dL Creatinine 2.7 H 0.5-1.3 mg/dL Glomerular Filtration Rate Calc 24 >90 mL/min Random Glucose 161 H 70-105 mg/dL Total Calcium 9.3 8.5-10.1 mg/dL Whole Blood Glucose 171 H 70-110 MG/DL Cortisol AM Sample 17.6 6.2-19.4 ug/dL Test 10/29/24 04:31 Range/Units Magnesium Level 2.00 1.80-2.40 mg/dL B-Type Natriuretic Peptide 2110 H 0-100 pg/mL DIAGNOSTICS / RADIOLOGY RESULTS: DIAGNOSTICS / RADIOLOGY RESULTS: PATIENT: MALLORIE DALAL MR#: [id number] : 1950 SEX: M AGE: 74 LOCATION: [facility] ORDER 1550 STATUS: ADM IN REPORT#: [id number] SERVICE 1550 REASON: afib rvr, hypotension ORDERING PHYSICIAN: ELIZABETH RG DO PROCEDURE: ECHO [facility] - ECHO 2-D COMPLETE APPROVED REPORT EXAM: Two-dimensional and M-mode echocardiogram with Doppler and color Doppler. INDICATION ICD: Atrial fibrillation with rapid ventricular response 2D Dimensions RVDd 4.4 cm LVEF(%) 19.1 (>50%) LA ESV INDEX (BP) 45.80 mL/m2 IVSd 0.4 (0.7-1.1cm) FS(%) 9 % LVDd 5.4 (3.8-5.6cm) Ao Root(2D) 2.5 (2.0-3.7cm) PWd 0.5 (0.7-1.1cm) LVOT diam 2.2 (1.8-2.4cm) IVSs 0.5 cm IVC diam 2.4 cm LVDs 4.9 (2.5-4.0cm) PWs 0.7 cm Deformation Strain Apical 4 -7.1 % Apical 2 -7.2 % Apical 3 -6.2 % Global Strain -6.8 % M-Mode Dimensions EPSS 1.9 cm LA (MM) 5.8 (1.6-4.0cm) Ao Root(MM) 2.8 (2.0-3.7cm) Aortic Valve AoV Vmax 0.8 m/s Ao Peak GR 2.6 mmHg LVOT Vmax 0.5 m/s AoV VTI 0.1 m Ao Mean GR 1.6 mmHg LVOT VTI 0.09 m MONTSE (VMAX) 2.48 cm2 MONTSE (VTI) 2.6 cm2 Mitral Valve MV E Vmax 115.3 cm/s DECEL Time 156 ms P 1/2 T 29 ms MVA (PHT) 7.6 cm2 TDI E/E' Medial 22.6 E/E' Lateral 29.1 Medial E' Peak V 5.11 cm/s Lateral E' Peak V 3.96 cm/s Tricuspid Valve TR Vmax 2.9 m/s RAP (EST) 15 mmHg RVSP 48.0 mmHg TR Peak GR 33.0 mmHg Left Ventricle The left ventricle is borderline dilated. Severely reduced GLS -7.0% There is left ventricular wall thinning. LVEF is 20-25%. The LV diastolic function was unable to be assessed due to atrial arrhythmia but diastolic function is abnormal. Right Ventricle The right ventricle is mildly dilated. Right ventricular systolic function is moderately reduced. Atria The left atrium is moderately dilated. The right atrium is moderately dilated. Aortic Valve The aortic valve is normal in structure. No aortic regurgitation is present. There is no aortic valvular stenosis. Mitral Valve The mitral valve is normal in structure. There is moderate mitral valve regurgitation noted. There is no mitral valve stenosis. Tricuspid Valve The tricuspid valve is normal in structure. RVSP 48.0mmHg. There is mild to moderate tricuspid regurgitation. Pulmonic Valve The pulmonary valve is normal in structure. There is no pulmonic valvular regurgitation. Great Vessels The aortic root is normal in size. IVC is dilated and collapses <50% with inspiration. Pericardium There is no pericardial effusion. Other Information Quality : Technically difficult study due to body habitus Conclusion The left ventricle is borderline dilated. LVEF is 20-25%. The LV diastolic function was unable to be assessed due to atrial arrhythmia but diastolic function is abnormal. Severely reduced GLS -7.0% There is moderate mitral valve regurgitation noted. There is moderate mitral valve regurgitation noted. RVSP 48.0mmHg. There is mild to moderate tricuspid regurgitation. DICTATED BY: ZAC JIMENEZ MD DATE: 10/25/241822 ELECTRONICALLY SIGNED BY: ZAC JIMENEZ MD DATE: 10/26/24 1249 PATIENT: MALLORIE DALAL MR#: [id number] : 1950 SEX: M AGE: 74 LOCATION: [facility] ORDER 140 STATUS: ADM IN REPORT#: [id number] SERVICE 1402 REASON: rule out complicated uti ORDERING PHYSICIAN: KRISTI IRIZARRY PROCEDURE: RENAL - US RENAL SONOGRAM EXAM: US Retroperitoneum Complete, Renal. CLINICAL HISTORY: Complicated UTI. TECHNIQUE: Real-time ultrasound of the retroperitoneum (complete) with image documentation. Real-time grayscale sonographic images of the kidneys and bladder were obtained. COMPARISON: None provided. FINDINGS: RIGHT KIDNEY: Measures 8.2 x 3.8 x 4.7 cm. Corticomedullary differentiation preserved. A simple cyst is noted measuring 3.1 x 3.3 x 3.4 cm. No evidence of hydronephrosis or nephrolithiasis. LEFT KIDNEY: Measures 8.9 x 3.9 x 4.6 cm. Normal echotexture and corticomedullary differentiation. No hydronephrosis or renal calculi seen. BLADDER: Empty with Galindo catheter in situ. Urinary Bladder. IMPRESSION: 1. Simple renal cyst in the right kidney measuring 3.1 x 3.3 x 3.4 cm. 2. No sonographic evidence of hydronephrosis or nephrolithiasis bilaterally. 3. Galindo catheter in place with empty urinary bladder. IMPRESSION: No sonographic evidence of hydronephrosis or nephrolithiasis bilaterally. Simple renal cyst in the right kidney measuring 3.1 x 3.3 x 3.4 cm. Galindo catheter in place with empty urinary bladder. /[facility] DICTATED BY: JOSE SILVA MD DATE: 10/26/241732 ELECTRONICALLY SIGNED BY: JOSE SILVA MD DATE: 10/26/241732 PATIENT: MALLORIE DALAL MR#: [id number] : 1950 SEX: M AGE: 74 LOCATION: [facility] ORDER 1434 STATUS: ADM IN REPORT#: [id number] SERVICE 143 REASON: r/o DVT ORDERING PHYSICIAN: KRISTI IRIZARRY PROCEDURE: VENOUS TODD - US VENOUS DOPPLER BILATERAL EXAMINATION: SPECTRAL DOPPLER ULTRASOUND EXAMINATION OF THE BILATERAL LOWER EXTREMITY VEINS. CLINICAL HISTORY: To rule out DVT. COMPARISON: None provided. TECHNIQUE: Real-time ultrasound scan of the veins of the bilateral lower extremity with color Doppler flow, spectral waveform analysis and compression. FINDINGS: DEEP VEINS: The common femoral, superficial femoral, and popliteal veins are echolucent and compressible. There is normal color Doppler flow throughout. The visualized calf veins appear patent. SUPERFICIAL VEINS: The greater saphenous veins are patent and compressible. SOFT TISSUES: No popliteal fossa cyst or other abnormalities. IMPRESSION: No deep venous thrombosis evident in the bilateral lower extremity. No superficial thrombophlebitis in the bilateral lower extremity. /[place] DICTATED BY: KAUR JIMENEZ Jr., MD DATE: 10/27/24551 ELECTRONICALLY SIGNED BY: KAUR JIMENEZ Jr., MD DATE: 10/27/24551 PATIENT: MALLORIE DALAL MR#: [id number] : 1950 SEX: M AGE: 74 LOCATION: [facility] ORDER 2300 STATUS: ADM IN REPORT#: [id number] SERVICE 0600 REASON: hypoxic resp failure ORDERING PHYSICIAN: IRIZARRY,KRISTI J ESCROW AGENT PROCEDURE: CXR1VW - CHEST 1VW ADDENDUM REPORT ADDENDUM: Comparison with radiograph dated October 28, 2024 /[facility] EXAM: CR Chest, 1 View. CLINICAL HISTORY: hypoxic resp failure COMPARISON: None provided. Findings: AP view of the chest is submitted. Left PICC remains in satisfactory position. Slightly worsened bibasilar airspace disease (left greater than right) that is presumed to reflect an infectious process. No pleural effusion or pneumothorax. Prior sternotomy. Heart size is stable. Pulmonary vessels are within normal limits. IMPRESSION: 1. Worsening bibasilar airspace disease, left greater than right, presumed infectious. 2. Left PICC in satisfactory position. /[facility] DICTATED BY: KAUR JIMENEZ Jr., MD DATE: 10/29/242011 ELECTRONICALLY SIGNED BY: DATE: EXAM: CR Chest, 1 View. CLINICAL HISTORY: hypoxic resp failure COMPARISON: None provided. Findings: AP view of the chest is submitted. Left PICC remains in satisfactory position. Slightly worsened bibasilar airspace disease (left greater than right) that is presumed to reflect an infectious process. No pleural effusion or pneumothorax. Prior sternotomy. Heart size is stable. Pulmonary vessels are within normal limits. IMPRESSION: 1. Worsening bibasilar airspace disease, left greater than right, presumed infectious. 2. Left PICC in satisfactory position. /[facility] DICTATED BY: KAUR JIMENEZ Jr., MD DATE: 10/29/242011 ELECTRONICALLY SIGNED BY: KAUR JIMENEZ Jr., MD DATE: 10/29/242011[ ] PLAN Maintain MAP > 65 Wean Perez-Synephrine as possible Follow Nephrology and cardiology recs Education on smoking cessation. Continue Zosyn 3.375 IV q.12 hours. Discontinue Doxy by tomorrow. Singulair 10 mg po q HS Atrovent nebs and Pulmicort acapella with nebs and IS q2H Nicotine patch14 mg daily Strict I's and O's and daily weights, low-sodium diet Fluid restriction to 1.5 L a day with a goal net -1 to 2 L daily. Patient continued on furosemide 20mg daily Heparin gtt discontinued Eliquis started per cardiology The patient will require an ischemic evaluation prior to discharge Aspirin 81mg daily restarted Keep on telemetry, monitor/replace electrolytes as needed The patient underwent DCCV x1 patient failed to return to sinus rhythm continue amiodarone gtt per protocol has been started on amiodarone po Beta blockers, ACEIs, ARBs currently discontinued due to cardiogenic shock, low renal function and COPD. Patient maintained on renal nondialysis diet. Patient continued on Galindo for now. PT continued. NEURO: Minimize central acting medications as possible. Fall Precautions. Well lighted room through the day and minimize interruptions through the night to prevent acute delirium. PULMONARY: Supplemental 02 as needed Titrate Fio2 to keep Spo2 > or = 90% DuoNebs and CPT as needed IS hourly while awake for pulmonary hygiene Out of bed to chair as tolerated VAP Bundle CARDIOVASCULAR: Follow hemodynamics. Titrate vasopressor to keep MAP >65 or systolic blood pressure >95mmHg GI & NUTRITION: Continue nutritional support Aspirations precautions Prokinetic agents and laxatives as needed KIDNEYS & ELECTROLYTES: Strict monitoring of intake and output Daily weights Avoid nephrotoxic agents Monitor electrolytes and replace as needed Goal urine output of 30mL/hr or 0.5mL/kg/hr ENDOCRINE: Maintain blood glucose between 100-180 at all times. Insulin sliding scale for blood glucose management INFECTIOUS DISEASE: Trend temperature. Swenson-culture if febrile. HEMATOLOGY & COAGULATION: Monitor H&H. Keep Hgb > 7 Transfuse 1 unit of PRBC for Hgb < 7 Transfuse 1 pack of platelets of platelets < 20, 000 Watch for any signs and symptoms of bleeding SKIN: Pressure ulcer prevention per facility protocol Rehab: PT/OT Code Status: Full Resuscitation Disposition: [Admit to ICU ] Other: Total patient critical care time exceeds 45 minutes excluding all procedures. KRISTI IRIZARRY [facility] Oct 30, 2024 15:58
--- NOTE | 2024-10-30 16:45 | PN ---
[facility] PROGRESS NOTE Date Patient Seen: Oct 30, 2024 Time of Visit: 13:10 Supervising Physician: [ Dr. Sebastián Bland ] Primary Care Physician: Dr. Jeffrey Neil Outpatient Specialists: Dr. Jimenez, captain waiter/waitress Inpatient Consults: Critical Care team [facility] PROBLEM LIST: Cardiogenic shock, SCAI stage C, POA requiring pressors Acute on Chronic combined Heart Failure with LVEF of 20-25% and GLS -7.0% Suspected moderate pulmonary HTN w/ RVSP 48.0 mmHg Acute cystitis Enterococcus Avium, POA Atrial fibrillation with RVR on amiodarone [id number] Score 4/ HAS-BLED Score 3 Elevated D- Dimer, pending US BLE Well score for PE 3 Moderate Risk Carotid artery disease Chronic kidney disease Simple renal Cyst 3.1 x 3.3 x 3.4 cm CAD s/p 3V CABG ( RODRIGUES-LAD, SVG-D, SVG-PDA ) August 2009 History of hypertension, currently hypotensive Acute kidney injury, GFR Lactic acidosis Elevated BNP Hypomagnesemia Hyperlipidemia Hypothyroidism Tobacco dependence INTERVAL HISTORY: No major overnight events. Patient sitting upright in chair, breathing at room a ir with 100% O2 sat, slightly hypotensive 94/46 (62). Patient continues on Perez- Synephrine drip at 0.45 mcg/kg/min and weaning as well as midodrine. Continue hydrocortisone getting IV q.6 for refractory shock. CBC unremarkable similar to yesterday. Chemistry shows a potassium improvement from 2.8 to 3.3, covered with potassium protocol. Creatinine has reduced from 3.2 to 2.7. GFR of 24, glucose 161 mg/dL. Urine culture growing Enterococcus avium. Blood cultures negative. Pt continues on Zosyn. chest XR displays continued pul vascular congestion. BNP 2109. Patient denies shortness of breath, dizziness, and chest pain. Patient continues to have Galindo. Patient is receiving spirometry as well as nebulizer and Pulmicort. He is currently receiving doxycycline. REVIEW OF SYSTEMS: Const: no fever, fatigue, or weight changes Eyes: no recent vision problems ENT: No congestion, ear pain, or sore throat C/V: no chest pain, palpitations or edema Resp:+dry cough, no congestion, wheezing , or Shortness of breath] GI: No abdominal pain, nausea, vomiting, constipation, or diarrhea : No incontinence of or dyuria M/S: No joint or pain swelling + ankle swelling Skin: No rash Neuro: no headache, focal numbness, or weakness, dizziness or seizures Psych: no depression or anxiety Heme: no abnormal bruising or bleeding Lymph: no swollen glands PHYSICAL EXAM: GENERAL: Alert, weak, awake oriented x 3 HEENT: EOMI, Sclera non icteric, moist mucosa NECK: Supple, no JVD, trachea midline LUNGS: Diminished breath sounds bilaterally. No wheezes HEART: Regular rate and rhythm. Normal S1 and S2, without murmurs ABD: Abdomen soft, nontender. Bowel sounds present EXT: No clubbing cyanosis or edema NEURO: Alert and oriented to X3, follows commands Vital Signs (last 8hr) Date Time Temp Pulse Resp B/P (MAP) Pulse Ox O2 Delivery O2 Flow Rate FiO2 10/30/24 15:47 98.4 100 Nasal Cannula 1.0 10/30/24 15:36 97 Nasal Cannula* 1 24 10/30/24 15:15 67 16 131/62 (85) 100 10/30/24 15:00 81 16 95/44 (61) 100 10/30/24 14:45 71 16 95/46 (62) 100 10/30/24 14:30 66 15 115/55 (75) 97 10/30/24 14:15 67 17 108/52 (70) 99 10/30/24 14:00 67 15 112/56 (74) 100 10/30/24 13:45 68 18 112/51 (71) 100 10/30/24 13:30 66 16 102/49 (66) 99 10/30/24 13:15 68 16 102/49 (66) 100 10/30/24 13:00 68 16 102/51 (68) 100 10/30/24 12:45 69 14 114/63 (80) 100 10/30/24 12:30 69 14 99/48 (65) 99 10/30/24 12:15 75 17 79/41 (54) 100 10/30/24 12:00 98.1 73 19 94/47 (63) 100 10/30/24 12:00 98.4 100 Nasal Cannula 1.0 10/30/24 12:00 100 Nasal Cannula* 1 24 10/30/24 11:45 86 12 88/43 (58) 100 10/30/24 11:30 70 18 107/51 (69) 99 10/30/24 11:15 74 21 93/47 (62) 99 10/30/24 11:00 77 21 97/49 (65) 98 10/30/24 10:45 74 17 94/47 (63) 100 10/30/24 10:30 66 21 106/47 (66) 100 10/30/24 10:15 62 21 116/52 (73) 100 10/30/24 10:00 76 19 102/49 (66) 98 10/30/24 09:45 64 19 110/47 (68) 99 10/30/24 09:30 67 14 114/51 (72) 100 10/30/24 09:15 68 20 105/46 (65) 99 10/30/24 09:00 72 13 97/40 (59) 100 10/30/24 08:45 73 19 101/42 (61) 99 LABS: Hematology Labs: Test 10/29/24 04:31 Range/Units White Blood Count 7.2 4.8-10.8 K/uL Red Blood Count 3.48 L 4.50-6.20 MIL/uL Hemoglobin 11.1 L 14.0-18.0 g/dL Hematocrit 32.5 L 42-54 % Mean Corpuscular Volume 93.4 79-99 fL Mean Corpuscular Hemoglobin 31.9 27.0-33.0 pg Mean Corpuscular Hemoglobin Concent 34.2 32.0-36.0 g/dL Red Cell Distribution Width 13.6 11.0-15.5 % Platelet Count 75 L 130-400 K/uL Mean Platelet Volume 11.4 H 7.5-10.5 fL Nucleated Red Blood Cells 0.0 0.0-0.19 % Chemistry Labs: Test 10/30/24 07:49 10/30/24 05:14 10/29/24 19:46 10/29/24 06:53 Range/Units Potassium Level 3.3 L 3.5-5.1 mmol/L Sodium Level 137 136-145 mmol/L Chloride Level 99 L 101-111 mmol/L Carbon Dioxide Level 28 21-32 mmol/L Blood Urea Nitrogen 33 H 7-18 mg/dL Creatinine 2.7 H 0.5-1.3 mg/dL Glomerular Filtration Rate Calc 24 >90 mL/min Random Glucose 161 H 70-105 mg/dL Total Calcium 9.3 8.5-10.1 mg/dL Whole Blood Glucose 171 H 70-110 MG/DL Cortisol AM Sample 17.6 6.2-19.4 ug/dL Test 10/29/24 04:31 Range/Units Magnesium Level 2.00 1.80-2.40 mg/dL B-Type Natriuretic Peptide 2110 H 0-100 pg/mL DIAGNOSTICS / RADIOLOGY RESULTS: [ ] PATIENT: MALLORIE DALAL MR#: [id number] : 1950 SEX: M AGE: 74 LOCATION: [facility] ORDER 155 STATUS: ADM IN REPORT#: [id number] SERVICE 49 REASON: afib rvr, hypotension ORDERING PHYSICIAN: ELIZABETH RG DO PROCEDURE: ECHO CMP - ECHO 2-D COMPLETE APPROVED REPORT EXAM: Two-dimensional and M-mode echocardiogram with Doppler and color Doppler. INDICATION ICD: Atrial fibrillation with rapid ventricular response 2D Dimensions RVDd 4.4 cm LVEF(%) 19.1 (>50%) LA ESV INDEX (BP) 45.80 mL/m2 IVSd 0.4 (0.7-1.1cm) FS(%) 9 % LVDd 5.4 (3.8-5.6cm) Ao Root(2D) 2.5 (2.0-3.7cm) PWd 0.5 (0.7-1.1cm) LVOT diam 2.2 (1.8-2.4cm) IVSs 0.5 cm IVC diam 2.4 cm LVDs 4.9 (2.5-4.0cm) PWs 0.7 cm Deformation Strain Apical 4 -7.1 % Apical 2 -7.2 % Apical 3 -6.2 % Global Strain -6.8 % M-Mode Dimensions EPSS 1.9 cm LA (MM) 5.8 (1.6-4.0cm) Ao Root(MM) 2.8 (2.0-3.7cm) Aortic Valve AoV Vmax 0.8 m/s Ao Peak GR 2.6 mmHg LVOT Vmax 0.5 m/s AoV VTI 0.1 m Ao Mean GR 1.6 mmHg LVOT VTI 0.09 m MONTSE (VMAX) 2.48 cm2 MONTSE (VTI) 2.6 cm2 Mitral Valve MV E Vmax 115.3 cm/s DECEL Time 156 ms P 1/2 T 29 ms MVA (PHT) 7.6 cm2 TDI E/E' Medial 22.6 E/E' Lateral 29.1 Medial E' Peak V 5.11 cm/s Lateral E' Peak V 3.96 cm/s Tricuspid Valve TR Vmax 2.9 m/s RAP (EST) 15 mmHg RVSP 48.0 mmHg TR Peak GR 33.0 mmHg Left Ventricle The left ventricle is borderline dilated. Severely reduced GLS -7.0% There is left ventricular wall thinning. LVEF is 20-25%. The LV diastolic function was unable to be assessed due to atrial arrhythmia but diastolic function is abnormal. Right Ventricle The right ventricle is mildly dilated. Right ventricular systolic function is moderately reduced. Atria The left atrium is moderately dilated. The right atrium is moderately dilated. Aortic Valve The aortic valve is normal in structure. No aortic regurgitation is present. There is no aortic valvular stenosis. Mitral Valve The mitral valve is normal in structure. There is moderate mitral valve regurgitation noted. There is no mitral valve stenosis. Tricuspid Valve The tricuspid valve is normal in structure. RVSP 48.0mmHg. There is mild to moderate tricuspid regurgitation. Pulmonic Valve The pulmonary valve is normal in structure. There is no pulmonic valvular regurgitation. Great Vessels The aortic root is normal in size. IVC is dilated and collapses <50% with inspiration. Pericardium There is no pericardial effusion. Other Information Quality : Technically difficult study due to body habitus Conclusion The left ventricle is borderline dilated. LVEF is 20-25%. The LV diastolic function was unable to be assessed due to atrial arrhythmia but diastolic function is abnormal. Severely reduced GLS -7.0% There is moderate mitral valve regurgitation noted. There is moderate mitral valve regurgitation noted. RVSP 48.0mmHg. There is mild to moderate tricuspid regurgitation. DICTATED BY: ZAC JIMENEZ MD DATE: 10/25/24 4574 ELECTRONICALLY SIGNED BY: ZAC JIMENEZ MD DATE: 10/26/24 1242 ATIENT: MALLORIE DALAL MR#: [id number] : 1950 SEX: M AGE: 74 LOCATION: [facility] ORDER 140 STATUS: ADM IN REPORT#: [id number] SERVICE 1402 REASON: rule out complicated uti ORDERING PHYSICIAN: KRISTI IRIZARRY PROCEDURE: RENAL - US RENAL SONOGRAM EXAM: US Retroperitoneum Complete, Renal. CLINICAL HISTORY: Complicated UTI. TECHNIQUE: Real-time ultrasound of the retroperitoneum (complete) with image documentation. Real-time grayscale sonographic images of the kidneys and bladder were obtained. COMPARISON: None provided. FINDINGS: RIGHT KIDNEY: Measures 8.2 x 3.8 x 4.7 cm. Corticomedullary differentiation preserved. A simple cyst is noted measuring 3.1 x 3.3 x 3.4 cm. No evidence of hydronephrosis or nephrolithiasis. LEFT KIDNEY: Measures 8.9 x 3.9 x 4.6 cm. Normal echotexture and corticomedullary differentiation. No hydronephrosis or renal calculi seen. BLADDER: Empty with Galindo catheter in situ. Urinary Bladder. IMPRESSION: 1. Simple renal cyst in the right kidney measuring 3.1 x 3.3 x 3.4 cm. 2. No sonographic evidence of hydronephrosis or nephrolithiasis bilaterally. 3. Galindo catheter in place with empty urinary bladder. IMPRESSION: No sonographic evidence of hydronephrosis or nephrolithiasis bilaterally. Simple renal cyst in the right kidney measuring 3.1 x 3.3 x 3.4 cm. Galindo catheter in place with empty urinary bladder. /[place] DICTATED BY: JOSE SILVA MD DATE: 10/26/241732 ELECTRONICALLY SIGNED BY: JOSE SILVA MD DATE: 10/26/241732 PATIENT: MALLORIE DALAL MR#: [id number] : 1950 SEX: M AGE: 74 LOCATION: [facility] ORDER 1434 STATUS: ADM IN REPORT#: [id number] SERVICE 1433 REASON: r/o DVT ORDERING PHYSICIAN: KRISTI IRIZARRY PROCEDURE: VENOUS TODD - US VENOUS DOPPLER BILATERAL EXAMINATION: SPECTRAL DOPPLER ULTRASOUND EXAMINATION OF THE BILATERAL LOWER EXTREMITY VEINS. CLINICAL HISTORY: To rule out DVT. COMPARISON: None provided. TECHNIQUE: Real-time ultrasound scan of the veins of the bilateral lower extremity with color Doppler flow, spectral waveform analysis and compression. FINDINGS: DEEP VEINS: The common femoral, superficial femoral, and popliteal veins are echolucent and compressible. There is normal color Doppler flow throughout. The visualized calf veins appear patent. SUPERFICIAL VEINS: The greater saphenous veins are patent and compressible. SOFT TISSUES: No popliteal fossa cyst or other abnormalities. IMPRESSION: No deep venous thrombosis evident in the bilateral lower extremity. No superficial thrombophlebitis in the bilateral lower extremity. /[place] DICTATED BY: KAUR JIMENEZ Jr., MD DATE: 10/27/24551 ELECTRONICALLY SIGNED BY: KAUR JIMENEZ Jr., MD DATE: 10/27/24551 PATIENT: MALLORIE DALAL MR#: [id number] : 1950 SEX: M AGE: 74 LOCATION[facility] ORDER 2300 STATUS: ADM IN REPORT#: [id number] SERVICE 0600 REASON: hypoxic resp failure ORDERING PHYSICIAN: KRISTI IRIZARRY PROCEDURE: CXR1VW - CHEST 1VW ADDENDUM REPORT ADDENDUM: Comparison with radiograph dated October 28, 2024 /[place] EXAM: CR Chest, 1 View. CLINICAL HISTORY: hypoxic resp failure COMPARISON: None provided. Findings: AP view of the chest is submitted. Left PICC remains in satisfactory position. Slightly worsened bibasilar airspace disease (left greater than right) that is presumed to reflect an infectious process. No pleural effusion or pneumothorax. Prior sternotomy. Heart size is stable. Pulmonary vessels are within normal limits. IMPRESSION: 1. Worsening bibasilar airspace disease, left greater than right, presumed infectious. 2. Left PICC in satisfactory position. /[place] DICTATED BY: KAUR JIMENEZ Jr., MD DATE: 10/29/242011 ELECTRONICALLY SIGNED BY: DATE: EXAM: CR Chest, 1 View. CLINICAL HISTORY: hypoxic resp failure COMPARISON: None provided. Findings: AP view of the chest is submitted. Left PICC remains in satisfactory position. Slightly worsened bibasilar airspace disease (left greater than right) that is presumed to reflect an infectious process. No pleural effusion or pneumothorax. Prior sternotomy. Heart size is stable. Pulmonary vessels are within normal limits. IMPRESSION: 1. Worsening bibasilar airspace disease, left greater than right, presumed infectious. 2. Left PICC in satisfactory position. /[place] DICTATED BY: KAUR JIMENEZ Jr., MD DATE: 10/29/242011 ELECTRONICALLY SIGNED BY: KAUR JIMENEZ Jr., MD DATE: 10/29/242011 PLAN Maintain MAP > 65 Wean Perez-Synephrine as possible Follow Nephrology and cardiology recs Education on smoking cessation. Continue Zosyn 3.375 IV q.12 hours. Discontinue Doxy by tomorrow. Singulair 10 mg po q HS Atrovent nebs and Pulmicort acapella with nebs and IS q2H Nicotine patch14 mg daily Strict I's and O's and daily weights, low-sodium diet Fluid restriction to 1.5 L a day with a goal net -1 to 2 L daily. Patient continued on furosemide 20mg daily Heparin gtt discontinued Eliquis started per cardiology The patient will require an ischemic evaluation prior to discharge Aspirin 81mg daily restarted Keep on telemetry, monitor/replace electrolytes as needed The patient underwent DCCV x1 patient failed to return to sinus rhythm continue amiodarone gtt per protocol has been started on amiodarone po Beta blockers, ACEIs, ARBs currently discontinued due to cardiogenic shock, low renal function and COPD. Patient maintained on renal nondialysis diet. Patient continued on Galindo for now. NEURO: Minimize central acting medications as possible. Fall Precautions. Well lighted room through the day and minimize interruptions through the night to prevent acute delirium. PULMONARY: Supplemental 02 as needed Titrate Fio2 to keep Spo2 > or = 90% DuoNebs and CPT as needed IS hourly while awake for pulmonary hygiene Out of bed to chair as tolerated CARDIOVASCULAR: Follow hemodynamics. Titrate vasopressor to keep MAP >65 or systolic blood pressure >95mmHg GI & NUTRITION: Continue nutritional support Aspirations precautions Prokinetic agents and laxatives as needed KIDNEYS & ELECTROLYTES: Strict monitoring of intake and output Daily weights Avoid nephrotoxic agents Monitor electrolytes and replace as needed Goal urine output of 30mL/hr or 0.5mL/kg/hr ENDOCRINE: Maintain blood glucose between 100-180 at all times. Insulin sliding scale for blood glucose management INFECTIOUS DISEASE: Trend temperature. Swenson-culture if febrile. HEMATOLOGY & COAGULATION: Monitor H&H. Keep Hgb > 7 Transfuse 1 unit of PRBC for Hgb < 7 Transfuse 1 pack of platelets of platelets < 20, 000 Watch for any signs and symptoms of bleeding SKIN: Pressure ulcer prevention per facility protocol Rehab: PT/OT Code Status: Full Resuscitation Disposition: [Admit to ICU ] Other: Total patient critical care time exceeds 45 minutes excluding all procedures. ATTESTATION BY PHYSICIAN I have seen and examined the patient. I reviewed the documentation, medical decision making, and treatment plan as noted by the resident provider above. I agree with the findings andplanofcare Sebastián Bland MD, MUHAMMAD H MD Oct 30, 2024 16:45
--- NOTE | 2024-10-30 17:28 | PN ---
[facility] PROGRESS NOTE Date Patient Seen: Oct 30, 2024 Time of Visit: 13:40 Supervising Physician: [ Dr. Sebastián Bland ] Primary Care Physician: Dr. Jeffrey Neil Outpatient Specialists: Dr. Jimenez, medical services coordinator Inpatient Consults: Critical Care team [facility] PROBLEM LIST: Cardiogenic shock, SCAI stage C, POA requiring pressors Acute on Chronic combined Heart Failure with LVEF of 20-25% and GLS -7.0% Suspected moderate pulmonary HTN w/ RVSP 48.0 mmHg Acute cystitis Enterococcus Avium, POA Atrial fibrillation with RVR on amiodarone [id number] Score 4/ HAS-BLED Score 3 Elevated D- Dimer, pending US BLE Well score for PE 3 Moderate Risk Carotid artery disease Chronic kidney disease Simple renal Cyst 3.1 x 3.3 x 3.4 cm CAD s/p 3V CABG ( RODRIGUES-LAD, SVG-D, SVG-PDA ) August 2009 History of hypertension, currently hypotensive Acute kidney injury, GFR Lactic acidosis Elevated BNP Hypomagnesemia Hyperlipidemia Hypothyroidism Tobacco dependence INTERVAL HISTORY: No major overnight events. Patient sitting upright in chair, breathing at room a ir with 100% O2 sat, slightly hypotensive 94/46 (62). Patient continues on Perez- Synephrine drip at 0.45 mcg/kg/min and weaning, as well as midodrine. Continue hydrocortisone getting IV q.6 for refractory shock. CBC unremarkable similar to yesterday. Chemistry shows a potassium improvement from 2.8 to 3.3, covered with potassium protocol. Creatinine has reduced from 3.2 to 2.7. GFR of 24, glucose 161 mg/dL. Urine culture growing Enterococcus avium. Blood cultures negative. Pt continues on Zosyn. chest XR displays continued pul vascular congestion. BNP 2109. Patient denies shortness of breath, dizziness, and chest pain. Patient continues to have Galindo. Patient is receiving spirometry as well as nebulizer and Pulmicort. He is currently receiving doxycycline. REVIEW OF SYSTEMS: Const: no fever, fatigue, or weight changes Eyes: no recent vision problems ENT: No congestion, ear pain, or sore throat C/V: no chest pain, palpitations or edema Resp:+dry cough, no congestion, wheezing , or Shortness of breath] GI: No abdominal pain, nausea, vomiting, constipation, or diarrhea : No incontinence of or dyuria M/S: No joint or pain swelling + ankle swelling Skin: No rash Neuro: no headache, focal numbness, or weakness, dizziness or seizures Psych: no depression or anxiety Heme: no abnormal bruising or bleeding Lymph: no swollen glands PHYSICAL EXAM: GENERAL: Alert, weak, awake oriented x 3 HEENT: EOMI, Sclera non icteric, moist mucosa NECK: Supple, no JVD, trachea midline LUNGS: Diminished breath sounds bilaterally. No wheezes HEART: Regular rate and rhythm. Normal S1 and S2, without murmurs ABD: Abdomen soft, nontender. Bowel sounds present EXT: No clubbing cyanosis or edema NEURO: Alert and oriented to X3, follows commands Vital Signs (last 8hr) Date Time Temp Pulse Resp B/P (MAP) Pulse Ox O2 Delivery O2 Flow Rate FiO2 10/30/24 15:47 98.4 100 Nasal Cannula 1.0 10/30/24 15:36 97 Nasal Cannula* 1 24 10/30/24 15:15 67 16 131/62 (85) 100 10/30/24 15:00 81 16 95/44 (61) 100 10/30/24 14:45 71 16 95/46 (62) 100 10/30/24 14:30 66 15 115/55 (75) 97 10/30/24 14:15 67 17 108/52 (70) 99 10/30/24 14:00 67 15 112/56 (74) 100 10/30/24 13:45 68 18 112/51 (71) 100 10/30/24 13:30 66 16 102/49 (66) 99 10/30/24 13:15 68 16 102/49 (66) 100 10/30/24 13:00 68 16 102/51 (68) 100 10/30/24 12:45 69 14 114/63 (80) 100 10/30/24 12:30 69 14 99/48 (65) 99 10/30/24 12:15 75 17 79/41 (54) 100 10/30/24 12:00 98.1 73 19 94/47 (63) 100 10/30/24 12:00 98.4 100 Nasal Cannula 1.0 10/30/24 12:00 100 Nasal Cannula* 1 24 10/30/24 11:45 86 12 88/43 (58) 100 10/30/24 11:30 70 18 107/51 (69) 99 10/30/24 11:15 74 21 93/47 (62) 99 10/30/24 11:00 77 21 97/49 (65) 98 10/30/24 10:45 74 17 94/47 (63) 100 10/30/24 10:30 66 21 106/47 (66) 100 10/30/24 10:15 62 21 116/52 (73) 100 10/30/24 10:00 76 19 102/49 (66) 98 10/30/24 09:45 64 19 110/47 (68) 99 10/30/24 09:30 67 14 114/51 (72) 100 LABS: Hematology Labs: Test 10/29/24 04:31 Range/Units White Blood Count 7.2 4.8-10.8 K/uL Red Blood Count 3.48 L 4.50-6.20 MIL/uL Hemoglobin 11.1 L 14.0-18.0 g/dL Hematocrit 32.5 L 42-54 % Mean Corpuscular Volume 93.4 79-99 fL Mean Corpuscular Hemoglobin 31.9 27.0-33.0 pg Mean Corpuscular Hemoglobin Concent 34.2 32.0-36.0 g/dL Red Cell Distribution Width 13.6 11.0-15.5 % Platelet Count 75 L 130-400 K/uL Mean Platelet Volume 11.4 H 7.5-10.5 fL Nucleated Red Blood Cells 0.0 0.0-0.19 % Chemistry Labs: Test 10/30/24 07:49 10/30/24 05:14 10/29/24 19:46 10/29/24 06:53 Range/Units Potassium Level 3.3 L 3.5-5.1 mmol/L Sodium Level 137 136-145 mmol/L Chloride Level 99 L 101-111 mmol/L Carbon Dioxide Level 28 21-32 mmol/L Blood Urea Nitrogen 33 H 7-18 mg/dL Creatinine 2.7 H 0.5-1.3 mg/dL Glomerular Filtration Rate Calc 24 >90 mL/min Random Glucose 161 H 70-105 mg/dL Total Calcium 9.3 8.5-10.1 mg/dL Whole Blood Glucose 171 H 70-110 MG/DL Cortisol AM Sample 17.6 6.2-19.4 ug/dL Test 10/29/24 04:31 Range/Units Magnesium Level 2.00 1.80-2.40 mg/dL B-Type Natriuretic Peptide 2110 H 0-100 pg/mL DIAGNOSTICS / RADIOLOGY RESULTS: PATIENT: MALLORIE DALAL MR#: [id number] : 1950 SEX: M AGE: 74 LOCATION: 2C ORDER 1550 STATUS: ADM IN REPORT#: [id number] SERVICE 1550 REASON: afib rvr, hypotension ORDERING PHYSICIAN: ELIZABETH RG DO PROCEDURE: ECHO CMP - ECHO 2-D COMPLETE APPROVED REPORT EXAM: Two-dimensional and M-mode echocardiogram with Doppler and color Doppler. INDICATION ICD: Atrial fibrillation with rapid ventricular response 2D Dimensions RVDd 4.4 cm LVEF(%) 19.1 (>50%) LA ESV INDEX (BP) 45.80 mL/m2 IVSd 0.4 (0.7-1.1cm) FS(%) 9 % LVDd 5.4 (3.8-5.6cm) Ao Root(2D) 2.5 (2.0-3.7cm) PWd 0.5 (0.7-1.1cm) LVOT diam 2.2 (1.8-2.4cm) IVSs 0.5 cm IVC diam 2.4 cm LVDs 4.9 (2.5-4.0cm) PWs 0.7 cm Deformation Strain Apical 4 -7.1 % Apical 2 -7.2 % Apical 3 -6.2 % Global Strain -6.8 % M-Mode Dimensions EPSS 1.9 cm LA (MM) 5.8 (1.6-4.0cm) Ao Root(MM) 2.8 (2.0-3.7cm) Aortic Valve AoV Vmax 0.8 m/s Ao Peak GR 2.6 mmHg LVOT Vmax 0.5 m/s AoV VTI 0.1 m Ao Mean GR 1.6 mmHg LVOT VTI 0.09 m MONTSE (VMAX) 2.48 cm2 MONTSE (VTI) 2.6 cm2 Mitral Valve MV E Vmax 115.3 cm/s DECEL Time 156 ms P 1/2 T 29 ms MVA (PHT) 7.6 cm2 TDI E/E' Medial 22.6 E/E' Lateral 29.1 Medial E' Peak V 5.11 cm/s Lateral E' Peak V 3.96 cm/s Tricuspid Valve TR Vmax 2.9 m/s RAP (EST) 15 mmHg RVSP 48.0 mmHg TR Peak GR 33.0 mmHg Left Ventricle The left ventricle is borderline dilated. Severely reduced GLS -7.0% There is left ventricular wall thinning. LVEF is 20-25%. The LV diastolic function was unable to be assessed due to atrial arrhythmia but diastolic function is abno rmal. Right Ventricle The right ventricle is mildly dilated. Right ventricular systolic function is moderately reduced. Atria The left atrium is moderately dilated. The right atrium is moderately dilated. Aortic Valve The aortic valve is normal in structure. No aortic regurgitation is present. There is no aortic valvular stenosis. Mitral Valve The mitral valve is normal in structure. There is moderate mitral valve regurgitation noted. There is no mitral valve stenosis. Tricuspid Valve The tricuspid valve is normal in structure. RVSP 48.0mmHg. There is mild to moderate tricuspid regurgitation. Pulmonic Valve The pulmonary valve is normal in structure. There is no pulmonic valvular regurgitation. Great Vessels The aortic root is normal in size. IVC is dilated and collapses <50% with inspiration. Pericardium There is no pericardial effusion. Other Information Quality : Technically difficult study due to body habitus Conclusion The left ventricle is borderline dilated. LVEF is 20-25%. The LV diastolic function was unable to be assessed due to atrial arrhythmia but diastolic function is abnormal. Severely reduced GLS -7.0% There is moderate mitral valve regurgitation noted. There is moderate mitral valve regurgitation noted. RVSP 48.0mmHg. There is mild to moderate tricuspid regurgitation. DICTATED BY: ZAC JIMENEZ MD DATE: 10/25/24 182 ELECTRONICALLY SIGNED BY: ZAC JIMENEZ MD DATE: 10/26/24 1247 PATIENT: MALLORIE DALAL MR#: [id number] : 1950 SEX: M AGE: 74 LOCATION: [facility] ORDER 1403 STATUS: ADM IN REPORT#: [id number] SERVICE 1402 REASON: rule out complicated uti ORDERING PHYSICIAN: KRISTI IRIZARRY PROCEDURE: RENAL - US RENAL SONOGRAM EXAM: US Retroperitoneum Complete, Renal. CLINICAL HISTORY: Complicated UTI. TECHNIQUE: Real-time ultrasound of the retroperitoneum (complete) with image documentation. Real-time grayscale sonographic images of the kidneys and bladder were obtained. COMPARISON: None provided. FINDINGS: RIGHT KIDNEY: Measures 8.2 x 3.8 x 4.7 cm. Corticomedullary differentiation preserved. A simple cyst is noted measuring 3.1 x 3.3 x 3.4 cm. No evidence of hydronephrosis or nephrolithiasis. LEFT KIDNEY: Measures 8.9 x 3.9 x 4.6 cm. Normal echotexture and corticomedullary differentiation. No hydronephrosis or renal calculi seen. BLADDER: Empty with Galindo catheter in situ. Urinary Bladder. IMPRESSION: 1. Simple renal cyst in the right kidney measuring 3.1 x 3.3 x 3.4 cm. 2. No sonographic evidence of hydronephrosis or nephrolithiasis bilaterally. 3. Galindo catheter in place with empty urinary bladder. IMPRESSION: No sonographic evidence of hydronephrosis or nephrolithiasis bilaterally. Simple renal cyst in the right kidney measuring 3.1 x 3.3 x 3.4 cm. Galindo catheter in place with empty urinary bladder. /[place] DICTATED BY: JOSE SILVA MD DATE: 10/26/241732 ELECTRONICALLY SIGNED BY: JOSE SILVA MD DATE: 10/26/241732 PATIENT: MALLORIE DALAL MR#: [id number] : 1950 SEX: M AGE: 74 LOCATION: 2CH ORDER 143 STATUS: ADM IN REPORT#: [id number] SERVICE 143 REASON: r/o DVT ORDERING PHYSICIAN: KRISTI IRIZARRY PROCEDURE: VENOUS TODD - US VENOUS DOPPLER BILATERAL EXAMINATION: SPECTRAL DOPPLER ULTRASOUND EXAMINATION OF THE BILATERAL LOWER EXTREMITY VEINS. CLINICAL HISTORY: To rule out DVT. COMPARISON: None provided. TECHNIQUE: Real-time ultrasound scan of the veins of the bilateral lower extremity with color Doppler flow, spectral waveform analysis and compression. FINDINGS: DEEP VEINS: The common femoral, superficial femoral, and popliteal veins are echolucent and compressible. There is normal color Doppler flow throughout. The visualized calf veins appear patent. SUPERFICIAL VEINS: The greater saphenous veins are patent and compressible. SOFT TISSUES: No popliteal fossa cyst or other abnormalities. IMPRESSION: No deep venous thrombosis evident in the bilateral lower extremity. No superficial thrombophlebitis in the bilateral lower extremity. /[place] DICTATED BY: KAUR JIMENEZ Jr., MD DATE: 10/27/24551 ELECTRONICALLY SIGNED BY: KAUR JIMENEZ Jr., MD DATE: 10/27/24551 PATIENT: MALLORIE DALAL MR#: [id number] : 1950 SEX: M AGE: 74 LOCATION: [facility] ORDER 2300 STATUS: ADM IN REPORT#: [id number] SERVICE 0600 REASON: hypoxic resp failure ORDERING PHYSICIAN: KRISTI IRIZARRY PROCEDURE: CXR1VW - CHEST 1VW ADDENDUM REPORT ADDENDUM: Comparison with radiograph dated October 28, 2024 /[place] EXAM: CR Chest, 1 View. CLINICAL HISTORY: hypoxic resp failure COMPARISON: None provided. Findings: AP view of the chest is submitted. Left PICC remains in satisfactory position. Slightly worsened bibasilar airspace disease (left greater than right) that is presumed to reflect an infectious process. No pleural effusion or pneumothorax. Prior sternotomy. Heart size is stable. Pulmonary vessels are within normal limits. IMPRESSION: 1. Worsening bibasilar airspace disease, left greater than right, presumed infectious. 2. Left PICC in satisfactory position. /[place] DICTATED BY: KAUR JIMENEZ Jr., MD DATE: 10/29/242011 ELECTRONICALLY SIGNED BY: DATE: EXAM: CR Chest, 1 View. CLINICAL HISTORY: hypoxic resp failure COMPARISON: None provided. Findings: AP view of the chest is submitted. Left PICC remains in satisfactory position. Slightly worsened bibasilar airspace disease (left greater than right) that is presumed to reflect an infectious process. No pleural effusion or pneumothorax. Prior sternotomy. Heart size is stable. Pulmonary vessels are within normal limits. IMPRESSION: 1. Worsening bibasilar airspace disease, left greater than right, presumed infectious. 2. Left PICC in satisfactory position. /[place] DICTATED BY: KAUR JIMENEZ Jr., MD DATE: 10/29/242011 ELECTRONICALLY SIGNED BY: KAUR JIMENEZ Jr., MD DATE: 10/29/242011 PLAN Maintain MAP > 65 Wean Perez-Synephrine as possible Follow Nephrology and cardiology recs Education on smoking cessation. Continue Zosyn 3.375 IV q.12 hours. Discontinue Doxy by tomorrow. Singulair 10 mg po q HS Atrovent nebs and Pulmicort acapella with nebs and IS q2H Nicotine patch14 mg daily Strict I's and O's and daily weights, low-sodium diet Fluid restriction to 1.5 L a day with a goal net -1 to 2 L daily. Patient continued on furosemide 20mg daily Heparin gtt discontinued Eliquis started per cardiology The patient will require an ischemic evaluation prior to discharge Aspirin 81mg daily restarted Keep on telemetry, monitor/replace electrolytes as needed The patient underwent DCCV x1 patient failed to return to sinus rhythm continue amiodarone gtt per protocol has been started on amiodarone po Beta blockers, ACEIs, ARBs currently discontinued due to cardiogenic shock, low renal function and COPD. Patient maintained on renal nondialysis diet. Patient continued on Galindo for now. PT continued. NEURO: Minimize central acting medications as possible. Fall Precautions. Well lighted room through the day and minimize interruptions through the night to prevent acute delirium. PULMONARY: Supplemental 02 as needed Titrate Fio2 to keep Spo2 > or = 90% DuoNebs and CPT as needed IS hourly while awake for pulmonary hygiene Out of bed to chair as tolerated CARDIOVASCULAR: Follow hemodynamics. Titrate vasopressor to keep MAP >65 or systolic blood pressure >95mmHg GI & NUTRITION: Continue nutritional support Aspirations precautions Prokinetic agents and laxatives as needed KIDNEYS & ELECTROLYTES: Strict monitoring of intake and output Daily weights Avoid nephrotoxic agents Monitor electrolytes and replace as needed Goal urine output of 30mL/hr or 0.5mL/kg/hr ENDOCRINE: Maintain blood glucose between 100-180 at all times. Insulin sliding scale for blood glucose management INFECTIOUS DISEASE: Trend temperature. Swenson-culture if febrile. HEMATOLOGY & COAGULATION: Monitor H&H. Keep Hgb > 7 Transfuse 1 unit of PRBC for Hgb < 7 Transfuse 1 pack of platelets of platelets < 20, 000 Watch for any signs and symptoms of bleeding SKIN: Pressure ulcer prevention per facility protocol Rehab: PT/OT Code Status: Full Resuscitation Disposition: [Admit to ICU ] Other: Total patient critical care time exceeds 45 minutes excluding all procedures. ATTESTATION BY PHYSICIAN I have seen and examined the patient. I reviewed the documentation, medical decision making, and treatment plan as noted by the mid-level provider above. I agree with the findings and plan of care. Sebastián Bland MD, MUHAMMAD H MD Oct 30, 2024 17:28
--- NOTE | 2024-10-30 19:36 | HMCIMG ---
EXAM: CR Chest, 1 View. CLINICAL HISTORY: hypoxic resp failure COMPARISON: None provided. FINDINGS: LUNGS: Slight basilar atelectasis PLEURAL SPACES: No evidence of pleural effusion or pneumothorax. MEDIASTINUM: Cardiac silhouette prominent BONES: No acute osseous abnormality. MISCELLANEOUS: Left PICC line middle third SVC IMPRESSION: 1. Cardiac silhouette prominent 2. Slight basilar atelectasis 3. Left PICC line middle third SVC /[place]
[2024-10-31] VITALS (96 sets, daily range): BP systolic 74–200; BP diastolic 30–116; PULSE 56–83; RESP 11–128; TEMP 97.6–98.2; O2SAT 93–100
[2024-10-31 04:16] LABS: IMMATURE GRANULOCYTE ABSOLUTE 0.03 K/uL (0-1); NUCLEATED RED BLOOD CELLS 0.0 % (0.0-0.19); PLATELET COUNT (AUTO) 112 K/uL (130-400); RED BLOOD CELL COUNT(AUTO) 3.35 MIL/uL (4.50-6.20); RED CELL DISTRIBUTION WIDTH 13.3 % (11.0-15.5); WHITE BLOOD COUNT (AUTO) 9.2 K/uL (4.8-10.8)
[2024-10-31 04:35] LABS: CREATININE 2.5 mg/dL (0.5-1.3); GLOMERULAR FILTR. RATE CALC 26.0 mL/min (>90); GLUCOSE,RANDOM 173.0 mg/dL (70-105); SODIUM SERUM 137.0 mmol/L (136-145); UREA NITROGEN, BLOOD 40.0 mg/dL (7-18)
--- NOTE | 2024-10-31 07:02 | PN ---
[facility] Cardiology Progress Note CARDIOLOGY PROGRESS NOTE OCTOBER 31, 2024 Problems: 1. Acute congestive heart failure 2. Ischemic cardiomyopathy with ejection fraction of 20-25% 3. CAD status post aortocoronary bypass graft surgery 2009 with a RODRIGUES graft to the LAD saphenous graft to the diagonal artery and saphenous graft to the PDA 4. Atrial fibrillation with rapid ventricular response on admission status post failed cardioversion on admission now converted to sinus rhythm on amiodarone. 5. Dyslipidemia 6. Tobacco dependence 7. Remote lacunar infarct 2009 8. Carotid artery disease status post right carotid endarterectomy 2010 and subsequent left carotid endarterectomy 2018 9. Hypothyroidism 10. Chronic kidney disease stage 4 11. Thrombocytopenia This morning blood pressure is running between 100 and 110 systolic. He has some coarse rhonchi but no rales. There was no elevation of the jugular venous pressure. Heart rate is in the 60s and the patient is afebrile. White count 9.2 hemoglobin 10.4 platelet count [id number] potassium 3.3 sodium 137 BUN has gone up to 40 and creatinine has come down to 2.5. The patient continues on apixaban aspirin atorvastatin antibiotics furosemide 20 mg IV daily levothyroxine midodrine nicotine patch pantoprazole potassium protocol. The patient slept well denies any shortness of breath. He is still on a tiny dose of Perez- Synephrine. Plans are to discontinue Perez-Synephrine this morning and observe blood pressure. If pressure remained stable off Perez-Synephrine for 24 hours we can scheduled for a Cardiolite stress test. BUN is starting to rise and I will hold his diuretic today and check a basic metabolic panel tomorrow. ZAC MCFADDEN MD Oct 31, 2024 07:02
[2024-10-31] MEDS: ASPIRIN 81 MG EC TAB PO SCH (08:37)
--- NOTE | 2024-10-31 09:10 | PN ---
FOLLOWUP PROGRESS NOTE SUBJECTIVE: A 74-year-old male with history of known cardiomyopathy. The patient with a history of valvular heart disease. The patient presented with acute renal failure, related to hypotension. The patient has been weaned off all the pressors. He remains on midodrine. The patient's creatinine continues to stabilize and he is being seen as a followup visit for all of the above. REVIEW OF SYSTEMS: CONSTITUTIONAL: The patient is feeling improved. HEENT: No change in vision. No change in hearing. CARDIOVASCULAR: No current chest pain or palpitation. PULMONARY: Denies any shortness of breath. GASTROINTESTINAL: The patient is tolerating a diet. MUSCULOSKELETAL: Complains of weakness. PHYSICAL EXAMINATION: VITAL SIGNS: Blood pressure is 107/44, pulse 60s, afebrile. GENERAL: Chronically ill male, elderly, lying in bed on the medical floor. HEENT: Head is atraumatic. Pupils are equal, roving to light. Oropharynx is without exudate. Nares clear. NECK: There is no JVP. There is no thyromegaly, no mass. CARDIOVASCULAR: Regular. There is no S3 or S4 gallop. LUNGS: Coarse with equal thoracic movement. ABDOMEN: Soft, nondistended, and nontender. EXTREMITIES: Reveal no clubbing, no cyanosis. NEUROLOGICAL: He is awake. He is alert. LABORATORY DATA: Sodium 137, potassium 3.3, BUN 40, creatinine is 2.5. Hemoglobin 10, hematocrit 31. IMPRESSION: * Renal dysfunction. * Cardiomyopathy. * Hypotension. * Anemia. PLAN: The patient's creatinine continues to stabilize. The patient is much more hemodynamically stable. He has been weaned off the pressors. The patient remains on midodrine. The patient's potassium has been aggressively repleted. Workup is ongoing per Cardiology. All labs can be repeated in the morning. TID: [id number] RECEIPT: [id number]
--- NOTE | 2024-10-31 09:18 | PN ---
[facility] PROGRESS NOTE Date of Service: Oct 31, 2024 Time of Service: 09:16 SUBJECTIVE: 10/26 74-year-old male, history of coronary artery disease, dyslipidemia, hypertension, tobacco dependence, remote lacunar infarct, carotid artery disease, hypothyroidism, presented with a chief complaint of generalized body weakness and shortness a breath, in the emergency room found to have AFib with a RVR, heart rate in with the 140s, hypotensive, cardioverted electrically x1, did not restore sinus rhythm, patient admitted to the ICU. At the time of my visit awake, following commands, on heparin drip, Levophed, amiodarone drip, dobutamine drip, echocardiogram showing ejection fraction 20- 25%. Cardiology input noted and appreciated, the patient will require an ischemic evaluation prior to discharge. 10/27/24 patient remains in ICU. Patient appears chronically ill fragile and weak. Denied chest pain. Patient is being followed by [facility] continues on dopamine drip. The plan is to stabilize medically weaned off pressors they we will consider Lexiscan. 10/28/24 the patient was evaluated in ICU room 215. He is alert oriented x3. patient is being evaluated by physical therapist during rounds. He denies any chest pain. Patient was evaluated by [facility] plan is for Lexiscan and Cardiolite stress test before discharge. Patient continues to be on phenylephrine drip. 10/29/24 Patient was evaluated in ICU, room 215. Continues to deny any chest pain. Dobutamine has been discontinued. Patient was started on Eliquis 5 mg PO BID; amiodarone 400 mg PO BID is ongoing. BNP is uptrending, currently 2110. F urosemide 20 mg IV daily initiated. Continue Solu-Cortef 50 mg IV every 6 hours. Labs reviewed; potassium remains low at 2.8 mmol/L today. Will continue with potassium replacement protocol. Plans for Lexiscan and Cardiolite stress tests pre-discharge remain in place; will follow up with cardiology regarding scheduling. 10/30/24 patient remains on Clint-Synephrine the plan is to taper off as tolerated once blood pressure is stable [facility] we will consider Cardiolite stress test prior to discharge. Patient is fully awake alert oriented x3 denied chest pain or shortness for breath 10/31/24 APPRECIATE SECURITY ENGINEER'S INPUT THE PLAN IS TO DISCONTINUE CLINT-SYNEPHRINE AND MONITOR BLOOD PRESSURE. IF BLOOD PRESSURE REMAINED STABLE OFF OF PRESSORS THE NEXT24 HOURS POSSIBLE SECURITY ENGINEER'S WAS SCHEDULED FOR A CARDIOLITE STRESS TEST. Patient watching TV. Denied chest pain or shortness for breath. REVIEW OF SYSTEMS CONSTITUTIONAL: Denies fevers, chills, or night sweats. No unintentional weight loss reported. NEUROLOGICAL: Denies headache, amaurosis fugax, motor weakness, sensory deficit, vertigo/spinning sensation, gait abnormalities, or tremors. ENT: No hearing loss, otalgia, otorrhea, rhinitis, rhinorrhea, hoarseness, or sore throat. CARDIOVASCULAR: Denies any exertional angina, dyspnea on exertion, orthopnea, paroxysmal nocturnal dyspnea, palpitations, life-threatening arrhythmias, claudication. PULMONARY: Denies any shortness of breath, cough, phlegm/sputum, hemoptysis, pleuritic chest pain. SLEEP: Denies morning headaches, daytime somnolence or napping. Denies difficulty falling asleep, staying asleep, waking from sleep. Denies knowledge of snoring. GASTROINTESTINAL: Denies any type of dysphagia to either liquids or solids. Denies nausea, vomiting, pyrosis, early satiety, abdominal pain, diarrhea, constipation, or changes in stool consistency or caliber. Denies coffee-ground emesis, hematemesis, hematochezia, or melanotic stools. GENITOURINARY: Denies frequency, urgency, nocturia, hematuria or incontinence (Storage/Irritative symptoms.) Low urinary stream, straining to void, urinary intermittency or hesitancy, splitting of the voiding stream, terminal dribbling. ENDOCRINOLOGIC: Denies polyuria, polydipsia, polyphagia or heat/cold intolerances. HEMATOLOGIC: Denies thrombophilia/previous clots, or coagulopathy/bleeding disorders. ONCOLOGIC: Denies personal history of malignancy. DERMATOLOGIC: Denies rashes or pruritus. PSYCHIATRIC: Denies any suicidal or homicidal ideation. Denies hallucinations. PHYSICAL EXAM GENERAL APPEARANCE: The patient is awake, alert, and oriented, in no acute cardiopulmonary distress. NEUROLOGICAL: Cranial nerves II-XII grossly intact. Motor is 5/5 in bilateral upper and lower extremities proximal to distal. No sensory deficits. HEENT: Face is symmetric. Pupils are equal and reactive. Extraocular movements are intact. NECK: Supple. No JVD. No thyromegaly. No submental, submandibular, pre- /postauricular, occipital or supraclavicular lymphadenopathy. CHEST: Normal chest expansion. No Telemetry. LUNGS: Absence of any rales, rhonchi or any wheezing. CARDIOVASCULAR: Regular. S1 and S2 normal. No appreciable rubs, murmurs or gallops. ABDOMEN: Soft, nontender, and nondistended. There is no rebound, voluntary guarding, or rigidity. : Deferred. No Galindo. EXTREMITIES: Non-edematous and not cyanotic. No clubbing. Good capillary refill. SKIN: No skin breakdown. Vital Signs (last 8hr) Date Time Temp Pulse Resp B/P (MAP) Pulse Ox O2 Delivery O2 Flow Rate FiO2 10/31/24 08:20 69 18 N/A Room Air 21 10/31/24 08:00 95 Room Air* 0 21 10/31/24 08:00 98.2 10/31/24 08:00 98.2 62 13 112/43 (66) 92 109/53 (71) 10/31/24 07:30 62 14 112/42 (65) 95 10/31/24 07:15 61 12 107/44 (65) 94 10/31/24 07:00 63 14 107/44 (65) 92 10/31/24 06:45 65 15 110/43 (65) 92 10/31/24 06:38 69 18 10/31/24 04:15 64 13 112/42 (65) 95 10/31/24 04:00 93 Nasal Cannula* 1 24 10/31/24 04:00 65 14 109/42 (64) 95 10/31/24 03:53 97.9 10/31/24 03:45 65 15 106/43 (64) 94 10/31/24 03:42 66 16 108/41 (63) 94 111/52 (71) 10/31/24 03:30 66 18 200/116 (144) 95 10/31/24 03:15 66 15 105/41 (62) 92 10/31/24 03:00 71 14 109/44 (65) 93 10/31/24 02:45 72 14 119/47 (71) 96 10/31/24 02:30 71 14 115/46 (69) 96 10/31/24 02:15 72 14 114/48 (70) 96 10/31/24 02:00 73 14 117/51 (73) 95 10/31/24 01:45 73 14 118/50 (72) 95 10/31/24 01:42 71 13 118/49 (72) 96 115/55 (75) 10/31/24 01:30 73 14 118/48 (71) 95 LABS: Laboratory: Test 10/31/24 03:53 10/29/24 19:46 Range/Units White Blood Count 9.2 4.8-10.8 K/uL Red Blood Count 3.35 L 4.50-6.20 MIL/uL Hemoglobin 10.4 L 14.0-18.0 g/dL Hematocrit 31.4 L 42-54 % Mean Corpuscular Volume 93.7 79-99 fL Mean Corpuscular Hemoglobin 31.0 27.0-33.0 pg Mean Corpuscular Hemoglobin Concent 33.1 32.0-36.0 g/dL Red Cell Distribution Width 13.3 11.0-15.5 % Platelet Count 112 #L 130-400 K/uL Mean Platelet Volume 10.5 7.5-10.5 fL Immature Granulocyte % (Auto) 0.3 0-1 % Neutrophils (%) (Auto) 80.7 H 40.0-77.0 % Lymphocytes (%) (Auto) 15.5 L 21.0-51.0 % Monocytes (%) (Auto) 3.4 3.0-13.0 % Eosinophils (%) (Auto) 0.0 0.0-8.0 % Basophils (%) (Auto) 0.1 0.0-5.0 % Neutrophils # (Auto) 7.4 1.8-7.7 K/uL Lymphocytes # (Auto) 1.4 1.0-4.8 K/uL Monocytes # (Auto) 0.3 0.1-1.0 K/uL Eosinophils # (Auto) 0.00 0.00-0.70 K/uL Basophils # (Auto) 0.01 0.00-0.20 K/uL Absolute Immature Granulocyte (auto 0.03 0-1 K/uL Nucleated Red Blood Cells 0.0 0.0-0.19 % Sodium Level 137 136-145 mmol/L Potassium Level 3.3 L 3.5-5.1 mmol/L Chloride Level 100 L 101-111 mmol/L Carbon Dioxide Level 28 21-32 mmol/L Blood Urea Nitrogen 40 H 7-18 mg/dL Creatinine 2.5 H 0.5-1.3 mg/dL Glomerular Filtration Rate Calc 26 >90 mL/min Random Glucose 173 H 70-105 mg/dL Total Calcium 9.2 8.5-10.1 mg/dL Whole Blood Glucose 171 H 70-110 MG/DL Current Medications Medications (Trade) Dose Ordered Sig/Gustavo Route PRN Reason Start Time Stop Time Status Last Admin Dose Admin Acetaminophen (TYLenol 325MG TAB) 650 mg Q6H PRN PO TEMPERATURE GREATER THAN 101.5 10/25/24 21:00 11/24/24 20:59 Amiodarone HCl (pacERONE 200MG) 200 mg BID PO 10/26/24 09:00 10/26/24 07:36 DC Amiodarone HCl (pacERONE 200MG) 400 mg BID PO 10/26/24 09:00 11/25/24 08:59 10/31/24 08:35 400 MG Amiodarone HCL/ Dextrose 100 ml @ 0 mls/hr PROTOCOL IV 10/27/24 07:30 10/28/24 06:27 DC 10/27/24 07:44 600 MLS/HR Amiodarone HCL/ Dextrose 200 ml @ 33.333 mls/ hr AD IV 10/25/24 16:00 10/26/24 07:30 DC 10/25/24 17:42 33.333 MLS/HR Apixaban (EliquIS) 5 mg BID PO 10/28/24 21:00 11/27/24 20:59 10/31/24 08:36 5 MG Aspirin (Aspirin 81mg Ec Tab) 81 mg DAILY PO 10/29/24 09:00 10/28/24 16:10 DC Aspirin (Aspirin 81mg Ec Tab) 81 mg DAILY PO 10/31/24 09:00 11/30/24 08:59 10/31/24 08:37 81 MG Atorvastatin Calcium (LIPItor 40MG) 80 mg HS PO 10/28/24 21:00 11/27/24 20:59 10/30/24 20:12 80 MG Bisacodyl (DulcoLAX) 10 mg DAILY RC 10/28/24 09:00 10/31/24 08:59 DC Budesonide (Pulmicort 0.5 Mg/2ml) 0.5 mg BIDRESP IH 10/28/24 10:30 11/27/24 10:29 10/31/24 06:38 0.5 MG Clopidogrel Bisulfate (plaVIX 75MG) 75 mg DAILY PO 10/29/24 09:00 10/28/24 16:10 DC Dobutamine HCl/ Dextrose 250 ml @ 0 mls/hr PROTOCOL IV 10/25/24 16:00 10/28/24 10:04 DC 10/27/24 07:02 0 MLS/HR Dobutamine HCl/ Dextrose 250 ml @ 0 mls/hr PROTOCOL IV 10/26/24 07:30 10/26/24 07:37 DC Doxycycline Hyclate (Doxycycline Hyclate) 100 mg BID PO 10/26/24 21:00 10/31/24 12:00 10/31/24 08:35 100 MG Furosemide (LASix 20MG TAB) 20 mg DAILY PO 10/29/24 09:00 10/28/24 10:06 DC Furosemide (LASix 20MG VIAL) 20 mg DAILY IV 10/29/24 09:00 10/31/24 07:03 DC 10/30/24 07:54 20 MG Furosemide (LASix 40MG VIAL) 30 mg Q12H IV 10/27/24 07:00 10/27/24 13:49 DC 10/27/24 07:01 30 MG Furosemide (LASix 40MG VIAL) 30 mg Q12H IV 10/27/24 18:00 10/28/24 09:58 DC 10/27/24 16:56 30 MG Furosemide (LASix 40MG VIAL) 40 mg Q12H IV 10/25/24 19:00 10/26/24 19:26 DC 10/26/24 18:47 40 MG Furosemide (LASix 40MG VIAL) 40 mg Q12H IV 10/26/24 07:30 10/26/24 07:36 DC Heparin Sodium (Porcine) (HEParin 5,000 UNIT VIAL) 5,000 unit BID SQ 10/25/24 21:00 10/25/24 22:47 DC Heparin Sodium/ Dextrose 250 ml @ 0 mls/hr PROTOCOL IV 10/25/24 16:00 10/28/24 09:53 DC 10/26/24 18:46 7.7 MLS/HR Hydrocortisone Sodium Succinate (Solu-corTEF 100MG) 50 mg Q6H IV 10/29/24 09:00 11/28/24 08:59 10/31/24 08:39 50 MG Ipratropium [place] (AtrovENT UD) 0.5 MG Q6H PRN IH SHORTNESS OF BREATH 10/28/24 10:30 11/27/24 10:29 10/28/24 18:46 0.5 MG Lactulose (Constulose 20gm/ 30ml Udcup) 20 gm BID PRN PO CONSTIPATION 10/26/24 17:00 11/25/24 16:59 10/26/24 16:53 20 GM Levothyroxine Sodium (SYNTHroid 75MCG TAB) 75 mcg SYN PO 10/29/24 06:30 11/28/24 06:29 10/31/24 05:45 75 MCG Magnesium Sulfate 50 ml @ 0 mls/hr PROTOCOL IV 10/25/24 15:30 10/25/24 21:00 DC 10/25/24 16:27 25 MLS/HR Magnesium Sulfate 50 ml @ 0 mls/hr PROTOCOL PRN IV MAGNESIUM PROTOCOL 10/25/24 21:00 11/24/24 20:59 10/28/24 14:16 25 MLS/HR Midodrine (PROAMatine 5 MG TABLET) 10 mg TID PO 10/26/24 09:30 11/25/24 09:29 10/31/24 08:36 10 MG Montelukast Sodium (SinguLAIR) 10 mg HS PO 10/26/24 21:00 11/25/24 20:59 10/30/24 20:12 10 MG Morphine Sulfate (morPHINE 2MG SYG) 2 mg Q4H PRN IVP SEVERE PAIN (7-10) 10/25/24 21:00 11/01/24 20:59 Nicotine (Nicoderm) 14 mg DAILY TD 10/27/24 09:00 11/26/24 08:59 10/31/24 08:36 14 MG Norepinephrine 250 ml @ 0 mls/hr PROTOCOL IV 10/25/24 18:00 10/28/24 10:04 DC 10/26/24 13:45 27.573 MLS/HR Ondansetron HCl (zoFRAN 4MG INJ) 4 mg Q6H PRN IV NAUSEA/VOMITING 10/25/24 21:00 11/24/24 20:59 Pantoprazole Sodium (PROTonix 40MG INJ) 40 mg DAILY IV 10/26/24 09:00 11/25/24 08:59 10/31/24 08:36 40 MG Pharmacy Profile Note (Pharmacy Communication) 1 each ONCE MISC 10/27/24 14:00 10/27/24 13:50 DC Phenylephrine HCl 100 mg/Sodium Chloride 250 ml @ 0 mls/hr AD PRN IV TITRATE 10/27/24 04:30 11/26/24 04:29 10/30/24 01:15 4.96 MLS/HR Piperacillin Sod/ Tazobactam Sod (Zosyn 3.375gm+NS 50ml) 3.375 gm Q12H IV 10/25/24 21:00 11/04/24 20:59 10/31/24 08:37 3.375 GM Potassium Chloride 100 ml @ 100 mls/hr AD PRN IV POTASSIUM PROTOCOL 10/29/24 19:00 11/28/24 18:59 10/31/24 08:37 100 MLS/HR Potassium Chloride (K-Dur/Klor-Con 20meq) 10 meq AD PRN PO POTASSIUM PROTOCOL 10/29/24 19:00 11/28/24 18:59 10/31/24 06:29 10 MEQ Potassium Chloride (KCl 10% Elixir 20meq/15ml) 10 meq AD PRN PO POTASSIUM PROTOCOL 10/29/24 19:00 11/28/24 18:59 10/30/24 06:16 10 MEQ Potassium Chloride (KCl 10% Elixir 20meq/15ml) 20 meq DAILY PRN PO FOR POTASSIUM < 4 10/29/24 20:30 11/28/24 20:29 Sodium Bicarbonate (Sodium Bicarbonate) 1,300 mg BID PO 10/27/24 21:00 10/28/24 10:04 DC 10/27/24 20:20 1,300 MG Sodium Chloride 250 ml @ 0 mls/hr Q0M IV 10/28/24 10:30 11/27/24 10:29 DIAGNOSTICS / RADIOLOGY: [ ] ASSESSMENT: Cardiogenic shock, POA 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 Continue with antiarrhythmic with amiodarone 400 mg p.o. b.i.d. For anticoagulation patient was started with Eliquis5 mg p.o. b.i.d. We will continue to monitor electrolytes and replete as necessary, Protocol and monitor levels closely NEURO: Minimize central acting medications as possible. Fall Precautions. Well lighted room through the day and minimize interruptions through the night to prevent acute delirium. PULMONARY: Supplemental 02 as needed BiPAP as necessary, for respiratory distress Titrate Fio2 to keep Spo2 > or = 90% DuoNebs and CPT as needed IS hourly while awake for pulmonary hygiene prn Out of bed to chair as tolerated Maintain aspiration precautions at all times CARDIOVASCULAR: Follow hemodynamics. Vital signs per facility protocol GI & NUTRITION: Continue nutritional support Aspirations precautions Prokinetic agents and laxatives as needed KIDNEYS & ELECTROLYTES: Strict monitoring of intake and output Daily weights Avoid nephrotoxic agents Monitor electrolytes and replace as needed Goal urine output of 30mL/hr or 0.5mL/kg/hr Medications to be dosed according to renal function. Avoid contrast if possible ENDOCRINE: Maintain blood glucose between 100-180 at all times. Insulin sliding scale for blood glucose management Hypoglycemia and hyperglycemia protocol in place INFECTIOUS DISEASE: Trend temperature, WBC and procalcitonin level Follow cultures, deescalate antibiotics as soon as possible. Panculture if new onset fever HEMATOLOGY & COAGULATION: Monitor H&H. Keep Hgb > 7 Transfuse 1 unit of PRBC for Hgb < 7 Transfuse 1 pack of platelets of platelets < 20, 000 Watch for any signs and symptoms of bleeding SKIN: Pressure ulcer prevention per facility protocol Specialty mattress as needed ORTHO/REHAB Continue PT/OT PRN: MEDICATIONS Tylenol 650 mg po every 4 hrs for fever zofran 4 mg IV every 6 hrs for n/v Hydralazine 5 mg IV every 4 hrs systolic pressure > 160 bowel regiment: lactulose 20 gm PO BID PRN constipation Supportive measures: Continue GI and DVT prophylaxis Disposition: Pending improvement in clinical condition All questions answered time spent: > 35 min ATTESTATION BY PHYSICIAN I have seen and examined the patient. I reviewed the documentation, medical decision making, and treatment plan as noted by the mid-level provider above. I agree with the findings and plan of care. Norah Nieves MD, ELIZABETH NP Oct 31, 2024 09:18
--- NOTE | 2024-10-31 11:15 | NUR ---
PT Order received to advance patient to ambulatory status. Patient currently unsafe to advance to ambulatory status secondary to orthostatic hypotension. Patient BP is too unstable and would be unsafe to progress patient. Patient will be advanced as BP is stabilized and within patient tolerance. PT to continue with slow and steady progression within patient tolerance. Addendum: 10/31/24 at 1300 by KHANH SONG PT PT Amended: Links added.
--- NOTE | 2024-10-31 14:23 | NUR ---
DC PLAN VISITED WITH PATIENT. PATIENT LIVES WITH SPOUSE. INDEPENDENT ABLE TO PERFORM ADL'S. PATIENT HAS WALKER AND 02. CM SPOKE ABOUT DC PLAN SAID HE WANTS TO SEE HOW HE DOES WITH PT AND MD RECOMMENDATIONS. SAID IF DOES BETTER WANTS TO GO HOME. Addendum: 10/31/24 at 1426 by DAVID CHIANG RN CM Amended: Links added.
--- NOTE | 2024-10-31 14:59 | PN ---
[facility] PROGRESS NOTE Date Patient Seen: Oct 31, 2024 Time of Visit: 14:58 Supervising Physician: [ Dr. Sebastián Bland ] Primary Care Physician: Dr. Jeffrey Neil Outpatient Specialists: Dr. 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 Patient sitting upright in chair, breathing at room air with 100% O2 sat, vitally stable 130/60. Patient continues on Perez-Synephrine drip at 0.29 mcg/kg/min and weaning, as well as midodrine. Weaning off hydrocortisone at 25mg IV q12h. Amiodarone decreased to 200mg BID. Patient denies shortness of breath, dizziness, and chest pain. Patient continues to have Galindo Platelet improved from 75k to 112k. Potassium and Mg are unremarkable. Creatinine has reduced from 3.2 to 2.7. GFR of 24, glucose 161 mg/dL. Urine culture growing Enterococcus avium. Blood cultures negative. Pt continues on Zosyn. Doxycycline stopped today. chest XR displays continued pul vascular congestion. BNP 2109. Patient is receiving spirometry as well as nebulizer and Pulmicort. REVIEW OF SYSTEMS: Const: no fever, fatigue, or weight changes Eyes: no recent vision problems ENT: No congestion, ear pain, or sore throat C/V: no chest pain, palpitations or edema Resp:+dry cough, no congestion, wheezing , or Shortness of breath] GI: No abdominal pain, nausea, vomiting, constipation, or diarrhea : No incontinence of or dyuria M/S: No joint or pain swelling + ankle swelling Skin: No rash Neuro: no headache, focal numbness, or weakness, dizziness or seizures Psych: no depression or anxiety Heme: no abnormal bruising or bleeding Lymph: no swollen glands PHYSICAL EXAM: GENERAL: Alert, weak, awake oriented x 3 HEENT: EOMI, Sclera non icteric, moist mucosa NECK: Supple, no JVD, trachea midline LUNGS: Diminished breath sounds bilaterally. No wheezes HEART: Regular rate and rhythm. Normal S1 and S2, without murmurs ABD: Abdomen soft, nontender. Bowel sounds present EXT: No clubbing cyanosis or edema NEURO: Alert and oriented to X3, follows commands Vital Signs (last 8hr) Date Time Temp Pulse Resp B/P (MAP) Pulse Ox O2 Delivery O2 Flow Rate FiO2 10/31/24 12:30 62 13 108/42 (64) 97 10/31/24 12:15 59 16 98/37 (57) 96 10/31/24 12:00 98 Room Air* 0 21 10/31/24 12:00 98.1 10/31/24 12:00 98.2 59 18 102/39 (60) 96 10/31/24 11:45 69 19 86/36 (53) 97 10/31/24 11:42 73 19 92/38 (56) 97 98/42 (60) 10/31/24 11:30 78 19 89/39 (56) 96 10/31/24 11:15 72 128 75/30 (45) 95 10/31/24 11:00 74 17 74/32 (46) 73 78/40 (53) 10/31/24 10:45 64 16 115/43 (67) 96 10/31/24 10:30 64 16 127/51 (76) 98 10/31/24 10:15 71 15 125/52 (76) 97 10/31/24 10:00 69 15 116/46 (69) 99 113/55 (74) 10/31/24 09:45 71 14 116/44 (68) 99 10/31/24 09:30 75 17 99/34 (55) 96 82/34 (50) 10/31/24 09:15 65 19 88/30 (49) 93 81/35 (50) 10/31/24 09:00 71 17 86/34 (51) 94 76/43 (54) 10/31/24 08:45 75 22 100/43 (62) 93 10/31/24 08:30 69 19 94/43 (60) 93 10/31/24 08:20 69 18 N/A Room Air 21 10/31/24 08:15 66 15 113/40 (64) 96 10/31/24 08:00 95 Room Air* 0 21 10/31/24 08:00 98.2 10/31/24 08:00 98.2 62 13 112/43 (66) 92 109/53 (71) 10/31/24 07:30 62 14 112/42 (65) 95 10/31/24 07:15 61 12 107/44 (65) 94 10/31/24 07:00 63 14 107/44 (65) 92 LABS: Hematology Labs: Test 10/31/24 03:53 Range/Units White Blood Count 9.2 4.8-10.8 K/uL Red Blood Count 3.35 L 4.50-6.20 MIL/uL Hemoglobin 10.4 L 14.0-18.0 g/dL Hematocrit 31.4 L 42-54 % Mean Corpuscular Volume 93.7 79-99 fL Mean Corpuscular Hemoglobin 31.0 27.0-33.0 pg Mean Corpuscular Hemoglobin Concent 33.1 32.0-36.0 g/dL Red Cell Distribution Width 13.3 11.0-15.5 % Platelet Count 112 #L 130-400 K/uL Mean Platelet Volume 10.5 7.5-10.5 fL Immature Granulocyte % (Auto) 0.3 0-1 % Neutrophils (%) (Auto) 80.7 H 40.0-77.0 % Lymphocytes (%) (Auto) 15.5 L 21.0-51.0 % Monocytes (%) (Auto) 3.4 3.0-13.0 % Eosinophils (%) (Auto) 0.0 0.0-8.0 % Basophils (%) (Auto) 0.1 0.0-5.0 % Neutrophils # (Auto) 7.4 1.8-7.7 K/uL Lymphocytes # (Auto) 1.4 1.0-4.8 K/uL Monocytes # (Auto) 0.3 0.1-1.0 K/uL Eosinophils # (Auto) 0.00 0.00-0.70 K/uL Basophils # (Auto) 0.01 0.00-0.20 K/uL Absolute Immature Granulocyte (auto 0.03 0-1 K/uL Nucleated Red Blood Cells 0.0 0.0-0.19 % Chemistry Labs: Test 10/31/24 03:53 10/29/24 19:46 Range/Units Sodium Level 137 136-145 mmol/L Potassium Level 3.3 L 3.5-5.1 mmol/L Chloride Level 100 L 101-111 mmol/L Carbon Dioxide Level 28 21-32 mmol/L Blood Urea Nitrogen 40 H 7-18 mg/dL Creatinine 2.5 H 0.5-1.3 mg/dL Glomerular Filtration Rate Calc 26 >90 mL/min Random Glucose 173 H 70-105 mg/dL Total Calcium 9.2 8.5-10.1 mg/dL Magnesium Level 1.50 L 1.80-2.40 mg/dL Whole Blood Glucose 171 H 70-110 MG/DL DIAGNOSTICS / RADIOLOGY RESULTS: PATIENT: MALLORIE DALAL MR#: [id number] : 1950 SEX: M AGE: 74 LOCATION: [facility] ORDER [id number] STATUS: ADM IN REPORT#: [id number] SERVICE 155 REASON: afib rvr, hypotension ORDERING PHYSICIAN: ELIZABETH RG DO PROCEDURE: ECHO CMP - ECHO 2-D COMPLETE APPROVED REPORT EXAM: Two-dimensional and M-mode echocardiogram with Doppler and color Doppler. INDICATION ICD: Atrial fibrillation with rapid ventricular response 2D Dimensions RVDd 4.4 cm LVEF(%) 19.1 (>50%) LA ESV INDEX (BP) 45.80 mL/m2 IVSd 0.4 (0.7-1.1cm) FS(%) 9 % LVDd 5.4 (3.8-5.6cm) Ao Root(2D) 2.5 (2.0-3.7cm) PWd 0.5 (0.7-1.1cm) LVOT diam 2.2 (1.8-2.4cm) IVSs 0.5 cm IVC diam 2.4 cm LVDs 4.9 (2.5-4.0cm) PWs 0.7 cm Deformation Strain Apical 4 -7.1 % Apical 2 -7.2 % Apical 3 -6.2 % Global Strain -6.8 % M-Mode Dimensions EPSS 1.9 cm LA (MM) 5.8 (1.6-4.0cm) Ao Root(MM) 2.8 (2.0-3.7cm) Aortic Valve AoV Vmax 0.8 m/s Ao Peak GR 2.6 mmHg LVOT Vmax 0.5 m/s AoV VTI 0.1 m Ao Mean GR 1.6 mmHg LVOT VTI 0.09 m MONTSE (VMAX) 2.48 cm2 MONTSE (VTI) 2.6 cm2 Mitral Valve MV E Vmax 115.3 cm/s DECEL Time 156 ms P 1/2 T 29 ms MVA (PHT) 7.6 cm2 TDI E/E' Medial 22.6 E/E' Lateral 29.1 Medial E' Peak V 5.11 cm/s Lateral E' Peak V 3.96 cm/s Tricuspid Valve TR Vmax 2.9 m/s RAP (EST) 15 mmHg RVSP 48.0 mmHg TR Peak GR 33.0 mmHg Left Ventricle The left ventricle is borderline dilated. Severely reduced GLS -7.0% There is left ventricular wall thinning. LVEF is 20-25%. The LV diastolic function was unable to be assessed due to atrial arrhythmia but diastolic function is abnormal. Right Ventricle The right ventricle is mildly dilated. Right ventricular systolic function is moderately reduced. Atria The left atrium is moderately dilated. The right atrium is moderately dilated. Aortic Valve The aortic valve is normal in structure. No aortic regurgitation is present. There is no aortic valvular stenosis. Mitral Valve The mitral valve is normal in structure. There is moderate mitral valve regurgitation noted. There is no mitral valve stenosis. Tricuspid Valve The tricuspid valve is normal in structure. RVSP 48.0mmHg. There is mild to moderate tricuspid regurgitation. Pulmonic Valve The pulmonary valve is normal in structure. There is no pulmonic valvular regurgitation. Great Vessels The aortic root is normal in size. IVC is dilated and collapses <50% with inspiration. Pericardium There is no pericardial effusion. Other Information Quality : Technically difficult study due to body habitus Conclusion The left ventricle is borderline dilated. LVEF is 20-25%. The LV diastolic function was unable to be assessed due to atrial arrhythmia but diastolic function is abnormal. Severely reduced GLS -7.0% There is moderate mitral valve regurgitation noted. There is moderate mitral valve regurgitation noted. RVSP 48.0mmHg. There is mild to moderate tricuspid regurgitation. DICTATED BY: ZAC JIMENEZ MD DATE: 10/25/241822 ELECTRONICALLY SIGNED BY: ZAC JIMENEZ MD DATE: 10/26/24 1249 PATIENT: MALLORIE DALAL MR#: [id number] : 1950 SEX: M AGE: 74 LOCATION: [facility] ORDER 140 STATUS: ADM IN REPORT#: [id number] SERVICE 1402 REASON: rule out complicated uti ORDERING PHYSICIAN: KRISTI IRIZARRY PROCEDURE: RENAL - US RENAL SONOGRAM EXAM: US Retroperitoneum Complete, Renal. CLINICAL HISTORY: Complicated UTI. TECHNIQUE: Real-time ultrasound of the retroperitoneum (complete) with image documentation. Real-time grayscale sonographic images of the kidneys and bladder were obtained. COMPARISON: None provided. FINDINGS: RIGHT KIDNEY: Measures 8.2 x 3.8 x 4.7 cm. Corticomedullary differentiation preserved. A simple cyst is noted measuring 3.1 x 3.3 x 3.4 cm. No evidence of hydronephrosis or nephrolithiasis. LEFT KIDNEY: Measures 8.9 x 3.9 x 4.6 cm. Normal echotexture and corticomedullary differentiation. No hydronephrosis or renal calculi seen. BLADDER: Empty with Galindo catheter in situ. Urinary Bladder. IMPRESSION: 1. Simple renal cyst in the right kidney measuring 3.1 x 3.3 x 3.4 cm. 2. No sonographic evidence of hydronephrosis or nephrolithiasis bilaterally. 3. Galindo catheter in place with empty urinary bladder. IMPRESSION: No sonographic evidence of hydronephrosis or nephrolithiasis bilaterally. Simple renal cyst in the right kidney measuring 3.1 x 3.3 x 3.4 cm. Galindo catheter in place with empty urinary bladder. /[place] DICTATED BY: JOSE SILVA MD DATE: 10/26/241732 ELECTRONICALLY SIGNED BY: JOSE SILVA MD DATE: 10/26/241732 PATIENT: MALLORIE DALAL MR#: [id number] : 1950 SEX: M AGE: 74 LOCATION: [facility] ORDER 1434 STATUS: ADM IN REPORT#: [id number] SERVICE 143 REASON: r/o DVT ORDERING PHYSICIAN: KRISTI IRIZARRY PROCEDURE: VENOUS TODD - US VENOUS DOPPLER BILATERAL EXAMINATION: SPECTRAL DOPPLER ULTRASOUND EXAMINATION OF THE BILATERAL LOWER EXTREMITY VEINS. CLINICAL HISTORY: To rule out DVT. COMPARISON: None provided. TECHNIQUE: Real-time ultrasound scan of the veins of the bilateral lower extremity with color Doppler flow, spectral waveform analysis and compression. FINDINGS: DEEP VEINS: The common femoral, superficial femoral, and popliteal veins are echolucent and compressible. There is normal color Doppler flow throughout. The visualized calf veins appear patent. SUPERFICIAL VEINS: The greater saphenous veins are patent and compressible. SOFT TISSUES: No popliteal fossa cyst or other abnormalities. IMPRESSION: No deep venous thrombosis evident in the bilateral lower extremity. No superficial thrombophlebitis in the bilateral lower extremity. /[place] DICTATED BY: KAUR JIMENEZ Jr., MD DATE: 10/27/24551 ELECTRONICALLY SIGNED BY: KAUR JIMENEZ Jr., MD DATE: 10/27/24551 PATIENT: MALLORIE DALAL MR#: [id number] : 1950 SEX: M AGE: 74 LOCATION: [facility] ORDER 2300 STATUS: ADM IN REPORT#: [id number] SERVICE 0600 REASON: hypoxic resp failure ORDERING PHYSICIAN: KRISTI IRIZARRY PROCEDURE: CXR1VW - CHEST 1VW ADDENDUM REPORT ADDENDUM: Comparison with radiograph dated October 28, 2024 /[facility] EXAM: CR Chest, 1 View. CLINICAL HISTORY: hypoxic resp failure COMPARISON: None provided. Findings: AP view of the chest is submitted. Left PICC remains in satisfactory position. Slightly worsened bibasilar airspace disease (left greater than right) that is presumed to reflect an infectious process. No pleural effusion or pneumothorax. Prior sternotomy. Heart size is stable. Pulmonary vessels are within normal limits. IMPRESSION: 1. Worsening bibasilar airspace disease, left greater than right, presumed infectious. 2. Left PICC in satisfactory position. /[place] DICTATED BY: KAUR JIMENEZ Jr., MD DATE: 10/29/242011 ELECTRONICALLY SIGNED BY: DATE: EXAM: CR Chest, 1 View. CLINICAL HISTORY: hypoxic resp failure COMPARISON: None provided. Findings: AP view of the chest is submitted. Left PICC remains in satisfactory position. Slightly worsened bibasilar airspace disease (left greater than right) that is presumed to reflect an infectious process. No pleural effusion or pneumothorax. Prior sternotomy. Heart size is stable. Pulmonary vessels are within normal limits. IMPRESSION: 1. Worsening bibasilar airspace disease, left greater than right, presumed infectious. 2. Left PICC in satisfactory position. /[facility] DICTATED BY: KAUR JIMENEZ Jr., MD DATE: 10/29/242011 ELECTRONICALLY SIGNED BY: KAUR JIMENEZ Jr., MD DATE: 10/29/242011 PLAN Maintain MAP > 65 Wean Perez-Synephrine as possible, currently at 0.299 Midodrine increased to 15mg TID The patient will require an ischemic evaluation and stress test prior to discharge after being stable off perez-syn for 24 hr Weaning hydrocortisone, currently reduced to 25mg IV q12h Amiodarone reduced to 200mg BID Follow Nephrology and cardiology recs Furosemide was started due to high BNP which was stopped today due to increase in BUN Education on smoking cessation. Continue Zosyn 3.375 IV q.12 hours. Doxy discontinued. Singulair 10 mg po q HS Atrovent nebs and Pulmicort acapella with nebs and IS q2H Nicotine patch14 mg daily Strict I's and O's and daily weights, low-sodium diet Fluid restriction to 1.5 L a day with a goal net -1 to 2 L daily. Heparin gtt discontinued Eliquis continued per cardiology Aspirin 81mg daily continued. Keep on telemetry, monitor/replace electrolytes as needed The patient underwent DCCV x1 patient failed to return to sinus rhythm continue amiodarone at a lower dose gtt per protocol Beta blockers, ACEIs, ARBs currently discontinued due to cardiogenic shock, low renal function and COPD. Patient maintained on renal nondialysis diet. Patient continued on Galindo for now, possibly removed tomorrow. PT continued. NEURO: Minimize central acting medications as possible. Fall Precautions. Well lighted room through the day and minimize interruptions through the night to prevent acute delirium. PULMONARY: Supplemental 02 as needed Titrate Fio2 to keep Spo2 > or = 90% DuoNebs and CPT as needed IS hourly while awake for pulmonary hygiene Out of bed to chair as tolerated VAP Bundle CARDIOVASCULAR: Follow hemodynamics. Titrate vasopressor to keep MAP >65 or systolic blood pressure >95mmHg GI & NUTRITION: Continue nutritional support Aspirations precautions Prokinetic agents and laxatives as needed KIDNEYS & ELECTROLYTES: Strict monitoring of intake and output Daily weights Avoid nephrotoxic agents Monitor electrolytes and replace as needed Goal urine output of 30mL/hr or 0.5mL/kg/hr ENDOCRINE: Maintain blood glucose between 100-180 at all times. Insulin sliding scale for blood glucose management INFECTIOUS DISEASE: Trend temperature. Swenson-culture if febrile. HEMATOLOGY & COAGULATION: Monitor H&H. Keep Hgb > 7 Transfuse 1 unit of PRBC for Hgb < 7 Transfuse 1 pack of platelets of platelets < 20, 000 Watch for any signs and symptoms of bleeding SKIN: Pressure ulcer prevention per facility protocol Rehab: PT/OT Code Status: Full Resuscitation Disposition: [Admit to ICU ] Other: Total patient critical care time exceeds 45 minutes excluding all procedures. ATTESTATION BY PHYSICIAN I have seen and examined the patient. I reviewed the documentation, medical decision making, and treatment plan as noted by the mid-level provider above. I agree with the findings and plan of care. Sebastián Bland MD, MUHAMMAD H MD Oct 31, 2024 14:59
--- NOTE | 2024-10-31 20:06 | HMCIMG ---
EXAM: CR Chest, 1 View. CLINICAL HISTORY: hypoxic resp failure COMPARISON: None provided. FINDINGS: LUNGS: No active infiltrate PLEURAL SPACES: No pleural effusion or pneumothorax. MEDIASTINUM: Prominent cardiac silhouette BONES: No acute osseous abnormality. IMPRESSION: 1. Prominent cardiac silhouette 2. No active infiltrate /[place]
[2024-11-01] VITALS (102 sets, daily range): BP systolic 65–127; BP diastolic 27–64; PULSE 48–79; RESP 8–27; TEMP 97.6–98; O2SAT 93–100
[2024-11-01 03:31] LABS: IMMATURE GRANULOCYTE ABSOLUTE 0.04 K/uL (0-1); NUCLEATED RED BLOOD CELLS 0.0 % (0.0-0.19); PLATELET COUNT (AUTO) 118 K/uL (130-400); RED BLOOD CELL COUNT(AUTO) 3.24 MIL/uL (4.50-6.20); RED CELL DISTRIBUTION WIDTH 13.3 % (11.0-15.5); WHITE BLOOD COUNT (AUTO) 8.9 K/uL (4.8-10.8)
[2024-11-01 04:07] LABS: ASPARTATE AMINOTRANSFERASE 35.0 U/L (10-37); CREATININE 2.4 mg/dL (0.5-1.3); GLOMERULAR FILTR. RATE CALC 28.0 mL/min (>90); GLUCOSE,RANDOM 127.0 mg/dL (70-105); SODIUM SERUM 137.0 mmol/L (136-145); TOTAL PROTEIN, SERUM 6.1 g/dL (6.0-8.3); UREA NITROGEN, BLOOD 44.0 mg/dL (7-18)
[2024-11-01] MEDS: PoTASSium chloRIDE 10MEQ SR 10 MEQ/TAB TAB.SR.24H PO PRN (05:16)
--- NOTE | 2024-11-01 06:36 | PN ---
[facility] Cardiology Progress Note CARDIOLOGY PROGRESS NOTE NOVEMBER 01, 2024 Problems: 1. Acute systolic congestive heart failure 2. Ischemic cardiomyopathy with ejection fraction of 20-25% 3. CAD status post aortocoronary bypass graft surgery 2009 with a RODRIGUES graft to the LAD saphenous graft to the diagonal artery and saphenous graft to the PDA 4. Atrial fibrillation with rapid ventricular response on admission status post failed cardioversion on admission now converted to sinus rhythm on amiodarone. 5. Dyslipidemia 6. Tobacco dependence 7. Remote lacunar infarct 2009 8. Carotid artery disease status post right carotid endarterectomy 2010 and subsequent left carotid endarterectomy 2018 9. Hypothyroidism 10. Acute on hronic kidney disease stage 4 11. Thrombocytopenia Blood pressure is running 90-100 systolic. Heart rate is in the 60s. Sodium 137 potassium 3.3 BUN 44 creatinine down to 2.4 which continues to improve. White count 8.9 hemoglobin 10.1 platelet count [id number]. The patient continues on amiodarone 200 mg b.i.d. apixaban 5 mg b.i.d. aspirin 81 mg daily atorvastatin 80 mg daily levothyroxine midodrine pantoprazole. No infiltrates were noted on chest x-ray yesterday. He diuresed 675 cc yesterday and 1100 cc a day before. He has been off diuretics for 48 hours. We will plan on adding furosemide 20 mg daily to his regimen. ZAC MCFADDEN MD Nov 01, 2024 06:36
--- NOTE | 2024-11-01 09:39 | PN ---
FOLLOWUP PROGRESS NOTE SUBJECTIVE: The patient is a 74-year-old male with history of end-stage cardiomyopathy. The patient also with known valvular heart disease. The patient was initially admitted to the hospital with acute on chronic renal dysfunction. The patient's creatinine is actually stabilized. He continues to have persistent hypotension requiring pressors and the patient is being seen as a followup visit for all of the above. REVIEW OF SYSTEMS: CONSTITUTIONAL: He is feeling weak and tired. HEENT: No change in vision. No change in hearing. CARDIOVASCULAR: There are no current chest pains or palpitations. PULMONARY: There is no shortness of breath. GASTROINTESTINAL: The patient is tolerating a diet. MUSCULOSKELETAL: Complaints of weakness. PHYSICAL EXAMINATION: VITAL SIGNS: Blood pressure is 115/43 on the pressors, pulse 50s. GENERAL: He is a chronically ill male elderly lying in bed on the medical floor. HEENT: Head is atraumatic. Pupils are equal, roving to light. Oropharynx is without exudate. Nares clear. NECK: There is no JVP. There is no thyromegaly, no mass. CARDIOVASCULAR: Regular. There is no S3 or S4 gallop. LUNGS: Coarse with equal thoracic movement. ABDOMEN: Soft, nondistended, and nontender. EXTREMITIES: Reveal no clubbing, no cyanosis. NEUROLOGICAL: He is awake. He is alert. LABORATORY DATA: BUN 44, creatinine is 2.4, potassium 3.3, hemoglobin 10, hematocrit 30. IMPRESSION: * Acute on chronic renal dysfunction. * Cardiomyopathy with valvular heart disease. * Persistent hypotension. * Anemia. PLAN: The patient remains on the diuretics. He continues on midodrine for the hypotension. The patient is also receiving Solu-Cortef. The patient's creatinine has remained fairly stable. Urine output has been adequate. We will continue to follow closely. Workup is ongoing per Cardiology. TID: [id number] RECEIPT: [id number]
--- NOTE | 2024-11-01 12:44 | PN ---
[facility] PROGRESS NOTE Date of Service: Nov 01, 2024 Time of Service: 12:42 SUBJECTIVE: 10/26 74-year-old male, history of coronary artery disease, dyslipidemia, hypertension, tobacco dependence, remote lacunar infarct, carotid artery disease, hypothyroidism, presented with a chief complaint of generalized body weakness and shortness a breath, in the emergency room found to have AFib with a RVR, heart rate in with the 140s, hypotensive, cardioverted electrically x1, did not restore sinus rhythm, patient admitted to the ICU. At the time of my visit awake, following commands, on heparin drip, Levophed, amiodarone drip, dobutamine drip, echocardiogram showing ejection fraction 20- 25%. Cardiology input noted and appreciated, the patient will require an ischemic evaluation prior to discharge. 10/27/24 patient remains in ICU. Patient appears chronically ill fragile and weak. Denied chest pain. Patient is being followed by running instructor's continues on dopamine drip. The plan is to stabilize medically weaned off pressors they we will consider Lexiscan. 10/28/24 the patient was evaluated in ICU room 215. He is alert oriented x3. patient is being evaluated by physical therapist during rounds. He denies any chest pain. Patient was evaluated by running instructor plan is for Lexiscan and Cardiolite stress test before discharge. Patient continues to be on phenylephrine drip. 10/29/24 Patient was evaluated in ICU, room 215. Continues to deny any chest pain. Dobutamine has been discontinued. Patient was started on Eliquis 5 mg PO BID; amiodarone 400 mg PO BID is ongoing. BNP is uptrending, currently 2110. F urosemide 20 mg IV daily initiated. Continue Solu-Cortef 50 mg IV every 6 hours. Labs reviewed; potassium remains low at 2.8 mmol/L today. Will continue with potassium replacement protocol. Plans for Lexiscan and Cardiolite stress tests pre-discharge remain in place; will follow up with cardiology regarding scheduling. 10/30/24 patient remains on Clint-Synephrine the plan is to taper off as tolerated once blood pressure is stable running instructor's we will consider Cardiolite stress test prior to discharge. Patient is fully awake alert oriented x3 denied chest pain or shortness for breath 10/31/24 [employer]PRECIATE REGIONAL MAINTENANCE MANAGER'S INPUT THE PLAN IS TO DISCONTINUE CLINT-SYNEPHRINE AND MONITOR BLOOD PRESSURE. IF BLOOD PRESSURE REMAINED STABLE OFF OF PRESSORS THE NEXT24 HOURS POSSIBLE REGIONAL MAINTENANCE MANAGER'S WAS SCHEDULED FOR A CARDIOLITE STRESS TEST. Patient watching TV. Denied chest pain or shortness for breath. 11/01/24 patient was seen earlier patient continues on a low dose of Clint- Synephrine primary nurse reports patient was off for2 hours and became bradycardia. Patient continues to work with physical therapy out of bed to chair as tolerated yesterday he tolerating 6 hours. Patient have no other complaints. REVIEW OF SYSTEMS CONSTITUTIONAL: Denies fevers, chills, or night sweats. No unintentional weight loss reported. NEUROLOGICAL: Denies headache, amaurosis fugax, motor weakness, sensory deficit, vertigo/spinning sensation, gait abnormalities, or tremors. ENT: No hearing loss, otalgia, otorrhea, rhinitis, rhinorrhea, hoarseness, or sore throat. CARDIOVASCULAR: Denies any exertional angina, dyspnea on exertion, orthopnea, paroxysmal nocturnal dyspnea, palpitations, life-threatening arrhythmias, claudication. PULMONARY: Denies any shortness of breath, cough, phlegm/sputum, hemoptysis, pleuritic chest pain. SLEEP: Denies morning headaches, daytime somnolence or napping. Denies difficulty falling asleep, staying asleep, waking from sleep. Denies knowledge of snoring. GASTROINTESTINAL: Denies any type of dysphagia to either liquids or solids. Denies nausea, vomiting, pyrosis, early satiety, abdominal pain, diarrhea, constipation, or changes in stool consistency or caliber. Denies coffee-ground emesis, hematemesis, hematochezia, or melanotic stools. GENITOURINARY: Denies frequency, urgency, nocturia, hematuria or incontinence (Storage/Irritative symptoms.) Low urinary stream, straining to void, urinary intermittency or hesitancy, splitting of the voiding stream, terminal dribbling. ENDOCRINOLOGIC: Denies polyuria, polydipsia, polyphagia or heat/cold intolerances. HEMATOLOGIC: Denies thrombophilia/previous clots, or coagulopathy/bleeding disorders. ONCOLOGIC: Denies personal history of malignancy. DERMATOLOGIC: Denies rashes or pruritus. PSYCHIATRIC: Denies any suicidal or homicidal ideation. Denies hallucinations. PHYSICAL EXAM GENERAL APPEARANCE: The patient is awake, alert, and oriented, in no acute cardiopulmonary distress. NEUROLOGICAL: Cranial nerves II-XII grossly intact. Motor is 5/5 in bilateral upper and lower extremities proximal to distal. No sensory deficits. HEENT: Face is symmetric. Pupils are equal and reactive. Extraocular movements are intact. NECK: Supple. No JVD. No thyromegaly. No submental, submandibular, pre- /postauricular, occipital or supraclavicular lymphadenopathy. CHEST: Normal chest expansion. No Telemetry. LUNGS: Absence of any rales, rhonchi or any wheezing. CARDIOVASCULAR: Regular. S1 and S2 normal. No appreciable rubs, murmurs or gallops. ABDOMEN: Soft, nontender, and nondistended. There is no rebound, voluntary guarding, or rigidity. : Deferred. No Galindo. EXTREMITIES: Non-edematous and not cyanotic. No clubbing. Good capillary refill. SKIN: No skin breakdown. Vital Signs (last 8hr) Date Time Temp Pulse Resp B/P (MAP) Pulse Ox O2 Delivery O2 Flow Rate FiO2 11/01/24 12:00 97.5 11/01/24 10:45 55 16 116/40 (65) 95 11/01/24 10:30 53 13 116/41 (66) 96 11/01/24 10:29 65 18 N/A Room Air 21 11/01/24 10:15 54 13 117/44 (68) 98 11/01/24 10:00 50 14 113/39 (63) 95 11/01/24 09:45 51 17 118/43 (68) 96 11/01/24 09:30 56 17 110/37 (61) 96 11/01/24 09:15 52 13 121/44 (69) 96 11/01/24 09:00 54 14 117/43 (67) 96 11/01/24 08:45 55 18 113/40 (64) 96 11/01/24 08:30 94 Room Air* 0 21 11/01/24 08:30 57 16 120/46 (70) 96 11/01/24 08:15 53 14 105/36 (59) 94 11/01/24 08:00 97.5 11/01/24 08:00 97.5 60 16 111/38 (62) 96 11/01/24 07:45 59 17 105/42 (63) 95 11/01/24 07:30 71 18 118/47 (70) 95 11/01/24 07:15 62 19 118/44 (68) 95 11/01/24 07:00 64 16 113/43 (66) 97 11/01/24 06:53 61 18 11/01/24 06:45 58 16 110/39 (62) 100 11/01/24 06:30 60 16 97/34 (55) 93 11/01/24 06:15 58 15 115/43 (67) 94 11/01/24 06:00 58 13 114/40 (64) 93 11/01/24 05:45 57 13 113/42 (65) 94 11/01/24 05:30 59 14 104/36 (58) 93 11/01/24 05:15 61 27 105/39 (61) 93 11/01/24 05:00 64 13 90/31 (50) 94 11/01/24 04:45 59 14 108/37 (60) 94 LABS: Laboratory: Test 11/01/24 03:20 Range/Units White Blood Count 8.9 4.8-10.8 K/uL Red Blood Count 3.24 L 4.50-6.20 MIL/uL Hemoglobin 10.1 L 14.0-18.0 g/dL Hematocrit 30.8 L 42-54 % Mean Corpuscular Volume 95.1 79-99 fL Mean Corpuscular Hemoglobin 31.2 27.0-33.0 pg Mean Corpuscular Hemoglobin Concent 32.8 32.0-36.0 g/dL Red Cell Distribution Width 13.3 11.0-15.5 % Platelet Count 118 L 130-400 K/uL Mean Platelet Volume 9.7 7.5-10.5 fL Immature Granulocyte % (Auto) 0.5 0-1 % Neutrophils (%) (Auto) 67.6 40.0-77.0 % Lymphocytes (%) (Auto) 24.2 21.0-51.0 % Monocytes (%) (Auto) 7.6 3.0-13.0 % Eosinophils (%) (Auto) 0.0 0.0-8.0 % Basophils (%) (Auto) 0.1 0.0-5.0 % Neutrophils # (Auto) 6.0 1.8-7.7 K/uL Lymphocytes # (Auto) 2.1 1.0-4.8 K/uL Monocytes # (Auto) 0.7 0.1-1.0 K/uL Eosinophils # (Auto) 0.00 0.00-0.70 K/uL Basophils # (Auto) 0.01 0.00-0.20 K/uL Absolute Immature Granulocyte (auto 0.04 0-1 K/uL Nucleated Red Blood Cells 0.0 0.0-0.19 % Sodium Level 137 136-145 mmol/L Potassium Level 3.3 L 3.5-5.1 mmol/L Chloride Level 103 101-111 mmol/L Carbon Dioxide Level 28 21-32 mmol/L Blood Urea Nitrogen 44 H 7-18 mg/dL Creatinine 2.4 H 0.5-1.3 mg/dL Glomerular Filtration Rate Calc 28 >90 mL/min Random Glucose 127 H 70-105 mg/dL Total Calcium 9.0 8.5-10.1 mg/dL Magnesium Level 1.80 1.80-2.40 mg/dL Total Bilirubin 0.6 0.2-1.0 mg/dL Aspartate Amino Transf (AST/SGOT) 35 10-37 U/L Alanine Aminotransferase (ALT/SGPT) 23 12-78 U/L Alkaline Phosphatase 97 50-136 U/L Total Protein 6.1 6.0-8.3 g/dL Albumin 2.1 L 3.5-5.0 g/dL Current Medications Medications (Trade) Dose Ordered Sig/Gustavo Route PRN Reason Start Time Stop Time Status Last Admin Dose Admin Acetaminophen (TYLenol 325MG TAB) 650 mg Q6H PRN PO TEMPERATURE GREATER THAN 101.5 10/25/24 21:00 11/24/24 20:59 Amiodarone HCl (pacERONE 200MG) 200 mg BID PO 10/26/24 09:00 10/26/24 07:36 DC Amiodarone HCl (pacERONE 200MG) 200 mg BID PO 10/31/24 21:00 11/30/24 20:59 10/31/24 19:50 200 MG Amiodarone HCl (pacERONE 200MG) 400 mg BID PO 10/26/24 09:00 10/31/24 14:14 DC 10/31/24 08:35 400 MG Amiodarone HCL/ Dextrose 100 ml @ 0 mls/hr PROTOCOL IV 10/27/24 07:30 10/28/24 06:27 DC 10/27/24 07:44 600 MLS/HR Amiodarone HCL/ Dextrose 200 ml @ 33.333 mls/ hr AD IV 10/25/24 16:00 10/26/24 07:30 DC 10/25/24 17:42 33.333 MLS/HR Apixaban (EliquIS) 5 mg BID PO 10/28/24 21:00 11/27/24 20:59 11/01/24 08:36 5 MG Aspirin (Aspirin 81mg Ec Tab) 81 mg DAILY PO 10/29/24 09:00 10/28/24 16:10 DC Aspirin (Aspirin 81mg Ec Tab) 81 mg DAILY PO 10/31/24 09:00 11/30/24 08:59 11/01/24 08:35 81 MG Atorvastatin Calcium (LIPItor 40MG) 80 mg HS PO 10/28/24 21:00 11/27/24 20:59 10/31/24 19:50 80 MG Bisacodyl (DulcoLAX) 10 mg DAILY RC 10/28/24 09:00 10/31/24 08:59 DC Budesonide (Pulmicort 0.5 Mg/2ml) 0.5 mg BIDRESP IH 10/28/24 10:30 11/27/24 10:29 11/01/24 06:53 0.5 MG Clopidogrel Bisulfate (plaVIX 75MG) 75 mg DAILY PO 10/29/24 09:00 10/28/24 16:10 DC Dobutamine HCl/ Dextrose 250 ml @ 0 mls/hr PROTOCOL IV 10/25/24 16:00 10/28/24 10:04 DC 10/27/24 07:02 0 MLS/HR Dobutamine HCl/ Dextrose 250 ml @ 0 mls/hr PROTOCOL IV 10/26/24 07:30 10/26/24 07:37 DC Doxycycline Hyclate (Doxycycline Hyclate) 100 mg BID PO 10/26/24 21:00 10/31/24 12:00 DC 10/31/24 08:35 100 MG Fentanyl/Sodium Chloride 250 ml @ 0.1 mls/hr PROTOCOL PRN IV OTHER [SEE ORDER COMMENTS] 10/31/24 15:00 8/5/25 14:57 DC Furosemide (LASix 20MG TAB) 20 mg DAILY PO 10/29/24 09:00 10/28/24 10:06 DC Furosemide (LASix 20MG TAB) 20 mg DAILY PO 11/01/24 09:00 12/01/24 08:59 11/01/24 08:36 20 MG Furosemide (LASix 20MG VIAL) 20 mg DAILY IV 10/29/24 09:00 10/31/24 07:03 DC 10/30/24 07:54 20 MG Furosemide (LASix 40MG VIAL) 30 mg Q12H IV 10/27/24 07:00 10/27/24 13:49 DC 10/27/24 07:01 30 MG Furosemide (LASix 40MG VIAL) 30 mg Q12H IV 10/27/24 18:00 10/28/24 09:58 DC 10/27/24 16:56 30 MG Furosemide (LASix 40MG VIAL) 40 mg Q12H IV 10/25/24 19:00 10/26/24 19:26 DC 10/26/24 18:47 40 MG Furosemide (LASix 40MG VIAL) 40 mg Q12H IV 10/26/24 07:30 10/26/24 07:36 DC Heparin Sodium (Porcine) (HEParin 5,000 UNIT VIAL) 5,000 unit BID SQ 10/25/24 21:00 10/25/24 22:47 DC Heparin Sodium/ Dextrose 250 ml @ 0 mls/hr PROTOCOL IV 10/25/24 16:00 10/28/24 09:53 DC 10/26/24 18:46 7.7 MLS/HR Hydrocortisone Sodium Succinate (Solu-corTEF 100MG) 25 mg Q12H IV 10/31/24 14:30 11/03/24 15:00 11/01/24 03:15 25 MG Hydrocortisone Sodium Succinate (Solu-corTEF 100MG) 50 mg Q6H IV 10/29/24 09:00 10/31/24 14:14 DC 10/31/24 08:39 50 MG Ipratropium Igo (AtrovENT UD) 0.5 MG Q6H PRN IH SHORTNESS OF BREATH 10/28/24 10:30 11/27/24 10:29 10/28/24 18:46 0.5 MG Lactulose (Constulose 20gm/ 30ml Udcup) 20 gm BID PRN PO CONSTIPATION 10/26/24 17:00 11/25/24 16:59 10/26/24 16:53 20 GM Levothyroxine Sodium (SYNTHroid 75MCG TAB) 75 mcg SYN PO 10/29/24 06:30 11/28/24 06:29 11/01/24 05:16 75 MCG Magnesium Sulfate 50 ml @ 0 mls/hr PROTOCOL IV 10/25/24 15:30 10/25/24 21:00 DC 10/25/24 16:27 25 MLS/HR Magnesium Sulfate 50 ml @ 0 mls/hr PROTOCOL PRN IV MAGNESIUM PROTOCOL 10/25/24 21:00 11/24/24 20:59 11/01/24 05:16 25 MLS/HR Midodrine (PROAMatine 5 MG TABLET) 10 mg TID PO 10/26/24 09:30 10/31/24 16:48 DC 10/31/24 13:28 10 MG Midodrine (PROAMatine 5 MG TABLET) 10 mg TID PO 11/01/24 14:00 12/01/24 13:59 Midodrine (PROAMatine 5 MG TABLET) 15 mg TID PO 10/31/24 21:00 11/01/24 10:06 DC 10/31/24 19:50 15 MG Montelukast Sodium (SinguLAIR) 10 mg HS PO 10/26/24 21:00 11/25/24 20:59 10/31/24 19:50 10 MG Morphine Sulfate (morPHINE 2MG SYG) 2 mg Q4H PRN IVP SEVERE PAIN (7-10) 10/25/24 21:00 11/01/24 20:59 Nicotine (Nicoderm) 14 mg DAILY TD 10/27/24 09:00 11/26/24 08:59 11/01/24 08:36 14 MG Norepinephrine 250 ml @ 0 mls/hr PROTOCOL IV 10/25/24 18:00 10/28/24 10:04 DC 10/26/24 13:45 27.573 MLS/HR Ondansetron HCl (zoFRAN 4MG INJ) 4 mg Q6H PRN IV NAUSEA/VOMITING 10/25/24 21:00 11/24/24 20:59 Pantoprazole Sodium (PROTonix 40MG INJ) 40 mg DAILY IV 10/26/24 09:00 11/25/24 08:59 11/01/24 08:35 40 MG Pharmacy Profile Note (Pharmacy Communication) 1 each ONCE MISC 10/27/24 14:00 10/27/24 13:50 DC Phenylephrine HCl 100 mg/Sodium Chloride 250 ml @ 0 mls/hr AD PRN IV TITRATE 10/27/24 04:30 11/26/24 04:29 10/30/24 01:15 4.96 MLS/HR Piperacillin Sod/ Tazobactam Sod (Zosyn 3.375gm+NS 50ml) 3.375 gm Q12H IV 10/25/24 21:00 11/04/24 20:59 11/01/24 08:35 3.375 GM Potassium Chloride 100 ml @ 100 mls/hr AD PRN IV POTASSIUM PROTOCOL 10/29/24 19:00 11/28/24 18:59 10/31/24 08:37 100 MLS/HR Potassium Chloride (K-Dur 10meq Sr Tab) 10 meq AD PRN PO POTASSIUM PROTOCOL 10/31/24 09:30 11/28/24 18:59 11/01/24 05:16 10 MEQ Potassium Chloride (K-Dur/Klor-Con 20meq) 10 meq AD PRN PO POTASSIUM PROTOCOL 10/29/24 19:00 10/31/24 09:25 DC 10/31/24 06:29 10 MEQ Potassium Chloride (KCl 10% Elixir 20meq/15ml) 10 meq AD PRN PO POTASSIUM PROTOCOL 10/29/24 19:00 11/28/24 18:59 10/31/24 09:44 10 MEQ Potassium Chloride (KCl 10% Elixir 20meq/15ml) 20 meq DAILY PRN PO FOR POTASSIUM < 4 10/29/24 20:30 10/31/24 09:25 DC Propofol (DIPRivan 1000MG/ 100ML) 1,000 mg PROTOCOL PRN IV SEDATION 10/31/24 15:00 10/31/24 14:57 DC Sodium Bicarbonate (Sodium Bicarbonate) 1,300 mg BID PO 10/27/24 21:00 10/28/24 10:04 DC 10/27/24 20:20 1,300 MG Sodium Chloride 250 ml @ 0 mls/hr Q0M IV 10/28/24 10:30 11/27/24 10:29 DIAGNOSTICS / RADIOLOGY: [ ] ASSESSMENT: Cardiogenic shock, POA 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 Amiodarone was placed on hold this morning due to bradycardia. We will defer to running instructor's For anticoagulation patient was started with Eliquis5 mg p.o. b.i.d. We will continue to monitor electrolytes and replete as necessary, Protocol and monitor levels closely NEURO: Minimize central acting medications as possible. Fall Precautions. Well lighted room through the day and minimize interruptions through the night to prevent acute delirium. PULMONARY: Supplemental 02 as needed BiPAP as necessary, for respiratory distress Titrate Fio2 to keep Spo2 > or = 90% DuoNebs and CPT as needed IS hourly while awake for pulmonary hygiene prn Out of bed to chair as tolerated Maintain aspiration precautions at all times CARDIOVASCULAR: Follow hemodynamics. Vital signs per facility protocol GI & NUTRITION: Continue nutritional support Aspirations precautions Prokinetic agents and laxatives as needed KIDNEYS & ELECTROLYTES: Strict monitoring of intake and output Daily weights Avoid nephrotoxic agents Monitor electrolytes and replace as needed Goal urine output of 30mL/hr or 0.5mL/kg/hr Medications to be dosed according to renal function. Avoid contrast if possible ENDOCRINE: Maintain blood glucose between 100-180 at all times. Insulin sliding scale for blood glucose management Hypoglycemia and hyperglycemia protocol in place INFECTIOUS DISEASE: Trend temperature, WBC and procalcitonin level Follow cultures, deescalate antibiotics as soon as possible. Panculture if new onset fever HEMATOLOGY & COAGULATION: Monitor H&H. Keep Hgb > 7 Transfuse 1 unit of PRBC for Hgb < 7 Transfuse 1 pack of platelets of platelets < 20, 000 Watch for any signs and symptoms of bleeding SKIN: Pressure ulcer prevention per facility protocol Specialty mattress as needed ORTHO/REHAB Continue PT/OT PRN: MEDICATIONS Tylenol 650 mg po every 4 hrs for fever zofran 4 mg IV every 6 hrs for n/v Hydralazine 5 mg IV every 4 hrs systolic pressure > 160 bowel regiment: lactulose 20 gm PO BID PRN constipation Supportive measures: Continue GI and DVT prophylaxis Disposition: Pending improvement in clinical condition All questions answered time spent: > 35 min ATTESTATION BY PHYSICIAN I have seen and examined the patient. I reviewed the documentation, medical decision making, and treatment plan as noted by the mid-level provider above. I agree with the findings and plan of care. Norah Nieves MD, [facility]AB[facility] NP Nov 01, 2024 12:44
--- NOTE | 2024-11-01 13:38 | NUR ---
[facility] ICU Skin Assessment: Patient assessed by wound healing team. patient up in chair. Per primary nurse, patient with no wounds or skin breakdown noted. Assessment and recommendations provided to primary nurse. Education provided. Addendum: 11/01/24 at 1400 by SHANTELLE VUONG RN RN/ Amended: Links added.
--- NOTE | 2024-11-01 16:06 | PN ---
[facility] PROGRESS NOTE Date Patient Seen: Nov 01, 2024 Time of Visit: 15:30 Supervising Physician: [Dr. Ashok Padron ] Primary Care Physician: Dr. Jeffrey Neil Outpatient Specialists: Dr. 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 Inpatient Consults: Critical Care team [facility] PROBLEM LIST: Acute on chronic Hypoxic resp failure POA (Uses o2 at home 2L PRN) Cardiogenic shock, SCAI stage C, POA requiring pressors Acute on Chronic combined Heart Failure with LVEF of 20-25% and GLS -7.0% Suspected moderate pulmonary HTN w/ RVSP 48.0 mmHg Acute cystitis Enterococcus Avium, POA Atrial fibrillation with RVR on amiodarone [id number] Score 4/ HAS-BLED Score 3 Elevated D- Dimer, BLE US negative for DVT Carotid artery disease Chronic kidney disease Simple renal Cyst 3.1 x 3.3 x 3.4 cm CAD s/p 3V CABG ( RODRIGUES-LAD, SVG-D, SVG-PDA ) August 2009 History of hypertension, currently hypotensive Acute kidney injury, GFR Elevated BNP Hyperlipidemia Hypothyroidism Tobacco dependence INTERVAL HISTORY: No major overnight events. Patient sitting upright in chair, breathing at room air with 100% O2 sat, vitally stable 130/60. HR at 55. Patient continues to have Galindo, urine looks clear in appearance. Patient denies shortness of breath, dizziness, and chest pain. Patient continues on Perez-Synephrine drip at 0.29 mcg/kg/min and weaning off slowly due to drop in BP with discontinuation. He is also continued on midodrine. Also Weaning off hydrocortisone at 25mg IV q12h. Amiodarone continued at 200mg BID. Platelet continues to improve from 75k to 118k. Monitor Potassium, currently at 3.3. Mg unremarkable. Creatinine has reduced from 3.2 to 2.4. GFR at 28, glucose 127 mg/dL. Blood cultures negative. Pt continues on Zosyn. CXR revealed no new infiltrates today. He has been off diuretics for 48 hours as per cardiology recommendations. Furosemide was started today Last BNP 2109. Patient is receiving spirometry as well as nebulizer and Pulmicort. REVIEW OF SYSTEMS: Const: no fever, fatigue, or weight changes Eyes: no recent vision problems ENT: No congestion, ear pain, or sore throat C/V: no chest pain, palpitations or edema Resp:+dry cough, no congestion, wheezing , or Shortness of breath] GI: No abdominal pain, nausea, vomiting, constipation, or diarrhea : No incontinence of or dyuria M/S: No joint or pain swelling + ankle swelling Skin: No rash Neuro: no headache, focal numbness, or weakness, dizziness or seizures Psych: no depression or anxiety Heme: no abnormal bruising or bleeding Lymph: no swollen glands PHYSICAL EXAM: GENERAL: Alert, weak, awake oriented x 3 HEENT: EOMI, Sclera non icteric, moist mucosa NECK: Supple, no JVD, trachea midline LUNGS: Diminished breath sounds bilaterally. No wheezes HEART: Regular rate and rhythm. Normal S1 and S2, without murmurs ABD: Abdomen soft, nontender. Bowel sounds present EXT: No clubbing cyanosis or edema NEURO: Alert and oriented to X3, follows commands Vital Signs (last 8hr) Date Time Temp Pulse Resp B/P (MAP) Pulse Ox O2 Delivery O2 Flow Rate FiO2 11/01/24 12:00 97.5 11/01/24 12:00 98 Room Air* 0 21 11/01/24 10:45 55 16 116/40 (65) 95 11/01/24 10:30 53 13 116/41 (66) 96 11/01/24 10:29 65 18 N/A Room Air 21 11/01/24 10:15 54 13 117/44 (68) 98 11/01/24 10:00 50 14 113/39 (63) 95 11/01/24 09:45 51 17 118/43 (68) 96 11/01/24 09:30 56 17 110/37 (61) 96 11/01/24 09:15 52 13 121/44 (69) 96 11/01/24 09:00 54 14 117/43 (67) 96 11/01/24 08:45 55 18 113/40 (64) 96 11/01/24 08:30 94 Room Air* 0 21 11/01/24 08:30 57 16 120/46 (70) 96 11/01/24 08:15 53 14 105/36 (59) 94 11/01/24 08:00 97.5 11/01/24 08:00 97.5 60 16 111/38 (62) 96 11/01/24 07:45 59 17 105/42 (63) 95 LABS: Hematology Labs: Test 11/01/24 03:20 Range/Units White Blood Count 8.9 4.8-10.8 K/uL Red Blood Count 3.24 L 4.50-6.20 MIL/uL Hemoglobin 10.1 L 14.0-18.0 g/dL Hematocrit 30.8 L 42-54 % Mean Corpuscular Volume 95.1 79-99 fL Mean Corpuscular Hemoglobin 31.2 27.0-33.0 pg Mean Corpuscular Hemoglobin Concent 32.8 32.0-36.0 g/dL Red Cell Distribution Width 13.3 11.0-15.5 % Platelet Count 118 L 130-400 K/uL Mean Platelet Volume 9.7 7.5-10.5 fL Immature Granulocyte % (Auto) 0.5 0-1 % Neutrophils (%) (Auto) 67.6 40.0-77.0 % Lymphocytes (%) (Auto) 24.2 21.0-51.0 % Monocytes (%) (Auto) 7.6 3.0-13.0 % Eosinophils (%) (Auto) 0.0 0.0-8.0 % Basophils (%) (Auto) 0.1 0.0-5.0 % Neutrophils # (Auto) 6.0 1.8-7.7 K/uL Lymphocytes # (Auto) 2.1 1.0-4.8 K/uL Monocytes # (Auto) 0.7 0.1-1.0 K/uL Eosinophils # (Auto) 0.00 0.00-0.70 K/uL Basophils # (Auto) 0.01 0.00-0.20 K/uL Absolute Immature Granulocyte (auto 0.04 0-1 K/uL Nucleated Red Blood Cells 0.0 0.0-0.19 % Chemistry Labs: Test 11/01/24 03:20 Range/Units Sodium Level 137 136-145 mmol/L Potassium Level 3.3 L 3.5-5.1 mmol/L Chloride Level 103 101-111 mmol/L Carbon Dioxide Level 28 21-32 mmol/L Blood Urea Nitrogen 44 H 7-18 mg/dL Creatinine 2.4 H 0.5-1.3 mg/dL Glomerular Filtration Rate Calc 28 >90 mL/min Random Glucose 127 H 70-105 mg/dL Total Calcium 9.0 8.5-10.1 mg/dL Magnesium Level 1.80 1.80-2.40 mg/dL Total Bilirubin 0.6 0.2-1.0 mg/dL Aspartate Amino Transf (AST/SGOT) 35 10-37 U/L Alanine Aminotransferase (ALT/SGPT) 23 12-78 U/L Alkaline Phosphatase 97 50-136 U/L Total Protein 6.1 6.0-8.3 g/dL Albumin 2.1 L 3.5-5.0 g/dL DIAGNOSTICS / RADIOLOGY RESULTS: PATIENT: MALLORIE DALAL MR#: [id number] : 1950 SEX: M AGE: 74 LOCATION: 2CH ORDER 2300 STATUS: ADM IN REPORT#: [id number] SERVICE 0600 REASON: hypoxic resp failure ORDERING PHYSICIAN: KRISTI IRIZARRY PROCEDURE: CXR1VW - CHEST 1VW EXAM: CR Chest, 1 View. CLINICAL HISTORY: hypoxic resp failure COMPARISON: None provided. FINDINGS: LUNGS: Slight basilar atelectasis PLEURAL SPACES: No evidence of pleural effusion or pneumothorax. MEDIASTINUM: Cardiac silhouette prominent BONES: No acute osseous abnormality. MISCELLANEOUS: Left PICC line middle third SVC IMPRESSION: 1. Cardiac silhouette prominent 2. Slight basilar atelectasis 3. Left PICC line middle third SVC /[place] DICTATED BY: CLINT REYNOLDS MD DATE: 10/30/242034 ELECTRONICALLY SIGNED BY: CLINT REYNOLDS MD DATE: 10/30/242034 PATIENT: MALLORIE DALAL MR#: [id number] : 1950 SEX: M AGE: 74 LOCATION: 2CH ORDER 1434 STATUS: ADM IN REPORT#: [id number] SERVICE 1433 REASON: r/o DVT ORDERING PHYSICIAN: KRISTI IRIZARRY PROCEDURE: VENOUS TODD - US VENOUS DOPPLER BILATERAL EXAMINATION: SPECTRAL DOPPLER ULTRASOUND EXAMINATION OF THE BILATERAL LOWER EXTREMITY VEINS. CLINICAL HISTORY: To rule out DVT. COMPARISON: None provided. TECHNIQUE: Real-time ultrasound scan of the veins of the bilateral lower extremity with color Doppler flow, spectral waveform analysis and compression. FINDINGS: DEEP VEINS: The common femoral, superficial femoral, and popliteal veins are echolucent and compressible. There is normal color Doppler flow throughout. The visualized calf veins appear patent. SUPERFICIAL VEINS: The greater saphenous veins are patent and compressible. SOFT TISSUES: No popliteal fossa cyst or other abnormalities. IMPRESSION: No deep venous thrombosis evident in the bilateral lower extremity. No superficial thrombophlebitis in the bilateral lower extremity. /[place] DICTATED BY: KAUR JIMENEZ Jr., MD DATE: 10/27/24551 ELECTRONICALLY SIGNED BY: KAUR JIMENEZ Jr., MD DATE: 10/27/24551 PATIENT: MALLORIE DALAL MR#: [id number] : 1950 SEX: M AGE: 74 LOCATION: [facility] ORDER 140 STATUS: ADM IN REPORT#: [id number] SERVICE 140 REASON: rule out complicated uti ORDERING PHYSICIAN: KRISTI IRIZARRY PROCEDURE: RENAL - US RENAL SONOGRAM EXAM: US Retroperitoneum Complete, Renal. CLINICAL HISTORY: Complicated UTI. TECHNIQUE: Real-time ultrasound of the retroperitoneum (complete) with image documentation. Real-time grayscale sonographic images of the kidneys and bladder were obtained. COMPARISON: None provided. FINDINGS: RIGHT KIDNEY: Measures 8.2 x 3.8 x 4.7 cm. Corticomedullary differentiation preserved. A simple cyst is noted measuring 3.1 x 3.3 x 3.4 cm. No evidence of hydronephrosis or nephrolithiasis. LEFT KIDNEY: Measures 8.9 x 3.9 x 4.6 cm. Normal echotexture and corticomedullary differentiation. No hydronephrosis or renal calculi seen. BLADDER: Empty with Galindo catheter in situ. Urinary Bladder. IMPRESSION: 1. Simple renal cyst in the right kidney measuring 3.1 x 3.3 x 3.4 cm. 2. No sonographic evidence of hydronephrosis or nephrolithiasis bilaterally. 3. Galindo catheter in place with empty urinary bladder. IMPRESSION: No sonographic evidence of hydronephrosis or nephrolithiasis bilaterally. Simple renal cyst in the right kidney measuring 3.1 x 3.3 x 3.4 cm. Galindo catheter in place with empty urinary bladder. /[place] DICTATED BY: JOSE SILVA MD DATE: 10/26/241732 ELECTRONICALLY SIGNED BY: JOSE SILVA MD DATE: 10/26/241732 PATIENT: MALLORIE DALAL MR#: [id number] : 1950 SEX: M AGE: 74 LOCATION: [facility] ORDER 155 STATUS: ADM IN REPORT#: [id number] SERVICE 1550 REASON: afib rvr, hypotension ORDERING PHYSICIAN: ELIZABETH RG DO PROCEDURE: ECHO CMP - ECHO 2-D COMPLETE APPROVED REPORT EXAM: Two-dimensional and M-mode echocardiogram with Doppler and color Doppler. INDICATION ICD: Atrial fibrillation with rapid ventricular response 2D Dimensions RVDd 4.4 cm LVEF(%) 19.1 (>50%) LA ESV INDEX (BP) 45.80 mL/m2 IVSd 0.4 (0.7-1.1cm) FS(%) 9 % LVDd 5.4 (3.8-5.6cm) Ao Root(2D) 2.5 (2.0-3.7cm) PWd 0.5 (0.7-1.1cm) LVOT diam 2.2 (1.8-2.4cm) IVSs 0.5 cm IVC diam 2.4 cm LVDs 4.9 (2.5-4.0cm) PWs 0.7 cm Deformation Strain Apical 4 -7.1 % Apical 2 -7.2 % Apical 3 -6.2 % Global Strain -6.8 % M-Mode Dimensions EPSS 1.9 cm LA (MM) 5.8 (1.6-4.0cm) Ao Root(MM) 2.8 (2.0-3.7cm) Aortic Valve AoV Vmax 0.8 m/s Ao Peak GR 2.6 mmHg LVOT Vmax 0.5 m/s AoV VTI 0.1 m Ao Mean GR 1.6 mmHg LVOT VTI 0.09 m MONTSE (VMAX) 2.48 cm2 MONTSE (VTI) 2.6 cm2 Mitral Valve MV E Vmax 115.3 cm/s DECEL Time 156 ms P 1/2 T 29 ms MVA (PHT) 7.6 cm2 TDI E/E' Medial 22.6 E/E' Lateral 29.1 Medial E' Peak V 5.11 cm/s Lateral E' Peak V 3.96 cm/s Tricuspid Valve TR Vmax 2.9 m/s RAP (EST) 15 mmHg RVSP 48.0 mmHg TR Peak GR 33.0 mmHg Left Ventricle The left ventricle is borderline dilated. Severely reduced GLS -7.0% There is left ventricular wall thinning. LVEF is 20-25%. The LV diastolic function was unable to be assessed due to atrial arrhythmia but diastolic function is abnormal. Right Ventricle The right ventricle is mildly dilated. Right ventricular systolic function is moderately reduced. Atria The left atrium is moderately dilated. The right atrium is moderately dilated. Aortic Valve The aortic valve is normal in structure. No aortic regurgitation is present. There is no aortic valvular stenosis. Mitral Valve The mitral valve is normal in structure. There is moderate mitral valve regurgitation noted. There is no mitral valve stenosis. Tricuspid Valve The tricuspid valve is normal in structure. RVSP 48.0mmHg. There is mild to moderate tricuspid regurgitation. Pulmonic Valve The pulmonary valve is normal in structure. There is no pulmonic valvular regurgitation. Great Vessels The aortic root is normal in size. IVC is dilated and collapses <50% with inspiration. Pericardium There is no pericardial effusion. Other Information Quality : Technically difficult study due to body habitus Conclusion The left ventricle is borderline dilated. LVEF is 20-25%. The LV diastolic function was unable to be assessed due to atrial arrhythmia but diastolic function is abnormal. Severely reduced GLS -7.0% There is moderate mitral valve regurgitation noted. There is moderate mitral valve regurgitation noted. RVSP 48.0mmHg. There is mild to moderate tricuspid regurgitation. DICTATED BY: ZAC JIMENEZ MD DATE: 10/25/241822 ELECTRONICALLY SIGNED BY: ZAC JIMENEZ MD DATE: 10/26/24 1249 PLAN Maintain MAP > 65 Wean Perez-Synephrine as possible, currently at 0.299 Midodrine at 10mg TID The patient will require an ischemic evaluation and stress test prior to discharge after being stable off perez-syn for 24 hr Weaning hydrocortisone, currently reduced to 25mg IV q12h Amiodarone reduced to 200mg BID Follow Nephrology and cardiology recs Started Furosemide today per cardiology Education on smoking cessation. Continue Zosyn 3.375 IV q.12 hours. Doxy discontinued. Singulair 10 mg po q HS Atrovent nebs and Pulmicort acapella with nebs and IS q2H Nicotine patch14 mg daily Strict I's and O's and daily weights, low-sodium diet Fluid restriction to 1.5 L a day with a goal net -1 to 2 L daily. Heparin gtt discontinued Eliquis continued per cardiology Aspirin 81mg daily continued. Keep on telemetry, monitor/replace electrolytes as needed The patient underwent DCCV x1 patient failed to return to sinus rhythm continue amiodarone at a lower dose gtt per protocol Beta blockers, ACEIs, ARBs currently discontinued due to cardiogenic shock, low renal function and COPD. Patient maintained on renal nondialysis diet. Patient continued on Galindo for now, possibly removed tomorrow. PT continued. NEURO: Minimize central acting medications as possible. Fall Precautions. Well lighted room through the day and minimize interruptions through the night to prevent acute delirium. PULMONARY: Supplemental 02 as needed Titrate Fio2 to keep Spo2 > or = 90% DuoNebs and CPT as needed IS hourly while awake for pulmonary hygiene Out of bed to chair as tolerated VAP Bundle CARDIOVASCULAR: Follow hemodynamics. Titrate vasopressor to keep MAP >65 or systolic blood pressure >95mmHg GI & NUTRITION: Continue nutritional support Aspirations precautions Prokinetic agents and laxatives as needed KIDNEYS & ELECTROLYTES: Strict monitoring of intake and output Daily weights Avoid nephrotoxic agents Monitor electrolytes and replace as needed Goal urine output of 30mL/hr or 0.5mL/kg/hr ENDOCRINE: Maintain blood glucose between 100-180 at all times. Insulin sliding scale for blood glucose management INFECTIOUS DISEASE: Trend temperature. Swenson-culture if febrile. HEMATOLOGY & COAGULATION: Monitor H&H. Keep Hgb > 7 Transfuse 1 unit of PRBC for Hgb < 7 Transfuse 1 pack of platelets of platelets < 20, 000 Watch for any signs and symptoms of bleeding SKIN: Pressure ulcer prevention per facility protocol Rehab: PT/OT Code Status: Full Resuscitation Disposition: [Admit to ICU ] Other: Total patient critical care time exceeds 45 minutes excluding all procedures. ATTESTATION BY PHYSICIAN I have seen and examined the patient. I reviewed the documentation, medical decision making, and treatment plan as noted by the mid-level provider above. I agree with the findings and plan of care. Ashok Padron MD, MUHAMMAD H MD Nov 01, 2024 16:06
--- NOTE | 2024-11-01 22:27 | PN ---
[facility] PROGRESS NOTE Date Patient Seen: Nov 01, 2024 Time of Visit: 22:24 Supervising Physician: Dr Padron Primary Care Physician: Dr. Jeffrey Neil Outpatient Specialists: Dr. 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 Inpatient Consults: Critical Care team [facility] PROBLEM LIST: Acute on chronic Hypoxic resp failure POA (Uses o2 at home 2L PRN) Cardiogenic shock, SCAI stage C, POA requiring pressors Acute on Chronic combined Heart Failure with LVEF of 20-25% and GLS -7.0% Suspected moderate pulmonary HTN w/ RVSP 48.0 mmHg Acute cystitis Enterococcus Avium, POA Atrial fibrillation with RVR on amiodarone [id number] Score 4/ HAS-BLED Score 3 Elevated D- Dimer, BLE US negative for DVT Carotid artery disease Chronic kidney disease Simple renal Cyst 3.1 x 3.3 x 3.4 cm CAD s/p 3V CABG ( RODRIGUES-LAD, SVG-D, SVG-PDA ) August 2009 History of hypertension, currently hypotensive Acute kidney injury, GFR Elevated BNP Hyperlipidemia Hypothyroidism Tobacco dependence INTERVAL HISTORY: Patient seen and examined, all labs and imaging have been reviewed No acute events overnight Out of pum-bs-hasob Alert and oriented x4 Tolerating diet Afebrile Started on low-dose Claudio this morning to maintain BP parameters Plan: Follow cardiology recs, amiodarone 400 mg b.i.d., Eliquis 5 mg b.i.d. Zosyn Pending chest x-ray Midodrine 15 mg t.i.d. Patient on rosa at 0.01 REVIEW OF SYSTEMS: Const: no fever, fatigue, or weight changes Eyes: no recent vision problems ENT: No congestion, ear pain, or sore throat C/V: no chest pain, palpitations or edema Resp:+dry cough, no congestion, wheezing , or Shortness of breath] GI: No abdominal pain, nausea, vomiting, constipation, or diarrhea : No incontinence of or dyuria M/S: No joint or pain swelling + ankle swelling Skin: No rash Neuro: no headache, focal numbness, or weakness, dizziness or seizures Psych: no depression or anxiety Heme: no abnormal bruising or bleeding Lymph: no swollen glands PHYSICAL EXAM: GENERAL: Alert, weak, awake oriented x 3 HEENT: EOMI, Sclera non icteric, moist mucosa NECK: Supple, no JVD, trachea midline LUNGS: Diminished breath sounds bilaterally. No wheezes HEART: Regular rate and rhythm. Normal S1 and S2, without murmurs ABD: Abdomen soft, nontender. Bowel sounds present EXT: No clubbing cyanosis or edema NEURO: Alert and oriented to X3, follows commands Vital Signs (last 8hr) Date Time Temp Pulse Resp B/P (MAP) Pulse Ox O2 Delivery O2 Flow Rate FiO2 11/01/24 20:00 97.9 58 22 118/45 (69) 98 11/01/24 20:00 97 Room Air* 0 21 11/01/24 19:45 57 14 127/48 (74) 98 11/01/24 19:42 52 13 126/47 (73) 98 115/60 (78) 11/01/24 19:30 51 15 124/44 (70) 98 11/01/24 19:15 53 15 123/44 (70) 98 11/01/24 19:00 48 15 117/41 (66) 97 11/01/24 18:00 54 16 118/44 (68) 100 97/33 (54) 11/01/24 17:45 53 16 121/45 (70) 98 11/01/24 17:30 59 15 120/47 (71) 99 11/01/24 17:21 63 18 11/01/24 17:21 63 18 N/A Room Air 21 11/01/24 17:15 61 19 94/34 (54) 100 11/01/24 17:00 64 24 87/33 (51) 100 11/01/24 16:45 64 23 108/41 (63) 100 11/01/24 16:30 58 17 100/39 (59) 100 11/01/24 16:15 59 17 99/36 (57) 98 11/01/24 16:00 97.9 11/01/24 16:00 55 20 112/42 (65) 100 107/62 (77) 11/01/24 16:00 100 Room Air* 0 21 11/01/24 15:45 55 14 111/41 (64) 99 11/01/24 15:30 57 23 110/42 (64) 99 11/01/24 15:15 56 15 108/41 (63) 99 11/01/24 15:00 56 12 112/43 (66) 99 11/01/24 14:45 55 12 104/39 (60) 99 11/01/24 14:30 57 17 103/37 (59) 99 LABS: Hematology Labs: Test 11/01/24 03:20 Range/Units White Blood Count 8.9 4.8-10.8 K/uL Red Blood Count 3.24 L 4.50-6.20 MIL/uL Hemoglobin 10.1 L 14.0-18.0 g/dL Hematocrit 30.8 L 42-54 % Mean Corpuscular Volume 95.1 79-99 fL Mean Corpuscular Hemoglobin 31.2 27.0-33.0 pg Mean Corpuscular Hemoglobin Concent 32.8 32.0-36.0 g/dL Red Cell Distribution Width 13.3 11.0-15.5 % Platelet Count 118 L 130-400 K/uL Mean Platelet Volume 9.7 7.5-10.5 fL Immature Granulocyte % (Auto) 0.5 0-1 % Neutrophils (%) (Auto) 67.6 40.0-77.0 % Lymphocytes (%) (Auto) 24.2 21.0-51.0 % Monocytes (%) (Auto) 7.6 3.0-13.0 % Eosinophils (%) (Auto) 0.0 0.0-8.0 % Basophils (%) (Auto) 0.1 0.0-5.0 % Neutrophils # (Auto) 6.0 1.8-7.7 K/uL Lymphocytes # (Auto) 2.1 1.0-4.8 K/uL Monocytes # (Auto) 0.7 0.1-1.0 K/uL Eosinophils # (Auto) 0.00 0.00-0.70 K/uL Basophils # (Auto) 0.01 0.00-0.20 K/uL Absolute Immature Granulocyte (auto 0.04 0-1 K/uL Nucleated Red Blood Cells 0.0 0.0-0.19 % Chemistry Labs: Test 11/01/24 03:20 Range/Units Sodium Level 137 136-145 mmol/L Potassium Level 3.3 L 3.5-5.1 mmol/L Chloride Level 103 101-111 mmol/L Carbon Dioxide Level 28 21-32 mmol/L Blood Urea Nitrogen 44 H 7-18 mg/dL Creatinine 2.4 H 0.5-1.3 mg/dL Glomerular Filtration Rate Calc 28 >90 mL/min Random Glucose 127 H 70-105 mg/dL Total Calcium 9.0 8.5-10.1 mg/dL Magnesium Level 1.80 1.80-2.40 mg/dL Total Bilirubin 0.6 0.2-1.0 mg/dL Aspartate Amino Transf (AST/SGOT) 35 10-37 U/L Alanine Aminotransferase (ALT/SGPT) 23 12-78 U/L Alkaline Phosphatase 97 50-136 U/L Total Protein 6.1 6.0-8.3 g/dL Albumin 2.1 L 3.5-5.0 g/dL DIAGNOSTICS / RADIOLOGY RESULTS: [ ] PLAN NEURO: Minimize central acting medications as possible. Fall Precautions. Well lighted room through the day and minimize interruptions through the night to prevent acute delirium. PULMONARY: Supplemental 02 as needed Titrate Fio2 to keep Spo2 > or = 90% DuoNebs and CPT as needed IS hourly while awake for pulmonary hygiene Out of bed to chair as tolerated VAP Bundle CARDIOVASCULAR: Follow hemodynamics. Titrate vasopressor to keep MAP >65 or systolic blood pressure >95mmHg GI & NUTRITION: Continue nutritional support Aspirations precautions Prokinetic agents and laxatives as needed KIDNEYS & ELECTROLYTES: Strict monitoring of intake and output Daily weights Avoid nephrotoxic agents Monitor electrolytes and replace as needed Goal urine output of 30mL/hr or 0.5mL/kg/hr ENDOCRINE: Maintain blood glucose between 100-180 at all times. Insulin sliding scale for blood glucose management INFECTIOUS DISEASE: Trend temperature. Swenson-culture if febrile. HEMATOLOGY & COAGULATION: Monitor H&H. Keep Hgb > 7 Transfuse 1 unit of PRBC for Hgb < 7 Transfuse 1 pack of platelets of platelets < 20, 000 Watch for any signs and symptoms of bleeding SKIN: Pressure ulcer prevention per facility protocol Rehab: PT/OT Code Status: Full Resuscitation Disposition: [Admit to ICU ] Other: Total patient critical care time exceeds 45 minutes excluding all procedures. ZAC SANTANA Nov 01, 2024 22:27
[2024-11-02] VITALS (55 sets, daily range): BP systolic 83–132; BP diastolic 29–64; PULSE 52–69; RESP 10–25; TEMP 97.9–98.1; O2SAT 94–99
[2024-11-02 04:09] LABS: IMMATURE GRANULOCYTE ABSOLUTE 0.03 K/uL (0-1); NUCLEATED RED BLOOD CELLS 0.0 % (0.0-0.19); PLATELET COUNT (AUTO) 106 K/uL (130-400); RED BLOOD CELL COUNT(AUTO) 3.16 MIL/uL (4.50-6.20); RED CELL DISTRIBUTION WIDTH 13.3 % (11.0-15.5); WHITE BLOOD COUNT (AUTO) 6.3 K/uL (4.8-10.8)
[2024-11-02 04:24] LABS: ASPARTATE AMINOTRANSFERASE 38.0 U/L (10-37); CREATININE 2.2 mg/dL (0.5-1.3); GLOMERULAR FILTR. RATE CALC 31.0 mL/min (>90); GLUCOSE,RANDOM 124.0 mg/dL (70-105); SODIUM SERUM 137.0 mmol/L (136-145); TOTAL PROTEIN, SERUM 5.8 g/dL (6.0-8.3); UREA NITROGEN, BLOOD 45.0 mg/dL (7-18)
--- NOTE | 2024-11-02 06:35 | PN ---
[facility] Progress Note On cardiology progress note November 02, 2024 Problems: 1. Acute systolic congestive heart failure 2. Ischemic cardiomyopathy with ejection fraction of 20-25% 3. CAD status post aortocoronary bypass graft surgery 2009 with a RODRIGUES graft to the LAD saphenous graft to the diagonal artery and saphenous graft to the PDA 4. Atrial fibrillation with rapid ventricular response on admission status post failed cardioversion on admission now converted to sinus rhythm on amiodarone. 5. Dyslipidemia 6. Tobacco dependence 7. Remote lacunar infarct 2009 8. Carotid artery disease status post right carotid endarterectomy 2010 and subsequent left carotid endarterectomy 2018 9. Hypothyroidism 10. Acute on hronic kidney disease stage 4 11. Thrombocytopenia Blood pressure this morning is 110/40 heart rate is in the 50s. White count 6.3 hemoglobin 9.9 platelet count [id number]. Potassium 3.5 BUN 45 creatinine 2.2 down from 2.4 yesterday. Renal function continues to improve. The patient continues on amiodarone 200 mg b.i.d. apixaban 5 mg b.i.d. aspirin atorvastatin furosemide levothyroxine midodrine pantoprazole potassium protocol antibiotics.The patient is currently off pressors remains in sinus rhythm on amiodarone. Pulmonary congestion is improving. If his blood pressure remained stable off pressors in the next 24 hours I will tentatively scheduled for a Lexiscan Cardiolite stress test tomorrow. ZAC MCFADDEN MD Nov 02, 2024 06:35
--- NOTE | 2024-11-02 09:45 | PN ---
[facility] PROGRESS NOTE Date Patient Seen: Nov 02, 2024 Time of Visit: 09:43 Supervising Physician: Dr Padron Primary Care Physician: Dr. Jeffrey Neil Outpatient Specialists: Dr. Jimenez, aircraft shipping checker Inpatient Consults: Critical Care team [facility] PROBLEM LIST: Acute on chronic Hypoxic resp failure POA (Uses o2 at home 2L PRN) Cardiogenic shock, SCAI stage C, POA requiring pressors Acute on Chronic combined Heart Failure with LVEF of 20-25% and GLS -7.0% Suspected moderate pulmonary HTN w/ RVSP 48.0 mmHg Acute cystitis Enterococcus Avium, POA Atrial fibrillation with RVR on amiodarone [id number] Score 4/ HAS-BLED Score 3 Elevated D- Dimer, BLE US negative for DVT Carotid artery disease Chronic kidney disease Simple renal Cyst 3.1 x 3.3 x 3.4 cm CAD s/p 3V CABG ( RODRIGUES-LAD, SVG-D, 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 Patient in sinus rhythm, rate in the 60s nursing reports no acute events overnight. Patient comfortable in bed, reporting no chest pain, no shortness of breath He is alert and oriented x4 Tolerating his diet Afebrile Off pressors Plan: Follow cardiology recs, rate controlled Midodrine 15 mg t.i.d. Pending stress test scheduled for tomorrow. Downgrade to PCCU REVIEW OF SYSTEMS: Const: no fever, fatigue, or weight changes Eyes: no recent vision problems ENT: No congestion, ear pain, or sore throat C/V: no chest pain, palpitations or edema Resp:+dry cough, no congestion, wheezing , or Shortness of breath] GI: No abdominal pain, nausea, vomiting, constipation, or diarrhea : No incontinence of or dyuria M/S: No joint or pain swelling + ankle swelling Skin: No rash Neuro: no headache, focal numbness, or weakness, dizziness or seizures Psych: no depression or anxiety Heme: no abnormal bruising or bleeding Lymph: no swollen glands PHYSICAL EXAM: GENERAL: Alert, weak, awake oriented x 3 HEENT: EOMI, Sclera non icteric, moist mucosa NECK: Supple, no JVD, trachea midline LUNGS: Diminished breath sounds bilaterally. No wheezes HEART: Regular rate and rhythm. Normal S1 and S2, without murmurs ABD: Abdomen soft, nontender. Bowel sounds present EXT: No clubbing cyanosis or edema NEURO: Alert and oriented to X3, follows commands Vital Signs (last 8hr) Date Time Temp Pulse Resp B/P (MAP) Pulse Ox O2 Delivery O2 Flow Rate FiO2 11/02/24 08:00 96 Room Air* 0 21 11/02/24 07:15 67 19 116/48 94 Room Air 11/02/24 07:00 59 14 118/43 94 Room Air 11/02/24 06:31 62 18 N/A Room Air 21 11/02/24 06:31 62 18 11/02/24 06:15 59 15 124/47 (72) 99 11/02/24 06:00 56 11 116/38 (64) 94 11/02/24 05:45 59 14 117/41 (66) 95 11/02/24 05:42 57 14 118/42 (67) 96 113/50 (71) 11/02/24 05:30 58 13 121/45 (70) 96 11/02/24 05:15 60 10 127/46 (73) 95 11/02/24 05:00 54 15 121/41 (67) 94 11/02/24 04:45 58 20 109/38 (61) 95 11/02/24 04:30 58 14 115/39 (64) 95 11/02/24 04:15 55 10 120/43 (68) 98 11/02/24 04:00 95 Room Air* 0 21 11/02/24 04:00 98.1 56 13 119/41 (67) 93 11/02/24 03:45 58 19 114/40 (64) 95 11/02/24 03:42 61 12 117/41 (66) 96 119/58 (78) 11/02/24 03:30 54 18 113/38 (63) 95 11/02/24 03:15 55 15 111/36 (61) 96 11/02/24 03:00 56 11 111/38 (62) 97 11/02/24 02:45 56 13 114/37 (62) 96 11/02/24 02:30 58 15 109/37 (61) 94 11/02/24 02:15 58 14 105/34 (57) 97 8/7/25 02:00 57 12 107/32 (57) 93 11/02/24 01:45 57 10 105/34 (57) 95 LABS: Hematology Labs: Test 11/02/24 03:45 Range/Units White Blood Count 6.3 4.8-10.8 K/uL Red Blood Count 3.16 L 4.50-6.20 MIL/uL Hemoglobin 9.9 L 14.0-18.0 g/dL Hematocrit 30.0 L 42-54 % Mean Corpuscular Volume 94.9 79-99 fL Mean Corpuscular Hemoglobin 31.3 27.0-33.0 pg Mean Corpuscular Hemoglobin Concent 33.0 32.0-36.0 g/dL Red Cell Distribution Width 13.3 11.0-15.5 % Platelet Count 106 L 130-400 K/uL Mean Platelet Volume 10.4 7.5-10.5 fL Immature Granulocyte % (Auto) 0.5 0-1 % Neutrophils (%) (Auto) 56.4 40.0-77.0 % Lymphocytes (%) (Auto) 33.8 21.0-51.0 % Monocytes (%) (Auto) 9.1 3.0-13.0 % Eosinophils (%) (Auto) 0.2 0.0-8.0 % Basophils (%) (Auto) 0.0 0.0-5.0 % Neutrophils # (Auto) 3.5 1.8-7.7 K/uL Lymphocytes # (Auto) 2.1 1.0-4.8 K/uL Monocytes # (Auto) 0.6 0.1-1.0 K/uL Eosinophils # (Auto) 0.01 0.00-0.70 K/uL Basophils # (Auto) 0.00 0.00-0.20 K/uL Absolute Immature Granulocyte (auto 0.03 0-1 K/uL Nucleated Red Blood Cells 0.0 0.0-0.19 % Chemistry Labs: Test 11/02/24 03:45 Range/Units Sodium Level 137 136-145 mmol/L Potassium Level 3.5 3.5-5.1 mmol/L Chloride Level 103 101-111 mmol/L Carbon Dioxide Level 28 21-32 mmol/L Blood Urea Nitrogen 45 H 7-18 mg/dL Creatinine 2.2 H 0.5-1.3 mg/dL Glomerular Filtration Rate Calc 31 >90 mL/min Random Glucose 124 H 70-105 mg/dL Total Calcium 8.8 8.5-10.1 mg/dL Magnesium Level 1.80 1.80-2.40 mg/dL Total Bilirubin 0.5 0.2-1.0 mg/dL Aspartate Amino Transf (AST/SGOT) 38 H 10-37 U/L Alanine Aminotransferase (ALT/SGPT) 29 12-78 U/L Alkaline Phosphatase 91 50-136 U/L Total Protein 5.8 L 6.0-8.3 g/dL Albumin 2.0 L 3.5-5.0 g/dL DIAGNOSTICS / RADIOLOGY RESULTS: [ ] PLAN NEURO: Minimize central acting medications as possible. Maintain fall precautions, adequate lighting during the day PULMONARY: Supplemental 02 as needed. Maintain aspiration precautions at all times CARDIOVASCULAR: Follow hemodynamics. Vital signs per facility protocol GI & NUTRITION: Continue with nutritional support. Continue stool softeners and laxatives as needed. KIDNEYS & ELECTROLYTES: Strict monitoring of intake, output and overall fluid balance. Avoid nephrotoxic medications to the extent possible. Medications to be dosed according to renal function. Monitor electrolytes and replace as needed ENDOCRINE: Maintain blood glucose between 100-180 at all times. Hypoglycemia protocol in place INFECTIOUS DISEASE: Trend temperature, WBC and procalcitonin level Follow cultures, deescalate antibiotics as soon as possible. Panculture if new onset fever ONCOLOGY/HEMATOLOGY/COAGULATION: Monitor for s/s of bleeding Monitor hemoglobin, coagulation studies as needed SKIN: Pressure ulcer prevention per facility protocol Specialty mattress ORTHO/REHAB: Continue PT/OT Prophylaxis: Continue GI and DVT prophylaxis Code Status: Full Resuscitation Disposition: TBD Other: Total patient care time exceeds 35 minutes excluding all procedures. ZAC SANTANA Nov 02, 2024 09:45
--- NOTE | 2024-11-02 10:18 | PN ---
FOLLOWUP PROGRESS NOTE SUBJECTIVE: The patient is a 74-year-old male with a history of known coronary artery disease, initially presented with acute renal failure secondary to hypotension. The patient's renal function has stabilized. He continues to be weaned from the pressors and he is being seen as a followup visit for all of the above. He remains in the ICU. REVIEW OF SYSTEMS: CONSTITUTIONAL: The patient is feeling improved. HEENT: No change in vision. No change in hearing. CARDIOVASCULAR: There are no current chest pains or palpitations. PULMONARY: He denies any shortness of breath. GASTROINTESTINAL: He has been started on a diet. MUSCULOSKELETAL: Complaints of weakness. PHYSICAL EXAMINATION: VITAL SIGNS: Blood pressure 116/48, pulse 60s, afebrile. GENERAL: He is a chronically ill male, lying in bed on the medical floor. HEENT: Head is atraumatic. Pupils are equal, roving to light. Oropharynx is without exudate. Nares clear. NECK: There is no JVP. There is no thyromegaly. No masses. CARDIOVASCULAR: Regular. There is no S3 or S4 gallop. LUNGS: Coarse with equal thoracic movement. ABDOMEN: Soft, nondistended, and nontender. EXTREMITIES: Revealed no clubbing, no cyanosis. NEUROLOGICAL: He is awake. He is alert. LABORATORY DATA: BUN 45, creatinine is 2.2, sodium is 137, hemoglobin 9.9, hematocrit 30. IMPRESSION: * Renal dysfunction. * Coronary artery disease. * Hypotension. * Anemia. PLAN: The patient continues to be weaned from the pressors. He remains on midodrine for his hypotension. Cardiac workup is ongoing. The patient's creatinine has improved. He has a history of known chronic renal insufficiency. We will continue to follow closely. All labs can be repeated in the morning. TID: [id number] RECEIPT: [id number]
--- NOTE | 2024-11-02 12:50 | PN ---
[facility] PROGRESS NOTE Date of Service: Nov 02, 2024 Time of Service: 12:47 SUBJECTIVE: 10/26 74-year-old male, history of coronary artery disease, dyslipidemia, hypertension, tobacco dependence, remote lacunar infarct, carotid artery disease, hypothyroidism, presented with a chief complaint of generalized body weakness and shortness a breath, in the emergency room found to have AFib with a RVR, heart rate in with the 140s, hypotensive, cardioverted electrically x1, did not restore sinus rhythm, patient admitted to the ICU. At the time of my visit awake, following commands, on heparin drip, Levophed, amiodarone drip, dobutamine drip, echocardiogram showing ejection fraction 20- 25%. Cardiology input noted and appreciated, the patient will require an ischemic evaluation prior to discharge. 10/27/24 patient remains in ICU. Patient appears chronically ill fragile and weak. Denied chest pain. Patient is being followed by chief scientific officer's continues on dopamine drip. The plan is to stabilize medically weaned off pressors they we will consider Lexiscan. 10/28/24 the patient was evaluated in ICU room 215. He is alert oriented x3. patient is being evaluated by physical therapist during rounds. He denies any chest pain. Patient was evaluated by chief scientific officer plan is for Lexiscan and Cardiolite stress test before discharge. Patient continues to be on phenylephrine drip. 10/29/24 Patient was evaluated in ICU, room 215. Continues to deny any chest pain. Dobutamine has been discontinued. Patient was started on Eliquis 5 mg PO BID; amiodarone 400 mg PO BID is ongoing. BNP is uptrending, currently 2110. F urosemide 20 mg IV daily initiated. Continue Solu-Cortef 50 mg IV every 6 hours. Labs reviewed; potassium remains low at 2.8 mmol/L today. Will continue with potassium replacement protocol. Plans for Lexiscan and Cardiolite stress tests pre-discharge remain in place; will follow up with cardiology regarding scheduling. 10/30/24 patient remains on Clint-Synephrine the plan is to taper off as tolerated once blood pressure is stable chief scientific officer's we will consider Cardiolite stress test prior to discharge. Patient is fully awake alert oriented x3 denied chest pain or shortness for breath 10/31/24 APPRECIATE SPOT WASHER'S INPUT THE PLAN IS TO DISCONTINUE CLINT-SYNEPHRINE AND MONITOR BLOOD PRESSURE. IF BLOOD PRESSURE REMAINED STABLE OFF OF PRESSORS THE NEXT24 HOURS POSSIBLE SPOT WASHER'S WAS SCHEDULED FOR A CARDIOLITE STRESS TEST. Patient watching TV. Denied chest pain or shortness for breath. 11/01/24 patient was seen earlier patient continues on a low dose of Clint- Synephrine primary nurse reports patient was off for2 hours and became bradycardia. Patient continues to work with physical therapy out of bed to chair as tolerated yesterday he tolerating 6 hours. Patient have no other complaints. 11/02/2024. Patient is sitting in chair having lunch off of Clint-Synephrine chief scientific officer's schedule patient for Cardiolite stress test. Patient denied chest pain, dizziness or palpitations. REVIEW OF SYSTEMS CONSTITUTIONAL: Denies fevers, chills, or night sweats. No unintentional weight loss reported. NEUROLOGICAL: Denies headache, amaurosis fugax, motor weakness, sensory deficit, vertigo/spinning sensation, gait abnormalities, or tremors. ENT: No hearing loss, otalgia, otorrhea, rhinitis, rhinorrhea, hoarseness, or sore throat. CARDIOVASCULAR: Denies any exertional angina, dyspnea on exertion, orthopnea, paroxysmal nocturnal dyspnea, palpitations, life-threatening arrhythmias, claudication. PULMONARY: Denies any shortness of breath, cough, phlegm/sputum, hemoptysis, pleuritic chest pain. SLEEP: Denies morning headaches, daytime somnolence or napping. Denies difficulty falling asleep, staying asleep, waking from sleep. Denies knowledge of snoring. GASTROINTESTINAL: Denies any type of dysphagia to either liquids or solids. Denies nausea, vomiting, pyrosis, early satiety, abdominal pain, diarrhea, constipation, or changes in stool consistency or caliber. Denies coffee-ground emesis, hematemesis, hematochezia, or melanotic stools. GENITOURINARY: Denies frequency, urgency, nocturia, hematuria or incontinence (Storage/Irritative symptoms.) Low urinary stream, straining to void, urinary intermittency or hesitancy, splitting of the voiding stream, terminal dribbling. ENDOCRINOLOGIC: Denies polyuria, polydipsia, polyphagia or heat/cold intolerances. HEMATOLOGIC: Denies thrombophilia/previous clots, or coagulopathy/bleeding disorders. ONCOLOGIC: Denies personal history of malignancy. DERMATOLOGIC: Denies rashes or pruritus. PSYCHIATRIC: Denies any suicidal or homicidal ideation. Denies hallucinations. PHYSICAL EXAM GENERAL APPEARANCE: The patient is awake, alert, and oriented, in no acute cardiopulmonary distress. NEUROLOGICAL: Cranial nerves II-XII grossly intact. Motor is 5/5 in bilateral upper and lower extremities proximal to distal. No sensory deficits. HEENT: Face is symmetric. Pupils are equal and reactive. Extraocular movements are intact. NECK: Supple. No JVD. No thyromegaly. No submental, submandibular, pre- /postauricular, occipital or supraclavicular lymphadenopathy. CHEST: Normal chest expansion. No Telemetry. LUNGS: Absence of any rales, rhonchi or any wheezing. CARDIOVASCULAR: Regular. S1 and S2 normal. No appreciable rubs, murmurs or gallops. ABDOMEN: Soft, nontender, and nondistended. There is no rebound, voluntary guarding, or rigidity. : Deferred. No Galindo. EXTREMITIES: Non-edematous and not cyanotic. No clubbing. Good capillary refill. SKIN: No skin breakdown. Vital Signs (last 8hr) Date Time Temp Pulse Resp B/P (MAP) Pulse Ox O2 Delivery O2 Flow Rate FiO2 11/02/24 12:12 63 24 95/36 98 Room Air 11/02/24 11:45 98.1 65 22 101/45 92 Room Air 11/02/24 11:38 57 18 N/A Room Air 21 11/02/24 11:12 57 25 93/35 100 Room Air 11/02/24 10:45 57 15 103/37 99 Room Air 11/02/24 10:30 59 15 97/37 98 Room Air 11/02/24 10:15 60 15 94/35 99 Room Air 11/02/24 10:00 58 15 94/34 98 Room Air 11/02/24 09:30 57 14 88/32 98 Room Air 11/02/24 09:15 58 18 86/31 96 Room Air 11/02/24 09:00 59 15 83/30 94 Room Air 11/02/24 08:45 60 16 85/29 96 Room Air 11/02/24 08:30 60 17 103/36 98 Room Air 11/02/24 08:15 61 15 93/31 98 Room Air 11/02/24 08:00 57 13 102/32 96 Room Air 11/02/24 08:00 96 Room Air* 0 21 11/02/24 07:45 67 19 116/48 94 Room Air 11/02/24 07:30 69 20 110/48 94 Room Air 11/02/24 07:15 67 19 116/48 94 Room Air 11/02/24 07:00 59 14 118/43 94 Room Air 11/02/24 06:31 62 18 N/A Room Air 21 11/02/24 06:31 62 18 11/02/24 06:15 59 15 124/47 (72) 99 11/02/24 06:00 56 11 116/38 (64) 94 11/02/24 05:45 59 14 117/41 (66) 95 11/02/24 05:42 57 14 118/42 (67) 96 113/50 (71) 11/02/24 05:30 58 13 121/45 (70) 96 11/02/24 05:15 60 10 127/46 (73) 95 11/02/24 05:00 54 15 121/41 (67) 94 LABS: Laboratory: Test 11/02/24 03:45 Range/Units White Blood Count 6.3 4.8-10.8 K/uL Red Blood Count 3.16 L 4.50-6.20 MIL/uL Hemoglobin 9.9 L 14.0-18.0 g/dL Hematocrit 30.0 L 42-54 % Mean Corpuscular Volume 94.9 79-99 fL Mean Corpuscular Hemoglobin 31.3 27.0-33.0 pg Mean Corpuscular Hemoglobin Concent 33.0 32.0-36.0 g/dL Red Cell Distribution Width 13.3 11.0-15.5 % Platelet Count 106 L 130-400 K/uL Mean Platelet Volume 10.4 7.5-10.5 fL Immature Granulocyte % (Auto) 0.5 0-1 % Neutrophils (%) (Auto) 56.4 40.0-77.0 % Lymphocytes (%) (Auto) 33.8 21.0-51.0 % Monocytes (%) (Auto) 9.1 3.0-13.0 % Eosinophils (%) (Auto) 0.2 0.0-8.0 % Basophils (%) (Auto) 0.0 0.0-5.0 % Neutrophils # (Auto) 3.5 1.8-7.7 K/uL Lymphocytes # (Auto) 2.1 1.0-4.8 K/uL Monocytes # (Auto) 0.6 0.1-1.0 K/uL Eosinophils # (Auto) 0.01 0.00-0.70 K/uL Basophils # (Auto) 0.00 0.00-0.20 K/uL Absolute Immature Granulocyte (auto 0.03 0-1 K/uL Nucleated Red Blood Cells 0.0 0.0-0.19 % Sodium Level 137 136-145 mmol/L Potassium Level 3.5 3.5-5.1 mmol/L Chloride Level 103 101-111 mmol/L Carbon Dioxide Level 28 21-32 mmol/L Blood Urea Nitrogen 45 H 7-18 mg/dL Creatinine 2.2 H 0.5-1.3 mg/dL Glomerular Filtration Rate Calc 31 >90 mL/min Random Glucose 124 H 70-105 mg/dL Total Calcium 8.8 8.5-10.1 mg/dL Magnesium Level 1.80 1.80-2.40 mg/dL Total Bilirubin 0.5 0.2-1.0 mg/dL Aspartate Amino Transf (AST/SGOT) 38 H 10-37 U/L Alanine Aminotransferase (ALT/SGPT) 29 12-78 U/L Alkaline Phosphatase 91 50-136 U/L Total Protein 5.8 L 6.0-8.3 g/dL Albumin 2.0 L 3.5-5.0 g/dL Current Medications Medications (Trade) Dose Ordered Sig/Gustavo Route PRN Reason Start Time Stop Time Status Last Admin Dose Admin Acetaminophen (TYLenol 325MG TAB) 650 mg Q6H PRN PO TEMPERATURE GREATER THAN 101.5 10/25/24 21:00 11/24/24 20:59 Amiodarone HCl (pacERONE 200MG) 200 mg BID PO 10/26/24 09:00 10/26/24 07:36 DC Amiodarone HCl (pacERONE 200MG) 200 mg BID PO 10/31/24 21:00 11/30/24 20:59 11/02/24 08:09 200 MG Amiodarone HCl (pacERONE 200MG) 400 mg BID PO 10/26/24 09:00 10/31/24 14:14 DC 10/31/24 08:35 400 MG Amiodarone HCL/ Dextrose 100 ml @ 0 mls/hr PROTOCOL IV 10/27/24 07:30 10/28/24 06:27 DC 10/27/24 07:44 600 MLS/HR Amiodarone HCL/ Dextrose 200 ml @ 33.333 mls/ hr AD IV 10/25/24 16:00 10/26/24 07:30 DC 10/25/24 17:42 33.333 MLS/HR Apixaban (EliquIS) 5 mg BID PO 10/28/24 21:00 11/27/24 20:59 11/02/24 08:09 5 MG Aspirin (Aspirin 81mg Ec Tab) 81 mg DAILY PO 10/29/24 09:00 10/28/24 16:10 DC Aspirin (Aspirin 81mg Ec Tab) 81 mg DAILY PO 10/31/24 09:00 11/30/24 08:59 11/02/24 08:09 81 MG Atorvastatin Calcium (LIPItor 40MG) 80 mg HS PO 10/28/24 21:00 11/27/24 20:59 11/01/24 20:15 80 MG Bisacodyl (DulcoLAX) 10 mg DAILY RC 10/28/24 09:00 10/31/24 08:59 DC Budesonide (Pulmicort 0.5 Mg/2ml) 0.5 mg BIDRESP IH 10/28/24 10:30 11/27/24 10:29 11/02/24 06:30 0.5 MG Clopidogrel Bisulfate (plaVIX 75MG) 75 mg DAILY PO 10/29/24 09:00 10/28/24 16:10 DC Dobutamine HCl/ Dextrose 250 ml @ 0 mls/hr PROTOCOL IV 10/25/24 16:00 10/28/24 10:04 DC 10/27/24 07:02 0 MLS/HR Dobutamine HCl/ Dextrose 250 ml @ 0 mls/hr PROTOCOL IV 10/26/24 07:30 10/26/24 07:37 DC Doxycycline Hyclate (Doxycycline Hyclate) 100 mg BID PO 10/26/24 21:00 10/31/24 12:00 DC 10/31/24 08:35 100 MG Fentanyl/Sodium Chloride 250 ml @ 0.1 mls/hr PROTOCOL PRN IV OTHER [SEE ORDER COMMENTS] 10/31/24 15:00 10/31/24 14:57 DC Furosemide (LASix 20MG TAB) 20 mg DAILY PO 10/29/24 09:00 10/28/24 10:06 DC Furosemide (LASix 20MG TAB) 20 mg DAILY PO 11/01/24 09:00 12/01/24 08:59 11/02/24 08:09 20 MG Furosemide (LASix 20MG VIAL) 20 mg DAILY IV 10/29/24 09:00 10/31/24 07:03 DC 10/30/24 07:54 20 MG Furosemide (LASix 40MG VIAL) 30 mg Q12H IV 10/27/24 07:00 10/27/24 13:49 DC 10/27/24 07:01 30 MG Furosemide (LASix 40MG VIAL) 30 mg Q12H IV 10/27/24 18:00 10/28/24 09:58 DC 10/27/24 16:56 30 MG Furosemide (LASix 40MG VIAL) 40 mg Q12H IV 10/25/24 19:00 10/26/24 19:26 DC 10/26/24 18:47 40 MG Furosemide (LASix 40MG VIAL) 40 mg Q12H IV 10/26/24 07:30 10/26/24 07:36 DC Heparin Sodium (Porcine) (HEParin 5,000 UNIT VIAL) 5,000 unit BID SQ 10/25/24 21:00 10/25/24 22:47 DC Heparin Sodium/ Dextrose 250 ml @ 0 mls/hr PROTOCOL IV 10/25/24 16:00 10/28/24 09:53 DC 10/26/24 18:46 7.7 MLS/HR Hydrocortisone Sodium Succinate (Solu-corTEF 100MG) 25 mg Q12H IV 10/31/24 14:30 11/03/24 15:00 11/02/24 02:51 25 MG Hydrocortisone Sodium Succinate (Solu-corTEF 100MG) 50 mg Q6H IV 10/29/24 09:00 10/31/24 14:14 DC 10/31/24 08:39 50 MG Ipratropium [place] (AtrovENT UD) 0.5 MG Q6H PRN IH SHORTNESS OF BREATH 10/28/24 10:30 11/27/24 10:29 11/02/24 06:30 0.5 MG Lactulose (Constulose 20gm/ 30ml Udcup) 20 gm BID PRN PO CONSTIPATION 10/26/24 17:00 11/25/24 16:59 10/26/24 16:53 20 GM Levothyroxine Sodium (SYNTHroid 75MCG TAB) 75 mcg SYN PO 10/29/24 06:30 11/28/24 06:29 11/02/24 04:58 75 MCG Magnesium Sulfate 50 ml @ 0 mls/hr PROTOCOL IV 10/25/24 15:30 10/25/24 21:00 DC 10/25/24 16:27 25 MLS/HR Magnesium Sulfate 50 ml @ 0 mls/hr PROTOCOL PRN IV MAGNESIUM PROTOCOL 10/25/24 21:00 11/24/24 20:59 11/02/24 04:57 25 MLS/HR Midodrine (PROAMatine 5 MG TABLET) 10 mg TID PO 10/26/24 09:30 10/31/24 16:48 DC 10/31/24 13:28 10 MG Midodrine (PROAMatine 5 MG TABLET) 10 mg TID PO 11/01/24 14:00 12/01/24 13:59 11/02/24 08:08 10 MG Midodrine (PROAMatine 5 MG TABLET) 15 mg TID PO 10/31/24 21:00 11/01/24 10:06 DC 10/31/24 19:50 15 MG Montelukast Sodium (SinguLAIR) 10 mg HS PO 10/26/24 21:00 11/25/24 20:59 11/01/24 20:15 10 MG Morphine Sulfate (morPHINE 2MG SYG) 2 mg Q4H PRN IVP SEVERE PAIN (7-10) 10/25/24 21:00 11/01/24 20:59 DC Nicotine (Nicoderm) 14 mg DAILY TD 10/27/24 09:00 11/26/24 08:59 11/02/24 08:09 14 MG Norepinephrine 250 ml @ 0 mls/hr PROTOCOL IV 10/25/24 18:00 10/28/24 10:04 DC 10/26/24 13:45 27.573 MLS/HR Ondansetron HCl (zoFRAN 4MG INJ) 4 mg Q6H PRN IV NAUSEA/VOMITING 10/25/24 21:00 11/24/24 20:59 Pantoprazole Sodium (PROTonix 40MG INJ) 40 mg DAILY IV 10/26/24 09:00 11/25/24 08:59 11/02/24 08:09 40 MG Pharmacy Profile Note (Pharmacy Communication) 1 each ONCE MISC 10/27/24 14:00 10/27/24 13:50 DC Phenylephrine HCl 100 mg/Sodium Chloride 250 ml @ 0 mls/hr AD PRN IV TITRATE 10/27/24 04:30 11/26/24 04:29 10/30/24 01:15 4.96 MLS/HR Piperacillin Sod/ Tazobactam Sod (Zosyn 3.375gm+NS 50ml) 3.375 gm Q12H IV 10/25/24 21:00 11/04/24 20:59 11/02/24 08:08 3.375 GM Potassium Chloride 100 ml @ 100 mls/hr AD PRN IV POTASSIUM PROTOCOL 10/29/24 19:00 11/28/24 18:59 10/31/24 08:37 100 MLS/HR Potassium Chloride (K-Dur 10meq Sr Tab) 10 meq AD PRN PO POTASSIUM PROTOCOL 10/31/24 09:30 11/28/24 18:59 11/02/24 04:58 10 MEQ Potassium Chloride (K-Dur/Klor-Con 20meq) 10 meq AD PRN PO POTASSIUM PROTOCOL 10/29/24 19:00 10/31/24 09:25 DC 10/31/24 06:29 10 MEQ Potassium Chloride (KCl 10% Elixir 20meq/15ml) 10 meq AD PRN PO POTASSIUM PROTOCOL 10/29/24 19:00 11/28/24 18:59 11/02/24 11:18 10 MEQ Potassium Chloride (KCl 10% Elixir 20meq/15ml) 20 meq DAILY PRN PO FOR POTASSIUM < 4 10/29/24 20:30 10/31/24 09:25 DC Propofol (DIPRivan 1000MG/ 100ML) 1,000 mg PROTOCOL PRN IV SEDATION 10/31/24 15:00 10/31/24 14:57 DC Sodium Bicarbonate (Sodium Bicarbonate) 1,300 mg BID PO 10/27/24 21:00 8/2/25 10:04 DC 10/27/24 20:20 1,300 MG Sodium Chloride 250 ml @ 0 mls/hr Q0M IV 10/28/24 10:30 11/27/24 10:29 DIAGNOSTICS / RADIOLOGY: [ ] ASSESSMENT: Cardiogenic shock, POA Acute on Chronic combined Heart Failure with LVEF of 20-25% and GLS -7.0% Suspected moderate pulmonary HTN w/ RVSP 48.0 mmHg AFib with a RVR, POA, refractory Hypotension, POA Acute kidney injury, POA, today creatinine 3.3, on 04/11/2022 creatinine 2.8 Lactic acidosis, POA Elevated BNP, POA Hypomagnesemia, POA Hyperlipidemia Hypothyroidism] Tobacco dependence, POA PLAN: Patient remains admitted to the ICU, off Clint-Synephrine observation monitor blood pressure chief scientific officer's scheduled for a Cardiolite stress in a.m. Midodrine 10 mg p.o.3 times a day. Continue amiodarone 200 mg p.o. twice a day. For anticoagulation patient was started with Eliquis5 mg p.o. b.i.d. We will continue to monitor electrolytes and replete as necessary, Protocol and monitor levels closely NEURO: Minimize central acting medications as possible. Fall Precautions. Well lighted room through the day and minimize interruptions through the night to prevent acute delirium. PULMONARY: Supplemental 02 as needed BiPAP as necessary, for respiratory distress Titrate Fio2 to keep Spo2 > or = 90% DuoNebs and CPT as needed IS hourly while awake for pulmonary hygiene prn PT Out of bed to chair as tolerated Maintain aspiration precautions at all times CARDIOVASCULAR: Follow hemodynamics. Vital signs per facility protocol GI & NUTRITION: Continue nutritional support Aspirations precautions Prokinetic agents and laxatives as needed KIDNEYS & ELECTROLYTES: Strict monitoring of intake and output Daily weights Avoid nephrotoxic agents Monitor electrolytes and replace as needed Goal urine output of 30mL/hr or 0.5mL/kg/hr Medications to be dosed according to renal function. Avoid contrast if possible ENDOCRINE: Maintain blood glucose between 100-180 at all times. Insulin sliding scale for blood glucose management Hypoglycemia and hyperglycemia protocol in place INFECTIOUS DISEASE: Trend temperature, WBC and procalcitonin level Follow cultures, deescalate antibiotics as soon as possible. Panculture if new onset fever HEMATOLOGY & COAGULATION: Monitor H&H. Keep Hgb > 7 Transfuse 1 unit of PRBC for Hgb < 7 Transfuse 1 pack of platelets of platelets < 20, 000 Watch for any signs and symptoms of bleeding SKIN: Pressure ulcer prevention per facility protocol Specialty mattress as needed ORTHO/REHAB Continue PT/OT PRN: MEDICATIONS Tylenol 650 mg po every 4 hrs for fever zofran 4 mg IV every 6 hrs for n/v Hydralazine 5 mg IV every 4 hrs systolic pressure > 160 bowel regiment: lactulose 20 gm PO BID PRN constipation Supportive measures: Continue GI and DVT prophylaxis Disposition: Pending improvement in clinical condition All questions answered time spent: > 35 min ATTESTATION BY PHYSICIAN I have seen and examined the patient. I reviewed the documentation, medical decision making, and treatment plan as noted by the mid-level provider above. I agree with the findings and plan of care. Norah Nieves MD, ELIZABETH NP Nov 02, 2024 12:50
--- NOTE | 2024-11-02 16:20 | NUR ---
RECEIVED REPORT FROM ICU NURSE [place]. PATIENT FROM 215 TRANSFERRED VIA RECLINER CHAIR TO 229. PATIENT ALERT AND ORIENTED X3, PICC LINE INTACT, NO PAIN OR DISTRESSED VERBALIZED NOR NOTED. VITAL SIGNED BEING OBTAINED, CHAIR ALARM PLACED, CALL LIGHT WITHIN REACH. PATIENT IN CHAIR READY TO HAVE DINNER. WILL CONTINUE CARE FROM THIS POINT.
[2024-11-03] VITALS (11 sets, daily range): BP systolic 98–134; BP diastolic 46–67; PULSE 62–82; RESP 18; TEMP 97.8–98.8; O2SAT 95–99
[2024-11-03 05:09] LABS: IMMATURE GRANULOCYTE ABSOLUTE 0.04 K/uL (0-1); NUCLEATED RED BLOOD CELLS 0.0 % (0.0-0.19); PLATELET COUNT (AUTO) 114 K/uL (130-400); RED BLOOD CELL COUNT(AUTO) 3.19 MIL/uL (4.50-6.20); RED CELL DISTRIBUTION WIDTH 13.2 % (11.0-15.5); WHITE BLOOD COUNT (AUTO) 6.6 K/uL (4.8-10.8)
[2024-11-03 05:25] LABS: ASPARTATE AMINOTRANSFERASE 43.0 U/L (10-37); CREATININE 1.9 mg/dL (0.5-1.3); GLOMERULAR FILTR. RATE CALC 37.0 mL/min (>90); GLUCOSE,RANDOM 137.0 mg/dL (70-105); SODIUM SERUM 136.0 mmol/L (136-145); TOTAL PROTEIN, SERUM 6.0 g/dL (6.0-8.3); UREA NITROGEN, BLOOD 42.0 mg/dL (7-18)
--- NOTE | 2024-11-03 06:39 | PN ---
[facility] Cardiology Progress Note CARDIOLOGY PROGRESS NOTE October Problems: 1. Acute systolic congestive heart failure 2. Ischemic cardiomyopathy with ejection fraction of 20-25% 3. CAD status post aortocoronary bypass graft surgery 2009 with a RODRIGUES graft to the LAD saphenous graft to the diagonal artery and saphenous graft to the PDA 4. Atrial fibrillation with rapid ventricular response on admission status post failed cardioversion on admission now converted to sinus rhythm on amiodarone. 5. Dyslipidemia 6. Tobacco dependence 7. Remote lacunar infarct 2009 8. Carotid artery disease status post right carotid endarterectomy 2010 and subsequent left carotid endarterectomy 2018 9. Hypothyroidism 10. Acute on hronic kidney disease stage 4 11. Thrombocytopenia The patient has been transferred to telemetry. Pressure has been stable off pressors. Currently running 120-130 systolic. Heart rate in the 60s the patient is afebrile. He remains in sinus rhythm on amiodarone. White count 6.6 hemoglobin 10 platelet count [id number]. Potassium 3.2 BUN42 creatinine down to 1.9. GFR has improved to 37. The patient continues on amiodarone apixaban aspirin atorvastatin furosemide 20 mg daily levothyroxine midodrine pantoprazole potassium protocol and antibiotics. Because of a significant drop in ejection fraction the patient is scheduled for a Lexiscan Cardiolite stress test. Given his acute renal failure I would not mathur to invasive cardiac catheterization even if reversible ischemia is noted. I believe he could probably be treated medically for the time being and have an elective procedure if needed in the future once his kidneys have fully recovered. ZAC MCFADDEN MD Nov 03, 2024 06:39
[2024-11-03] MEDS: REGADENOSON 0.4 MG/5 ML PF SYG IVP ONE (08:09)
--- NOTE | 2024-11-03 09:31 | PN ---
FOLLOWUP PROGRESS NOTE SUBJECTIVE: A 74-year-old male with a history of known cardiomyopathy. The patient initially presented with acute renal failure secondary to hypotension. The patient has become much more hemodynamically stable. He remains on the midodrine. The patient has been transferred out to the medical floor and he is being seen as a followup visit for all of the above. REVIEW OF SYSTEMS: CONSTITUTIONAL: He is feeling much improved. HEENT: No change in vision. No change in hearing. CARDIOVASCULAR: There is no current chest pain or palpitations. PULMONARY: There is no shortness of breath. GASTROINTESTINAL: He is tolerating a diet. MUSCULOSKELETAL: Complains of weakness. PHYSICAL EXAMINATION: VITAL SIGNS: Blood pressure is 134/67, pulse 60s, afebrile. GENERAL: He is a chronically ill male, elderly, lying in bed on the medical floor. HEENT: Head is atraumatic. Pupils equal, roving to light. Oropharynx is without exudate. Nares clear. NECK: There is no JVP. There is no thyromegaly, no mass. CARDIOVASCULAR: Regular. There is no S3 or S4 gallop. LUNGS: Coarse with equal thoracic movement. ABDOMEN: Soft, nondistended, and nontender. EXTREMITIES: There is no clubbing, no cyanosis. NEUROLOGICAL: He is awake. He is alert. LABORATORY DATA: BUN 42, creatinine is 1.9, potassium is 3.2. Hemoglobin 10, hematocrit 30. IMPRESSION: * Acute renal failure. * Cardiomyopathy. * Hypotension. * Anemia. PLAN: The patient's creatinine continues to stabilize. The patient has become much more hemodynamically stable. He remains on the midodrine as well as Solu-Cortef. The patient will need to be discharged on oral Florinef for his adrenal insufficiency. We will continue to follow closely. Cardiac workup is ongoing. Electrolytes have all been aggressively repleted. The patient with multiple questions, all of which were answered. TID: [id number] RECEIPT: [id number]
--- NOTE | 2024-11-03 12:48 | PN ---
[facility] PROGRESS NOTE Date of Service: Nov 03, 2024 Time of Service: 12:43 SUBJECTIVE: 10/26 74-year-old male, history of coronary artery disease, dyslipidemia, hypertension, tobacco dependence, remote lacunar infarct, carotid artery disease, hypothyroidism, presented with a chief complaint of generalized body weakness and shortness a breath, in the emergency room found to have AFib with a RVR, heart rate in with the 140s, hypotensive, cardioverted electrically x1, did not restore sinus rhythm, patient admitted to the ICU. At the time of my visit awake, following commands, on heparin drip, Levophed, amiodarone drip, dobutamine drip, echocardiogram showing ejection fraction 20- 25%. Cardiology input noted and appreciated, the patient will require an ischemic evaluation prior to discharge. 10/27/24 patient remains in ICU. Patient appears chronically ill fragile and weak. Denied chest pain. Patient is being followed by supply chain buyer's continues on dopamine drip. The plan is to stabilize medically weaned off pressors they we will consider Lexiscan. 10/28/24 the patient was evaluated in ICU room 215. He is alert oriented x3. patient is being evaluated by physical therapist during rounds. He denies any chest pain. Patient was evaluated by supply chain buyer plan is for Lexiscan and Cardiolite stress test before discharge. Patient continues to be on phenylephrine drip. 10/29/24 Patient was evaluated in ICU, room 215. Continues to deny any chest pain. Dobutamine has been discontinued. Patient was started on Eliquis 5 mg PO BID; amiodarone 400 mg PO BID is ongoing. BNP is uptrending, currently 2110. F urosemide 20 mg IV daily initiated. Continue Solu-Cortef 50 mg IV every 6 hours. Labs reviewed; potassium remains low at 2.8 mmol/L today. Will continue with potassium replacement protocol. Plans for Lexiscan and Cardiolite stress tests pre-discharge remain in place; will follow up with cardiology regarding scheduling. 10/30/24 patient remains on Clint-Synephrine the plan is to taper off as tolerated once blood pressure is stable supply chain buyer's we will consider Cardiolite stress test prior to discharge. Patient is fully awake alert oriented x3 denied chest pain or shortness for breath 10/31/24 APPRECIATE APPETIZER PACKER'S INPUT THE PLAN IS TO DISCONTINUE CLINT-SYNEPHRINE AND MONITOR BLOOD PRESSURE. IF BLOOD PRESSURE REMAINED STABLE OFF OF PRESSORS THE NEXT24 HOURS POSSIBLE APPETIZER PACKER'S WAS SCHEDULED FOR A CARDIOLITE STRESS TEST. Patient watching TV. Denied chest pain or shortness for breath. 11/01/24 patient was seen earlier patient continues on a low dose of Clint- Synephrine primary nurse reports patient was off for2 hours and became bradycardia. Patient continues to work with physical therapy out of bed to chair as tolerated yesterday he tolerating 6 hours. Patient have no other complaints. 11/02/2024. Patient is sitting in chair having lunch off of Clint-Synephrine supply chain buyer's schedule patient for Cardiolite stress test. Patient denied chest pain, dizziness or palpitations. 11/03/24 patient returned back from Cardiolite stress test results are pending. Blood pressure heart rate in the 60s currently running 04/18/2029 systolic he remains sinus rhythm he continues on amiodarone. Patient is not a candidate for left heart catheterization given to kidney failure. As per Dr. Jimenez patient will be treated medically for the time being and have a elective procedure if needed in the future once his kidneys approved REVIEW OF SYSTEMS CONSTITUTIONAL: Denies fevers, chills, or night sweats. No unintentional weight loss reported. NEUROLOGICAL: Denies headache, amaurosis fugax, motor weakness, sensory deficit, vertigo/spinning sensation, gait abnormalities, or tremors. ENT: No hearing loss, otalgia, otorrhea, rhinitis, rhinorrhea, hoarseness, or sore throat. CARDIOVASCULAR: Denies any exertional angina, dyspnea on exertion, orthopnea, paroxysmal nocturnal dyspnea, palpitations, life-threatening arrhythmias, claudication. PULMONARY: Denies any shortness of breath, cough, phlegm/sputum, hemoptysis, pleuritic chest pain. SLEEP: Denies morning headaches, daytime somnolence or napping. Denies difficulty falling asleep, staying asleep, waking from sleep. Denies knowledge of snoring. GASTROINTESTINAL: Denies any type of dysphagia to either liquids or solids. Denies nausea, vomiting, pyrosis, early satiety, abdominal pain, diarrhea, constipation, or changes in stool consistency or caliber. Denies coffee-ground emesis, hematemesis, hematochezia, or melanotic stools. GENITOURINARY: Denies frequency, urgency, nocturia, hematuria or incontinence (Storage/Irritative symptoms.) Low urinary stream, straining to void, urinary intermittency or hesitancy, splitting of the voiding stream, terminal dribbling. ENDOCRINOLOGIC: Denies polyuria, polydipsia, polyphagia or heat/cold intolerances. HEMATOLOGIC: Denies thrombophilia/previous clots, or coagulopathy/bleeding disorders. ONCOLOGIC: Denies personal history of malignancy. DERMATOLOGIC: Denies rashes or pruritus. PSYCHIATRIC: Denies any suicidal or homicidal ideation. Denies hallucinations. PHYSICAL EXAM GENERAL APPEARANCE: The patient is awake, alert, and oriented, in no acute cardiopulmonary distress. NEUROLOGICAL: Cranial nerves II-XII grossly intact. Motor is 5/5 in bilateral upper and lower extremities proximal to distal. No sensory deficits. HEENT: Face is symmetric. Pupils are equal and reactive. Extraocular movements are intact. NECK: Supple. No JVD. No thyromegaly. No submental, submandibular, pre- /postauricular, occipital or supraclavicular lymphadenopathy. CHEST: Normal chest expansion. No Telemetry. LUNGS: Absence of any rales, rhonchi or any wheezing. CARDIOVASCULAR: Regular. S1 and S2 normal. No appreciable rubs, murmurs or gallops. ABDOMEN: Soft, nontender, and nondistended. There is no rebound, voluntary guarding, or rigidity. : Deferred. No Galindo. EXTREMITIES: Non-edematous and not cyanotic. No clubbing. Good capillary refill. SKIN: No skin breakdown. Vital Signs (last 8hr) Date Time Temp Pulse Resp B/P (MAP) Pulse Ox O2 Delivery O2 Flow Rate FiO2 11/03/24 11:55 98.8 71 18 98/46 99 Room Air 11/03/24 10:30 98 Room Air* 0 21 11/03/24 09:23 97.9 72 18 98/52 95 Room Air 11/03/24 07:02 82 18 11/03/24 07:01 82 18 N/A Room Air 21 LABS: Laboratory: Test 11/03/24 04:35 Range/Units White Blood Count 6.6 4.8-10.8 K/uL Red Blood Count 3.19 L 4.50-6.20 MIL/uL Hemoglobin 10.0 L 14.0-18.0 g/dL Hematocrit 30.3 L 42-54 % Mean Corpuscular Volume 95.0 79-99 fL Mean Corpuscular Hemoglobin 31.3 27.0-33.0 pg Mean Corpuscular Hemoglobin Concent 33.0 32.0-36.0 g/dL Red Cell Distribution Width 13.2 11.0-15.5 % Platelet Count 114 L 130-400 K/uL Mean Platelet Volume 10.1 7.5-10.5 fL Immature Granulocyte % (Auto) 0.6 0-1 % Neutrophils (%) (Auto) 58.2 40.0-77.0 % Lymphocytes (%) (Auto) 33.1 21.0-51.0 % Monocytes (%) (Auto) 8.1 3.0-13.0 % Eosinophils (%) (Auto) 0.0 0.0-8.0 % Basophils (%) (Auto) 0.0 0.0-5.0 % Neutrophils # (Auto) 3.9 1.8-7.7 K/uL Lymphocytes # (Auto) 2.2 1.0-4.8 K/uL Monocytes # (Auto) 0.5 0.1-1.0 K/uL Eosinophils # (Auto) 0.00 0.00-0.70 K/uL Basophils # (Auto) 0.00 0.00-0.20 K/uL Absolute Immature Granulocyte (auto 0.04 0-1 K/uL Nucleated Red Blood Cells 0.0 0.0-0.19 % Sodium Level 136 136-145 mmol/L Potassium Level 3.2 L 3.5-5.1 mmol/L Chloride Level 101 101-111 mmol/L Carbon Dioxide Level 28 21-32 mmol/L Blood Urea Nitrogen 42 H 7-18 mg/dL Creatinine 1.9 H 0.5-1.3 mg/dL Glomerular Filtration Rate Calc 37 >90 mL/min Random Glucose 137 H 70-105 mg/dL Total Calcium 8.8 8.5-10.1 mg/dL Magnesium Level 2.00 1.80-2.40 mg/dL Total Bilirubin 0.5 0.2-1.0 mg/dL Aspartate Amino Transf (AST/SGOT) 43 H 10-37 U/L Alanine Aminotransferase (ALT/SGPT) 38 12-78 U/L Alkaline Phosphatase 95 50-136 U/L Total Protein 6.0 6.0-8.3 g/dL Albumin 2.2 L 3.5-5.0 g/dL Current Medications Medications (Trade) Dose Ordered Sig/Gustavo Route PRN Reason Start Time Stop Time Status Last Admin Dose Admin Acetaminophen (TYLenol 325MG TAB) 650 mg Q6H PRN PO TEMPERATURE GREATER THAN 101.5 10/25/24 21:00 11/24/24 20:59 Amiodarone HCl (pacERONE 200MG) 200 mg BID PO 10/26/24 09:00 10/26/24 07:36 DC Amiodarone HCl (pacERONE 200MG) 200 mg BID PO 10/31/24 21:00 11/30/24 20:59 11/03/24 10:34 200 MG Amiodarone HCl (pacERONE 200MG) 400 mg BID PO 10/26/24 09:00 10/31/24 14:14 DC 10/31/24 08:35 400 MG Amiodarone HCL/ Dextrose 100 ml @ 0 mls/hr PROTOCOL IV 10/27/24 07:30 10/28/24 06:27 DC 10/27/24 07:44 600 MLS/HR Amiodarone HCL/ Dextrose 200 ml @ 33.333 mls/ hr AD IV 10/25/24 16:00 10/26/24 07:30 DC 10/25/24 17:42 33.333 MLS/HR Apixaban (EliquIS) 5 mg BID PO 10/28/24 21:00 11/27/24 20:59 11/03/24 10:35 5 MG Aspirin (Aspirin 81mg Ec Tab) 81 mg DAILY PO 10/29/24 09:00 10/28/24 16:10 DC Aspirin (Aspirin 81mg Ec Tab) 81 mg DAILY PO 10/31/24 09:00 11/30/24 08:59 11/03/24 10:34 81 MG Atorvastatin Calcium (LIPItor 40MG) 80 mg HS PO 10/28/24 21:00 11/27/24 20:59 11/02/24 20:19 80 MG Bisacodyl (DulcoLAX) 10 mg DAILY RC 10/28/24 09:00 10/31/24 08:59 DC Budesonide (Pulmicort 0.5 Mg/2ml) 0.5 mg BIDRESP IH 10/28/24 10:30 11/27/24 10:29 11/03/24 06:59 0.5 MG Clopidogrel Bisulfate (plaVIX 75MG) 75 mg DAILY PO 10/29/24 09:00 10/28/24 16:10 DC Dobutamine HCl/ Dextrose 250 ml @ 0 mls/hr PROTOCOL IV 10/25/24 16:00 10/28/24 10:04 DC 10/27/24 07:02 0 MLS/HR Dobutamine HCl/ Dextrose 250 ml @ 0 mls/hr PROTOCOL IV 10/26/24 07:30 10/26/24 07:37 DC Doxycycline Hyclate (Doxycycline Hyclate) 100 mg BID PO 10/26/24 21:00 10/31/24 12:00 DC 10/31/24 08:35 100 MG Fentanyl/Sodium Chloride 250 ml @ 0.1 mls/hr PROTOCOL PRN IV OTHER [SEE ORDER COMMENTS] 10/31/24 15:00 10/31/24 14:57 DC Furosemide (LASix 20MG TAB) 20 mg DAILY PO 10/29/24 09:00 10/28/24 10:06 DC Furosemide (LASix 20MG TAB) 20 mg DAILY PO 11/01/24 09:00 12/01/24 08:59 11/03/24 11:17 20 MG Furosemide (LASix 20MG VIAL) 20 mg DAILY IV 10/29/24 09:00 10/31/24 07:03 DC 10/30/24 07:54 20 MG Furosemide (LASix 40MG VIAL) 30 mg Q12H IV 10/27/24 07:00 10/27/24 13:49 DC 10/27/24 07:01 30 MG Furosemide (LASix 40MG VIAL) 30 mg Q12H IV 10/27/24 18:00 10/28/24 09:58 DC 10/27/24 16:56 30 MG Furosemide (LASix 40MG VIAL) 40 mg Q12H IV 10/25/24 19:00 10/26/24 19:26 DC 10/26/24 18:47 40 MG Furosemide (LASix 40MG VIAL) 40 mg Q12H IV 10/26/24 07:30 10/26/24 07:36 DC Heparin Sodium (Porcine) (HEParin 5,000 UNIT VIAL) 5,000 unit BID SQ 10/25/24 21:00 10/25/24 22:47 DC Heparin Sodium/ Dextrose 250 ml @ 0 mls/hr PROTOCOL IV 10/25/24 16:00 10/28/24 09:53 DC 10/26/24 18:46 7.7 MLS/HR Hydrocortisone Sodium Succinate (Solu-corTEF 100MG) 25 mg Q12H IV 10/31/24 14:30 11/03/24 15:00 11/03/24 02:49 25 MG Hydrocortisone Sodium Succinate (Solu-corTEF 100MG) 50 mg Q6H IV 10/29/24 09:00 10/31/24 14:14 DC 10/31/24 08:39 50 MG Ipratropium [place] (AtrovENT UD) 0.5 MG Q6H PRN IH SHORTNESS OF BREATH 10/28/24 10:30 11/27/24 10:29 11/02/24 06:30 0.5 MG Lactulose (Constulose 20gm/ 30ml Udcup) 20 gm BID PRN PO CONSTIPATION 10/26/24 17:00 11/25/24 16:59 10/26/24 16:53 20 GM Levothyroxine Sodium (SYNTHroid 75MCG TAB) 75 mcg SYN PO 10/29/24 06:30 11/28/24 06:29 11/02/24 04:58 75 MCG Magnesium Sulfate 50 ml @ 0 mls/hr PROTOCOL IV 10/25/24 15:30 10/25/24 21:00 DC 10/25/24 16:27 25 MLS/HR Magnesium Sulfate 50 ml @ 0 mls/hr PROTOCOL PRN IV MAGNESIUM PROTOCOL 10/25/24 21:00 11/24/24 20:59 11/02/24 04:57 25 MLS/HR Midodrine (PROAMatine 5 MG TABLET) 10 mg TID PO 10/26/24 09:30 10/31/24 16:48 DC 10/31/24 13:28 10 MG Midodrine (PROAMatine 5 MG TABLET) 10 mg TID PO 11/01/24 14:00 12/01/24 13:59 11/03/24 10:34 10 MG Midodrine (PROAMatine 5 MG TABLET) 15 mg TID PO 10/31/24 21:00 11/01/24 10:06 DC 10/31/24 19:50 15 MG Montelukast Sodium (SinguLAIR) 10 mg HS PO 10/26/24 21:00 11/25/24 20:59 11/02/24 20:19 10 MG Morphine Sulfate (morPHINE 2MG SYG) 2 mg Q4H PRN IVP SEVERE PAIN (7-10) 10/25/24 21:00 11/01/24 20:59 DC Nicotine (Nicoderm) 14 mg DAILY TD 10/27/24 09:00 11/26/24 08:59 11/03/24 10:34 14 MG Norepinephrine 250 ml @ 0 mls/hr PROTOCOL IV 10/25/24 18:00 10/28/24 10:04 DC 10/26/24 13:45 27.573 MLS/HR Ondansetron HCl (zoFRAN 4MG INJ) 4 mg Q6H PRN IV NAUSEA/VOMITING 10/25/24 21:00 11/24/24 20:59 Pantoprazole Sodium (PROTonix 40MG INJ) 40 mg DAILY IV 10/26/24 09:00 11/25/24 08:59 11/03/24 10:34 40 MG Pharmacy Profile Note (Pharmacy Communication) 1 each ONCE MISC 10/27/24 14:00 10/27/24 13:50 DC Phenylephrine HCl 100 mg/Sodium Chloride 250 ml @ 0 mls/hr AD PRN IV TITRATE 10/27/24 04:30 11/26/24 04:29 10/30/24 01:15 4.96 MLS/HR Piperacillin Sod/ Tazobactam Sod (Zosyn 3.375gm+NS 50ml) 3.375 gm Q12H IV 10/25/24 21:00 11/04/24 20:59 11/03/24 11:17 3.375 GM Potassium Chloride 100 ml @ 100 mls/hr AD PRN IV POTASSIUM PROTOCOL 10/29/24 19:00 11/28/24 18:59 10/31/24 08:37 100 MLS/HR Potassium Chloride (K-Dur 10meq Sr Tab) 10 meq AD PRN PO POTASSIUM PROTOCOL 10/31/24 09:30 11/28/24 18:59 11/03/24 11:25 10 MEQ Potassium Chloride (K-Dur/Klor-Con 20meq) 10 meq AD PRN PO POTASSIUM PROTOCOL 10/29/24 19:00 10/31/24 09:25 DC 10/31/24 06:29 10 MEQ Potassium Chloride (KCl 10% Elixir 20meq/15ml) 10 meq AD PRN PO POTASSIUM PROTOCOL 10/29/24 19:00 11/28/24 18:59 11/02/24 11:18 10 MEQ Potassium Chloride (KCl 10% Elixir 20meq/15ml) 20 meq DAILY PRN PO FOR POTASSIUM < 4 10/29/24 20:30 10/31/24 09:25 DC Propofol (DIPRivan 1000MG/ 100ML) 1,000 mg PROTOCOL PRN IV SEDATION 10/31/24 15:00 10/31/24 14:57 DC Sodium Bicarbonate (Sodium Bicarbonate) 1,300 mg BID PO 10/27/24 21:00 10/28/24 10:04 DC 10/27/24 20:20 1,300 MG Sodium Chloride 250 ml @ 0 mls/hr Q0M IV 10/28/24 10:30 11/27/24 10:29 DIAGNOSTICS / RADIOLOGY: [ ] ASSESSMENT: Cardiogenic shock, POA 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 Continues on midodrine For anticoagulation patient was started with Eliquis5 mg p.o. b.i.d. We will continue to monitor electrolytes and replete as necessary, Possible discharge if no further intervention we will wait for supply chain buyer's input. NEURO: Minimize central acting medications as possible. Fall Precautions. Well lighted room through the day and minimize interruptions through the night to prevent acute delirium. PULMONARY: Supplemental 02 as needed BiPAP as necessary, for respiratory distress Titrate Fio2 to keep Spo2 > or = 90% DuoNebs and CPT as needed IS hourly while awake for pulmonary hygiene prn PT Out of bed to chair as tolerated Maintain aspiration precautions at all times CARDIOVASCULAR: Follow hemodynamics. Vital signs per facility protocol GI & NUTRITION: Continue nutritional support Aspirations precautions Prokinetic agents and laxatives as needed KIDNEYS & ELECTROLYTES: Strict monitoring of intake and output Daily weights Avoid nephrotoxic agents Monitor electrolytes and replace as needed Goal urine output of 30mL/hr or 0.5mL/kg/hr Medications to be dosed according to renal function. Avoid contrast if possible ENDOCRINE: Maintain blood glucose between 100-180 at all times. Insulin sliding scale for blood glucose management Hypoglycemia and hyperglycemia protocol in place INFECTIOUS DISEASE: Trend temperature, WBC and procalcitonin level Follow cultures, deescalate antibiotics as soon as possible. Panculture if new onset fever HEMATOLOGY & COAGULATION: Monitor H&H. Keep Hgb > 7 Transfuse 1 unit of PRBC for Hgb < 7 Transfuse 1 pack of platelets of platelets < 20, 000 Watch for any signs and symptoms of bleeding SKIN: Pressure ulcer prevention per facility protocol Specialty mattress as needed ORTHO/REHAB Continue PT/OT PRN: MEDICATIONS Tylenol 650 mg po every 4 hrs for fever zofran 4 mg IV every 6 hrs for n/v Hydralazine 5 mg IV every 4 hrs systolic pressure > 160 bowel regiment: lactulose 20 gm PO BID PRN constipation Supportive measures: Continue GI and DVT prophylaxis Disposition: Pending improvement in clinical condition All questions answered time spent: > 35 min ATTESTATION BY PHYSICIAN I have seen and examined the patient. I reviewed the documentation, medical decision making, and treatment plan as noted by the mid-level provider above. I agree with the findings and plan of care. Norah Nieves MD, ELIZABETH NP Nov 03, 2024 12:48
[2024-11-03] MEDS ORDERED: miDODRine HCL 5 MG TABLET PO (12:53)
[2024-11-03] MEDS ORDERED: APIX5TAB PO (12:53)
[2024-11-03] MEDS ORDERED: AMIO200T44 PO (12:53)
[2024-11-03] MEDS ORDERED: FURO20TA6 PO (12:53)
[2024-11-03] MEDS ORDERED: NITR100C PO (12:53)
--- NOTE | 2024-11-03 21:04 | PN ---
[facility] PROGRESS NOTE Date Patient Seen: Nov 03, 2024 Time of Visit: 21:02 Supervising Physician: Dr Padron Primary Care Physician: Dr. Jeffrey Neil Outpatient Specialists: Dr. 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 Nursing reports no acute events overnight. Patient is sitting comfortably in bed. Reporting no discomfort Alert and oriented x4 Vital signs are stable Patient afebrile Patient is scheduled for Cardiolite stress test this morning Plan: Follow cardiology recs, rate controlled We will follow the patient's post stress test Telemetry REVIEW OF SYSTEMS: Const: no fever, fatigue, or weight changes Eyes: no recent vision problems ENT: No congestion, ear pain, or sore throat C/V: no chest pain, palpitations or edema Resp:+dry cough, no congestion, wheezing , or Shortness of breath] GI: No abdominal pain, nausea, vomiting, constipation, or diarrhea : No incontinence of or dyuria M/S: No joint or pain swelling + ankle swelling Skin: No rash Neuro: no headache, focal numbness, or weakness, dizziness or seizures Psych: no depression or anxiety Heme: no abnormal bruising or bleeding Lymph: no swollen glands PHYSICAL EXAM: GENERAL: Alert, weak, awake oriented x 3 HEENT: EOMI, Sclera non icteric, moist mucosa NECK: Supple, no JVD, trachea midline LUNGS: Diminished breath sounds bilaterally. No wheezes HEART: Regular rate and rhythm. Normal S1 and S2, without murmurs ABD: Abdomen soft, nontender. Bowel sounds present EXT: No clubbing cyanosis or edema NEURO: Alert and oriented to X3, follows commands Vital Signs (last 8hr) Date Time Temp Pulse Resp B/P (MAP) Pulse Ox O2 Delivery O2 Flow Rate FiO2 11/03/24 19:59 98.1 62 18 114/54 96 Room Air 11/03/24 18:33 62 18 N/A Room Air 21 11/03/24 18:33 62 18 11/03/24 16:23 97.9 75 18 119/61 98 Room Air LABS: Hematology Labs: Test 11/03/24 04:35 Range/Units White Blood Count 6.6 4.8-10.8 K/uL Red Blood Count 3.19 L 4.50-6.20 MIL/uL Hemoglobin 10.0 L 14.0-18.0 g/dL Hematocrit 30.3 L 42-54 % Mean Corpuscular Volume 95.0 79-99 fL Mean Corpuscular Hemoglobin 31.3 27.0-33.0 pg Mean Corpuscular Hemoglobin Concent 33.0 32.0-36.0 g/dL Red Cell Distribution Width 13.2 11.0-15.5 % Platelet Count 114 L 130-400 K/uL Mean Platelet Volume 10.1 7.5-10.5 fL Immature Granulocyte % (Auto) 0.6 0-1 % Neutrophils (%) (Auto) 58.2 40.0-77.0 % Lymphocytes (%) (Auto) 33.1 21.0-51.0 % Monocytes (%) (Auto) 8.1 3.0-13.0 % Eosinophils (%) (Auto) 0.0 0.0-8.0 % Basophils (%) (Auto) 0.0 0.0-5.0 % Neutrophils # (Auto) 3.9 1.8-7.7 K/uL Lymphocytes # (Auto) 2.2 1.0-4.8 K/uL Monocytes # (Auto) 0.5 0.1-1.0 K/uL Eosinophils # (Auto) 0.00 0.00-0.70 K/uL Basophils # (Auto) 0.00 0.00-0.20 K/uL Absolute Immature Granulocyte (auto 0.04 0-1 K/uL Nucleated Red Blood Cells 0.0 0.0-0.19 % Chemistry Labs: Test 11/03/24 04:35 Range/Units Sodium Level 136 136-145 mmol/L Potassium Level 3.2 L 3.5-5.1 mmol/L Chloride Level 101 101-111 mmol/L Carbon Dioxide Level 28 21-32 mmol/L Blood Urea Nitrogen 42 H 7-18 mg/dL Creatinine 1.9 H 0.5-1.3 mg/dL Glomerular Filtration Rate Calc 37 >90 mL/min Random Glucose 137 H 70-105 mg/dL Total Calcium 8.8 8.5-10.1 mg/dL Magnesium Level 2.00 1.80-2.40 mg/dL Total Bilirubin 0.5 0.2-1.0 mg/dL Aspartate Amino Transf (AST/SGOT) 43 H 10-37 U/L Alanine Aminotransferase (ALT/SGPT) 38 12-78 U/L Alkaline Phosphatase 95 50-136 U/L Total Protein 6.0 6.0-8.3 g/dL Albumin 2.2 L 3.5-5.0 g/dL DIAGNOSTICS / RADIOLOGY RESULTS: [ ] PLAN NEURO: Minimize central acting medications as possible. Maintain fall precautions, adequate lighting during the day PULMONARY: Supplemental 02 as needed. Maintain aspiration precautions at all times CARDIOVASCULAR: Follow hemodynamics. Vital signs per facility protocol GI & NUTRITION: Continue with nutritional support. Continue stool softeners and laxatives as needed. KIDNEYS & ELECTROLYTES: Strict monitoring of intake, output and overall fluid balance. Avoid nephrotoxic medications to the extent possible. Medications to be dosed according to renal function. Monitor electrolytes and replace as needed ENDOCRINE: Maintain blood glucose between 100-180 at all times. Hypoglycemia protocol in place INFECTIOUS DISEASE: Trend temperature, WBC and procalcitonin level Follow cultures, deescalate antibiotics as soon as possible. Panculture if new onset fever ONCOLOGY/HEMATOLOGY/COAGULATION: Monitor for s/s of bleeding Monitor hemoglobin, coagulation studies as needed SKIN: Pressure ulcer prevention per facility protocol Specialty mattress ORTHO/REHAB: Continue PT/OT Prophylaxis: Continue GI and DVT prophylaxis Code Status: Full Resuscitation Disposition: TBD Other: Total patient care time exceeds 35 minutes excluding all procedures. ZAC SANTANA Nov 03, 2024 21:04
[2024-11-04] VITALS (7 sets, daily range): BP systolic 115–125; BP diastolic 55–62; PULSE 56–61; RESP 16–18; TEMP 97.5–98.4; O2SAT 98–100
[2024-11-04 04:47] LABS: CREATININE 1.9 mg/dL (0.5-1.3); GLOMERULAR FILTR. RATE CALC 37.0 mL/min (>90); GLUCOSE,RANDOM 115.0 mg/dL (70-105); SODIUM SERUM 137.0 mmol/L (136-145); UREA NITROGEN, BLOOD 39.0 mg/dL (7-18)
--- NOTE | 2024-11-04 09:24 | HMCSR ---
APPROVED REPORT Height: 5 ft 5in Weight: 162 lbs TEST INDICATIONS CHF The imaging protocol used to acquire images was Rest Tc-99m/stress Tc-99m 1 day Consent: The procedure was explained and understood by the patient. Informerd consent was witnessed Malinda Blanco RN First, low dose rest was performed then high dose stress. RESTING DATA: The resting ekg shows: NSR Rest SPECT myocardial perfusion imaging was performed in supine position minutes following the intra venous injection of 11 mCi of Tc-99 Sestamibi. Time of rest injection: 06:26: Date: 11/03/2024 PHARMACOLOGIC STRESS: Pharmacologic stress test was performed by injecting regadenoson 0.4 mg IV push followed by the intra venous injection of 28 mCi of Tc-99 Sestamibi. Time of stress injection: 08:25: Date: 11/03/2024 Heart Rate at time of stress injection: 66 bpm. Gated Stress SPECT was performed 60 minutes after stress injection. The images were gated to evaluate regional wall motion and calculate left ventricular ejection fracti on. STRESS DETAILS Reason for Termination: Infusion complete Stress Symptoms: Dyspnea Max HR Achieved: 90 bpm % of APMHR Achieved: 72 Max Blood Pressure: 147/64 mmHg Stress ECG: NSR, PVCs Study quality was good. Lung uptake was Normal. Artifact: No artifact IMPRESSION Abnormal pharmacologic nuclear stress test. Conclusion Fixed inferior defect consistent with prior myocardial infarction and scar. LVEF 39%. TID 1.07.
--- NOTE | 2024-11-04 09:25 | PN ---
[facility] CARDIOLOGY PROGRESS NOTE Date Patient Seen: Nov 04, 2024 Time of Visit: 09:20 Interval History: [Cr down to 1.9. Tele shows sinus rhythm at 64 bpm ] Physical Examination: GENERAL: [No acute distress.] HEAD: [Normal with no signs of head trauma.] EYES: [PERRLA, EOMI, conjunctiva and sclera normal.] ENT: [Hearing grossly intact, normal oropharynx.] NECK: [Supple without JVD. There is no tenderness, lymphadenopathy, or masses. No thyromegaly. Normal carotid upstrokes without bruits.] LUNGS: [Clear breath sounds bilaterally. No wheezes, or rhonchi.] HEART: [regular rate and rhythm. Normal S1 and S2 without murmurs, gallop or rub.] VASC: [Peripheral pulses +2 bilaterally.] ABD: [Bowel sounds normal, soft, nontender, no masses, no organomegaly. No audible bruits.] : [Not examined] LYMPH: [No lymphadenopathy noted.] EXT: [No clubbing, cyanosis or edema.] SKIN: [No rashes or lesions noted.] NEURO: [Awake, alert, and oriented x3. No focal sensory or strength deficits noted.] Laboratory: [ ] Hematology Labs: Test 11/03/24 04:35 Range/Units White Blood Count 6.6 4.8-10.8 K/uL Red Blood Count 3.19 L 4.50-6.20 MIL/uL Hemoglobin 10.0 L 14.0-18.0 g/dL Hematocrit 30.3 L 42-54 % Mean Corpuscular Volume 95.0 79-99 fL Mean Corpuscular Hemoglobin 31.3 27.0-33.0 pg Mean Corpuscular Hemoglobin Concent 33.0 32.0-36.0 g/dL Red Cell Distribution Width 13.2 11.0-15.5 % Platelet Count 114 L 130-400 K/uL Mean Platelet Volume 10.1 7.5-10.5 fL Immature Granulocyte % (Auto) 0.6 0-1 % Neutrophils (%) (Auto) 58.2 40.0-77.0 % Lymphocytes (%) (Auto) 33.1 21.0-51.0 % Monocytes (%) (Auto) 8.1 3.0-13.0 % Eosinophils (%) (Auto) 0.0 0.0-8.0 % Basophils (%) (Auto) 0.0 0.0-5.0 % Neutrophils # (Auto) 3.9 1.8-7.7 K/uL Lymphocytes # (Auto) 2.2 1.0-4.8 K/uL Monocytes # (Auto) 0.5 0.1-1.0 K/uL Eosinophils # (Auto) 0.00 0.00-0.70 K/uL Basophils # (Auto) 0.00 0.00-0.20 K/uL Absolute Immature Granulocyte (auto 0.04 0-1 K/uL Nucleated Red Blood Cells 0.0 0.0-0.19 % Chemistry Labs: Test 11/04/24 04:15 11/03/24 04:35 Range/Units Sodium Level 137 136-145 mmol/L Potassium Level 3.3 L 3.5-5.1 mmol/L Chloride Level 102 101-111 mmol/L Carbon Dioxide Level 29 21-32 mmol/L Blood Urea Nitrogen 39 H 7-18 mg/dL Creatinine 1.9 H 0.5-1.3 mg/dL Glomerular Filtration Rate Calc 37 >90 mL/min Random Glucose 115 H 70-105 mg/dL Total Calcium 8.7 8.5-10.1 mg/dL Magnesium Level 2.00 1.80-2.40 mg/dL Total Bilirubin 0.5 0.2-1.0 mg/dL Aspartate Amino Transf (AST/SGOT) 43 H 10-37 U/L Alanine Aminotransferase (ALT/SGPT) 38 12-78 U/L Alkaline Phosphatase 95 50-136 U/L Total Protein 6.0 6.0-8.3 g/dL Albumin 2.2 L 3.5-5.0 g/dL Diagnostics / Radiology: [Copy/Paste Echos/Imaging Report here] Impression and Plan: [ Problems: 1. Acute systolic congestive heart failure 2. Ischemic cardiomyopathy with ejection fraction of 20-25% 3. CAD status post aortocoronary bypass graft surgery 2009 with a RODRIGUES graft to the LAD saphenous graft to the diagonal artery and saphenous graft to the PDA 4. Atrial fibrillation with rapid ventricular response on admission status post failed cardioversion on admission now converted to sinus rhythm on amiodarone. 5. Dyslipidemia 6. Tobacco dependence 7. Remote lacunar infarct 2009 8. Carotid artery disease status post right carotid endarterectomy 2010 and subsequent left carotid endarterectomy 2018 9. Hypothyroidism 10. Acute on hronic kidney disease stage 4 11. Thrombocytopenia #. CAD status post aortocoronary bypass graft surgery 2009 with a RODRIGUES graft to the LAD saphenous graft to the diagonal artery and saphenous graft to the PDA -lexiscan 11/03 with inferior fixed defect consistent with myocardial scar - creatinine down to 1.9. GFR has improved to 37. -c/w asa 81 mg qd, statin #Atrial fibrillation with rapid ventricular response on admission status post failed cardioversion on admission now converted to sinus rhythm on amiodarone 200 mg bid -c/w eliquis 5 mg bid # Ischemic cardiomyopathy with ejection fraction of 20-25% -midodrine and lasix I will sign off, He may follow up with Dr Jimenez one week after discharge. Eufemia Mayo MD ] EUFEMIA MAYO MD Nov 04, 2024 09:25
--- NOTE | 2024-11-04 11:04 | PN ---
[facility] PROGRESS NOTE Date Patient Seen: Nov 04, 2024 Time of Visit: 11:02 Supervising Physician: Dr Bae Primary Care Physician: Dr. Jeffrey Neil Outpatient Specialists: Dr. Jimenez, rotoprinter Inpatient Consults: Critical Care team [facility] PROBLEM LIST: Acute on chronic Hypoxic resp failure POA (Uses o2 at home 2L PRN) Cardiogenic shock, SCAI stage C, POA requiring pressors Acute on Chronic combined Heart Failure with LVEF of 20-25% and GLS -7.0% Suspected moderate pulmonary HTN w/ RVSP 48.0 mmHg Acute cystitis Enterococcus Avium, POA Atrial fibrillation with RVR on amiodarone [id number] Score 4/ HAS-BLED Score 3 Elevated D- Dimer, BLE US negative for DVT Carotid artery disease Chronic kidney disease Simple renal Cyst 3.1 x 3.3 x 3.4 cm CAD s/p 3V CABG ( RODRGIUES-LAD, SVG-D, 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 Nursing reports no acute events overnight. Patient is sitting comfortably in bed. No chest pain, no shortness of breath Alert and oriented x4 Vital signs are stable Patient afebrile Sinus rhythm Status post Cardiolite stress test yesterday, pending results Plan: Follow cardiology recs, rate controlled, pending Cardiolite stress test Completed antibiotics, Amiodarone, Eliquis, midodrine Tele Card diet REVIEW OF SYSTEMS: Const: no fever, fatigue, or weight changes Eyes: no recent vision problems ENT: No congestion, ear pain, or sore throat C/V: no chest pain, palpitations or edema Resp:+dry cough, no congestion, wheezing , or Shortness of breath] GI: No abdominal pain, nausea, vomiting, constipation, or diarrhea : No incontinence of or dyuria M/S: No joint or pain swelling + ankle swelling Skin: No rash Neuro: no headache, focal numbness, or weakness, dizziness or seizures Psych: no depression or anxiety Heme: no abnormal bruising or bleeding Lymph: no swollen glands PHYSICAL EXAM: GENERAL: Alert, weak, awake oriented x 3 HEENT: EOMI, Sclera non icteric, moist mucosa NECK: Supple, no JVD, trachea midline LUNGS: Diminished breath sounds bilaterally. No wheezes HEART: Regular rate and rhythm. Normal S1 and S2, without murmurs ABD: Abdomen soft, nontender. Bowel sounds present EXT: No clubbing cyanosis or edema NEURO: Alert and oriented to X3, follows commands Vital Signs (last 8hr) Date Time Temp Pulse Resp B/P (MAP) Pulse Ox O2 Delivery O2 Flow Rate FiO2 11/04/24 08:11 97.9 60 16 125/62 100 Room Air 11/04/24 07:06 60 18 11/04/24 07:05 60 18 N/A Room Air 21 11/04/24 04:21 97.9 56 18 115/55 96 Room Air LABS: Hematology Labs: Test 11/03/24 04:35 Range/Units White Blood Count 6.6 4.8-10.8 K/uL Red Blood Count 3.19 L 4.50-6.20 MIL/uL Hemoglobin 10.0 L 14.0-18.0 g/dL Hematocrit 30.3 L 42-54 % Mean Corpuscular Volume 95.0 79-99 fL Mean Corpuscular Hemoglobin 31.3 27.0-33.0 pg Mean Corpuscular Hemoglobin Concent 33.0 32.0-36.0 g/dL Red Cell Distribution Width 13.2 11.0-15.5 % Platelet Count 114 L 130-400 K/uL Mean Platelet Volume 10.1 7.5-10.5 fL Immature Granulocyte % (Auto) 0.6 0-1 % Neutrophils (%) (Auto) 58.2 40.0-77.0 % Lymphocytes (%) (Auto) 33.1 21.0-51.0 % Monocytes (%) (Auto) 8.1 3.0-13.0 % Eosinophils (%) (Auto) 0.0 0.0-8.0 % Basophils (%) (Auto) 0.0 0.0-5.0 % Neutrophils # (Auto) 3.9 1.8-7.7 K/uL Lymphocytes # (Auto) 2.2 1.0-4.8 K/uL Monocytes # (Auto) 0.5 0.1-1.0 K/uL Eosinophils # (Auto) 0.00 0.00-0.70 K/uL Basophils # (Auto) 0.00 0.00-0.20 K/uL Absolute Immature Granulocyte (auto 0.04 0-1 K/uL Nucleated Red Blood Cells 0.0 0.0-0.19 % Chemistry Labs: Test 11/04/24 04:15 11/03/24 04:35 Range/Units Sodium Level 137 136-145 mmol/L Potassium Level 3.3 L 3.5-5.1 mmol/L Chloride Level 102 101-111 mmol/L Carbon Dioxide Level 29 21-32 mmol/L Blood Urea Nitrogen 39 H 7-18 mg/dL Creatinine 1.9 H 0.5-1.3 mg/dL Glomerular Filtration Rate Calc 37 >90 mL/min Random Glucose 115 H 70-105 mg/dL Total Calcium 8.7 8.5-10.1 mg/dL Magnesium Level 2.00 1.80-2.40 mg/dL Total Bilirubin 0.5 0.2-1.0 mg/dL Aspartate Amino Transf (AST/SGOT) 43 H 10-37 U/L Alanine Aminotransferase (ALT/SGPT) 38 12-78 U/L Alkaline Phosphatase 95 50-136 U/L Total Protein 6.0 6.0-8.3 g/dL Albumin 2.2 L 3.5-5.0 g/dL DIAGNOSTICS / RADIOLOGY RESULTS: [ ] PLAN NEURO: Minimize central acting medications as possible. Maintain fall precautions, adequate lighting during the day PULMONARY: Supplemental 02 as needed. Maintain aspiration precautions at all times CARDIOVASCULAR: Follow hemodynamics. Vital signs per facility protocol GI & NUTRITION: Continue with nutritional support. Continue stool softeners and laxatives as needed. KIDNEYS & ELECTROLYTES: Strict monitoring of intake, output and overall fluid balance. Avoid nephrotoxic medications to the extent possible. Medications to be dosed according to renal function. Monitor electrolytes and replace as needed ENDOCRINE: Maintain blood glucose between 100-180 at all times. Hypoglycemia protocol in place INFECTIOUS DISEASE: Trend temperature, WBC and procalcitonin level Follow cultures, deescalate antibiotics as soon as possible. Panculture if new onset fever ONCOLOGY/HEMATOLOGY/COAGULATION: Monitor for s/s of bleeding Monitor hemoglobin, coagulation studies as needed SKIN: Pressure ulcer prevention per facility protocol Specialty mattress ORTHO/REHAB: Continue PT/OT Prophylaxis: Continue GI and DVT prophylaxis Code Status: Full Resuscitation Disposition: TBD Other: Total patient care time exceeds 35 minutes excluding all procedures. ZAC SANTANA Nov 04, 2024 11:04
--- NOTE | 2024-11-04 11:33 | DS ---
Discharge Summary Hospital Course Summary: 10/26 74-year-old male, history of coronary artery disease, dyslipidemia, hypertension, tobacco dependence, remote lacunar infarct, carotid artery disease, hypothyroidism, presented with a chief complaint of generalized body weakness and shortness a breath, in the emergency room found to have AFib with a RVR, heart rate in with the 140s, hypotensive, cardioverted electrically x1, did not restore sinus rhythm, patient admitted to the ICU. At the time of my visit awake, following commands, on heparin drip, Levophed, amiodarone drip, dobutamine drip, echocardiogram showing ejection fraction 20- 25%. Cardiology input noted and appreciated, the patient will require an ischemic evaluation prior to discharge. 10/27/24 patient remains in ICU. Patient appears chronically ill fragile and weak. Denied chest pain. Patient is being followed by weight clerk's continues on dopamine drip. The plan is to stabilize medically weaned off pressors they we will consider Lexiscan. 10/28/24 the patient was evaluated in ICU room 215. He is alert oriented x3. patient is being evaluated by physical therapist during rounds. He denies any chest pain. Patient was evaluated by weight clerk plan is for Lexiscan and Cardiolite stress test before discharge. Patient continues to be on phenylephrine drip. 10/29/24 Patient was evaluated in ICU, room 215. Continues to deny any chest pain. Dobutamine has been discontinued. Patient was started on Eliquis 5 mg PO BID; amiodarone 400 mg PO BID is ongoing. BNP is uptrending, currently 2110. Furosemide 20 mg IV daily initiated. Continue Solu-Cortef 50 mg IV every 6 hours. Labs reviewed; potassium remains low at 2.8 mmol/L today. Will continue with potassium replacement protocol. Plans for Lexiscan and Cardiolite stress tests pre-discharge remain in place; will follow up with cardiology regarding scheduling. 10/30/24 patient remains on Perez-Synephrine the plan is to taper off as tolerated once blood pressure is stable weight clerk's we will consider Cardiolite stress test prior to discharge. Patient is fully awake alert oriented x3 denied chest pain or shortness for breath 10/31/24 APPRECIATE HOISTER'S INPUT THE PLAN IS TO DISCONTINUE PEREZ-SYNEPHRINE AND MONITOR BLOOD PRESSURE. IF BLOOD PRESSURE REMAINED STABLE OFF OF PRESSORS THE NEXT24 HOURS POSSIBLE HOISTER[facility]S WAS SCHEDULED FOR A CARDIOLITE STRESS TEST. Patient watching TV. Denied chest pain or shortness for breath. 11/01/24 patient was seen earlier patient continues on a low dose of Perez- Synephrine primary nurse reports patient was off for2 hours and became bradycardia. Patient continues to work with physical therapy out of bed to chair as tolerated yesterday he tolerating 6 hours. Patient have no other complaints. 11/02/2024. Patient is sitting in chair having lunch off of Perez-Synephrine weight clerk's schedule patient for Cardiolite stress test. Patient denied chest pain, dizziness or palpitations. 11/03/24 patient returned back from Cardiolite stress test results are pending. Blood pressure heart rate in the 60s currently running 04/18/2029 systolic he remains sinus rhythm he continues on amiodarone. Patient is not a candidate for left heart catheterization given to kidney failure. As per Dr. Jimenez patient will be treated medically for the time being and have a elective procedure if needed in the future once his kidneys approved Lexiscan: Fixed inferior defect consistent with prior myocardial infarction and scar. LVEF 39%. TID 1.07. 11/04/2024 patient is fully awake alert oriented x3 he is hemodynamically stable patient will be discharged home cleared by weight clerk's. Patient to follow-up with [facility] in one[facility]week. Patient has new medications Lasix, amiodarone, Eliquis. Patient completed his IV: Zosyn IV antibiotics. Given to patient [facility] over the [facility]. [facility] pharmacy provided one days supply of medication to hold him until Wednesday. Patient denied chest pain short of breath. Patient will continue with fluid restrictions as directed by weight clerk's. Patient was advised on smoking cessation., fall precautions while on Eliquis. Procedure(s): REASON: CHF ORDERING PHYSICIAN: ZAC JIMENEZ MD PROCEDURE: CARD GISSELLE - NM LEXISCAN CARDIOLITE APPROVED REPORT Height: 5 ft 5in Weight: 162 lbs TEST INDICATIONS CHF The imaging protocol used to acquire images was Rest Tc-99m/stress Tc-99m 1 day Consent: The procedure was explained and understood by the patient. Informerd consent was witnessed by Nathan Blanco RN First, low dose rest was performed then high dose stress. RESTING DATA: The resting ekg shows: NSR Rest SPECT myocardial perfusion imaging was performed in supine position minutes following the intravenous injection of 11 mCi of Tc-99 Sestamibi. Time of rest injection: 06:26: Date: 11/03/2024 PHARMACOLOGIC STRESS: Pharmacologic stress test was performed by injecting regadenoson 0.4 mg IV push followed by the intravenous injection of 28 mCi of Tc-99 Sestamibi. Time of stress injection: 08:25: Date: 11/03/2024 Heart Rate at time of stress injection: 66 bpm. Gated Stress SPECT was performed 60 minutes after stress injection. The images were gated to evaluate regional wall motion and calculate left ventricular ejection fraction. STRESS DETAILS Reason for Termination: Infusion complete Stress Symptoms: Dyspnea Max HR Achieved: 90 bpm % of APMHR Achieved: 72 Max Blood Pressure: 147/64 mmHg Stress ECG: NSR, PVCs Study quality was good. Lung uptake was Normal. Artifact: No artifact IMPRESSION Abnormal pharmacologic nuclear stress test. Conclusion Fixed inferior defect consistent with prior myocardial infarction and scar. LVEF 39%. TID 1.07. REASON: r/o DVT ORDERING PHYSICIAN: KRISTI IRIZARRY PROCEDURE: VENOUS TODD - US VENOUS DOPPLER BILATERAL EXAMINATION: SPECTRAL DOPPLER ULTRASOUND EXAMINATION OF THE BILATERAL LOWER EXTREMITY VEINS. CLINICAL HISTORY: To rule out DVT. COMPARISON: None provided. TECHNIQUE: Real-time ultrasound scan of the veins of the bilateral lower extremity with color Doppler flow, spectral waveform analysis and compression. FINDINGS: DEEP VEINS: The common femoral, superficial femoral, and popliteal veins are echolucent and compressible. There is normal color Doppler flow throughout. The visualized calf veins appear patent. SUPERFICIAL VEINS: The greater saphenous veins are patent and compressible. SOFT TISSUES: No popliteal fossa cyst or other abnormalities. IMPRESSION: No deep venous thrombosis evident in the bilateral lower extremity. No superficial thrombophlebitis in the bilateral lower extremity. REASON: hypoxic resp failure ORDERING PHYSICIAN: KRISTI IRIZARRY PROCEDURE: CXR1VW - CHEST 1VW EXAM: CR Chest, 1 View. CLINICAL HISTORY: hypoxic resp failure COMPARISON: None provided. FINDINGS: LUNGS: No active infiltrate PLEURAL SPACES: No pleural effusion or pneumothorax. MEDIASTINUM: Prominent cardiac silhouette BONES: No acute osseous abnormality. IMPRESSION: 1. Prominent cardiac silhouette 2. 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 Jimenez one-week Renal clinic one week with DR Lewis PROCEDURES: Stress test IMAGING (S) report attached to summary :echo, chest xray, venous doppler MICROBIOLOGY: report attached to summary; ACTIVITY: Ad von as tolerated HOME MEDICATIONS CHANGES ON HOME MEDICATIONS Clopidogrel Bisulfate (Clopidogrel) 75 Mg Tablet Losartan Potassium 50 Mg Tablet NEW MEDICATIONS see below; pharmacy provided medications for one day supply thereafter the patient will follow up with [facility] TEACHING: Smoking cessation, fall precautions while on Eliquis side effects and adverse reactions of new medication. Emergency instructions: The patient was instructed to present to the nearest Emergency Department or call 911 should their symptoms return or worsen. Discharge Instructions: REASON: afib rvr, hypotension ORDERING PHYSICIAN: ELIZABETH RG DO PROCEDURE: ECHO CMP - ECHO 2-D COMPLETE APPROVED REPORT EXAM: Two-dimensional and M-mode echocardiogram with Doppler and color Doppler. INDICATION ICD: Atrial fibrillation with rapid ventricular response 2D Dimensions RVDd 4.4 cm LVEF(%) 19.1 (>50%) LA ESV INDEX (BP) 45.80 mL/m2 IVSd 0.4 (0.7-1.1cm) FS(%) 9 % LVDd 5.4 (3.8-5.6cm) Ao Root(2D) 2.5 (2.0-3.7cm) PWd 0.5 (0.7-1.1cm) LVOT diam 2.2 (1.8-2.4cm) IVSs 0.5 cm IVC diam 2.4 cm LVDs 4.9 (2.5-4.0cm) PWs 0.7 cm Deformation Strain Apical 4 -7.1 % Apical 2 -7.2 % Apical 3 -6.2 % Global Strain -6.8 % M-Mode Dimensions EPSS 1.9 cm LA (MM) 5.8 (1.6-4.0cm) Ao Root(MM) 2.8 (2.0-3.7cm) Aortic Valve AoV Vmax 0.8 m/s Ao Peak GR 2.6 mmHg LVOT Vmax 0.5 m/s AoV VTI 0.1 m Ao Mean GR 1.6 mmHg LVOT VTI 0.09 m MONTSE (VMAX) 2.48 cm2 MONTSE (VTI) 2.6 cm2 Mitral Valve MV E Vmax 115.3 cm/s DECEL Time 156 ms P 1/2 T 29 ms MVA (PHT) 7.6 cm2 TDI E/E' Medial 22.6 E/E' Lateral 29.1 Medial E' Peak V 5.11 cm/s Lateral E' Peak V 3.96 cm/s Tricuspid Valve TR Vmax 2.9 m/s RAP (EST) 15 mmHg RVSP 48.0 mmHg TR Peak GR 33.0 mmHg Left Ventricle The left ventricle is borderline dilated. Severely reduced GLS -7.0% There is left ventricular wall thinning. LVEF is 20-25%. The LV diastolic function was unable to be assessed due to atrial arrhythmia but diastolic function is abnormal. Right Ventricle The right ventricle is mildly dilated. Right ventricular systolic function is moderately reduced. Atria The left atrium is moderately dilated. The right atrium is moderately dilated. Aortic Valve The aortic valve is normal in structure. No aortic regurgitation is present. There is no aortic valvular stenosis. Mitral Valve The mitral valve is normal in structure. There is moderate mitral valve regurgitation noted. There is no mitral valve stenosis. Tricuspid Valve The tricuspid valve is normal in structure. RVSP 48.0mmHg. There is mild to moderate tricuspid regurgitation. Pulmonic Valve The pulmonary valve is normal in structure. There is no pulmonic valvular regurgitation. Great Vessels The aortic root is normal in size. IVC is dilated and collapses <50% with inspiration. Pericardium There is no pericardial effusion. Other Information Quality : Technically difficult study due to body habitus Conclusion The left ventricle is borderline dilated. LVEF is 20-25%. The LV diastolic function was unable to be assessed due to atrial arrhythmia but diastolic function is abnormal. Severely reduced GLS -7.0% There is moderate mitral valve regurgitation noted. There is moderate mitral valve regurgitation noted. RVSP 48.0mmHg. There is mild to moderate tricuspid regurgitation. DICTATED BY: ZAC JIMENEZ MD DATE: 10/25/241822 Home Medications: Active Scripts Nitrofurantoin Macrocrystal (Nitrofurantoin) 100 Mg Capsule, 1 CAP PO BID for 5 Days, #10 CAP 0 Refills Prov:KORY COELLO NP 11/03/24 [miDODRine HCL 5 MG TABLET] 5 MG TABLET No Conflict Check, 10 MG PO TID for 30 Days, #90 TAB 0 Refills Prov:KORY COELLO NP 11/03/24 Furosemide (Lasix 20Mg Tab) 20 Mg Tablet, 20 MG PO DAILY for 30 Days, #30 TAB Prov:KORY COELLO NP 11/03/24 Apixaban (Eliquis) 5 Mg Tablet, 5 MG PO BID for 30 Days, #60 TAB Prov:KORY COELLO NP 11/03/24 Amiodarone HCl (Pacerone) 200 Mg Tablet, 200 MG PO BID for 30 Days, #60 TAB Prov:KORY COELLO NP 11/03/24 Tamsulosin HCl (Flomax) 0.4 Mg Cap.er.24h, 0.4 MG PO DAILY for 30 Days, #30 CAPSULE. Prov:AINSLEY CARSON MD 09/27/20 Reported Medications Albuterol Sulfate (Ventolin Hfa) 90 Mcg Hfa.aer.ad, 2 PUFF IH Q4HPRN PRN for wheezing for 30 Days, #18 GM 0 Refills 10/25/24 Tiotropium [place] (Spiriva) 18 Mcg Cap.w.dev, 2 INH IH DAILY for 30 Days, #30 CAP 0 Refills 10/25/24 Tiotropium [place] (Spiriva) 18 Mcg Cap.w.dev, 1 CAP IH DAILY for 30 Days, #30 CAP 0 Refills 7/30/25 Pantoprazole Sodium (Pantoprazole Sodium) 40 Mg Tablet.dr, 1 TAB PO DAILY for 30 Days, #30 TAB 0 Refills 10/25/24 Rosuvastatin Calcium (Rosuvastatin Calcium) 10 Mg Tablet, 20 MG PO HS, TAB 10/25/24 Aspirin (ASPIRIN 81 MG ECTAB) 81 Mg Ectab, 81 MG PO DAILY, TAB.EC 09/24/20 Levothyroxine Sodium (Levothyroxine) 75 Mcg Capsule, 75 MCG PO DAILY, CAP 09/24/20 Cyanocobalamin (Vitamin B-12) 1,000 Mcg/Ml Inj, 1000 MCG PO DAILY, ML 09/24/20 Metoprolol Succinate (Metoprolol Succinate) 50 Mg Tab.er.24h, 50 MG PO BID, TAB 09/24/20 Discontinued Reported Medications Clopidogrel Bisulfate (Clopidogrel) 75 Mg Tablet, 75 MG PO DAILY, TAB 10/25/24 Losartan Potassium (Losartan Potassium) 50 Mg Tablet, 1 TAB PO DAILY for 30 Days, #30 TAB 0 Refills 10/25/24 New Medications: Nitrofurantoin Macrocrystal (Nitrofurantoin) 100 Mg Capsule 1 CAP PO BID for 5 Days, #10 CAP 0 Refills Amiodarone HCl (Pacerone) 200 Mg Tablet 200 MG PO BID for 30 Days, #60 TAB Apixaban (Eliquis) 5 Mg Tablet 5 MG PO BID for 30 Days, #60 TAB Furosemide (Lasix 20Mg Tab) 20 Mg Tablet 20 MG PO DAILY for 30 Days, #30 TAB [miDODRine HCL 5 MG TABLET] () 5 MG TABLET 10 MG PO TID for 30 Days, #90 TAB 0 Refills Continued Medications: Albuterol Sulfate (Ventolin Hfa) 90 Mcg Hfa.aer.ad 2 PUFF IH Q4HPRN PRN for wheezing for 30 Days, #18 GM 0 Refills Aspirin (Aspirin 81 Mg Ectab) 81 Mg Ectab 81 MG PO DAILY, TAB.EC Cyanocobalamin (Vitamin B-12) 1,000 Mcg/Ml Inj 1000 MCG PO DAILY, ML Levothyroxine Sodium (Levothyroxine) 75 Mcg Capsule 75 MCG PO DAILY, CAP Pantoprazole Sodium (Pantoprazole Sodium) 40 Mg Tablet.dr 1 TAB PO DAILY for 30 Days, #30 TAB 0 Refills Rosuvastatin Calcium (Rosuvastatin Calcium) 10 Mg Tablet 20 MG PO HS, TAB Tamsulosin HCl (Flomax) 0.4 Mg Cap.er.24h 0.4 MG PO DAILY for 30 Days, #30 CAPSULE.DR Tiotropium [place] (Spiriva) 18 Mcg Cap.w.dev 1 CAP IH DAILY for 30 Days, #30 CAP 0 Refills Tiotropium [place] (Spiriva) 18 Mcg Cap.w.dev 2 INH IH DAILY for 30 Days, #30 CAP 0 Refills Discontinued Medications: Clopidogrel Bisulfate (Clopidogrel) 75 Mg Tablet 75 MG PO DAILY, TAB Losartan Potassium (Losartan Potassium) 50 Mg Tablet 1 TAB PO DAILY for 30 Days, #30 TAB 0 Refills Time spent arranging discharge: 31-60 minutes KORY COELLO NP Nov 04, 2024 11:33
--- NOTE | 2024-11-04 12:52 | NUR ---
DISCHARGE HOME PICC LINE REMOVED AND PRESSURE APPLIED. PICC LINE TIP INTACT AND TOLERATED WELL. TELEPAK REMOVED AND ID BANDS. DISCHARGE INSTRUCTIONS GIVEN AND EXPLAINED TO PATIENT AND FAMILY. MEDICATIONS SENT TO [facility], ENOUGH WERE PROVIDED FOR THE WEEKEND BY [facility]. PATIENT WHEELED DOWN TO PRIVATE CAR.
--- NOTE | 2024-11-04 16:14 | PN ---
FOLLOWUP PROGRESS NOTE SUBJECTIVE: A 74-year-old male with a history of known coronary artery disease. The patient initially admitted, found to have significant hypotension. The patient has become much more hemodynamically stable. The patient's creatinine continues to slowly improve and the patient is being seen as a followup visit for all of the above. REVIEW OF SYSTEMS: GENERAL: He is feeling improved. HEENT: No change in vision. No change in hearing. CARDIOVASCULAR: There is no current chest pain or palpitations. PULMONARY: He denies any shortness of breath. GASTROINTESTINAL: The patient is tolerating a diet. MUSCULOSKELETAL: Complains of weakness. OBJECTIVE: VITAL SIGNS: Blood pressure 125/62, pulse 60s, afebrile. GENERAL: Chronically ill male, elderly, lying in bed on the medical floor. HEENT: Head is atraumatic. Pupils are equal, roving to light. Oropharynx is without exudate. Nares are clear. NECK: There is no JVP. There is no thyromegaly, no mass. CARDIOVASCULAR: Regular. There is no S3, S4 gallop. LUNGS: Coarse with equal thoracic movement. ABDOMEN: Soft, nondistended, nontender. EXTREMITIES: Reveal no clubbing, no cyanosis. NEUROLOGICAL: He is awake, he is alert. LABORATORY DATA: Hemoglobin 10, hematocrit 30. Sodium 137, potassium 3.3, BUN 39, creatinine 1.9. IMPRESSION: * Acute renal failure. * Coronary artery disease. * Hypotension. * History of anemia. PLAN: The patient's creatinine is much improved. The patient has become much more hemodynamically stable. He remains on the midodrine. The patient is anxious for discharge to home. Electrolytes have all been aggressively repleted. Once the patient is discharged, the patient can follow up in the Renal Clinic. TID: [id number] RECEIPT: [id number]
== END 2024-11-04 13:10 | disposition home or self-care (01) | DRG 291 ==
LOC: EDH 14:25 → EDHIP 18:14 → 2CH 21:40 → 2AH 11-02 16:27
PROVIDERS: ADMIT Internal Medicine; ATTEND Internal Medicine
PROC: 02HV33Z Insertion of Infusion Device into Superior Vena Cava, Percutaneous Approach (ICD-10-PCS; 2024-10-26)
PROC: 4A02XM4 Measurement of Cardiac Total Activity, External Approach (ICD-10-PCS; principal; 2024-11-03)
PROC: 3E073KZ Introduction of Other Diagnostic Substance into Coronary Artery, Percutaneous Approach (ICD-10-PCS; 2024-11-03)
DX: I13.0 Hypertensive heart and chronic kidney disease with heart failure and stage 1 through stage 4 chronic kidney disease, or unspecified chronic kidney disease (principal); I50.43 Acute on chronic combined systolic (congestive) and diastolic (congestive) heart failure; R57.0 Cardiogenic shock; J96.21 Acute and chronic respiratory failure with hypoxia; E87.20 Acidosis, unspecified; N17.9 Acute kidney failure, unspecified; N18.4 Chronic kidney disease, stage 4 (severe); N30.00 Acute cystitis without hematuria; E03.9 Hypothyroidism, unspecified; E78.00 Pure hypercholesterolemia, unspecified; E83.42 Hypomagnesemia; I25.10 Atherosclerotic heart disease of native coronary artery without angina pectoris; Z20.822 Contact with and (suspected) exposure to COVID-19; B95.2 Enterococcus as the cause of diseases classified elsewhere; D64.9 Anemia, unspecified; D69.6 Thrombocytopenia, unspecified; F17.210 Nicotine dependence, cigarettes, uncomplicated; I08.1 Rheumatic disorders of both mitral and tricuspid valves; I27.20 Pulmonary hypertension, unspecified; I42.9 Cardiomyopathy, unspecified; I48.0 Paroxysmal atrial fibrillation; J44.9 Chronic obstructive pulmonary disease, unspecified; N28.1 Cyst of kidney, acquired; R62.7 Adult failure to thrive; Z68.27 Body mass index [BMI] 27.0-27.9, adult; I25.2 Old myocardial infarction; Z51.5 Encounter for palliative care; Z95.5 Presence of coronary angioplasty implant and graft; Z95.1 Presence of aortocoronary bypass graft; Z86.73 Personal history of transient ischemic attack (TIA), and cerebral infarction without residual deficits; Z79.899 Other long term (current) drug therapy; Z79.82 Long term (current) use of aspirin; Z79.01 Long term (current) use of anticoagulants; Z71.6 Tobacco abuse counseling
CPT/HCPCS: 36415; 36569; 71045; 76770; 78452; 80048; 80053; 81001; 82010; 82435; 82533; 82570; 82803; 82947; 82948; 83540; 83550; 83605; 83735; 83880; 83935; 84100; 84132; 84145; 84295; 84300; 84443; 84484; 85018; 85025; 85027; 85378; 85610; 85730; 87040; 87086; 87186; 87426; 87804; 93005; 93017; 93306; 93356; 93970; 94640; 94664; 94668; 99291; A9500; C1894; G0378; J0282; J0696; J1250; J1644; J1720; J1756; J1938; J2250; J2371; J2405; J2470; J2543; J2785; J3010; J3475; J3480; J3490; J7030; J7050; J7060; C1751; J0283